=== PATIENT | male | born 1960 | race Hispanic/Latino ===

== ENCOUNTER 2016-10-28 13:25 | Inpatient (IN) | payer MEDICARE ==
[2016-10-28] MEDS ORDERED: DILAUDID ONE (13:46)
[2016-10-28] MEDS ORDERED: DILAUDID IV ONE ×2 (13:51→15:08)
[2016-10-28 14:26] LABS: Basophils % (Auto) 0.7 % (0.0-1.8); Eosinophils % (Auto) 5.3 % (0.0-4.3); Hematocrit 34.5 % (35.5-45.6); Hemoglobin 11.2 gm/dl (11.8-15.2); Mean Corpuscular HGB Conc 33 % (32-34); Mean Corpuscular Hemoglobin 27 pg (28-32); Mean Corpuscular Volume 83 fl (84-94); Platelet Count 104 K/mm3 (140-440); Red Blood Count 4.15 M/mm3 (3.65-5.03); Red Cell Distribution Width 13.4 % (13.2-15.2); White Blood Count 12.1 K/mm3 (4.5-11.0)
[2016-10-28] MEDS ORDERED: NACL 0.9% 1000 ML 1,000 ML ONE (14:29)
[2016-10-28] MEDS ORDERED: NACL 0.9% 1000 ML 1,000 ML IV ONE (14:30)
[2016-10-28 14:41] LABS: BUN/Creatinine Ratio 16.95; Calcium 8.7 mg/dL (8.4-10.2); Chloride 96.1 mmol/L (98-107); Potassium 5.4 mmol/L (3.6-5.0)
--- NOTE | 2016-10-28 14:43 | Emergency Department Report ---
HPI - General Chief Complaint: Fall Time Seen by Provider: 10/28/16 14:37 - HPI HPI: Chief complaint: Right hip pain HPI: Patient is [id number] diabetic with a history of hypertension and some "heart problem" who is noncompliant with his medications. Patient states he was walking to the bathroom and felt lightheaded and fell onto his right hip and is now having severe right hip pain. Patient denies being ill with nausea, vomiting, diarrhea, chest pain, cough or cold. Patient is hard of hearing in his right ear Mode of arrival: [EMS] Source: [Patient] and patient's Began: Occurred prior to admission Duration: Continuous Context: See above Quality: Sharp Severity: 9 out of 10 Improved with: Holding still Worsened with: Movement Associated signs and symptoms: Right hip pain ED Past Medical Hx - Past Medical History Previous Medical History?: Yes Hx Hypertension: Yes Hx Diabetes: Yes Additional medical history: cataracts - Surgical History Past Surgical History?: Yes Additional Surgical History: colon surgery - Social History Smoking Status: Never Smoker Substance Use Type: None - Medications Home Medications: Home Medications Medication Instructions Recorded Confirmed Last Taken Type glipiZIDE [glipiZIDE XL] 1 mg PO QDAY 09/13/14 10/28/16 Unknown History Carvedilol [Coreg] 12.5 mg PO BID #60 tablet 09/14/14 10/28/16 Unknown Rx Furosemide [Lasix] 20 mg PO DAILY #30 09/14/14 10/28/16 Unknown Rx Glimepiride [Amaryl] 1 mg PO QDDIAB #30 tablet 09/14/14 10/28/16 Unknown Rx ED Review of Systems ROS: Stated complaint: FELL AND NOW HAS HIP PAIN Other details as noted in HPI ROS Constitutional: No fever denies polydipsia but states he drinks a lot of water ENT: No uri symptoms Cardiovascular: No chest pain Respiratory: No sob or cough GI: No nausea vomiting or diarrhea : No dysuria frequency or urgency, denies polyuria Skin: No rash Neuro: No focal weakness or numbness Psych: No depression Josr/lymph: No edema Physical Exam - Physical Exam Vital Signs: Vital Signs 10/28/16 10/28/16 13:41 13:59 Temperature 97.6 F Pulse Rate 83 Respiratory 16 16 Rate Blood Pressure 152/85 O2 Sat by Pulse 95 99 Oximetry Physical Exam: GENERAL: The patient is well-developed well-nourished . Patient has an extremely flat affect. Patient is unkempt. HEENT: Normocephalic. Atraumatic. Extraocular motions are intact. Patient has moist mucous membranes. NECK: Supple. No meningitic signs are noted. There is no adenopathy noted. CHEST/LUNGS: Clear to auscultation. There is no respiratory distress noted. HEART/CARDIOVASCULAR: Regular. There is no tachycardia. There is no gallop rub or murmur. ABDOMEN: Abdomen is soft, nontender. Patient has normal bowel sounds. There is no abdominal distention. SKIN: There is no rash. There is no edema. There is no diaphoresis. NEURO: The patient is awake, alert, and oriented. The patient is cooperative. The patient has normal speech. MUSCULOSKELETAL: Tender right hip with decreased range of motion secondary to pain. Neurovascular intact. ED Course Vital Signs 10/28/16 10/28/16 13:41 13:59 Temperature 97.6 F Pulse Rate 83 Respiratory 16 16 Rate Blood Pressure 152/85 O2 Sat by Pulse 95 99 Oximetry - Reevaluation(s) Reevaluation #1: 10/28/16 14:[address] Pedersen who will see the patient in consult in the hospital. ED Medical Decision Making - Lab Data Result diagrams: 10/28/16 14:13 10/28/16 14:13 Laboratory Tests 10/28/16 14:13 Calcium 8.7 - EKG Data -: EKG Interpreted by Mo EKG shows normal: sinus rhythm Rate: normal (92) - EKG Data When compared to previous EKG there are: no significant change Interpretation: other (incomplete right bundle branch block, left anterior fascicular block) - Radiology Data interpreted by me: Chest x-ray shows no acute process. Right hip x-ray shows a nondisplaced right intertrochanteric fracture. Critical care attestation.: If time is entered above; I have spent that time in minutes in the direct care of this critically ill patient, excluding procedure time. ED Disposition Clinical Impression: CKD (chronic kidney disease), Hyperglycemia Fracture, intertrochanteric, right femur Qualifiers: Encounter type: initial encounter Fracture type: closed Qualified Code(s): S72.141A - Displaced intertrochanteric fracture of right femur, initial encounter for closed fracture Disposition: OP ADMITTED IP TO THIS HOSP Is pt being admited?: Yes Does the pt Need Aspirin: Yes Condition: Fair Time of Disposition: 15:13 (admit to the hospitalist)
[2016-10-28] MEDS ORDERED: NACL 0.9% 1000 ML IV ONE (14:45)
--- NOTE | 2016-10-28 14:57 | XRay Report ---
RIGHT HIP, 2 VIEWS History: Pain after fall. Findings: Subtle nondisplaced fracture lines are identified through the intertrochanteric region of the right femur. No calcified callus. The visualized right hemipelvis is intact. Normal articulation at the right hip. Mild osteopenia is suspected. Impression: Intertrochanteric fracture at the right hip.
[2016-10-28] MEDS ORDERED: ASPIRIN PO ONE (15:17)
--- NOTE | 2016-10-28 15:17 | XRay Report ---
CHEST ONE VIEW INDICATION: Fall, pain, dizziness. COMPARISON: 02/28/2010. FINDINGS: Portable, frontal chest radiographs, 2 images, demonstrate normal cardiomediastinal silhouette. Patient mildly rotated to the left. Improved bibasilar densities, though probable pleural thickening blunting the left costophrenic angle now remains. Otherwise clear lungs. Osteopenia. CONCLUSION: No acute disease in the chest. Thank you for the opportunity to participate in this patient's care.
[2016-10-28] MEDS ORDERED: DULCOLAX PR PRN (15:40)
[2016-10-28] MEDS ORDERED: TYLENOL PO PRN (15:40)
[2016-10-28] MEDS ORDERED: PROVENTIL IH PRN (15:40)
[2016-10-28] MEDS ORDERED: MILK OF MAGNESIA PO PRN (15:40)
[2016-10-28] MEDS ORDERED: D50W (25GM) IV PRN (15:43)
--- NOTE | 2016-10-28 15:43 | Admit Criteria Form ---
Admission Criteria Documentation: MUSCULOSKELETAL DISEASE GRG Clinical Indications for Admission to Inpatient Care (Place 'X' for any and all applicable criteria): Hospital admission is needed for appropriate care of the patient because of ANY ONE of the following: [X ]I. Fracture, dislocation, or other musculoskeletal injury requiring inpatient care(medical) as indicated by ANY ONE of the following(4)(5)(6)(7) [ ]a) Vertebral fracture requiring observation for instability or neurologic compromise (8) [ ]b) Compartment syndrome (proven or cannot be ruled out during observation level of care) (9) [ ]c) Limb-threatening injury [X ]d) Major injury requiring inpatient stabilization such as traction initiation or external fixation before internal fixation or closure of complex or open fracture [ ]e) Major injury requiring inpatient treatment after emergency or observation level care (as appropriate) [ ]f) Severe pain requiring acute inpatient management [ ]II. Newly diagnosed or suspected bone, joint, or orthopedic device infection (e.g., osteomyelitis, septic arthritis) needing ANY ONE of the following(1)(2)(3) [ ]a) IV antibiotics that cannot be initiated in other than inpatient setting (e.g., patient too unstable or home infusion not available) [ ]b) Device removal or replacement [ ]c) Bone or soft tissue debridement [ ]d) Joint drainage (drain placement or repetitive aspirations) [ ]III. Severe rheumatologic disease (e.g., systemic lupus erythematosus, rheumatoid arthritis) with complications or comorbidities (Also use Optimal Recovery Care Criteria or General Recovery Criteria as appropriate on the basis of predominant condition), including ANY ONE of the following(10 )(11)(12)(13) [ ]a) Severe infection (e.g., [employer] infection, sepsis) (14) [ ]b) Respiratory complications, including ANY ONE of the following: [ ]i) Pleural effusion with respiratory compromise [ ]ii) Pulmonary hypertension with congestive failure [ ]iii) Respiratory failure [ ]iv) Pulmonary hemorrhage (15) [ ]c) Hematologic disease, including ANY ONE of the following: [ ]i) Coagulopathy with bleeding [ ]ii) Thrombosis with hypercoagulable state [ ]iii) Thrombotic thrombocytopenic purpura [ ]d) Cerebritis with seizures, psychosis, or other severe abnormalities [ ]e) Vertebral destruction with monitoring needed for cervical myelopathy& possible respiratory compromise [ ]f) Exacerbation that requires inpatient treatment (e.g., intravenous immunosuppression) (16) [ ]g) Acute renal failure [ ]IV. Severe vasculitis with complications or comorbidities (Also use Optimal Recovery Care Criteria or General Recovery Criteria as appropriate on the basis of predominant condition), including ANY ONE of the following(11)(12)(17)(18)(19)(20) [ ]a) [employer] vasculitis with seizures, psychosis, or other severe abnormalities (22) [ ]b) Renal failure (16) [ ]c) Pulmonary hemorrhage (15) [ ]d) Cerebral infarction [ ]e) Gastrointestinal ischemia [ ]f) Gangrene or threatened amputation [ ]g) Exacerbation that requires inpatient treatment (e.g., intravenous immunosuppression) (19)(21) [ ]V. Severe myopathy as indicated by ANY ONE of the following (28)(29) [ ]a) New onset of airway compromise or inability to swallow [ ]b) Respiratory deterioration with observation needed for impending respiratory failure [ ]c) Exacerbation that requires inpatient treatment (e.g., intravenous immunosuppression) [ ]. Severe gout (crystal arthropathy) as indicated by ANY ONE of the following (23)(24) [ ]a) Severe pain requiring acute inpatient management [ ]b) Exacerbation that requires inpatient treatment (e.g., intravenous treatment) [ ]VII.Rhabdomyolysis and ANY ONE of the following (25)(26)(27) [ ]a) Acute renal failure [ ]b) Need for intravenous hydration after emergency or observation level care (as appropriate) [ ]c) Inability to maintain oral hydration [ ]d) Change in mental status [ ]e) Electrolyte abnormality that remains after emergency or observation level care (as appropriate) [ ]VIII Post amputation complication, as indicated by ANY ONE of the following [ ]a) Infection [ ]b) Dehiscence [ ]c) Myodesis failure [ ]IX. Severe pain requiring acute inpatient management as indicated by ALL of the following (30)(31)(32) [ ]a) Continuous or frequent (e.g., every 2 to 4 hrs) parenteral analgesics required [A] [ ]b) Rapid improvement expected from treatment or acute intervention ( e.g., surgery, anesthesia procedure[B] [ ]X. Musculoskeletal Disease and ALL of the following: [ ]a) Symptom or finding for which emergency and observation care have failed or are not considered appropriate (Use General Criteria: Observation Care as appropriate) [ ]b) Presence of ANY ONE of the following [ ]i) A General Admission Criteria [ ]ii) A Pediatric General Admission Criteria The original [facility] content created by [facility] has been revised. The portions of the content which have been revised are identified through the use of italic text or in bold, and [facility] has neither reviewed nor approved the modified material. All other unmodified content is copyright [facility]. Please see references footnoted in the original [facility] edition 2016 Admission Criteria Met: Yes
[2016-10-28] MEDS ORDERED: NACL 0.9% 1000 ML 1,000 ML IV SCH (16:00)
[2016-10-28 17:19] LABS: Bilirubin,Urine NEG (Negative); Blood,Urine SM (Negative); Ketones,Urine NEG (Negative); Leukocyte Esterase,Urine NEG (Negative); Mucus,Urine FEW /HPF; Nitrite,Urine NEG (Negative); Protein,Urine <15 mg/dL mg/dL (Negative); Urobilinogen,Urine < 2.0 mg/dL (<2.0); WBC,Urine < 1.0 /HPF (0.0-6.0)
[2016-10-28] MEDS: NOVOLOG SUB-Q SCH ×2 (17:22→23:55)
[2016-10-28 17:32] LABS: INR 1.02 (0.87-1.13)
--- NOTE | 2016-10-28 19:26 | History and Physical Report ---
History of Present Illness Date of examination: 10/28/16 Date of admission: 10/28/16 15:40 Chief complaint: hip fracture History of present illness: Patient is a 55 year old male with hx of DM, HTN, hyperlipidemia, diabetic retinopathy, who presents to the ER with following a trip and fall off. He tells the ER physician that he fell while walking into the bathroom and felt lightheaded and fell onto his right hip began having severe pain. But he told me that he had plugged and his phone wire and turned around and tripped on the wire. On arrival to the ER was noted to have a right intratrochanteric fracture. He denies any fever. Denies any nausea, vomiting, diarrhea. Denies any chest pain or shortness of breath. Denies any dysuria or urinary incontinence. At this point he rates his pain as 5/10 in intensity. It is aggravated by movement. I'll alleviated by being still. The ER physician has gone ahead to consult the orthopedic surgeon. In the ER was also noted to have a significantly elevated blood sugar. ROS Constitutional: No fever, fatigue or weight loss. Skin: No rash. Eyes: No recent vision problems or eye pain. ENT: No congestion, ear pain, or sore throat. Endocrine: No thyroid problems. Cardiovascular: No chest pain. Respiratory: No cough, shortness of breath, congestion, or wheezing. Gastrointestinal: No abdominal pain, nausea, vomiting, or diarrhea. Genitourinary: No dysuria. Musculoskeletal: Right hip pain. Neurologic: No seizures. Hematologic: No unusual bruising or bleeding. Psychiatric: No psychiatric problems, hallucinations or depression. All other systems reviewed and otherwise negative. Past History Past Medical History: diabetes, hypertension, hyperlipidemia, other (diabetic retinopathy) Past Surgical History: No surgical history Social history: , full code. denies: smoking, alcohol abuse, prescription drug abuse, IV drug use Family history: CAD, diabetes, hypertension, stroke Medications and Allergies Allergies Allergy/AdvReac Type Severity Reaction Status Date / Time No Known Allergies Allergy Verified 08/09/16 19:04 Home Medications Medication Instructions Recorded Confirmed Last Taken Type glipiZIDE [glipiZIDE XL] 1 mg PO QDAY 09/13/14 10/28/16 Unknown History Carvedilol [Coreg] 12.5 mg PO BID #60 tablet 09/14/14 10/28/16 Unknown Rx Furosemide [Lasix] 20 mg PO DAILY #30 09/14/14 10/28/16 Unknown Rx Glimepiride [Amaryl] 1 mg PO QDDIAB #30 tablet 09/14/14 10/28/16 Unknown Rx Active Meds: Active Medications Acetaminophen (Tylenol) 650 mg PO Q4H PRN PRN Reason: Pain MILD(1-3)/Fever >100.5/MANCINI Albuterol (Proventil) 2.5 mg IH Q3HRT PRN PRN Reason: Shortness Of Breath Albuterol/Ipratropium (Duoneb 0.5 Mg-3 Mg/3 Ml Soln) 1 ampul IH Q6HRT AAYUSH Bisacodyl (Dulcolax) 10 mg [place] QDAY PRN PRN Reason: Constipation unrelieved by MOM Carvedilol (Coreg) 12.5 mg PO BID AAYUSH Dextrose (D50w (25gm)) 50 ml IV PRN PRN PRN Reason: Hypoglycemia Docusate Sodium (Colace) 100 mg PO BID AAYUSH Furosemide (Lasix) 20 mg PO DAILY AAYUSH Heparin Sodium (Porcine) (Heparin) 5,000 unit SUB-Q Q12HR AAYUSH Sodium Chloride (Nacl 0.9% 1000 Ml) 1,000 mls @ 125 mls/hr IV DIRECT AAYUSH Stop: 10/28/16 20:00 Insulin Aspart (Novolog) 0 units SUB-Q ACHS AAYUSH PRN Reason: Protocol Last Admin: 10/28/16 17:22 Dose: 8 units Insulin Detemir (Levemir) 30 units SUB-Q QHS AAYUSH Magnesium Hydroxide (Milk Of Magnesia) 30 ml PO Q4H PRN PRN Reason: Constipation Morphine Sulfate (Morphine) 2 mg IV Q4H PRN PRN Reason: Pain, Moderate (4-6) Ondansetron HCl (Zofran) 4 mg IV Q8H PRN PRN Reason: N/V unrelieved by Reglan Exam - Physical Exam Narrative exam: VITAL SIGNS: Reviewed. GENERAL: The patient appeared well nourished and normally developed. Vital signs as documented. HEAD: No signs of head trauma. EYES: Pupils are equal. Extraocular motions intact. EARS: Hearing grossly intact. MOUTH: Oropharynx is normal. NECK: No adenopathy, no JVD. CHEST: Chest with clear breath sounds bilaterally. No wheezes, rales, or rhonchi. CARDIAC: Regular rate and rhythm. S1 and S2, without murmurs, gallops, or rubs. VASCULAR: No Edema. Peripheral pulses normal and equal in all extremities. ABDOMEN: Soft, without detectable tenderness. No sign of distention. No rebound or guarding, and no masses palpated. Bowel Sounds normal. MUSCULOSKELETAL: Right lower extremity shortened external rotated. Tenderness of the right hip. Extremities without clubbing, cyanosis or edema. NEUROLOGIC EXAM: Alert and oriented x 3. No focal sensory or strength deficits. Speech normal. Follows commands. PSYCHIATRIC: Mood normal. SKIN: Dry mucous membranes - Constitutional Vitals: Temp Pulse Resp BP Pulse Ox 98.8 F 108 H 18 114/69 95 10/28/16 18:08 10/28/16 18:08 10/28/16 18:08 10/28/16 18:08 10/28/16 18:08 Results - Labs CBC & Chem 7: 10/28/16 14:13 10/28/16 14:13 Labs: Laboratory Last Values WBC 12.1 K/mm3 (4.5-11.0) H 10/28/16 14:13 RBC 4.15 M/mm3 (3.65-5.03) 10/28/16 14:13 Hgb 11.2 gm/dl (11.8-15.2) L 10/28/16 14:13 Hct 34.5 % (35.5-45.6) L 10/28/16 14:13 MCV 83 fl (84-94) L 10/28/16 14:13 MCH 27 pg (28-32) L 10/28/16 14:13 MCHC 33 % (32-34) 10/28/16 14:13 RDW 13.4 % (13.2-15.2) 10/28/16 14:13 Plt Count 104 K/mm3 (140-440) L 10/28/16 14:13 Lymph % (Auto) 13.5 % (13.4-35.0) 10/28/16 14:13 Perkins % (Auto) 5.1 % (0.0-7.3) 10/28/16 14:13 Eos % (Auto) 5.3 % (0.0-4.3) H 10/28/16 14:13 Baso % (Auto) 0.7 % (0.0-1.8) 10/28/16 14:13 Lymph # 1.6 K/mm3 (1.2-5.4) 10/28/16 14:13 Perkins # 0.6 K/mm3 (0.0-0.8) 10/28/16 14:13 Eos # 0.6 K/mm3 (0.0-0.4) H 10/28/16 14:13 Baso # 0.1 K/mm3 (0.0-0.1) 10/28/16 14:13 Seg Neutrophils % 75.4 % (40.0-70.0) H 10/28/16 14:13 Seg Neutrophils # 9.1 K/mm3 (1.8-7.7) H 10/28/16 14:13 PT 13.3 Sec. (12.2-14.9) 10/28/16 16:09 INR 1.02 (0.87-1.13) 10/28/16 16:09 VBG pH 7.308 (7.320-7.420) L 10/28/16 14:58 Sodium 132 mmol/L (137-145) L 10/28/16 14:13 Potassium 5.4 mmol/L (3.6-5.0) H 10/28/16 14:13 Chloride 96.1 mmol/L (98-107) L 10/28/16 14:13 Carbon Dioxide 23 mmol/L (22-30) 10/28/16 14:13 Anion Gap 18 mmol/L 10/28/16 14:13 BUN 39 mg/dL (9-20) H 10/28/16 14:13 Creatinine 2.3 mg/dL (0.8-1.5) H 10/28/16 14:13 Estimated GFR 30 ml/min 10/28/16 14:13 BUN/Creatinine Ratio 16.95 % 10/28/16 14:13 Glucose 462 mg/dL (75-100) H 10/28/16 14:13 POC Glucose 350 (70-105) H 10/28/16 17:16 Hemoglobin A1c 14.8 % (4-6) H 10/28/16 16:09 Calcium 8.7 mg/dL (8.4-10.2) 10/28/16 14:13 Urine Color Yellow (Yellow) 10/28/16 16:31 Urine Turbidity Clear (Clear) 10/28/16 16:31 Urine pH 5.0 (5.0-7.0) 10/28/16 16:31 Ur Specific Dawson 1.017 (1.003-1.030) 10/28/16 16:31 Urine Protein <15 mg/dl mg/dL (Negative) 10/28/16 16:31 Urine Glucose (UA) >=500 mg/dL (Negative) 10/28/16 16:31 Urine Ketones Neg mg/dL (Negative) 10/28/16 16:31 Urine Blood Sm (Negative) 10/28/16 16:31 Urine Nitrite Neg (Negative) 10/28/16 16:31 Urine Bilirubin Neg (Negative) 10/28/16 16:31 Urine Urobilinogen < 2.0 mg/dL (<2.0) 10/28/16 16:31 Ur Leukocyte Esterase Neg (Negative) 10/28/16 16:31 Urine WBC (Auto) < 1.0 /HPF (0.0-6.0) 10/28/16 16:31 Urine RBC (Auto) 1.0 /HPF (0.0-6.0) 10/28/16 16:31 Urine Mucus Few /HPF 10/28/16 16:31 Ketones 5.0 mg/dL (0.2-2.8) H 10/28/16 14:58 - Imaging and Cardiology Chest x-ray: image reviewed (no acute pathology) Imaging and Cardiology: Hip x-ray shows intertrochanteric right hip fracture Assessment and Plan Assessment and plan: Patient is a 55 year old male with hx of DM, HTN, hyperlipidemia, diabetic retinopathy, who presents to the ER with following a trip and fall off. He tells the ER physician that he fell while walking into the bathroom and felt lightheaded and fell onto his right hip began having severe pain. But he told me that he had plugged and his phone wire and turned around and tripped on the wire. On arrival to the ER was noted to have a right intratrochanteric fracture. He denies any fever. Denies any nausea, vomiting, diarrhea. Denies any chest pain or shortness of breath. Denies any dysuria or urinary incontinence. At this point he rates his pain as 5/10 in intensity. It is aggravated by movement. Only elevated by being still The ER physician has gone ahead to consult the orthopedic surgeon. In the ER was also noted to have a significantly elevated blood sugar. * Right hip intratrochanteric fracture * HTN * Hyperlipidemia * Leukocytosis * Hyperkalemia * Uncontrolled diabetes mellitus * Chronic kidney disease-stage 3. Present of admission * Anemia * Thrombocytopenia PLAN * Admit to surgical floor * Consult orthopedic surgeon * Patient received Kayexalate in the ER will repeat potassium management * Restart home medications * Monitor electrolytes * We'll start the patient on insulin therapy * Monitor Accu-Cheks before meals daily at bedtime * If no improvement in blood glucose will require adjustment in therapy. * Incentive spirometry * DVT and GI prophylaxis Advance Directives: Yes Plan of care discussed with patient/family: Yes
[2016-10-28] MEDS: DUONEB 0.5 MG-3 MG/3 ML SOLN IH SCH (21:09)
[2016-10-28] MEDS: COREG PO SCH (23:00)
[2016-10-28] MEDS: LEVEMIR SUB-Q SCH (23:05)
[2016-10-28] MEDS: COLACE PO SCH (23:40)
[2016-10-28] MEDS: HEPARIN SUB-Q SCH (23:55)
[2016-10-29] MEDS: MORPHINE IV PRN ×4 (01:00→20:55)
[2016-10-29] MEDS: DUONEB 0.5 MG-3 MG/3 ML SOLN IH SCH ×4 (02:35→19:33)
[2016-10-29 05:46] LABS: Basophils % (Auto) 0.4 % (0.0-1.8); Eosinophils % (Auto) 0.4 % (0.0-4.3); Hematocrit 30.1 % (35.5-45.6); Hemoglobin 10.1 gm/dl (11.8-15.2); Mean Corpuscular HGB Conc 34 % (32-34); Mean Corpuscular Hemoglobin 28 pg (28-32); Mean Corpuscular Volume 82 fl (84-94); Red Blood Count 3.66 M/mm3 (3.65-5.03); Red Cell Distribution Width 13.3 % (13.2-15.2); White Blood Count 11.5 K/mm3 (4.5-11.0)
[2016-10-29 05:50] LABS: Platelet Count 86 K/mm3 (140-440)
[2016-10-29 06:04] LABS: BUN/Creatinine Ratio 16.81; Calcium 8.1 mg/dL (8.4-10.2); Chloride 100.8 mmol/L (98-107); Potassium 4.6 mmol/L (3.6-5.0)
[2016-10-29] MEDS: NOVOLOG SUB-Q SCH ×3 (08:28→22:50)
--- NOTE | 2016-10-29 08:37 | Query- Diabetes Complications ---
Jun Jefferson Date:__10/29/2016 Automation Tender/CDS:__Matt Hammond Phone#: Exercise your independent professional judgment when responding to query. Questions asked do not imply a particular answer is desired or expected. We greatly appreciate your clarification on this issue. Clinical Documentation States: The patient is a [id number] Male who was admitted due to Right Intertrochanteric Fracture. "significantly elevated blood sugar"; "Uncontrolled diabetes mellitus" (DARIEL Melchor in H&P on 10/28/2016). Blood Glucose 462 mg/dl Ketones 5.0 mg/dl Urine Glucose 500 mg/dl Clinical Findings Show: Serum: Glucose;_462 , BUN;_39 , Creatinine;__2.3 ,Ketones;__5.0___ _ Na+; , K+;__5.4___ Plasma Osmolality; Lactase; ABG: PO2; , PCO2; , HCO3; , SaO2; ,Base Excess; , Anion Gap; , pH; Urine: Ketones; , Protein; , Glucose;_500 Please clarify if this is: [x ] Diabetes with Hyperosmolarity [ ] Diabetic Ketoacidosis (DKA) [ ] Not applicable [ ] Other (Please specify): Please specify type as: [ ] Type I or Juvenile [ ] Out of control [ ] Inadequately controlled [ ] Poorly controlled [x ] Type II [ ] Out of control [ ] Inadequately controlled [x ] Poorly controlled Present on Admission: [ x] Yes (Y) [ ] Clinically undeterminable (W) [ ] No (N) Please also document response in your Progress Notes and/or Discharge Summary and indicate if the condition was present on admission. MTDD
--- NOTE | 2016-10-29 09:35 | Consultation ---
History of Present Illness - HPI Consult date: 10/29/16 Consult reason: fracture Past History Past Medical History: diabetes, hypertension, hyperlipidemia, other (diabetic retinopathy) Past Surgical History: No surgical history Social history: , full code. denies: smoking, alcohol abuse, prescription drug abuse, IV drug use Family history: CAD, diabetes, hypertension, stroke Medications and Allergies Allergies Allergy/AdvReac Type Severity Reaction Status Date / Time No Known Allergies Allergy Verified 08/09/16 19:04 Home Medications Medication Instructions Recorded Confirmed Last Taken Type glipiZIDE [glipiZIDE XL] 1 mg PO QDAY 09/13/14 10/28/16 Unknown History Carvedilol [Coreg] 12.5 mg PO BID #60 tablet 09/14/14 10/28/16 Unknown Rx Furosemide [Lasix] 20 mg PO DAILY #30 09/14/14 10/28/16 Unknown Rx Glimepiride [Amaryl] 1 mg PO QDDIAB #30 tablet 09/14/14 10/28/16 Unknown Rx Active Meds: Active Medications Acetaminophen (Tylenol) 650 mg PO Q4H PRN PRN Reason: Pain MILD(1-3)/Fever >100.5/MANCINI Last Admin: 10/29/16 04:46 Dose: 650 mg Albuterol (Proventil) 2.5 mg IH Q3HRT PRN PRN Reason: Shortness Of Breath Albuterol/Ipratropium (Duoneb 0.5 Mg-3 Mg/3 Ml Soln) 1 ampul IH TIDRT AAYUSH Bisacodyl (Dulcolax) 10 mg [place] QDAY PRN PRN Reason: Constipation unrelieved by MOM Carvedilol (Coreg) 12.5 mg PO BID [facility] Last Admin: 10/28/16 23:00 Dose: Not Given Dextrose (D50w (25gm)) 50 ml IV PRN PRN PRN Reason: Hypoglycemia Docusate Sodium (Colace) 100 mg PO BID [facility] Last Admin: 10/28/16 23:40 Dose: 100 mg Furosemide (Lasix) 20 mg PO DAILY [facility] Heparin Sodium (Porcine) (Heparin) 5,000 unit SUB-Q Q12HR [facility] Last Admin: 10/28/16 23:55 Dose: 5,000 unit Insulin Aspart (Novolog) 0 units SUB-Q ACHS [facility] PRN Reason: Protocol Last Admin: 10/29/16 08:28 Dose: 3 units Insulin Detemir (Levemir) 30 units SUB-Q QHS [facility] Last Admin: 10/28/16 23:05 Dose: Not Given Magnesium Hydroxide (Milk Of Magnesia) 30 ml PO Q4H PRN PRN Reason: Constipation Morphine Sulfate (Morphine) 2 mg IV Q4H PRN PRN Reason: Pain, Moderate (4-6) Last Admin: 10/29/16 08:28 Dose: 2 mg Ondansetron HCl (Zofran) 4 mg IV Q8H PRN PRN Reason: N/V unrelieved by Reglan Assessment and Plan 55 year old male with hx of DM, HTN, hyperlipidemia, diabetic retinopathy, who presents to the ER with following a trip and fall off. On arrival to the ER was noted to have a right intratrochanteric fracture. Uncontrolled AoDM and renal disease. Alert orientated, Chest clear, soft abdomen'Right leg externally rotated Rx Intertrochanteric right hip fracture Plan ORIF in Am if medically stable.
[2016-10-29] MEDS: HEPARIN SUB-Q SCH ×2 (10:00→22:18)
[2016-10-29] MEDS: COLACE PO SCH ×2 (10:00→21:00)
[2016-10-29] MEDS: COREG PO SCH (10:00)
[2016-10-29] MEDS ORDERED: LASIX PO SCH (10:00)
[2016-10-29] MEDS: LASIX PO SCH (10:00)
--- NOTE | 2016-10-29 14:53 | Progress Note ---
Assessment and Plan Assessment and plan: Patient is a 55 year old male with hx of DM, HTN, hyperlipidemia, diabetic retinopathy, who presents to the ER with following a trip and fall off. He tells the ER physician that he fell while walking into the bathroom and felt lightheaded and fell onto his right hip began having severe pain. But he told me that he had plugged and his phone wire and turned around and tripped on the wire. On arrival to the ER was noted to have a right intratrochanteric fracture. He denies any fever. Denies any nausea, vomiting, diarrhea. Denies any chest pain or shortness of breath. Denies any dysuria or urinary incontinence. At this point he rates his pain as 5/10 in intensity. It is aggravated by movement. Only elevated by being still The ER physician has gone ahead to consult the orthopedic surgeon. In the ER was also noted to have a significantly elevated blood sugar. * Right hip intratrochanteric fracture * HTN * Hyperlipidemia * Leukocytosis-Improving * Hyperkalemia- corrected * Uncontrolled diabetes mellitus- now improved * Chronic kidney disease-stage 3. Present of admission * Anemia * Thrombocytopenia PLAN * Patient medically stable to proceed to surgery is deemed low risk for adverse cardiovascular events from the surgery. Ok to proceed with orthopedic surgery * Orthopedic surgeon input appreciated * Patient received Kayexalate in the ER * Restart home medications * Monitor electrolytes * Awaiting A1c. Blood glucose improved. * Monitor Accu-Cheks before meals daily at bedtime * If no improvement in blood glucose will require adjustment in therapy. * Incentive spirometry * DVT and GI prophylaxis * History Interval history: Follow-up Right hip fracture Patient seen and examined this morning in mild pain of the right hip area. Denies any chest pain, nausea, vomiting, diarrhea No fever noted blood pressure controlled No adverse events reported to me by nursing staff Hospitalist Physical - Physical exam Narrative exam: VITAL SIGNS: Reviewed. GENERAL: The patient appeared well nourished and normally developed. Vital signs as documented. HEAD: No signs of head trauma. EYES: Pupils are equal. Extraocular motions intact. EARS: Hearing grossly intact. MOUTH: Oropharynx is normal. NECK: No adenopathy, no JVD. CHEST: Chest with clear breath sounds bilaterally. No wheezes, rales, or rhonchi. CARDIAC: Regular rate and rhythm. S1 and S2, without murmurs, gallops, or rubs. VASCULAR: No Edema. Peripheral pulses normal and equal in all extremities. ABDOMEN: Soft, without detectable tenderness. No sign of distention. No rebound or guarding, and no masses palpated. Bowel Sounds normal. MUSCULOSKELETAL: Right lower extremity shortened external rotated. Tenderness of the right hip. Extremities without clubbing, cyanosis or edema. NEUROLOGIC EXAM: Alert and oriented x 3. No focal sensory or strength deficits. Speech normal. Follows commands. PSYCHIATRIC: Mood normal. SKIN: Dry mucous membranes - Constitutional Vitals: Temp Pulse Resp BP Pulse Ox 98.4 F 96 H 16 135/86 98 10/29/16 12:00 10/29/16 12:00 10/29/16 12:00 10/29/16 12:00 10/29/16 12:00 Results - Labs CBC & Chem 7: 10/29/16 05:24 10/29/16 05:24 Labs: Laboratory Last Values WBC 11.5 K/mm3 (4.5-11.0) H 10/29/16 05:24 RBC 3.66 M/mm3 (3.65-5.03) 10/29/16 05:24 Hgb 10.1 gm/dl (11.8-15.2) L 10/29/16 05:24 Hct 30.1 % (35.5-45.6) L 10/29/16 05:24 MCV 82 fl (84-94) L 10/29/16 05:24 MCH 28 pg (28-32) 10/29/16 05:24 MCHC 34 % (32-34) 10/29/16 05:24 RDW 13.3 % (13.2-15.2) 10/29/16 05:24 Plt Count 86 K/mm3 (140-440) L 10/29/16 05:24 Lymph % (Auto) 8.0 % (13.4-35.0) L 10/29/16 05:24 [place] % (Auto) 9.2 % (0.0-7.3) H 10/29/16 05:24 Eos % (Auto) 0.4 % (0.0-4.3) 10/29/16 05:24 Baso % (Auto) 0.4 % (0.0-1.8) 10/29/16 05:24 Lymph # 0.9 K/mm3 (1.2-5.4) L 10/29/16 05:24 [place] # 1.1 K/mm3 (0.0-0.8) H 10/29/16 05:24 Eos # 0.0 K/mm3 (0.0-0.4) 10/29/16 05:24 Baso # 0.0 K/mm3 (0.0-0.1) 10/29/16 05:24 Seg Neutrophils % 82.0 % (40.0-70.0) H 10/29/16 05:24 Seg Neutrophils # 9.5 K/mm3 (1.8-7.7) H 10/29/16 05:24 PT 13.3 Sec. (12.2-14.9) 10/28/16 16:09 INR 1.02 (0.87-1.13) 10/28/16 16:09 VBG pH 7.308 (7.320-7.420) L 10/28/16 14:58 Sodium 135 mmol/L (137-145) L 10/29/16 05:24 Potassium 4.6 mmol/L (3.6-5.0) 10/29/16 05:24 Chloride 100.8 mmol/L (98-107) 10/29/16 05:24 Carbon Dioxide 21 mmol/L (22-30) L 10/29/16 05:24 Anion Gap 18 mmol/L 10/29/16 05:24 BUN 37 mg/dL (9-20) H 10/29/16 05:24 Creatinine 2.2 mg/dL (0.8-1.5) H 10/29/16 05:24 Estimated GFR 31 ml/min 10/29/16 05:24 BUN/Creatinine Ratio 16.81 % 10/29/16 05:24 Glucose 155 mg/dL (75-100) H 10/29/16 05:24 POC Glucose 157 (70-105) H 10/29/16 10:54 Hemoglobin A1c 14.8 % (4-6) H 10/28/16 16:09 Calcium 8.1 mg/dL (8.4-10.2) L 10/29/16 05:24 Urine Color Yellow (Yellow) 10/28/16 16:31 Urine Turbidity Clear (Clear) 10/28/16 16:31 Urine pH 5.0 (5.0-7.0) 10/28/16 16:31 Ur Specific [place] 1.017 (1.003-1.030) 10/28/16 16:31 Urine Protein <15 mg/dl mg/dL (Negative) 10/28/16 16:31 Urine Glucose (UA) >=500 mg/dL (Negative) 10/28/16 16:31 Urine Ketones Neg mg/dL (Negative) 10/28/16 16:31 Urine Blood Sm (Negative) 10/28/16 16:31 Urine Nitrite Neg (Negative) 10/28/16 16:31 Urine Bilirubin Neg (Negative) 10/28/16 16:31 Urine Urobilinogen < 2.0 mg/dL (<2.0) 10/28/16 16:31 Ur Leukocyte Esterase Neg (Negative) 10/28/16 16:31 Urine WBC (Auto) < 1.0 /HPF (0.0-6.0) 10/28/16 16:31 Urine RBC (Auto) 1.0 /HPF (0.0-6.0) 10/28/16 16:31 Urine Mucus Few /HPF 10/28/16 16:31 Ketones 5.0 mg/dL (0.2-2.8) H 10/28/16 14:58
[2016-10-29] MEDS: LEVEMIR SUB-Q SCH (23:05)
[2016-10-30] MEDS: COREG PO SCH ×3 (03:31→22:19)
[2016-10-30] MEDS: MORPHINE IV PRN ×2 (04:15→08:13)
[2016-10-30 06:33] LABS: Hematocrit 33.1 % (35.5-45.6); Hemoglobin 10.9 gm/dl (11.8-15.2); Mean Corpuscular HGB Conc 33 % (32-34); Mean Corpuscular Hemoglobin 27 pg (28-32); Mean Corpuscular Volume 82 fl (84-94); Red Blood Count 4.02 M/mm3 (3.65-5.03); Red Cell Distribution Width 13.4 % (13.2-15.2); White Blood Count 9.6 K/mm3 (4.5-11.0)
[2016-10-30 06:37] LABS: Platelet Count 87 K/mm3 (140-440)
[2016-10-30 06:51] LABS: BUN/Creatinine Ratio 15.83; Calcium 8.6 mg/dL (8.4-10.2); Potassium 4.8 mmol/L (3.6-5.0)
[2016-10-30] MEDS: NOVOLOG SUB-Q SCH ×4 (08:41→23:47)
[2016-10-30] MEDS: COLACE PO SCH ×2 (10:47→22:18)
[2016-10-30] MEDS: LASIX PO SCH (10:47)
[2016-10-30] MEDS: HEPARIN SUB-Q SCH ×2 (10:48→22:18)
[2016-10-30] MEDS ORDERED: NACL 0.9% 1000 ML 1,000 ML ONE (11:47)
[2016-10-30] MEDS ORDERED: ANCEF/STERILE WATER 2 GM/20 ML IV NR (12:00)
[2016-10-30] MEDS ORDERED: SUBLIMAZE ONE (12:10)
[2016-10-30] MEDS ORDERED: DIPRIVAN 10 MG/ML IV ONE (12:10)
[2016-10-30] MEDS ORDERED: DILAUDID ONE ×2 (12:10→13:54)
[2016-10-30] MEDS ORDERED: QUELICIN ONE (12:17)
[2016-10-30] MEDS ORDERED: ZOFRAN ONE (12:17)
[2016-10-30] MEDS ORDERED: ZEMURON IV ONE (12:17)
[2016-10-30] MEDS ORDERED: ANCEF/STERILE WATER 2 GM/20 ML IV ONE (12:19)
--- NOTE | 2016-10-30 12:40 | Progress Note ---
Assessment and Plan Assessment and plan: Patient is a 55 year old male with hx of DM, HTN, hyperlipidemia, diabetic retinopathy, who presents to the ER with following a trip and fall off. He tells the ER physician that he fell while walking into the bathroom and felt lightheaded and fell onto his right hip began having severe pain. But he told me that he had plugged and his phone wire and turned around and tripped on the wire. On arrival to the ER was noted to have a right intratrochanteric fracture. He denies any fever. Denies any nausea, vomiting, diarrhea. Denies any chest pain or shortness of breath. Denies any dysuria or urinary incontinence. At this point he rates his pain as 5/10 in intensity. It is aggravated by movement. Only elevated by being still The ER physician has gone ahead to consult the orthopedic surgeon. In the ER was also noted to have a significantly elevated blood sugar. * Right hip intratrochanteric fracture * HTN * Hyperlipidemia * Leukocytosis-Improving * Hyperkalemia- corrected * Uncontrolled diabetes mellitus- now improved * Chronic kidney disease-stage 3. Present of admission * Anemia * Thrombocytopenia PLAN * Patient medically stable to proceed to surgery is deemed low risk for adverse cardiovascular events from the surgery. Ok to proceed with orthopedic surgery * Orthopedic surgeon input appreciated * Patient received Kayexalate in the ER * Restart home medications * Monitor electrolytes * Awaiting A1c. Blood glucose improved. * Monitor Accu-Cheks before meals daily at bedtime * If no improvement in blood glucose will require adjustment in therapy. * Incentive spirometry * DVT and GI prophylaxis * History Interval history: Follow-up Right hip fracture Patient seen and examined this morning in mild pain of the right hip area. Denies any chest pain, nausea, vomiting, diarrhea No fever noted blood pressure controlled No adverse events reported to me by nursing staff Hospitalist Physical - Physical exam Narrative exam: VITAL SIGNS: Reviewed. GENERAL: The patient appeared well nourished and normally developed. Vital signs as documented. HEAD: No signs of head trauma. EYES: Pupils are equal. Extraocular motions intact. EARS: Hearing grossly intact. MOUTH: Oropharynx is normal. NECK: No adenopathy, no JVD. CHEST: Chest with clear breath sounds bilaterally. No wheezes, rales, or rhonchi. CARDIAC: Regular rate and rhythm. S1 and S2, without murmurs, gallops, or rubs. VASCULAR: No Edema. Peripheral pulses normal and equal in all extremities. ABDOMEN: Soft, without detectable tenderness. No sign of distention. No rebound or guarding, and no masses palpated. Bowel Sounds normal. MUSCULOSKELETAL: Right lower extremity shortened external rotated. Tenderness of the right hip. Extremities without clubbing, cyanosis or edema. NEUROLOGIC EXAM: Alert and oriented x 3. No focal sensory or strength deficits. Speech normal. Follows commands. PSYCHIATRIC: Mood normal. SKIN: Dry mucous membranes - Constitutional Vitals: Temp Pulse Resp BP Pulse Ox 98.0 F 99 H 16 148/83 95 10/30/16 11:15 10/30/16 11:15 10/30/16 11:15 10/30/16 11:15 10/30/16 11:15 Results - Labs CBC & Chem 7: 10/30/16 05:51 10/30/16 05:51 Labs: Laboratory Last Values WBC 9.6 K/mm3 (4.5-11.0) 10/30/16 05:51 RBC 4.02 M/mm3 (3.65-5.03) 10/30/16 05:51 Hgb 10.9 gm/dl (11.8-15.2) L 10/30/16 05:51 Hct 33.1 % (35.5-45.6) L 10/30/16 05:51 MCV 82 fl (84-94) L 10/30/16 05:51 MCH 27 pg (28-32) L 10/30/16 05:51 MCHC 33 % (32-34) 10/30/16 05:51 RDW 13.4 % (13.2-15.2) 10/30/16 05:51 Plt Count 87 K/mm3 (140-440) L 10/30/16 05:51 Lymph % (Auto) 8.0 % (13.4-35.0) L 10/29/16 05:24 [place] % (Auto) 9.2 % (0.0-7.3) H 10/29/16 05:24 Eos % (Auto) 0.4 % (0.0-4.3) 10/29/16 05:24 Baso % (Auto) 0.4 % (0.0-1.8) 10/29/16 05:24 Lymph # 0.9 K/mm3 (1.2-5.4) L 10/29/16 05:24 [place] # 1.1 K/mm3 (0.0-0.8) H 10/29/16 05:24 Eos # 0.0 K/mm3 (0.0-0.4) 10/29/16 05:24 Baso # 0.0 K/mm3 (0.0-0.1) 10/29/16 05:24 Seg Neutrophils % 82.0 % (40.0-70.0) H 10/29/16 05:24 Seg Neutrophils # 9.5 K/mm3 (1.8-7.7) H 10/29/16 05:24 PT 13.3 Sec. (12.2-14.9) 10/28/16 16:09 INR 1.02 (0.87-1.13) 10/28/16 16:09 VBG pH 7.308 (7.320-7.420) L 10/28/16 14:58 Sodium 134 mmol/L (137-145) L 10/30/16 05:51 Potassium 4.8 mmol/L (3.6-5.0) 10/30/16 05:51 Chloride 98.0 mmol/L (98-107) 10/30/16 05:51 Carbon Dioxide 21 mmol/L (22-30) L 10/30/16 05:51 Anion Gap 20 mmol/L 10/30/16 05:51 BUN 38 mg/dL (9-20) H 10/30/16 05:51 Creatinine 2.4 mg/dL (0.8-1.5) H 10/30/16 05:51 Estimated GFR 28 ml/min 10/30/16 05:51 BUN/Creatinine Ratio 15.83 % 10/30/16 05:51 Glucose 170 mg/dL (75-100) H 10/30/16 05:51 POC Glucose 179 (70-105) H 10/30/16 11:39 Hemoglobin A1c 14.8 % (4-6) H 10/28/16 16:09 Calcium 8.6 mg/dL (8.4-10.2) 10/30/16 05:51 Urine Color Yellow (Yellow) 10/28/16 16:31 Urine Turbidity Clear (Clear) 10/28/16 16:31 Urine pH 5.0 (5.0-7.0) 10/28/16 16:31 Ur Specific [place] 1.017 (1.003-1.030) 10/28/16 16:31 Urine Protein <15 mg/dl mg/dL (Negative) 10/28/16 16:31 Urine Glucose (UA) >=500 mg/dL (Negative) 10/28/16 16:31 Urine Ketones Neg mg/dL (Negative) 10/28/16 16:31 Urine Blood Sm (Negative) 10/28/16 16:31 Urine Nitrite Neg (Negative) 10/28/16 16:31 Urine Bilirubin Neg (Negative) 10/28/16 16:31 Urine Urobilinogen < 2.0 mg/dL (<2.0) 10/28/16 16:31 Ur Leukocyte Esterase Neg (Negative) 10/28/16 16:31 Urine WBC (Auto) < 1.0 /HPF (0.0-6.0) 10/28/16 16:31 Urine RBC (Auto) 1.0 /HPF (0.0-6.0) 10/28/16 16:31 Urine Mucus Few /HPF 10/28/16 16:31 Ketones 5.0 mg/dL (0.2-2.8) H 10/28/16 14:58
[2016-10-30] MEDS ORDERED: NACL 0.9% IR ONE (13:02)
[2016-10-30] MEDS ORDERED: NEOSPORIN GU IR ONE (13:02)
--- NOTE | 2016-10-30 13:14 | Procedure Note ---
Date of procedure: 10/30/16 Pre-op diagnosis: Intertroch fx right hip Post-op diagnosis: same Procedure: TFN nail fixation of hip FX Anesthesia: GETA Surgeon: MABEL OTT Estimated blood loss: 50-100ml Pathology: none Condition: stable Disposition: PACU
--- NOTE | 2016-10-30 13:43 | Operative Report ---
PREOPERATIVE DIAGNOSIS: Intertrochanteric fracture, right hip. POSTOPERATIVE DIAGNOSIS: Intertrochanteric fracture, right hip. OPERATIVE PROCEDURE: Reduction and stabilization of intertrochanteric fracture, right hip using TFN nail system. SURGEON: Paola Arroyo MD [employer] PROFESSOR: Vicki Barr CSA. ANESTHESIA: General. BLOOD LOSS: Approximately 100 mL. PROCEDURE IN DETAIL: The patient was taken to the surgery suite, satisfactory analgesia obtained with general anesthetics. The patient was positioned on the fracture table. Fracture reduced with traction, internal rotation and under fluoroscopy, reduction was confirmed. The right hip area was prepped with ChloraPrep, satisfactorily draped. Incision was made proximal to the greater trochanter. Guide pin inserted to the tip of the trochanter and guided across the fracture site under fluoroscopy control. A guide pin was then positioned. The trochanteric area was then reamed to 14 mm to accommodate the TFN nail. Guide pin was then positioned lateral cortex to the femoral neck across the fracture site at 130 degree angle. Guide pin position confirmed with AP and lateral fluoroscopy and the far cortex was then reamed. The helical screw length 95 mm was then applied and the position was verified with fluoroscopy and appeared satisfactory. With the helical screw placement confirmed, it was locked in place. The drill hole was then made to the distal locking mechanism and a 34 mm 4.5 diameter screw was applied thereby locking the nail distally. Wound was irrigated. Hemostasis was obtained by cauterizing the bleeding points, closed in layers in the standard fashion with 2-0 Vicryl and shankar. Procedure was terminated, transferred to recovery room in satisfactory condition, tolerated the procedure well and at the completion of procedure, counts were accurate. JOB# [id number] RAZ/GRAY
[2016-10-30] MEDS: DILAUDID IV PRN ×2 (13:59→14:15)
--- NOTE | 2016-10-30 14:18 | Post Anesthesia Evaluation ---
- Post Anesthesia Evaluation Patient Participated: Yes Airway Patent: Yes Stable Respiratory Function: Yes Nausea/Vomiting: No Temp > 96.8F: Yes Pain Manageable: Yes Adequeate Hydration: Yes Anesthesia Complications: No Block Receding Appropriately: Not Applicable Patient on Ventilator: No
--- NOTE | 2016-10-30 14:19 | Anesthesia Day of Surgery ---
Anesthesia Day of Surgery - Day of Surgery Patient Examined: Yes Patient H&P Reviewed: Yes Patient is NPO: Yes
--- NOTE | 2016-10-30 14:19 | Anesthesia Consultation ---
Anesthesia Consult and Med Hx Date of service: 10/30/16 - Airway Anesthetic Teeth Evaluation: Poor ROM Head & Neck: Adequate Mental/Hyoid Distance: Adequate Mallampati Class: Class II Intubation Access Assessment: Probably Good - Pulmonary Exam CTA: Yes - Cardiac Exam Cardiac Exam: RRR - Pre-Operative Health Status ASA Pre-Surgery Classification: ASA3 Proposed Anesthetic Plan: General - Pre-Anesthesia Comment Pre-Anesthesia Comments: thrombocytopenia - Pulmonary Hx Smoking: No Hx Asthma: No Hx Pneumonia: No - Cardiovascular System Hx Hypertension: Yes (HLD) - Central Nervous System Hx Psychiatric Problems: No - Endocrine Hx Renal Disease: Yes (CKD stage three) Hx End Stage Renal Disease: (CKD) Hx Non-Insulin Dependent Diabetes: Yes
[2016-10-30] MEDS ORDERED: AMBIEN PO PRN (14:36)
[2016-10-30] MEDS ORDERED: SODIUM CHLORIDE FLUSH SYRINGE 10 ML IV NR (14:36)
[2016-10-30] MEDS: ANCEF/NS 1 GM/50 ML 1 GM/50 ML BAG IV SCH (21:02)
[2016-10-30] MEDS: NORCO 5/325 PO PRN (21:03)
[2016-10-30] MEDS: TYLENOL PO PRN (21:03)
[2016-10-30] MEDS: DUONEB 0.5 MG-3 MG/3 ML SOLN IH SCH ×3 (21:24→21:27)
[2016-10-30] MEDS: LEVEMIR SUB-Q SCH (22:27)
[2016-10-31] MEDS: NACL 0.9% 1000 ML 1,000 ML IV SCH ×3 (00:30→09:10)
[2016-10-31 05:48] LABS: Hematocrit 29.5 % (35.5-45.6); Hemoglobin 9.6 gm/dl (11.8-15.2)
[2016-10-31] MEDS: NORCO 5/325 PO PRN ×3 (06:00→18:36)
[2016-10-31 06:07] LABS: BUN/Creatinine Ratio 13.84; Calcium 7.7 mg/dL (8.4-10.2); Chloride 105.3 mmol/L (98-107); Potassium 4.5 mmol/L (3.6-5.0)
[2016-10-31] MEDS: ANCEF/NS 1 GM/50 ML 1 GM/50 ML BAG IV SCH (06:21)
[2016-10-31] MEDS ORDERED: NACL 0.9% 500 ML 500 ML IV ONE (06:38)
--- NOTE | 2016-10-31 06:41 | Progress Note ---
Assessment and Plan Assessment and plan: Patient is a 55 year old male with hx of DM, HTN, hyperlipidemia, diabetic retinopathy, who presents to the ER with following a trip and fall off. He tells the ER physician that he fell while walking into the bathroom and felt lightheaded and fell onto his right hip began having severe pain. But he told me that he had plugged and his phone wire and turned around and tripped on the wire. On arrival to the ER was noted to have a right intratrochanteric fracture. He denies any fever. Denies any nausea, vomiting, diarrhea. Denies any chest pain or shortness of breath. Denies any dysuria or urinary incontinence. At this point he rates his pain as 5/10 in intensity. It is aggravated by movement. Only elevated by being still The ER physician has gone ahead to consult the orthopedic surgeon. In the ER was also noted to have a significantly elevated blood sugar. * Right hip intratrochanteric fracture POD 1 S/P intertrochanteric fx right hip * Hypotension- RESOLVED * HTN * Hyperlipidemia * Leukocytosis-Improving * Hyperkalemia- corrected * Uncontrolled diabetes mellitus- was hypoglycemic today but resolved * Acute kidney injury on Chronic kidney disease-stage 3. Likely vasomotor nephropathy Present of admission * Anemia * Thrombocytopenia PLAN * POD 1 S/P intertrochanteric fx right hip * Give bolus of IVF NS 500CC x1 * Orthopedic surgeon input appreciated * Monitor electrolytes * Am Labs * Hold lasix today * A1c 14.1- diabetic education. Continue on Insulin on discharge * Monitor Accu-Cheks before meals daily at bedtime * Rehabilitation assessment * Anticipate discharge in a.m. * Incentive spirometry * Patient received Kayexalate in the ER * Continue home medications * Discussed with surgery Dr Zuleta and physiatrists Dr. Martinez * Plan of care discussed in detail with the patien * DVT and GI prophylaxis History Interval history: Follow-up Right hip fracture Patient seen and examined this morning reports improvement and no acute distress. Concerned about his TV volume that is not working,. Assured him we will get Engineering working on it. Denies any chest pain, nausea, vomiting, diarrhea No fever noted blood pressure controlled No adverse events reported to me by nursing staff Hospitalist Physical - Physical exam Narrative exam: VITAL SIGNS: Reviewed. GENERAL: The patient appeared well nourished and normally developed. Vital signs as documented. HEAD: No signs of head trauma. EYES: Pupils are equal. Extraocular motions intact. EARS: Hearing grossly intact. MOUTH: Oropharynx is normal. NECK: No adenopathy, no JVD. CHEST: Chest with clear breath sounds bilaterally. No wheezes, rales, or rhonchi. CARDIAC: Regular rate and rhythm. S1 and S2, without murmurs, gallops, or rubs. VASCULAR: No Edema. Peripheral pulses normal and equal in all extremities. ABDOMEN: Soft, without detectable tenderness. No sign of distention. No rebound or guarding, and no masses palpated. Bowel Sounds normal. MUSCULOSKELETAL: Right hip incision intact. No overt drainage. Extremities without clubbing, cyanosis or edema. NEUROLOGIC EXAM: Alert and oriented x 3. No focal sensory or strength deficits. Speech normal. Follows commands. PSYCHIATRIC: Mood normal. SKIN: Dry mucous membranes - Constitutional Vitals: Temp Pulse Resp BP Pulse Ox 98.7 F 102 H 18 97/52 96 10/30/16 15:25 10/30/16 23:39 10/30/16 23:39 10/30/16 22:19 10/30/16 23:39 Results - Labs CBC & Chem 7: 10/31/16 05:23 10/31/16 05:23 Labs: Laboratory Last Values WBC 9.6 K/mm3 (4.5-11.0) 10/30/16 05:51 RBC 4.02 M/mm3 (3.65-5.03) 10/30/16 05:51 Hgb 9.6 gm/dl (11.8-15.2) L 10/31/16 05:23 Hct 29.5 % (35.5-45.6) L 10/31/16 05:23 MCV 82 fl (84-94) L 10/30/16 05:51 MCH 27 pg (28-32) L 10/30/16 05:51 MCHC 33 % (32-34) 10/30/16 05:51 RDW 13.4 % (13.2-15.2) 10/30/16 05:51 Plt Count 87 K/mm3 (140-440) L 10/30/16 05:51 Lymph % (Auto) 8.0 % (13.4-35.0) L 10/29/16 05:24 [place] % (Auto) 9.2 % (0.0-7.3) H 10/29/16 05:24 Eos % (Auto) 0.4 % (0.0-4.3) 10/29/16 05:24 Baso % (Auto) 0.4 % (0.0-1.8) 10/29/16 05:24 Lymph # 0.9 K/mm3 (1.2-5.4) L 10/29/16 05:24 [place] # 1.1 K/mm3 (0.0-0.8) H 10/29/16 05:24 Eos # 0.0 K/mm3 (0.0-0.4) 10/29/16 05:24 Baso # 0.0 K/mm3 (0.0-0.1) 10/29/16 05:24 Seg Neutrophils % 82.0 % (40.0-70.0) H 10/29/16 05:24 Seg Neutrophils # 9.5 K/mm3 (1.8-7.7) H 10/29/16 05:24 PT 13.3 Sec. (12.2-14.9) 10/28/16 16:09 INR 1.02 (0.87-1.13) 10/28/16 16:09 VBG pH 7.308 (7.320-7.420) L 10/28/16 14:58 Sodium 141 mmol/L (137-145) D 10/31/16 05:23 Potassium 4.5 mmol/L (3.6-5.0) 10/31/16 05:23 Chloride 105.3 mmol/L (98-107) 10/31/16 05:23 Carbon Dioxide 22 mmol/L (22-30) 10/31/16 05:23 Anion Gap 18 mmol/L 10/31/16 05:23 BUN 36 mg/dL (9-20) H 10/31/16 05:23 Creatinine 2.6 mg/dL (0.8-1.5) H 10/31/16 05:23 Estimated GFR 26 ml/min 10/31/16 05:23 BUN/Creatinine Ratio 13.84 % 10/31/16 05:23 Glucose 81 mg/dL (75-100) 10/31/16 05:23 POC Glucose 152 (70-105) H 10/30/16 22:26 Hemoglobin A1c 14.8 % (4-6) H 10/28/16 16:09 Calcium 7.7 mg/dL (8.4-10.2) L 10/31/16 05:23 Urine Color Yellow (Yellow) 10/28/16 16:31 Urine Turbidity Clear (Clear) 10/28/16 16:31 Urine pH 5.0 (5.0-7.0) 10/28/16 16:31 Ur Specific [place] 1.017 (1.003-1.030) 10/28/16 16:31 Urine Protein <15 mg/dl mg/dL (Negative) 10/28/16 16:31 Urine Glucose (UA) >=500 mg/dL (Negative) 10/28/16 16:31 Urine Ketones Neg mg/dL (Negative) 10/28/16 16:31 Urine Blood Sm (Negative) 10/28/16 16:31 Urine Nitrite Neg (Negative) 10/28/16 16:31 Urine Bilirubin Neg (Negative) 10/28/16 16:31 Urine Urobilinogen < 2.0 mg/dL (<2.0) 10/28/16 16:31 Ur Leukocyte Esterase Neg (Negative) 10/28/16 16:31 Urine WBC (Auto) < 1.0 /HPF (0.0-6.0) 10/28/16 16:31 Urine RBC (Auto) 1.0 /HPF (0.0-6.0) 10/28/16 16:31 Urine Mucus Few /HPF 10/28/16 16:31 Ketones 5.0 mg/dL (0.2-2.8) H 10/28/16 14:58
--- NOTE | 2016-10-31 08:25 | Progress Note ---
Assessment and Plan 55 year old male with hx of DM, HTN, hyperlipidemia, diabetic retinopathy, Chest clear, soft abdomen S/P ORIF.right hip REC OOB c PT Transfer to [place]. - Patient Problems (1) Fracture, intertrochanteric, right femur Current Visit: Yes Status: Resolved Qualifiers: Encounter type: initial encounter Fracture type: closed Open fracture type: O Fracture healing: F Qualified Code(s): S72.141A - Displaced intertrochanteric fracture of right femur, initial encounter for closed fracture Subjective Date of service: 10/31/16 Objective Vital signs: Vital Signs - 12hr 10/30/16 10/30/16 10/30/16 20:46 21:27 22:19 Pulse Rate 104 H Pulse Rate [ 103 H Anterior Bilateral Upper Lobe] Pulse Rate [ From Monitor] Pulse Rate [ Left Brachial] Respiratory Rate Respiratory 18 Rate [Anterior Bilateral Upper Lobe] Blood Pressure 97/52 O2 Sat by Pulse 97 Oximetry 10/30/16 23:39 Pulse Rate Pulse Rate [ Anterior Bilateral Upper Lobe] Pulse Rate [ 102 H From Monitor] Pulse Rate [ 104 H Left Brachial] Respiratory 18 Rate Respiratory Rate [Anterior Bilateral Upper Lobe] Blood Pressure O2 Sat by Pulse 96 Oximetry - Labs CBC & BMP: 10/31/16 05:23 10/31/16 05:23 Labs: Abnormal lab results 10/30/16 10/30/16 10/30/16 Range/Units 11:39 13:50 16:38 Hgb (11.8-15.2) gm/dl Hct (35.5-45.6) % BUN (9-20) mg/dL Creatinine (0.8-1.5) mg/dL POC Glucose 179 H 197 H 259 H (70-105) Calcium (8.4-10.2) mg/dL 10/30/16 10/31/16 10/31/16 Range/Units 22:26 05:23 05:23 Hgb 9.6 L (11.8-15.2) gm/dl Hct 29.5 L (35.5-45.6) % BUN 36 H (9-20) mg/dL Creatinine 2.6 H (0.8-1.5) mg/dL POC Glucose 152 H (70-105) Calcium 7.7 L (8.4-10.2) mg/dL 10/31/16 10/31/16 Range/Units 07:24 08:15 Hgb (11.8-15.2) gm/dl Hct (35.5-45.6) % BUN (9-20) mg/dL Creatinine (0.8-1.5) mg/dL POC Glucose 50 L 58 L (70-105) Calcium (8.4-10.2) mg/dL
--- NOTE | 2016-10-31 09:01 | XRay Report ---
RIGHT HIP, 2 VIEWS: HISTORY: Right hip fracture, pain. FINDINGS: 2 fluoroscopic images of the right hip were obtained prior to surgery. Nondisplaced right IT fracture is noted. Normal articulation at the right hip. IMPRESSION: Intertrochanteric fracture at the right hip.
--- NOTE | 2016-10-31 09:01 | XRay Report ---
RIGHT HIP, 2 VIEWS: HISTORY: Right hip fracture. FINDINGS: 2 fluoroscopic images of the right hip were obtained after surgery. There has been internal fixation of the right IT fracture with intramedullary ariella and femoral neck screw. Alignment is anatomic. Normal articulation at the hip. IMPRESSION: Stable appearance of the internally fixated proximal right femur fracture.
[2016-10-31] MEDS: DUONEB 0.5 MG-3 MG/3 ML SOLN IH SCH ×4 (09:10→20:17)
[2016-10-31] MEDS: HEPARIN SUB-Q SCH ×2 (09:13→22:50)
[2016-10-31] MEDS: COREG PO SCH ×2 (09:13→22:50)
[2016-10-31] MEDS: COLACE PO SCH ×2 (09:13→22:50)
[2016-10-31] MEDS: THERAGRAN Tab PO SCH (09:14)
[2016-10-31] MEDS: NOVOLOG SUB-Q SCH ×4 (09:15→22:50)
--- NOTE | 2016-10-31 17:18 | Discharge Summary ---
Providers - Providers Date of Admission: 10/28/16 15:40 Date of discharge: 11/01/16 Attending physician: DARIEL ARTIS MD 10/28/16 15:43 Consult to Physician [CONS] Routine Consulting Provider: KENYA LOCKE Reason For Exam: right hip fracture Place consult to:: Dr. Locke Notified:: yes Phone number called:: [phone] Was contact made?: Yes If yes, spoke with:: Dr. Locke Time called:: 14:36 10/30/16 14:36 Physical Therapy Evaluation and Treat [CONS] Routine Comment: Reason For Exam: hip fx Weight bearing status?: Partial wt bearing 10/30/16 15:42 Occupational Therapy Evaluate and Treat [CONS] Routine Comment: Reason For Exam: eval and treat 10/31/16 16:54 Consult to Physician [CONS] Routine Consulting Provider: TAMRA ISRAEL Reason For Exam: Rehab eval- Hip fracture Primary care physician: PHOTOGRAPHIC PLATE MAKER Hospitalization Reason for admission: hip fracture Condition: Fair Hospital course: Patient is a 55 year old male with hx of DM, HTN, hyperlipidemia, diabetic retinopathy, who presents to the ER with following a trip and fall off. He tells the ER physician that he fell while walking into the bathroom and felt lightheaded and fell onto his right hip began having severe pain. But he told me that he had plugged and his phone wire and turned around and tripped on the wire. On arrival to the ER was noted to have a right intratrochanteric fracture. He denies any fever. Denies any nausea, vomiting, diarrhea. Denies any chest pain or shortness of breath. Denies any dysuria or urinary incontinence. At this point he rates his pain as 5/10 in intensity. It is aggravated by movement. Only elevated by being still The ER physician has gone ahead to consult the orthopedic surgeon. In the ER was also noted to have a significantly elevated blood sugar. He was started on Lantus at bedtime subsequently was overcorrected requiring D50. This was subsequently decreased in regards to Levemir to 10 units. He did receive Kayexalate and subsequently developed diarrhea this has also resolved. He is legally blind with diabetic retinopathy unfortunately has not followed with his primary care physician or an third officer have discussed this extensively with him he verbalized understanding. He'll fortunately would not be a good candidate for inpatient acute rehabilitation will need skilled rehabilitation facility. He did have mild drop in his blood count. Although no bleeding was noted at the surgical site. I anticipate that this will recover shortly. I recommended a repeat H&H in 3 days. Also recommended an outpatient evaluation by assistant construction superintendent, and third officer. I have Provided bedside education on diabetic management. Patient again verbalized understanding. I Do question his impressions to us that he does everything for himself at home. * Right hip intratrochanteric fracture POD 2 S/P intertrochanteric fx right hip * Hypotension- RESOLVED * HTN * Hyperlipidemia * Leukocytosis-Improving * Diarrhea * Hyperkalemia- corrected * Diabetic retinopathy-legally blind * Uncontrolled diabetes mellitus-recurrent hypoglycemia * Acute kidney injury on Chronic kidney disease-stage 3. Likely vasomotor nephropathy Present of admission * Anemia- * Thrombocytopenia Disposition: DC/TX INPT REHAB FACILITY Time spent for discharge: 35 MIN Core Measure Documentation - Palliative Care Palliative Care/ Comfort Measures: Not Applicable - Core Measures Any of the following diagnoses?: none - VTE Discharge Requirements Deep Vein Thrombosis/Pulmonary Embolism Present on Admission: No Exam - Physical Exam Narrative exam: VITAL SIGNS: Reviewed. GENERAL: The patient appeared well nourished and normally developed. Vital signs as documented. HEAD: No signs of head trauma. EYES: Pupils are equal. EARS: Hearing grossly intact. MOUTH: Oropharynx is normal. NECK: No adenopathy, no JVD. CHEST: Chest with clear breath sounds bilaterally. No wheezes, rales, or rhonchi. CARDIAC: Regular rate and rhythm. S1 and S2, without murmurs, gallops, or rubs. VASCULAR: No Edema. Peripheral pulses normal and equal in all extremities. ABDOMEN: Soft, without detectable tenderness. No sign of distention. No rebound or guarding, and no masses palpated. Bowel Sounds normal. MUSCULOSKELETAL: Right hip incision intact. No overt drainage. Extremities without clubbing, cyanosis or edema. NEUROLOGIC EXAM: Alert and oriented x 3. No focal sensory or strength deficits. Speech normal. Follows commands. PSYCHIATRIC: Mood normal. SKIN: Dry mucous membranes - Constitutional Vitals: Temp Pulse Resp BP Pulse Ox 97.8 F 87 18 79/55 96 10/31/16 16:30 10/31/16 16:30 10/31/16 16:30 10/31/16 16:30 10/31/16 16:30 Plan Activity: advance as tolerated, fall precautions Diet: diabetic Special Instructions: record daily BP diary, record blood sugar diary Additional Instructions: Should have repeat basic metabolic profile by primary care physician. Also recommended an outpatient nephrology evaluation for CKD on discharge from rehabilitation. Repeat Hemoglobin and hematocrit in 2 days. Also recommend following with GI for outpatient age appropriate screening. Follow with opthalmologist. can contact insurance to find out who is on his plan Follow up with: KENYA LOCKE MD [Staff Physician] - 7 Days PRIMARY MD SABRINA [Primary Care Provider] - 7 Days PAOLA LAGUNAS MD [Staff Physician] - 7 Days Prescriptions: Insulin Detemir [Levemir VIAL] 12 unit SQ QHS 30 Days Docusate Sodium [Colace CAP] 100 mg PO BID #10 capsule HYDROcodone/APAP 5-325 [[place] 5-325 mg TAB] 1 each PO Q6H PRN #20 tablet PRN Reason: Pain, Moderate (4-6) Multivitamin Tab [Multiple Vitamin TAB (Theragran)] 1 each PO QDAY #30 tablet
[2016-10-31] MEDS: ZOFRAN IV PRN (17:25)
[2016-10-31] MEDS: LEVEMIR SUB-Q SCH (22:50)
[2016-11-01 06:03] LABS: Hematocrit 26.6 % (35.5-45.6); Hemoglobin 8.6 gm/dl (11.8-15.2)
[2016-11-01 06:27] LABS: BUN/Creatinine Ratio 14.61; Calcium 7.3 mg/dL (8.4-10.2); Chloride 107.2 mmol/L (98-107); Potassium 3.9 mmol/L (3.6-5.0)
[2016-11-01] MEDS ORDERED: D50W (25GM) IV ONE ×2 (08:38→17:54)
[2016-11-01] MEDS: DUONEB 0.5 MG-3 MG/3 ML SOLN IH SCH ×2 (08:49→15:09)
[2016-11-01] MEDS: NOVOLOG SUB-Q SCH ×2 (09:01→13:00)
[2016-11-01] MEDS: COREG PO SCH ×2 (10:00→22:36)
[2016-11-01] MEDS: HEPARIN SUB-Q SCH ×2 (10:00→22:00)
[2016-11-01] MEDS: COLACE PO SCH ×2 (10:00→22:00)
[2016-11-01] MEDS: THERAGRAN Tab PO SCH (10:00)
--- NOTE | 2016-11-01 10:12 | Consultation ---
History of Present Illness - Reason for Consult Consult date: 11/01/16 Evaluate for Acute IRU - History of Present Illness 55 y.o. male admitted following a fall at home; found to have an intertrochanteric fracture of the right hip. Pt is s/p nailing; PWB to RLE. Post- op course significant for severe hypoglycemia (blood sugars in 20s this AM ); acute blood loss anemia; acute on chronic renal failure; intermittent hypotension; bowel incontinence on today. Consult requested for post-acute placement recommendations. Past History Past Medical History: diabetes, hypertension, hyperlipidemia, other (diabetic retinopathy, blind) Past Surgical History: Other (right hip) Social history: , lives with family. denies: smoking, alcohol abuse Family history: CAD, diabetes, hypertension, stroke Medications and Allergies Allergies Allergy/AdvReac Type Severity Reaction Status Date / Time No Known Allergies Allergy Verified 08/09/16 19:04 Home Medications Medication Instructions Recorded Confirmed Last Taken Type glipiZIDE [glipiZIDE XL] 1 mg PO QDAY 09/13/14 10/28/16 Unknown History Carvedilol [Coreg] 12.5 mg PO BID #60 tablet 09/14/14 10/28/16 Unknown Rx Furosemide [Lasix] 20 mg PO DAILY #30 09/14/14 10/28/16 Unknown Rx Glimepiride [Amaryl] 1 mg PO QDDIAB #30 tablet 09/14/14 10/28/16 Unknown Rx Docusate Sodium [Colace CAP] 100 mg PO BID #10 capsule 11/01/16 Unknown Rx HYDROcodone/APAP 5-325 [[place] 1 each PO Q6H PRN #20 tablet 11/01/16 Unknown Rx 5-325 mg TAB] Insulin Detemir [Levemir VIAL] 12 unit SQ QHS 30 Days 11/01/16 Unknown Rx Multivitamin Tab [Multiple Vitamin 1 each PO QDAY #30 tablet 11/01/16 Unknown Rx TAB (Theragran)] Active Meds: Active Medications Acetaminophen (Tylenol) 650 mg PO Q4H PRN PRN Reason: Pain MILD(1-3)/Fever >100.5/MANCINI Last Admin: 10/29/16 04:46 Dose: 650 mg Acetaminophen (Tylenol) 650 mg PO Q4H PRN PRN Reason: Pain MILD(1-3)/Fever >100.5/MANCINI Last Admin: 10/30/16 21:03 Dose: 650 mg Acetaminophen/Hydrocodone Bitart ([place] 5/325) 1 each PO Q6H PRN PRN Reason: Pain, Moderate (4-6) Last Admin: 10/31/16 18:36 Dose: 1 each Albuterol (Proventil) 2.5 mg IH Q3HRT PRN PRN Reason: Shortness Of Breath Albuterol/Ipratropium (Duoneb 0.5 Mg-3 Mg/3 Ml Soln) 1 ampul IH TIDRT [facility] Last Admin: 11/01/16 08:49 Dose: Not Given Bisacodyl (Dulcolax) 10 mg [place] QDAY PRN PRN Reason: Constipation unrelieved by MOM Carvedilol (Coreg) 12.5 mg PO BID [facility] Last Admin: 10/31/16 22:50 Dose: 12.5 mg Docusate Sodium (Colace) 100 mg PO BID [facility] Last Admin: 10/31/16 22:50 Dose: 100 mg Heparin Sodium (Porcine) (Heparin) 5,000 unit SUB-Q Q12HR [facility] Last Admin: 10/31/16 22:50 Dose: 5,000 unit Sodium Chloride (Nacl 0.9% 1000 Ml) 1,000 mls @ 100 mls/hr IV DIRECT [facility] Last Admin: 10/31/16 09:10 Dose: 100 mls/hr Insulin Aspart (Novolog) 0 units SUB-Q ACHS [facility] PRN Reason: Protocol Last Admin: 11/01/16 09:01 Dose: Not Given Insulin Detemir (Levemir) 30 units SUB-Q QHS [facility] Last Admin: 10/31/16 22:50 Dose: 30 units Magnesium Hydroxide (Milk Of Magnesia) 30 ml PO Q4H PRN PRN Reason: Constipation Morphine Sulfate (Morphine) 2 mg IV Q4H PRN PRN Reason: Pain, Moderate (4-6) Last Admin: 10/30/16 08:13 Dose: 2 mg Multivitamins (Theragran Tab) 1 each PO QDAY [facility] Last Admin: 10/31/16 09:14 Dose: 1 each Ondansetron HCl (Zofran) 4 mg IV Q8H PRN PRN Reason: N/V unrelieved by Reglan Last Admin: 10/31/16 17:25 Dose: 4 mg Zolpidem Tartrate (Ambien) 5 mg PO QHS PRN PRN Reason: Sleep Review of Systems All systems: negative Ears, nose, mouth and throat: no headache Cardiovascular: no chest pain Respiratory: no cough Gastrointestinal: diarrhea Musculoskeletal: other (hip pain) Exam - Constitutional Vitals: Vital Signs - 12hr 10/31/16 22:50 Pulse Rate 74 Blood Pressure 136/70 General appearance: no acute distress, other (appears lethargic) - EENT ENT: hearing intact - Neck Neck: supple - Respiratory Respiratory effort: normal - Gastrointestinal General gastrointestinal: Present: other (noted to be incontinent of bowel during exam; nurse notified) - Psychiatric Psychiatric: cooperative - Allied health notes Allied health notes reviewed: PT (mod-maxA x2 for bed mobility and transfers; no gait) FIMS assesment as documented by PT/OT/ST: Locomotion- walk/wheelchair Ambulation Distance 0 - Labs CBC & Chem 7: 11/01/16 04:34 11/01/16 04:34 Labs: Laboratory Results - last 72 hr 10/29/16 10/29/16 10/29/16 07:38 10:54 16:48 WBC RBC Hgb Hct MCV MCH MCHC RDW Plt Count Sodium Potassium Chloride Carbon Dioxide Anion Gap BUN Creatinine Estimated GFR BUN/Creatinine Ratio Glucose POC Glucose 202 H 157 H 151 H Calcium 10/29/16 10/30/16 10/30/16 22:13 05:51 05:51 WBC 9.6 RBC 4.02 Hgb 10.9 L Hct 33.1 L MCV 82 L MCH 27 L MCHC 33 RDW 13.4 Plt Count 87 L Sodium 134 L Potassium 4.8 Chloride 98.0 Carbon Dioxide 21 L Anion Gap 20 BUN 38 H Creatinine 2.4 H Estimated GFR 28 BUN/Creatinine Ratio 15.83 Glucose 170 H POC Glucose 197 H Calcium 8.6 10/30/16 10/30/16 10/30/16 07:46 11:39 13:50 WBC RBC Hgb Hct MCV MCH MCHC RDW Plt Count Sodium Potassium Chloride Carbon Dioxide Anion Gap BUN Creatinine Estimated GFR BUN/Creatinine Ratio Glucose POC Glucose 178 H 179 H 197 H Calcium 10/30/16 10/30/16 10/31/16 16:38 22:26 05:23 WBC RBC Hgb Hct MCV MCH MCHC RDW Plt Count Sodium 141 D Potassium 4.5 Chloride 105.3 Carbon Dioxide 22 Anion Gap 18 BUN 36 H Creatinine 2.6 H Estimated GFR 26 BUN/Creatinine Ratio 13.84 Glucose 81 POC Glucose 259 H 152 H Calcium 7.7 L 10/31/16 10/31/16 10/31/16 05:23 07:24 08:15 WBC RBC Hgb 9.6 L Hct 29.5 L MCV MCH MCHC RDW Plt Count Sodium Potassium Chloride Carbon Dioxide Anion Gap BUN Creatinine Estimated GFR BUN/Creatinine Ratio Glucose POC Glucose 50 L 58 L Calcium 10/31/16 10/31/16 11/01/16 12:19 16:07 01:15 WBC RBC Hgb Hct MCV MCH MCHC RDW Plt Count Sodium Potassium Chloride Carbon Dioxide Anion Gap BUN Creatinine Estimated GFR BUN/Creatinine Ratio Glucose POC Glucose 162 H 314 H 212 H Calcium 11/01/16 11/01/16 11/01/16 04:34 04:34 08:17 WBC RBC Hgb 8.6 L Hct 26.6 L MCV MCH MCHC RDW Plt Count Sodium 141 Potassium 3.9 Chloride 107.2 H Carbon Dioxide 20 L Anion Gap 18 BUN 38 H Creatinine 2.6 H Estimated GFR 26 BUN/Creatinine Ratio 14.61 Glucose 70 L POC Glucose < 40 L Calcium 7.3 L 11/01/16 11/01/16 11/01/16 08:31 08:36 09:19 WBC RBC Hgb Hct MCV MCH MCHC RDW Plt Count Sodium Potassium Chloride Carbon Dioxide Anion Gap BUN Creatinine Estimated GFR BUN/Creatinine Ratio Glucose POC Glucose 50 L 49 L 288 H Calcium - Imaging and cardiology Other: report reviewed (hip xray) Assessment and Plan Patient was assessed and evaluated for Acute Inpatient Rehab Unit. 55 yo male s/p fall with subsequent right intertrochanteric hip fracture; s/p nailing, PWB. Rehab options discussed with patient. Current care also discussed with nurse; pt is dependent for eating and grooming due to blindness secondary to diabetic retinopathy. Pt also with very limited participation with PT. Pt requesting slower paced rehab, which at this time is the best option. CM and primary team notified. Thank you for consultation. - Patient Problems (1) Fracture, intertrochanteric, right femur Current Visit: Yes Status: Resolved Qualifiers: Encounter type: initial encounter Fracture type: closed Open fracture type: O Fracture healing: F Qualified Code(s): S72.141A - Displaced intertrochanteric fracture of right femur, initial encounter for closed fracture (2) Diabetes Current Visit: Yes Status: Chronic Qualifiers: Diabetes mellitus type: type 2 Diabetes mellitus complication status: with ophthalmic complications Diabetes mellitus complication detail: with diabetic retinopathy Diabetic retinopathy severity: D Proliferative retinopathy type : unspecified Diabetes mellitus macular edema: D Diabetes mellitus fci insulin use: with intermediate card tender use Laterality: bilateral Chronic kidney disease stage: C Qualified Code(s): E11.3593 - Type 2 diabetes mellitus with proliferative diabetic retinopathy without macular edema, bilateral; 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
--- NOTE | 2016-11-01 15:00 | Progress Note ---
Assessment and Plan Assessment and plan: Patient is a 55 year old male with hx of DM, HTN, hyperlipidemia, diabetic retinopathy, who presents to the ER with following a trip and fall off. He tells the ER physician that he fell while walking into the bathroom and felt lightheaded and fell onto his right hip began having severe pain. But he told me that he had plugged and his phone wire and turned around and tripped on the wire. On arrival to the ER was noted to have a right intratrochanteric fracture. He denies any fever. Denies any nausea, vomiting, diarrhea. Denies any chest pain or shortness of breath. Denies any dysuria or urinary incontinence. At this point he rates his pain as 5/10 in intensity. It is aggravated by movement. Only elevated by being still The ER physician has gone ahead to consult the orthopedic surgeon. In the ER was also noted to have a significantly elevated blood sugar. * Right hip intratrochanteric fracture POD 2 S/P intertrochanteric fx right hip * Hypotension- RESOLVED * HTN * Hyperlipidemia * Leukocytosis-Improving * Diarrhea * Hyperkalemia- corrected * Diabetic retinopathy-legally blind * Uncontrolled diabetes mellitus-recurrent hypoglycemia * Acute kidney injury on Chronic kidney disease-stage 3. Likely vasomotor nephropathy Present of admission * Anemia- * Thrombocytopenia PLAN * POD 2 S/P intertrochanteric fx right hip * We'll decrease Levemir to 10 units at bedtime patient needs insulin due to A1c of 14. * Restart by mouth medications * Recommend evaluation by crane hooker * , And outpatient evaluation by trigonometry teacher * Monitor H&H * Orthopedic surgeon input appreciated * Monitor electrolytes * Am Labs * Restart Lasix on discharge * A1c 14.1- diabetic education. Continue on Insulin on discharge * Monitor Accu-Cheks before meals daily at bedtime * Patient is not a candidate for inpatient rehabilitation will benefit from retirement facility secondary to intensity of care * Discussed With physiatrists Dr. Martinez * Plan of care discussed in detail with the patient * Awaiting placement * DVT and GI prophylaxis History Interval history: Follow-up Right hip fracture Patient seen and examined this morning reports improvement and no acute distress. On reevaluation today the patient reports that he has bilateral cataracts. He initially has said that he does everything at home by himself but on my reevaluation and carefully observed and the patient a bearly can see. States this has been going on for years. He has not been evaluated by crane hooker. Denies any chest pain, nausea, vomiting, diarrhea No fever noted blood pressure controlled Staff reports one episode of diarrhea and morning hypoglycemia Hospitalist Physical - Physical exam Narrative exam: VITAL SIGNS: Reviewed. GENERAL: The patient appeared well nourished and normally developed. Vital signs as documented. HEAD: No signs of head trauma. EYES: Cataracts bilaterally EARS: Hearing grossly intact. MOUTH: Oropharynx is normal. NECK: No adenopathy, no JVD. CHEST: Chest with clear breath sounds bilaterally. No wheezes, rales, or rhonchi. CARDIAC: Regular rate and rhythm. S1 and S2, without murmurs, gallops, or rubs. VASCULAR: No Edema. Peripheral pulses normal and equal in all extremities. ABDOMEN: Soft, without detectable tenderness. No sign of distention. No rebound or guarding, and no masses palpated. Bowel Sounds normal. MUSCULOSKELETAL: Right hip incision intact. No overt drainage. Extremities without clubbing, cyanosis or edema. NEUROLOGIC EXAM: Alert and oriented x 3. No focal sensory or strength deficits. Speech normal. Follows commands. PSYCHIATRIC: Mood normal. SKIN: Dry mucous membranes - Constitutional Vitals: Temp Pulse Resp BP Pulse Ox 96.4 F L 82 16 142/80 98 11/01/16 07:30 11/01/16 07:30 11/01/16 07:30 11/01/16 07:30 11/01/16 07:30 Results - Labs CBC & Chem 7: 11/01/16 04:34 11/01/16 04:34 Labs: Laboratory Last Values WBC 9.6 K/mm3 (4.5-11.0) 10/30/16 05:51 RBC 4.02 M/mm3 (3.65-5.03) 10/30/16 05:51 Hgb 8.6 gm/dl (11.8-15.2) L 11/01/16 04:34 Hct 26.6 % (35.5-45.6) L 11/01/16 04:34 MCV 82 fl (84-94) L 10/30/16 05:51 MCH 27 pg (28-32) L 10/30/16 05:51 MCHC 33 % (32-34) 10/30/16 05:51 RDW 13.4 % (13.2-15.2) 10/30/16 05:51 Plt Count 87 K/mm3 (140-440) L 10/30/16 05:51 Lymph % (Auto) 8.0 % (13.4-35.0) L 10/29/16 05:24 Gem % (Auto) 9.2 % (0.0-7.3) H 10/29/16 05:24 Eos % (Auto) 0.4 % (0.0-4.3) 10/29/16 05:24 Baso % (Auto) 0.4 % (0.0-1.8) 10/29/16 05:24 Lymph # 0.9 K/mm3 (1.2-5.4) L 10/29/16 05:24 Gem # 1.1 K/mm3 (0.0-0.8) H 10/29/16 05:24 Eos # 0.0 K/mm3 (0.0-0.4) 10/29/16 05:24 Baso # 0.0 K/mm3 (0.0-0.1) 10/29/16 05:24 Seg Neutrophils % 82.0 % (40.0-70.0) H 10/29/16 05:24 Seg Neutrophils # 9.5 K/mm3 (1.8-7.7) H 10/29/16 05:24 PT 13.3 Sec. (12.2-14.9) 10/28/16 16:09 INR 1.02 (0.87-1.13) 10/28/16 16:09 VBG pH 7.308 (7.320-7.420) L 10/28/16 14:58 Sodium 141 mmol/L (137-145) 11/01/16 04:34 Potassium 3.9 mmol/L (3.6-5.0) 11/01/16 04:34 Chloride 107.2 mmol/L (98-107) H 11/01/16 04:34 Carbon Dioxide 20 mmol/L (22-30) L 11/01/16 04:34 Anion Gap 18 mmol/L 11/01/16 04:34 BUN 38 mg/dL (9-20) H 11/01/16 04:34 Creatinine 2.6 mg/dL (0.8-1.5) H 11/01/16 04:34 Estimated GFR 26 ml/min 11/01/16 04:34 BUN/Creatinine Ratio 14.61 % 11/01/16 04:34 Glucose 70 mg/dL (75-100) L 11/01/16 04:34 POC Glucose 168 (70-105) H 11/01/16 12:10 Hemoglobin A1c 14.8 % (4-6) H 10/28/16 16:09 Calcium 7.3 mg/dL (8.4-10.2) L 11/01/16 04:34 Urine Color Yellow (Yellow) 10/28/16 16:31 Urine Turbidity Clear (Clear) 10/28/16 16:31 Urine pH 5.0 (5.0-7.0) 10/28/16 16:31 Ur Specific [place] 1.017 (1.003-1.030) 10/28/16 16:31 Urine Protein <15 mg/dl mg/dL (Negative) 10/28/16 16:31 Urine Glucose (UA) >=500 mg/dL (Negative) 10/28/16 16:31 Urine Ketones Neg mg/dL (Negative) 10/28/16 16:31 Urine Blood Sm (Negative) 10/28/16 16:31 Urine Nitrite Neg (Negative) 10/28/16 16:31 Urine Bilirubin Neg (Negative) 10/28/16 16:31 Urine Urobilinogen < 2.0 mg/dL (<2.0) 10/28/16 16:31 Ur Leukocyte Esterase Neg (Negative) 10/28/16 16:31 Urine WBC (Auto) < 1.0 /HPF (0.0-6.0) 10/28/16 16:31 Urine RBC (Auto) 1.0 /HPF (0.0-6.0) 10/28/16 16:31 Urine Mucus Few /HPF 10/28/16 16:31 Ketones 5.0 mg/dL (0.2-2.8) H 10/28/16 14:58
--- NOTE | 2016-11-01 16:26 | XRay Report ---
Flatplate of abdomen: History: Abdominal pain. Findings: There is moderate distention noted of stomach, small bowel and ascending and transverse colon with air. No wall thickening. Minimal air in descending colon and rectum. No radiopaque calculus or abnormal calcification. Impression: Findings suggestive of ileus or distal large bowel obstruction beyond the splenic flexure.
[2016-11-01 16:49] LABS: Alanine Aminotransferase 12 units/L (7-56); Albumin 2.5 g/dL (3.9-5); Albumin/Globulin Ratio 0.8 %; Alkaline Phosphatase 113 units/L (35-129); Bilirubin,Total 0.4 mg/dL (0.1-1.2); Total Protein 5.5 g/dL (6.3-8.2)
[2016-11-01 16:50] LABS: Bilirubin,Direct < 0.2 mg/dL (0-0.2); Bilirubin,Indirect 0.2 mg/dL
[2016-11-01 17:12] LABS: Hemoglobin 8.8 gm/dl (11.8-15.2)
[2016-11-01] MEDS ORDERED: REGLAN IV ONE (17:57)
[2016-11-01] MEDS ORDERED: LEVEMIR SUB-Q SCH (22:00)
[2016-11-02] MEDS: DUONEB 0.5 MG-3 MG/3 ML SOLN IH SCH ×2 (01:38→10:10)
[2016-11-02 06:35] LABS: Hematocrit 26.2 % (35.5-45.6); Hemoglobin 8.5 gm/dl (11.8-15.2); Mean Corpuscular HGB Conc 33 % (32-34); Mean Corpuscular Hemoglobin 27 pg (28-32); Mean Corpuscular Volume 82 fl (84-94); Platelet Count 108 K/mm3 (140-440); Red Blood Count 3.19 M/mm3 (3.65-5.03); Red Cell Distribution Width 13.6 % (13.2-15.2); White Blood Count 15.8 K/mm3 (4.5-11.0)
[2016-11-02 06:42] LABS: BUN/Creatinine Ratio 14.58; Calcium 7.3 mg/dL (8.4-10.2); Chloride 105.9 mmol/L (98-107); Potassium 3.5 mmol/L (3.6-5.0)
[2016-11-02] MEDS ORDERED: AMARYL PO SCH (08:00)
[2016-11-02] MEDS ORDERED: NACL 0.9% 1000 ML 1,000 ML with SODIUM BICARBONATE 50 MEQ IV SCH (08:40)
[2016-11-02] MEDS: COREG PO SCH (10:00)
[2016-11-02] MEDS ORDERED: GLUCOTROL XL PO SCH ×2 (10:00)
[2016-11-02] MEDS ORDERED: DUONEB 0.5 MG-3 MG/3 ML SOLN IH PRN (10:18)
[2016-11-02] MEDS ORDERED: PROVENTIL IH PRN (12:00)
[2016-11-02] MEDS: COLACE PO SCH (12:31)
[2016-11-02] MEDS: HEPARIN SUB-Q SCH (12:41)
[2016-11-02] MEDS: NORCO 5/325 PO PRN (13:27)
[2016-11-02] MEDS: THERAGRAN Tab PO SCH (13:39)
--- NOTE | 2016-11-02 13:59 | Fluoroscopy Report ---
SMALL BOWEL SERIES: 11/02/16 08:00:00 CLINICAL: Abdominal distention. FINDINGS: Wagon Driver Salesperson view of the abdomen demonstrated moderate dilatation of both small bowel and colon with a large volume of stool in the colon. The patient ingested approximately 32 ounces of thin barium and serial images were obtained. Delayed emptying of the stomach with no contrast in small bowel at one hour. However, at 2 hours, there is moderate contrast in nondistended loops of proximal and mid small bowel. At three hours thirty minutes, barium contrast is identified in the right colon.. IMPRESSION: Delayed gastric emptying and small bowel transit but no small bowel obstruction.
--- NOTE | 2016-11-02 14:47 | Progress Note ---
Assessment and Plan Assessment and plan: Patient is a 55 year old male with hx of DM, HTN, hyperlipidemia, diabetic retinopathy, who presents to the ER with following a trip and fall off. He tells the ER physician that he fell while walking into the bathroom and felt lightheaded and fell onto his right hip began having severe pain. But he told me that he had plugged and his phone wire and turned around and tripped on the wire. On arrival to the ER was noted to have a right intratrochanteric fracture. He denies any fever. Denies any nausea, vomiting, diarrhea. Denies any chest pain or shortness of breath. Denies any dysuria or urinary incontinence. At this point he rates his pain as 5/10 in intensity. It is aggravated by movement. Only elevated by being still The ER physician has gone ahead to consult the orthopedic surgeon. In the ER was also noted to have a significantly elevated blood sugar. * Right hip intratrochanteric fracture POD 3 S/P intertrochanteric fx right hip * Hypotension- RESOLVED * HTN * Hyperlipidemia * Leukocytosis * Leukocytosis-Improving * Diarrhea- Likely due to illeus * Bowel Illeus-slow recovery of bowel function * Hyperkalemia- corrected * Diabetic retinopathy-legally blind * Uncontrolled diabetes mellitus-recurrent hypoglycemia * Acute kidney injury on Chronic kidney disease-stage 3. Likely vasomotor nephropathy Present of admission * Anemia-stable * Thrombocytopenia PLAN * POD 3 S/P intertrochanteric fx right hip * Hold all hypoglycemic agents-restart when patient starts to eat * Encourage PO * Restart by mouth medications * Ambulate patient. * Hold all Narcots * Recommend evaluation by donkey engine firer/fireman * And outpatient evaluation by medical information specialist * Hemoglobin is stable * Am Labs * Restart Lasix on discharge * A1c 14.1- diabetic education. Continue on Insulin on discharge * Monitor Accu-Cheks before meals daily at bedtime * Patient is not a candidate for inpatient rehabilitation will benefit from correction facility secondary to intensity of care * Plan of care discussed in detail with the patient * DVT and GI prophylaxis History Interval history: Follow-up Right hip fracture Patient seen and examined this morning reports improvement and no acute distress. No further nausea, or positive diarrhea. No abdominal pain. No fever noted blood pressure controlled According to nursing staff the patient has not been eating. This could be secondary to his blindness. Instructed to feed him. She again is also refusing to eat when they tried to feed him. He is only asking for Sprite. Hospitalist Physical - Physical exam Narrative exam: VITAL SIGNS: Reviewed. GENERAL: The patient appeared well nourished and normally developed. Vital signs as documented. HEAD: No signs of head trauma. EYES: Pupils are equal. EARS: Hearing grossly intact. MOUTH: Oropharynx is normal. NECK: No adenopathy, no JVD. CHEST: Chest with clear breath sounds bilaterally. No wheezes, rales, or rhonchi. CARDIAC: Regular rate and rhythm. S1 and S2, without murmurs, gallops, or rubs. VASCULAR: No Edema. Peripheral pulses normal and equal in all extremities. ABDOMEN: Soft, without detectable tenderness. No sign of distention. No rebound or guarding, and no masses palpated. Bowel Sounds hyperactive MUSCULOSKELETAL: Right hip incision intact. No overt drainage. Extremities without clubbing, cyanosis or edema. NEUROLOGIC EXAM: Alert and oriented x 3. No focal sensory or strength deficits. Speech normal. Follows commands. PSYCHIATRIC: Mood normal. SKIN: Dry mucous membranes - Constitutional Vitals: Temp Pulse Resp BP Pulse Ox 100.4 F H 106 H 18 103/58 100 11/02/16 07:20 11/02/16 07:20 11/02/16 07:20 11/02/16 07:20 11/01/16 16:30 General appearance: Present: no acute distress, other (appears lethargic) Results - Labs CBC & Chem 7: 11/02/16 05:31 11/02/16 05:31 Labs: Laboratory Last Values WBC 15.8 K/mm3 (4.5-11.0) H 11/02/16 05:31 RBC 3.19 M/mm3 (3.65-5.03) L 11/02/16 05:31 Hgb 8.5 gm/dl (11.8-15.2) L 11/02/16 05:31 Hct 26.2 % (35.5-45.6) L 11/02/16 05:31 MCV 82 fl (84-94) L 11/02/16 05:31 MCH 27 pg (28-32) L 11/02/16 05:31 MCHC 33 % (32-34) 11/02/16 05:31 RDW 13.6 % (13.2-15.2) 11/02/16 05:31 Plt Count 108 K/mm3 (140-440) L 11/02/16 05:31 Lymph % (Auto) 8.0 % (13.4-35.0) L 10/29/16 05:24 [place] % (Auto) 9.2 % (0.0-7.3) H 10/29/16 05:24 Eos % (Auto) 0.4 % (0.0-4.3) 10/29/16 05:24 Baso % (Auto) 0.4 % (0.0-1.8) 10/29/16 05:24 Lymph # 0.9 K/mm3 (1.2-5.4) L 10/29/16 05:24 [place] # 1.1 K/mm3 (0.0-0.8) H 10/29/16 05:24 Eos # 0.0 K/mm3 (0.0-0.4) 10/29/16 05:24 Baso # 0.0 K/mm3 (0.0-0.1) 10/29/16 05:24 Seg Neutrophils % 82.0 % (40.0-70.0) H 10/29/16 05:24 Seg Neutrophils # 9.5 K/mm3 (1.8-7.7) H 10/29/16 05:24 PT 13.3 Sec. (12.2-14.9) 10/28/16 16:09 INR 1.02 (0.87-1.13) 10/28/16 16:09 VBG pH 7.308 (7.320-7.420) L 10/28/16 14:58 Sodium 141 mmol/L (137-145) 11/02/16 05:31 Potassium 3.5 mmol/L (3.6-5.0) L 11/02/16 05:31 Chloride 105.9 mmol/L (98-107) 11/02/16 05:31 Carbon Dioxide 18 mmol/L (22-30) L 11/02/16 05:31 Anion Gap 21 mmol/L 11/02/16 05:31 BUN 35 mg/dL (9-20) H 11/02/16 05:31 Creatinine 2.4 mg/dL (0.8-1.5) H 11/02/16 05:31 Estimated GFR 28 ml/min 11/02/16 05:31 BUN/Creatinine Ratio 14.58 % 11/02/16 05:31 Glucose 73 mg/dL (75-100) L 11/02/16 05:31 POC Glucose 101 (70-105) 11/02/16 07:45 Hemoglobin A1c 14.8 % (4-6) H 10/28/16 16:09 Calcium 7.3 mg/dL (8.4-10.2) L 11/02/16 05:31 Total Bilirubin 0.4 mg/dL (0.1-1.2) 11/01/16 04:34 Direct Bilirubin < 0.2 mg/dL (0-0.2) 11/01/16 04:34 Indirect Bilirubin 0.2 mg/dL 11/01/16 04:34 AST 46 units/L (5-40) H 11/01/16 04:34 ALT 12 units/L (7-56) 11/01/16 04:34 Alkaline Phosphatase 113 units/L (35-129) 11/01/16 04:34 Total Protein 5.5 g/dL (6.3-8.2) L 11/01/16 04:34 Albumin 2.5 g/dL (3.9-5) L 11/01/16 04:34 Albumin/Globulin Ratio 0.8 % 11/01/16 04:34 Lipase 15 units/L (13-60) 11/01/16 04:34 Urine Color Yellow (Yellow) 10/28/16 16:31 Urine Turbidity Clear (Clear) 10/28/16 16:31 Urine pH 5.0 (5.0-7.0) 10/28/16 16:31 Ur Specific [place] 1.017 (1.003-1.030) 10/28/16 16:31 Urine Protein <15 mg/dl mg/dL (Negative) 10/28/16 16:31 Urine Glucose (UA) >=500 mg/dL (Negative) 10/28/16 16:31 Urine Ketones Neg mg/dL (Negative) 10/28/16 16:31 Urine Blood Sm (Negative) 10/28/16 16:31 Urine Nitrite Neg (Negative) 10/28/16 16:31 Urine Bilirubin Neg (Negative) 10/28/16 16:31 Urine Urobilinogen < 2.0 mg/dL (<2.0) 10/28/16 16:31 Ur Leukocyte Esterase Neg (Negative) 10/28/16 16:31 Urine WBC (Auto) < 1.0 /HPF (0.0-6.0) 10/28/16 16:31 Urine RBC (Auto) 1.0 /HPF (0.0-6.0) 10/28/16 16:31 Urine Mucus Few /HPF 10/28/16 16:31 Ketones 5.0 mg/dL (0.2-2.8) H 10/28/16 14:58 - Imaging and Cardiology Abdominal x-ray: image reviewed (diluted loops of large bowel and some of small bowel)
[2016-11-03] MEDS: REGLAN IV SCH ×3 (02:18→14:49)
[2016-11-03] MEDS: COLACE PO SCH ×2 (02:20→10:19)
[2016-11-03] MEDS: COREG PO SCH ×2 (02:20→10:24)
[2016-11-03] MEDS: HEPARIN SUB-Q SCH ×3 (02:24→23:30)
--- NOTE | 2016-11-03 07:55 | Progress Note ---
Assessment and Plan Assessment and plan: Patient is a 55 year old male with hx of DM, HTN, hyperlipidemia, diabetic retinopathy, who presents to the ER with following a trip and fall off. He tells the ER physician that he fell while walking into the bathroom and felt lightheaded and fell onto his right hip began having severe pain. But he told me that he had plugged and his phone wire and turned around and tripped on the wire. On arrival to the ER was noted to have a right intratrochanteric fracture. He denies any fever. Denies any nausea, vomiting, diarrhea. Denies any chest pain or shortness of breath. Denies any dysuria or urinary incontinence. At this point he rates his pain as 5/10 in intensity. It is aggravated by movement. Only elevated by being still The ER physician has gone ahead to consult the orthopedic surgeon. In the ER was also noted to have a significantly elevated blood sugar. * Right hip intratrochanteric fracture POD 4 S/P intertrochanteric fx right hip * Hypotension- RESOLVED * HTN * Hyperlipidemia * Leukocytosis * Leukocytosis-Improving * Diarrhea- Likely due to illeus * Bowel Illeus-slow recovery of bowel function * Hyperkalemia- corrected * Diabetic retinopathy-legally blind * Uncontrolled diabetes mellitus-recurrent hypoglycemia * Acute kidney injury on Chronic kidney disease-stage 3. Likely vasomotor nephropathy Present of admission * Anemia-stable * Thrombocytopenia PLAN * Patient still with slow gastric return. will continue to hold all hypoglycemic agents except low dose sliding scale, BG 186 this am * Repeat KUB * Continue reglan to stimulate bowel movement x 24 hours * POD 4 S/P intertrochanteric fx right hip * Encourage PO * Restart by mouth medications * Ambulate patient. * Hold all Narcots * Recommend evaluation by coal wheeler * And outpatient evaluation by residential life director * Hemoglobin is stable * Am Labs-pt refusing, discussed the importance with the patient. * Restart Lasix on discharge * A1c 14.1- diabetic education. Continue on Insulin on discharge * Monitor Accu-Cheks before meals daily at bedtime * Patient is not a candidate for inpatient rehabilitation will benefit from prison facility secondary to intensity of care * Plan of care discussed in detail with the patient * DVT and GI prophylaxis History Interval history: Follow-up Right hip fracture Patient seen and examined this morning reports improvement and no acute distress. Very poor Po intake yesterday and stated that his abdominal pain started again yesterday around 2:30am. No further nausea, or positive diarrhea. No fever noted blood pressure controlled According to nursing staff the patient has not been eating. This could be secondary to his blindness. patient refusing po intake even with assistance per nursing staff. But patient states he had a toast and sussage only all day yesterday. He is only asking for Sprite. Hospitalist Physical - Physical exam Narrative exam: VITAL SIGNS: Reviewed. GENERAL: The patient appeared well nourished and normally developed. Vital signs as documented. HEAD: No signs of head trauma. EYES: Pupils are equal. EARS: Hearing grossly intact. MOUTH: Oropharynx is normal. NECK: No adenopathy, no JVD. CHEST: Chest with clear breath sounds bilaterally. No wheezes, rales, or rhonchi. CARDIAC: Regular rate and rhythm. S1 and S2, without murmurs, gallops, or rubs. VASCULAR: No Edema. Peripheral pulses normal and equal in all extremities. ABDOMEN: Soft, without detectable tenderness. No sign of distention. No rebound or guarding, and no masses palpated. Bowel Sounds hypoactive MUSCULOSKELETAL: Right hip incision intact. No overt drainage. Extremities without clubbing, cyanosis or edema. NEUROLOGIC EXAM: Alert and oriented x 3. No focal sensory or strength deficits. Speech normal. Follows commands. PSYCHIATRIC: Mood normal. SKIN: Dry mucous membranes, pale - Constitutional Vitals: Temp Pulse Resp BP Pulse Ox 99.7 F H 98 H 20 110/68 95 11/02/16 23:15 11/03/16 02:20 11/02/16 23:15 11/03/16 02:20 11/02/16 23:15 General appearance: Present: no acute distress, other (appears lethargic) Results - Labs CBC & Chem 7: 11/02/16 05:31 11/02/16 05:31 Labs: Laboratory Last Values WBC 15.8 K/mm3 (4.5-11.0) H 11/02/16 05:31 RBC 3.19 M/mm3 (3.65-5.03) L 11/02/16 05:31 Hgb 8.5 gm/dl (11.8-15.2) L 11/02/16 05:31 Hct 26.2 % (35.5-45.6) L 11/02/16 05:31 MCV 82 fl (84-94) L 11/02/16 05:31 MCH 27 pg (28-32) L 11/02/16 05:31 MCHC 33 % (32-34) 11/02/16 05:31 RDW 13.6 % (13.2-15.2) 11/02/16 05:31 Plt Count 108 K/mm3 (140-440) L 11/02/16 05:31 Lymph % (Auto) 8.0 % (13.4-35.0) L 10/29/16 05:24 [place] % (Auto) 9.2 % (0.0-7.3) H 10/29/16 05:24 Eos % (Auto) 0.4 % (0.0-4.3) 10/29/16 05:24 Baso % (Auto) 0.4 % (0.0-1.8) 10/29/16 05:24 Lymph # 0.9 K/mm3 (1.2-5.4) L 10/29/16 05:24 [place] # 1.1 K/mm3 (0.0-0.8) H 10/29/16 05:24 Eos # 0.0 K/mm3 (0.0-0.4) 10/29/16 05:24 Baso # 0.0 K/mm3 (0.0-0.1) 10/29/16 05:24 Seg Neutrophils % 82.0 % (40.0-70.0) H 10/29/16 05:24 Seg Neutrophils # 9.5 K/mm3 (1.8-7.7) H 10/29/16 05:24 PT 13.3 Sec. (12.2-14.9) 10/28/16 16:09 INR 1.02 (0.87-1.13) 10/28/16 16:09 VBG pH 7.308 (7.320-7.420) L 10/28/16 14:58 Sodium 141 mmol/L (137-145) 11/02/16 05:31 Potassium 3.5 mmol/L (3.6-5.0) L 11/02/16 05:31 Chloride 105.9 mmol/L (98-107) 11/02/16 05:31 Carbon Dioxide 18 mmol/L (22-30) L 11/02/16 05:31 Anion Gap 21 mmol/L 11/02/16 05:31 BUN 35 mg/dL (9-20) H 11/02/16 05:31 Creatinine 2.4 mg/dL (0.8-1.5) H 11/02/16 05:31 Estimated GFR 28 ml/min 11/02/16 05:31 BUN/Creatinine Ratio 14.58 % 11/02/16 05:31 Glucose 73 mg/dL (75-100) L 11/02/16 05:31 POC Glucose 184 (70-105) H 11/02/16 21:52 Hemoglobin A1c 14.8 % (4-6) H 10/28/16 16:09 Calcium 7.3 mg/dL (8.4-10.2) L 11/02/16 05:31 Total Bilirubin 0.4 mg/dL (0.1-1.2) 11/01/16 04:34 Direct Bilirubin < 0.2 mg/dL (0-0.2) 11/01/16 04:34 Indirect Bilirubin 0.2 mg/dL 11/01/16 04:34 AST 46 units/L (5-40) H 11/01/16 04:34 ALT 12 units/L (7-56) 11/01/16 04:34 Alkaline Phosphatase 113 units/L (35-129) 11/01/16 04:34 Total Protein 5.5 g/dL (6.3-8.2) L 11/01/16 04:34 Albumin 2.5 g/dL (3.9-5) L 11/01/16 04:34 Albumin/Globulin Ratio 0.8 % 11/01/16 04:34 Lipase 15 units/L (13-60) 11/01/16 04:34 Urine Color Yellow (Yellow) 10/28/16 16:31 Urine Turbidity Clear (Clear) 10/28/16 16:31 Urine pH 5.0 (5.0-7.0) 10/28/16 16:31 Ur Specific [place] 1.017 (1.003-1.030) 10/28/16 16:31 Urine Protein <15 mg/dl mg/dL (Negative) 10/28/16 16:31 Urine Glucose (UA) >=500 mg/dL (Negative) 10/28/16 16:31 Urine Ketones Neg mg/dL (Negative) 10/28/16 16:31 Urine Blood Sm (Negative) 10/28/16 16:31 Urine Nitrite Neg (Negative) 10/28/16 16:31 Urine Bilirubin Neg (Negative) 10/28/16 16:31 Urine Urobilinogen < 2.0 mg/dL (<2.0) 10/28/16 16:31 Ur Leukocyte Esterase Neg (Negative) 10/28/16 16:31 Urine WBC (Auto) < 1.0 /HPF (0.0-6.0) 10/28/16 16:31 Urine RBC (Auto) 1.0 /HPF (0.0-6.0) 10/28/16 16:31 Urine Mucus Few /HPF 10/28/16 16:31 Ketones 5.0 mg/dL (0.2-2.8) H 10/28/16 14:58
[2016-11-03] MEDS: THERAGRAN Tab PO SCH (10:19)
[2016-11-03 10:51] LABS: Hematocrit 25.2 % (35.5-45.6); Hemoglobin 8.1 gm/dl (11.8-15.2); Mean Corpuscular HGB Conc 32 % (32-34); Mean Corpuscular Hemoglobin 27 pg (28-32); Mean Corpuscular Volume 84 fl (84-94); Platelet Count 152 K/mm3 (140-440); Red Blood Count 3.02 M/mm3 (3.65-5.03); Red Cell Distribution Width 13.7 % (13.2-15.2)
--- NOTE | 2016-11-03 10:58 | XRay Report ---
KUB: 11/03/16 07:48:00 CLINICAL: Follow up ileus. COMPARISON: Small bowel study from the previous day. FINDINGS: Contrast is identified in the ascending, transverse and splenic flexure of the colon. The left colon appears redundant and moderately dilated. Minimal if any small bowel dilatation. No pneumoperitoneum. IMPRESSION: Mild nonspecific colon dilatation with less distention than on prior exams. No small bowel obstruction.
[2016-11-03 11:04] LABS: BUN/Creatinine Ratio 14.44; Chloride 102.6 mmol/L (98-107)
[2016-11-03] MEDS: TYLENOL PO PRN ×2 (14:49→19:22)
[2016-11-03] MEDS ORDERED: NOVOLOG SUB-Q ONE (18:56)
[2016-11-03] MEDS ORDERED: SODIUM BICARBONATE 50 MEQ in NACL 0.9% 1000 ML 1,000 ML IV SCH (21:00)
[2016-11-03] MEDS ORDERED: LEVEMIR SUB-Q SCH (22:00)
[2016-11-04] MEDS: COLACE PO SCH ×3 (00:38→23:00)
[2016-11-04] MEDS: COREG PO SCH ×3 (00:38→22:50)
[2016-11-04] MEDS: NOVOLOG SUB-Q SCH ×5 (00:39→22:40)
[2016-11-04] MEDS: REGLAN IV SCH ×2 (03:28)
[2016-11-04] MEDS: ZOFRAN IV PRN (03:50)
[2016-11-04] MEDS: TYLENOL PO PRN ×3 (03:50→23:00)
[2016-11-04 05:27] LABS: Hematocrit 23.7 % (35.5-45.6); Hemoglobin 7.7 gm/dl (11.8-15.2); Mean Corpuscular HGB Conc 33 % (32-34); Mean Corpuscular Hemoglobin 27 pg (28-32); Mean Corpuscular Volume 83 fl (84-94); Platelet Count 170 K/mm3 (140-440); Red Blood Count 2.86 M/mm3 (3.65-5.03); Red Cell Distribution Width 13.5 % (13.2-15.2); White Blood Count 15.4 K/mm3 (4.5-11.0)
[2016-11-04 05:40] LABS: BUN/Creatinine Ratio 16.52; Chloride 104.9 mmol/L (98-107)
--- NOTE | 2016-11-04 07:38 | Discharge Summary ---
Providers - Providers Date of Admission: 10/28/16 15:40 Date of discharge: 11/05/16 Attending physician: DARIEL ARTIS MD 10/28/16 15:43 Consult to Physician [CONS] Routine Consulting Provider: KENYA LOCKE Reason For Exam: right hip fracture Place consult to:: Dr. Locke Notified:: yes Phone number called:: [phone] Was contact made?: Yes If yes, spoke with:: Dr. Locke Time called:: 14:36 10/30/16 14:36 Physical Therapy Evaluation and Treat [CONS] Routine Comment: Reason For Exam: hip fx Weight bearing status?: Partial wt bearing 10/30/16 15:42 Occupational Therapy Evaluate and Treat [CONS] Routine Comment: Reason For Exam: eval and treat 10/31/16 16:54 Consult to Physician [CONS] Routine Consulting Provider: TAMRA ISRAEL Reason For Exam: Rehab eval- Hip fracture Place consult to:: DR. ISRAEL Notified:: DR. ISRAEL Primary care physician: GENERAL TELLER Hospitalization Reason for admission: Hip fracture Condition: Stable Hospital course: Patient is a 55 year old male with hx of DM, HTN, hyperlipidemia, diabetic retinopathy, who presents to the ER with following a trip and fall off. He tells the ER physician that he fell while walking into the bathroom and felt lightheaded and fell onto his right hip began having severe pain. But he told me that he had plugged and his phone wire and turned around and tripped on the wire. On arrival to the ER was noted to have a right intratrochanteric fracture. He denies any fever. Denies any nausea, vomiting, diarrhea. Denies any chest pain or shortness of breath. Denies any dysuria or urinary incontinence. At this point he rates his pain as 5/10 in intensity. It is aggravated by movement. Only elevated by being still The ER physician has gone ahead to consult the orthopedic surgeon. In the ER was also noted to have a significantly elevated blood sugar. Patient on admission was noted to be legally blind. Despite his claims that he takes care of everything for himself this was found not to be so. Apparently accounted for why his blood sugar was significantly elevated. This was treated with fluids and was seen by surgery and proceeded to have intratrochanteric fracture fixture of the right hip. He did well post surgery he did have a gradual decline in his hemoglobin and hematocrit although remained above 7. He did have a slow transit recovery of his bowel which resolved. He also did develop diarrhea while in the hospital but this also subsequently resolved. He is clinically stable at this point to be discharged and has been excepted by home health and awaiting insurance approval. Discharge diagnosis * Right hip intratrochanteric fracture POD 5 S/P intertrochanteric fx right hip * Hypotension * HTN * Hyperlipidemia * Leukocytosis * Diarrhea- resolution * Bowel Illeus-slow recovery of bowel function * Hypokelmia- * Diabetic retinopathy-legally blind * Uncontrolled diabetes mellitus-recurrent hypoglycemia * Acute kidney injury on Chronic kidney disease-stage 3. Likely vasomotor nephropathy Present of admission * Anemia-stable * Thrombocytopenia * Patient tolerated his meal today. He is not tolerant to Insulin despite having >HgbAIC reason being poor PO compliance and insisting on sprit Disposition: DC/TX SNF W [facility] CERT Time spent for discharge: 35 mins Core Measure Documentation - Palliative Care Palliative Care/ Comfort Measures: Not Applicable Exam - Constitutional Vitals: Temp Pulse Resp BP Pulse Ox 98.7 F 79 20 98/58 96 11/04/16 00:54 11/04/16 00:54 11/04/16 04:50 11/04/16 00:54 11/04/16 00:54 Plan Activity: advance as tolerated, fall precautions Diet: diabetic Special Instructions: record daily weights, record daily BP diary, record blood sugar diary Additional Instructions: Follow up with opthalmologist. Follow up with Ortho Follow up with: KENYA LOCKE MD [Staff Physician] - 7 Days PRIMARY MD SABRINA [Primary Care Provider] - 7 Days PAOLA LAGUNAS MD [Staff Physician] - 7 Days Prescriptions: Insulin Detemir [Levemir VIAL] 12 unit SQ QHS 30 Days Docusate Sodium [Colace CAP] 100 mg PO BID #10 capsule HYDROcodone/APAP 5-325 [[place] 5-325 mg TAB] 1 each PO Q6H PRN #20 tablet PRN Reason: Pain, Moderate (4-6) Multivitamin Tab [Multiple Vitamin TAB (Theragran)] 1 each PO QDAY #30 tablet
[2016-11-04] MEDS: THERAGRAN Tab PO SCH (12:16)
[2016-11-04] MEDS: HEPARIN SUB-Q SCH ×2 (12:16→22:30)
[2016-11-04] MEDS ORDERED: K-DUR PO ONE (13:55)
--- NOTE | 2016-11-04 14:00 | Progress Note ---
Assessment and Plan Assessment and plan: Patient is a 55 year old male with hx of DM, HTN, hyperlipidemia, diabetic retinopathy, who presents to the ER with following a trip and fall off. He tells the ER physician that he fell while walking into the bathroom and felt lightheaded and fell onto his right hip began having severe pain. But he told me that he had plugged and his phone wire and turned around and tripped on the wire. On arrival to the ER was noted to have a right intratrochanteric fracture. He denies any fever. Denies any nausea, vomiting, diarrhea. Denies any chest pain or shortness of breath. Denies any dysuria or urinary incontinence. At this point he rates his pain as 5/10 in intensity. It is aggravated by movement. Only elevated by being still The ER physician has gone ahead to consult the orthopedic surgeon. In the ER was also noted to have a significantly elevated blood sugar. * Right hip intratrochanteric fracture POD 5 S/P intertrochanteric fx right hip * Hypotension- * HTN * Hyperlipidemia * Leukocytosis * Diarrhea- resolution * Bowel Illeus-slow recovery of bowel function * Hypokelmia- * Diabetic retinopathy-legally blind * Uncontrolled diabetes mellitus-recurrent hypoglycemia * Acute kidney injury on Chronic kidney disease-stage 3. Likely vasomotor nephropathy Present of admission * Anemia-stable * Thrombocytopenia * Patient tolerated his meal today. He is not tolerant to Insulin despite having >HgbAIC reason being poor PO compliance and insisting on sprite PLAN * Bowel sounds function has appeared to improve. Patient at this point has been accepted [facility] but insurance hold is keeping him overnight. We'll discontinue long-term acting insulin. Due to intolerance and due to compliance. * Repeat H/H in am * Continue Reglan to stimulate bowel movement x 24 hours * POD 5 S/P intertrochanteric fx right hip * Encourage PO * Restart by mouth medications * Ambulate patient. * Hold all Narcotic * Recommend evaluation by internal auditor * And outpatient evaluation by footwear sales coordinator * A1c 14.1- diabetic education. Continue on Insulin on discharge * Patient is not a candidate for inpatient rehabilitation will benefit from [facility] facility secondary to intensity of care * Plan of care discussed in detail with the patient * DVT and GI prophylaxis History Interval history: Follow-up Right hip fracture Patient seen and examined today doing much better, normal bowel movements, tolerating diet. Blood sugar was high last night was addressed. Now normalized. No fever noted blood pressure controlled No other adverse events reported by nursing staff Hospitalist Physical - Physical exam Narrative exam: VITAL SIGNS: Reviewed. GENERAL: The patient appeared well nourished and normally developed. Vital signs as documented. HEAD: No signs of head trauma. EYES: Pupils are equal. EARS: Hearing grossly intact. MOUTH: Oropharynx is normal. NECK: No adenopathy, no JVD. CHEST: Chest with clear breath sounds bilaterally. No wheezes, rales, or rhonchi. CARDIAC: Regular rate and rhythm. S1 and S2, without murmurs, gallops, or rubs. VASCULAR: No Edema. Peripheral pulses normal and equal in all extremities. ABDOMEN: Soft, without detectable tenderness. No sign of distention. No rebound or guarding, and no masses palpated. Bowel Sounds hypoactive MUSCULOSKELETAL: Right hip incision intact. No overt drainage. Extremities without clubbing, cyanosis or edema. NEUROLOGIC EXAM: Alert and oriented x 3. No focal sensory or strength deficits. Speech normal. Follows commands. PSYCHIATRIC: Mood normal. SKIN: Dry mucous membranes, pale - Constitutional Vitals: Temp Pulse Resp BP Pulse Ox 89 F L 90 18 110/65 95 11/04/16 07:30 11/04/16 12:15 11/04/16 07:30 11/04/16 12:15 11/04/16 07:30 General appearance: Present: no acute distress, other (appears lethargic) Results - Labs CBC & Chem 7: 11/04/16 04:49 11/04/16 04:49 Labs: Laboratory Last Values WBC 15.4 K/mm3 (4.5-11.0) H 11/04/16 04:49 RBC 2.86 M/mm3 (3.65-5.03) L 11/04/16 04:49 Hgb 7.7 gm/dl (11.8-15.2) L 11/04/16 04:49 Hct 23.7 % (35.5-45.6) L 11/04/16 04:49 MCV 83 fl (84-94) L 11/04/16 04:49 MCH 27 pg (28-32) L 11/04/16 04:49 MCHC 33 % (32-34) 11/04/16 04:49 RDW 13.5 % (13.2-15.2) 11/04/16 04:49 Plt Count 170 K/mm3 (140-440) 11/04/16 04:49 Lymph % (Auto) 8.0 % (13.4-35.0) L 10/29/16 05:24 Callahan % (Auto) 9.2 % (0.0-7.3) H 10/29/16 05:24 Eos % (Auto) 0.4 % (0.0-4.3) 10/29/16 05:24 Baso % (Auto) 0.4 % (0.0-1.8) 10/29/16 05:24 Lymph # 0.9 K/mm3 (1.2-5.4) L 10/29/16 05:24 Callahan # 1.1 K/mm3 (0.0-0.8) H 10/29/16 05:24 Eos # 0.0 K/mm3 (0.0-0.4) 10/29/16 05:24 Baso # 0.0 K/mm3 (0.0-0.1) 10/29/16 05:24 Seg Neutrophils % 82.0 % (40.0-70.0) H 10/29/16 05:24 Seg Neutrophils # 9.5 K/mm3 (1.8-7.7) H 10/29/16 05:24 PT 13.3 Sec. (12.2-14.9) 10/28/16 16:09 INR 1.02 (0.87-1.13) 10/28/16 16:09 VBG pH 7.308 (7.320-7.420) L 10/28/16 14:58 Sodium 141 mmol/L (137-145) 11/04/16 04:49 Potassium 3.0 mmol/L (3.6-5.0) L D 11/04/16 04:49 Chloride 104.9 mmol/L (98-107) 11/04/16 04:49 Carbon Dioxide 20 mmol/L (22-30) L D 11/04/16 04:49 Anion Gap 19 mmol/L 11/04/16 04:49 BUN 38 mg/dL (9-20) H 11/04/16 04:49 Creatinine 2.3 mg/dL (0.8-1.5) H 11/04/16 04:49 Estimated GFR 30 ml/min 11/04/16 04:49 BUN/Creatinine Ratio 16.52 % 11/04/16 04:49 Glucose 173 mg/dL (75-100) H 11/04/16 04:49 POC Glucose 65 (70-105) L 11/04/16 12:16 Hemoglobin A1c 14.8 % (4-6) H 10/28/16 16:09 Calcium 7.0 mg/dL (8.4-10.2) L 11/04/16 04:49 Total Bilirubin 0.4 mg/dL (0.1-1.2) 11/01/16 04:34 Direct Bilirubin < 0.2 mg/dL (0-0.2) 11/01/16 04:34 Indirect Bilirubin 0.2 mg/dL 11/01/16 04:34 AST 46 units/L (5-40) H 11/01/16 04:34 ALT 12 units/L (7-56) 11/01/16 04:34 Alkaline Phosphatase 113 units/L (35-129) 11/01/16 04:34 Total Protein 5.5 g/dL (6.3-8.2) L 11/01/16 04:34 Albumin 2.5 g/dL (3.9-5) L 11/01/16 04:34 Albumin/Globulin Ratio 0.8 % 11/01/16 04:34 Lipase 15 units/L (13-60) 11/01/16 04:34 Urine Color Yellow (Yellow) 10/28/16 16:31 Urine Turbidity Clear (Clear) 10/28/16 16:31 Urine pH 5.0 (5.0-7.0) 10/28/16 16:31 Ur Specific [place] 1.017 (1.003-1.030) 10/28/16 16:31 Urine Protein <15 mg/dl mg/dL (Negative) 10/28/16 16:31 Urine Glucose (UA) >=500 mg/dL (Negative) 10/28/16 16:31 Urine Ketones Neg mg/dL (Negative) 10/28/16 16:31 Urine Blood Sm (Negative) 10/28/16 16:31 Urine Nitrite Neg (Negative) 10/28/16 16:31 Urine Bilirubin Neg (Negative) 10/28/16 16:31 Urine Urobilinogen < 2.0 mg/dL (<2.0) 10/28/16 16:31 Ur Leukocyte Esterase Neg (Negative) 10/28/16 16:31 Urine WBC (Auto) < 1.0 /HPF (0.0-6.0) 10/28/16 16:31 Urine RBC (Auto) 1.0 /HPF (0.0-6.0) 10/28/16 16:31 Urine Mucus Few /HPF 10/28/16 16:31 Ketones 5.0 mg/dL (0.2-2.8) H 10/28/16 14:58
--- NOTE | 2016-11-04 16:09 | Progress Note ---
Assessment and Plan - Patient Problems (1) Fracture, intertrochanteric, right femur Current Visit: Yes Status: Resolved Qualifiers: Encounter type: initial encounter Fracture type: closed Open fracture type: O Fracture healing: F Qualified Code(s): S72.141A - Displaced intertrochanteric fracture of right femur, initial encounter for closed fracture Plan to address problem: Continue with preoperative program, awaiting placement. To be discharged when bed available. Followup at the office in 3 weeks or so, patient bring copies of x-rays and AP lateral view done within 48 hours of office followup visit. Sergio to be removed by a 10- post op day. Subjective Date of service: 11/04/16 Objective Vital signs: Vital Signs - 12hr 11/04/16 11/04/16 11/04/16 04:50 07:30 12:15 Temperature 89 F L Pulse Rate 90 Respiratory 20 18 Rate Blood Pressure 110/65 Blood Pressure 100/59 [Left Arm] O2 Sat by Pulse 95 Oximetry 11/04/16 14:09 Temperature 97.9 F Pulse Rate Respiratory Rate Blood Pressure Blood Pressure [Left Arm] O2 Sat by Pulse Oximetry - Labs CBC & BMP: 11/04/16 04:49 11/04/16 04:49 Labs: Abnormal lab results 11/03/16 11/03/16 11/03/16 Range/Units 11:18 17:10 22:12 WBC (4.5-11.0) K/mm3 RBC (3.65-5.03) M/mm3 Hgb (11.8-15.2) gm/dl Hct (35.5-45.6) % MCV (84-94) fl MCH (28-32) pg Potassium (3.6-5.0) mmol/L Carbon Dioxide (22-30) mmol/L BUN (9-20) mg/dL Creatinine (0.8-1.5) mg/dL Glucose (75-100) mg/dL POC Glucose 294 H 440 H 333 H (70-105) Calcium (8.4-10.2) mg/dL 11/04/16 11/04/16 11/04/16 Range/Units 04:49 04:49 12:16 WBC 15.4 H (4.5-11.0) K/mm3 RBC 2.86 L (3.65-5.03) M/mm3 Hgb 7.7 L (11.8-15.2) gm/dl Hct 23.7 L (35.5-45.6) % MCV 83 L (84-94) fl MCH 27 L (28-32) pg Potassium 3.0 L D (3.6-5.0) mmol/L Carbon Dioxide 20 L D (22-30) mmol/L BUN 38 H (9-20) mg/dL Creatinine 2.3 H (0.8-1.5) mg/dL Glucose 173 H (75-100) mg/dL POC Glucose 65 L (70-105) Calcium 7.0 L (8.4-10.2) mg/dL
[2016-11-04] MEDS ORDERED: LEVEMIR SUB-Q SCH (22:00)
[2016-11-05] MEDS: ZOFRAN IV PRN
[2016-11-05] MEDS: NOVOLOG SUB-Q SCH ×2 (07:35→11:53)
[2016-11-05] MEDS: HEPARIN SUB-Q SCH (09:44)
[2016-11-05] MEDS: COLACE PO SCH ×2 (09:45→09:48)
[2016-11-05] MEDS: COREG PO SCH (09:45)
[2016-11-05] MEDS: THERAGRAN Tab PO SCH (09:46)
--- NOTE | 2016-11-05 15:58 | Progress Note ---
Assessment and Plan - Patient Problems (1) Fracture, intertrochanteric, right femur Current Visit: Yes Status: Resolved Qualifiers: Encounter type: initial encounter Fracture type: closed Open fracture type: O Fracture healing: F Qualified Code(s): S72.141A - Displaced intertrochanteric fracture of right femur, initial encounter for closed fracture Plan to address problem: Continue with preoperative program, awaiting placement. To be discharged when bed available. Followup at the office in 3 weeks or so, patient bring copies of x-rays and AP lateral view done within 48 hours of office followup visit. Sergio to be removed by a 10- post op day. Subjective Date of service: 11/05/16 Objective Vital signs: Vital Signs - 12hr 11/05/16 11/05/16 07:30 09:45 Temperature 98.7 F Pulse Rate 94 H Pulse Rate [ 95 H Apical] Respiratory 14 Rate Blood Pressure 100/58 Blood Pressure 116/70 [Left Arm] O2 Sat by Pulse 95 Oximetry - Labs CBC & BMP: 11/04/16 04:49 11/04/16 04:49 Labs: Abnormal lab results 11/04/16 11/05/16 Range/Units 23:07 11:35 POC Glucose 202 H 182 H (70-105)
[2016-11-05 17:57] VITALS: BP 122/74
== END 2016-11-05 21:21 | DRG 480 ==
LOC: ED 13:25 → 2B-SURG 15:40
PROVIDERS: ADMIT Internal Medicine; ATTEND Internal Medicine
PROC: 0QS604Z Reposition Right Upper Femur with Internal Fixation Device, Open Approach (ICD-10-PCS; principal; 2016-10-30)
DX: S72.141A Displaced intertrochanteric fracture of right femur, initial encounter for closed fracture (principal); E11.00 Type 2 diabetes mellitus with hyperosmolarity without nonketotic hyperglycemic-hyperosmolar coma (NKHHC); N17.0 Acute kidney failure with tubular necrosis; D62 Acute posthemorrhagic anemia; K56.7 Ileus, unspecified; E11.65 Type 2 diabetes mellitus with hyperglycemia; N18.3 Chronic kidney disease, stage 3 (moderate); E78.5 Hyperlipidemia, unspecified; I95.9 Hypotension, unspecified; E11.649 Type 2 diabetes mellitus with hypoglycemia without coma; E11.319 Type 2 diabetes mellitus with unspecified diabetic retinopathy without macular edema; E11.3593 Type 2 diabetes mellitus with proliferative diabetic retinopathy without macular edema, bilateral; E11.22 Type 2 diabetes mellitus with diabetic chronic kidney disease; I12.9 Hypertensive chronic kidney disease with stage 1 through stage 4 chronic kidney disease, or unspecified chronic kidney disease; E87.5 Hyperkalemia; D69.6 Thrombocytopenia, unspecified; H26.9 Unspecified cataract; H54.8 Legal blindness, as defined in USA; W01.0XXA Fall on same level from slipping, tripping and stumbling without subsequent striking against object, initial encounter; R19.7 Diarrhea, unspecified; Z82.49 Family history of ischemic heart disease and other diseases of the circulatory system; Z83.3 Family history of diabetes mellitus; Z82.3 Family history of stroke; Z91.14 Patient's other noncompliance with medication regimen; Z79.899 Other long term (current) drug therapy; Z98.890 Other specified postprocedural states; Y92.002 Bathroom of unspecified non-institutional (private) residence as the place of occurrence of the external cause
CPT/HCPCS: 36415; 71010; 74000; 74250; 80048; 80074; 81001; 82010; 82805; 82962; 83036; 83690; 85014; 85018; 85025; 85027; 85610; 87040; 93005; 93010; 94640; 96361; 96374; 96375; 96376; C1713; C1769; G8978-GP; G8979-GP; G8987-GO; G8988-GO; G8989-GO; J0330; J0690; J1170; J1644; J1815; J1818; J2270; J2405; J2704; J2765; J3010; J7030

== ENCOUNTER 2017-02-11 23:36 | Inpatient (IN) | payer MEDICARE ==
[2017-02-12 01:33] LABS: Alanine Aminotransferase 12 units/L (7-56); Albumin 3.1 g/dL (3.9-5); Albumin/Globulin Ratio 0.6 %; Alkaline Phosphatase 193 units/L (35-129); Amylase 88 units/L (27-131); Anion Gap 28 mmol/L; BUN/Creatinine Ratio 31.25; Blood Urea Nitrogen 100 mg/dL (9-20); Calcium 8.8 mg/dL (8.4-10.2); Carbon Dioxide 14 mmol/L (22-30); Chloride 100.4 mmol/L (98-107); Glucose 180 mg/dL (75-100); Lipase 50 units/L (13-60); Potassium 4.2 mmol/L (3.6-5.0); Sodium 138 mmol/L (137-145); Total Protein 8.2 g/dL (6.3-8.2)
[2017-02-12 01:42] LABS: Bilirubin,Direct < 0.2 mg/dL (0-0.2)
[2017-02-12 01:43] LABS: Hematocrit 35.2 % (35.5-45.6); Hemoglobin 10.1 gm/dl (11.8-15.2); Mean Corpuscular HGB Conc 29 % (32-34); Mean Corpuscular Hemoglobin 27 pg (28-32); Mean Corpuscular Volume 94 fl (84-94); Platelet Count 258 K/mm3 (140-440); Red Blood Count 3.73 M/mm3 (3.65-5.03); White Blood Count 12.9 K/mm3 (4.5-11.0)
[2017-02-12] MEDS ORDERED: NACL 0.9% 1000 ML 1,000 ML ONE (11:57)
[2017-02-12] MEDS ORDERED: NACL 0.9% 1000 ML 1,000 ML IV ONE (12:21)
--- NOTE | 2017-02-12 12:33 | XRay Report ---
SUPINE KUB: History: Abdominal pain. The abdominal gas pattern is unremarkable. No masses or organomegaly is identified and there is no gross evidence of free air or fluid. Colonic interposition is noted. No significant soft tissue calcifications are noted. IMPRESSION: No acute process identified.
--- NOTE | 2017-02-12 12:45 | Emergency Department Report ---
ED Abdominal Pain HPI - General Chief Complaint: Abdominal Pain Stated Complaint: ABD PAIN Time Seen by Provider: 02/12/17 12:14 Source: patient, EMS Mode of arrival: Stretcher Limitations: No Limitations - History of Present Illness Initial Comments: 56-year-old male presents to the emergency department via EMS complaining of abdominal pain. Patient reports the onset of mid abdominal pain last night. He describes the pain as like there is a gas bubble. Pain does not radiate. He reports pain has been intermittent since onset. He is currently denying pain. He denies fever, nausea, vomiting, or diarrhea. There are no other complaints. MD Complaint: abdominal pain -: days(s) (1) Location: periumbilical Radiation: none Migration to: no migration Severity: moderate Severity scale (0 -10): 6 Quality: fullness Consistency: intermittent, now resolved Improves With: nothing Worsens With: nothing Associated Symptoms: denies other symptoms - Related Data Home Medications Medication Instructions Recorded Confirmed Last Taken Furosemide [Lasix TAB] 20 mg PO QDAY 12/23/16 12/23/16 12/23/16 Previous Rx's Medication Instructions Recorded Last Taken Type Carvedilol [Coreg] 12.5 mg PO BID #60 tablet 09/14/14 12/23/16 Rx Cefepime [Maxipime] 1 gm IV Q12H 10 Days 12/27/16 Unknown Rx glipiZIDE [glipiZIDE ER] 5 mg PO QAM #30 tab.er.24 12/27/16 Unknown Rx Allergies Allergy/AdvReac Type Severity Reaction Status Date / Time No Known Allergies Allergy Verified 08/09/16 19:04 ED Review of Systems ROS: Stated complaint: ABD PAIN Other details as noted in HPI Comment: All other systems reviewed and negative Gastrointestinal: abdominal pain ED Past Medical Hx - Past Medical History Previous Medical History?: Yes Hx Hypertension: Yes Hx Congestive Heart Failure: Yes Hx Diabetes: Yes Hx Deep Vein Thrombosis: No Hx Renal Disease: Yes (CKD stage three) Hx Asthma: No Hx COPD: No Additional medical history: cataracts - Surgical History Past Surgical History?: Yes Hx Pacemaker: No Hx Internal Defibrillator: No Additional Surgical History: colon surgery. rt hip fracture repair Oct 2016 - Family History Family history: no significant - Social History Smoking Status: Never Smoker Substance Use Type: None - Medications Home Medications: Home Medications Medication Instructions Recorded Confirmed Last Taken Type Carvedilol [Coreg] 12.5 mg PO BID #60 tablet 09/14/14 12/23/16 12/23/16 Rx Furosemide [Lasix TAB] 20 mg PO QDAY 12/23/16 12/23/16 12/23/16 History Cefepime [Maxipime] 1 gm IV Q12H 10 Days 12/27/16 Unknown Rx glipiZIDE [glipiZIDE ER] 5 mg PO QAM #30 tab.er.24 12/27/16 Unknown Rx ED Physical Exam - General Limitations: No Limitations General appearance: alert, in no apparent distress - Head Head exam: Present: atraumatic, normocephalic - Eye Eye exam: Present: normal appearance, PERRL, EOMI - ENT ENT exam: Present: normal exam, normal orophraynx, mucous membranes moist - Neck Neck exam: Present: normal inspection, full ROM. Absent: tenderness - Respiratory Respiratory exam: Present: normal lung sounds bilaterally. Absent: respiratory distress - Cardiovascular Cardiovascular Exam: Present: regular rate, normal rhythm, normal heart sounds - GI/Abdominal GI/Abdominal exam: Present: soft, normal bowel sounds. Absent: distended, tenderness - Extremities Exam Extremities exam: Present: normal inspection, full ROM. Absent: tenderness - Back Exam Back exam: Present: normal inspection, full ROM. Absent: tenderness - Neurological Exam Neurological exam: Present: alert, oriented X3. Absent: motor sensory deficit - Skin Skin exam: Present: warm, dry, intact ED Course Vital Signs 02/12/17 02/12/17 02/12/17 00:52 06:04 13:18 Temperature 98.2 F 99.1 F Pulse Rate 90 86 Respiratory 20 14 13 Rate Blood Pressure 159/103 133/87 Blood Pressure 82/43 [Left] O2 Sat by Pulse 100 100 99 Oximetry ED Medical Decision Making - Lab Data Result diagrams: 02/12/17 00:59 02/12/17 00:59 - Radiology Data Radiology results: report reviewed Abdominal x-ray reveals no acute abnormalities. CT of the abdomen and pelvis reveals a moderately distended bladder. There are no other acute abnormalities. - Medical Decision Making Lab and imaging results reviewed and discussed with the patient. Patient was initially normotensive, but has dropped his systolic blood pressure to 75. Giving IV fluids. CT of the abdomen and pelvis has been ordered. 1419--CT results reviewed and discussed with the patient. Patient states he has no difficulty urinating or having bowel movements. Patient continues to have a systolic blood pressure between 70 and 80. He is completely asymptomatic with this. Patient has been able to sit at the bedside and stand at the bedside with assistance with no changes in his vital signs and no new symptoms. Patient states he wants to go home. Patient will be discharged home at this time. - Differential Diagnosis abdominal pain, enteritis, colitis, obstruction, AAA Critical care attestation.: If time is entered above; I have spent that time in minutes in the direct care of this critically ill patient, excluding procedure time. ED Disposition Clinical Impression: CKD (chronic kidney disease) Qualifiers: Chronic kidney disease stage: stage 3 (moderate) Qualified Code(s): N18.3 - Chronic kidney disease, stage 3 (moderate) Abdominal pain Qualifiers: Abdominal location: periumbilical Qualified Code(s): R10.33 - Periumbilical pain Disposition: DISCHARGED TO HOME OR SELFCARE Is pt being admited?: No Condition: Stable Instructions: Abdominal Pain (ED) Referrals: PRIMARY CARE, [Referring] - 3-5 Days Time of Disposition: 14:21
--- NOTE | 2017-02-12 13:21 | Cat Scan Report ---
CT OF THE ABDOMEN AND PELVIS WITHOUT CONTRAST HISTORY: Mid abdominal pain. TECHNIQUE: Helical CT without contrast. Sagittal and coronal reformatted images. FINDINGS: The bladder is markedly distended which is a new finding since 12/23/16. Bladder out obstruction should be considered. No hydronephrosis is identified. The kidneys, renal collecting system and adrenal glands are unremarkable. The liver, biliary system, pancreas, spleen and aorta are within normal limits. There is a large amount of stool in the rectal vault. Otherwise, the bowel loops are within normal limits. The appendix is not confidently identified. The lung bases are clear. Normal heart size. No suspicious bony lesion. IMPRESSION: Markedly distended bladder. Correlate for bladder outlet obstruction.
[2017-02-12] MEDS ORDERED: NACL 0.9% 500 ML 500 ML IV ONE ×2 (16:01→19:57)
[2017-02-12] MEDS ORDERED: D50W (25GM) IV PRN ×2 (16:10→21:27)
[2017-02-12] MEDS ORDERED: NOVOLOG SUB-Q SCH (16:30)
--- NOTE | 2017-02-12 16:30 | History and Physical Report ---
History of Present Illness Date of examination: 02/12/17 Date of admission: 02/12/17 15:02 Chief complaint: Low blood pressure History of present illness: Patient is 56 male with multiple comorbidities came to day to ED with C/O Low blood pressure. Patient took all his BP medicine prior to admission. Patient alert and oriented Also patient states that since yesterday(02/12/2017)he has felt bloated and had decrease in appetite. He began having intermittent Mid- abdominal pain that felt gas pain. Pain described as dull intermittent and well localized. He denies recent fever, vomiting, or diarrhea. Past History Past Medical History: anemia, CAD, diabetes, GERD, hypertension, renal failure Past Surgical History: No surgical history Social history: Family history: no significant family history Medications and Allergies Allergies Allergy/AdvReac Type Severity Reaction Status Date / Time No Known Allergies Allergy Verified 08/09/16 19:04 Home Medications Medication Instructions Recorded Confirmed Last Taken Type Carvedilol [Coreg] 12.5 mg PO BID #60 tablet 09/14/14 02/12/17 12/23/16 Rx Furosemide [Lasix TAB] 20 mg PO QDAY 12/23/16 02/12/17 12/23/16 History glipiZIDE [glipiZIDE ER] 5 mg PO QAM #30 tab.er.24 12/27/16 02/12/17 Unknown Rx Aspirin [Aspirin TAB] 325 mg PO QDAY 02/12/17 02/12/17 Unknown History Docusate Sodium [Colace] 100 mg PO BID PRN 02/12/17 02/12/17 Unknown History Mirtazapine [Remeron] 15 mg PO QHS 02/12/17 02/12/17 Unknown History Active Meds: Active Medications Dextrose (D50w (25gm)) 50 ml IV PRN PRN PRN Reason: Hypoglycemia Sodium Chloride (Nacl 0.9% 500 Ml) 500 mls @ 999 mls/hr IV ONCE ONE Stop: 02/12/17 16:31 Insulin Aspart (Novolog) 0 units SUB-Q ACHS AAYUSH PRN Reason: Protocol Review of Systems Constitutional: no weight loss, no weight gain, no fever, no sweats Ears, nose, mouth and throat: no ear pain, no ear discharge, no decreased hearing, no sinus pain Cardiovascular: no orthopnea, no palpitations, no edema, no syncope, no lightheadedness Respiratory: no cough Gastrointestinal: abdominal pain, no nausea, no vomiting, no diarrhea, no constipation Genitourinary Male: no dysuria, no hematuria, no flank pain Rectal: no pain, no incontinence, no bleeding Musculoskeletal: no neck stiffness, no neck pain, no shooting arm pain Integumentary: no deferred, no rash Neurological: no head injury, no transient paralysis, no paralysis, no weakness , no parathesias, no numbness Psychiatric: no anxiety, no memory loss Endocrine: no cold intolerance, no heat intolerance Hematologic/Lymphatic: no easy bruising, no easy bleeding Allergic/Immunologic: no urticaria Exam - Constitutional Vitals: Temp Pulse Resp BP Pulse Ox 99.1 F 98 H 18 65/37 100 02/12/17 06:04 02/12/17 15:31 02/12/17 15:31 02/12/17 15:31 02/12/17 15:31 General appearance: Present: no acute distress, well-nourished - EENT Eyes: Present: PERRL, EOM intact ENT: hearing intact, clear oral mucosa, dentition normal - Neck Neck: Present: supple, normal ROM - Cardiovascular Heart Sounds: Present: S1 & S2 - Extremities Extremities: pulses symmetrical, No edema Peripheral Pulses: within normal limits - Abdominal General gastrointestinal: Present: soft, non-tender, normal bowel sounds Male genitourinary: Present: deferred - Rectal Rectal Exam: deferred - Integumentary Integumentary: Present: clear, warm, dry - Musculoskeletal Musculoskeletal: strength equal bilaterally - Psychiatric Psychiatric: appropriate mood/affect, intact judgment & insight - Neurologic Neurologic: CNII-XII intact, moves all extremities Results - Labs CBC & Chem 7: 02/12/17 00:59 02/12/17 00:59 Labs: Laboratory Last Values WBC 12.9 K/mm3 (4.5-11.0) H 02/12/17 00:59 RBC 3.73 M/mm3 (3.65-5.03) 02/12/17 00:59 Hgb 10.1 gm/dl (11.8-15.2) L 02/12/17 00:59 Hct 35.2 % (35.5-45.6) L 02/12/17 00:59 MCV 94 fl (84-94) 02/12/17 00:59 MCH 27 pg (28-32) L 02/12/17 00:59 MCHC 29 % (32-34) L 02/12/17 00:59 RDW 17.0 % (13.2-15.2) H 02/12/17 00:59 Plt Count 258 K/mm3 (140-440) 05 00:59 Lymph % (Auto) Production Assistant 02/12/17 00:59 Jones % (Auto) Production Assistant 02/12/17 00:59 Eos % (Auto) Production Assistant 02/12/17 00:59 Baso % (Auto) Production Assistant 02/12/17 00:59 Lymph # Production Assistant 02/12/17 00:59 Jones # Production Assistant 02/12/17 00:59 Eos # Production Assistant 02/12/17 00:59 Baso # Production Assistant 02/12/17 00:59 Seg Neutrophils % Production Assistant 02/12/17 00:59 Seg Neutrophils # Production Assistant 02/12/17 00:59 Sodium 138 mmol/L (137-145) 02/12/17 00:59 Potassium 4.2 mmol/L (3.6-5.0) 02/12/17 00:59 Chloride 100.4 mmol/L (98-107) 02/12/17 00:59 Carbon Dioxide 14 mmol/L (22-30) L 02/12/17 00:59 Anion Gap 28 mmol/L 02/12/17 00:59 BUN 100 mg/dL (9-20) H 02/12/17 00:59 Creatinine 3.2 mg/dL (0.8-1.5) H 02/12/17 00:59 Estimated GFR 20 ml/min 02/12/17 00:59 BUN/Creatinine Ratio 31.25 % 02/12/17 00:59 Glucose 180 mg/dL (75-100) H 02/12/17 00:59 POC Glucose 239 (70-105) H 02/12/17 14:32 Calcium 8.8 mg/dL (8.4-10.2) 02/12/17 00:59 Total Bilirubin 0.20 mg/dL (0.1-1.2) 02/12/17 00:59 Direct Bilirubin < 0.2 mg/dL (0-0.2) 02/12/17 00:59 Indirect Bilirubin 0.0 mg/dL 02/12/17 00:59 AST 21 units/L (5-40) 02/12/17 00:59 ALT 12 units/L (7-56) 02/12/17 00:59 Alkaline Phosphatase 193 units/L (35-129) H 02/12/17 00:59 Total Protein 8.2 g/dL (6.3-8.2) 02/12/17 00:59 Albumin 3.1 g/dL (3.9-5) L 02/12/17 00:59 Albumin/Globulin Ratio 0.6 % 02/12/17 00:59 Amylase 88 units/L (27-131) 02/12/17 00:59 Lipase 50 units/L (13-60) 02/12/17 00:59 Assessment and Plan Assessment and plan: Severe Sepsis Leukocytosis and hypotension Likely GI source the patient was admitted previously for colitis Blood and urine culture pending, lactic acid pending Patient was given bolus of IV fluids, on IV levaquin and flagyl Chronic Kidney Disease Elevated BUN and Creatinine Nephrology consulted Diabetes Mellitus Accu-chek AC/HS Sliding scale insulin/Aspart VTE Prophylaxis Heparin and Protonix Patient Full Code Advance Directives: Yes VTE prophylaxis?: Chemical Plan of care discussed with patient/family: Yes
--- NOTE | 2017-02-12 18:04 | Admit Criteria Form ---
Admission Criteria Documentation: HEMODYNAMIC INSTABILITY Clinical Indications for Inpatient Care (Place 'X' for any and all applicable criteria): Ongoing inpatient care may be indicated for hemodynamic instability as indicated by ANY ONE of the following (1)(2)(3)(4)(10): [ ]I) Marked hemodynamic change from baseline (eg, SBP 20 mm Hg below patient's usual pressure) [ X]II) New SBP less than 90 mm Hg or mean arterial pressure less than 70 mm Hg [B](15) [ ]IIII) Symptomatic heart rate greater than 100 or less than 60 beats per minute unresponsive to treatment (eg, analgesia, fluids) [ ]IV) Inadequate perfusion as indicated by ANY ONE of the following: [ ]a) Lactic acidosis, with lactic acid greater than 18 mg/dL (2 mmol/ L) or base excess less than -5 mEq/L [ ]b) New abnormal capillary refill (longer than 3 seconds) [ ]c) New altered mental status [ ]d) Reduced urine output [ ]V) Orthostatic vital sign changes [B] that are symptomatic and unresponsive to treatment (eg, fluids) [ ]) IV inotropic or vasopressor medication required(26) Extended stay beyond goal length of stay for primary condition may be needed until ALL of the following are present(1)(2)(3): [ ]a) Heart rate > 60 and < 100 beats per minute or patient is clinically stable at current rate (eg, baseline) [ ]b) SBP >100 mm Hg and <160 mm Hg or patient is clinically stable at current pressure (eg, baseline) [ ]c) DBP greater than 50 mm Hg and less than 100 mm Hg or patient is clinically stable at current pressure (eg, baseline) [ ]d) Urine output greater than 0.5 mL/kg per hour [ ]e) Room air oxygen saturation 90% or greater or at baseline [ ]f) Orthostatic vital sign changes absent, asymptomatic, at baseline, or manageable at lower level of care [ ]g) Medical comorbidities manageable at lower level of care The original [employer] content created by [employer] has been revised. The portions of the content which have been revised are identified through the use of italic text or in bold, and [employer] has neither reviewed nor approved the modified material. All other unmodified content is copyright [employer]. Please see references footnoted in the original [facility] edition 2016 Admission Criteria Met: Yes
[2017-02-12] MEDS: FLAGYL 500 MG/100 ML 500 MG/100 ML BAG IV SCH (21:49)
[2017-02-12] MEDS: HEPARIN SUB-Q SCH (21:54)
[2017-02-12] MEDS ORDERED: NACL 0.9% 1000 ML 1,000 ML IV SCH (22:00)
[2017-02-12] MEDS: LEVAQUIN 750MG/150ML 750 MG/150 ML BAG IV SCH (22:59)
[2017-02-12] MEDS: NOVOLOG SUB-Q SCH (23:16)
[2017-02-13] MEDS: FLAGYL 500 MG/100 ML 500 MG/100 ML BAG IV SCH ×3 (06:43→21:10)
[2017-02-13] MEDS: HEPARIN SUB-Q SCH ×3 (06:43→21:10)
[2017-02-13 07:08] LABS: Basophils % (Auto) 0.3 % (0.0-1.8); Eosinophils % (Auto) 0.5 % (0.0-4.3); Hematocrit 27.2 % (35.5-45.6); Hemoglobin 8.6 gm/dl (11.8-15.2); Mean Corpuscular HGB Conc 32 % (32-34); Mean Corpuscular Hemoglobin 26 pg (28-32); Mean Corpuscular Volume 83 fl (84-94); Platelet Count 227 K/mm3 (140-440); Red Blood Count 3.28 M/mm3 (3.65-5.03); White Blood Count 11.3 K/mm3 (4.5-11.0)
[2017-02-13 07:20] LABS: INR 1.07 (0.87-1.13); Partial Thromboplastin Time 30.5 Sec. (24.2-36.6)
[2017-02-13 07:32] LABS: BUN/Creatinine Ratio 29.71; Calcium 7.9 mg/dL (8.4-10.2); Chloride 105.2 mmol/L (98-107); Potassium 4.4 mmol/L (3.6-5.0)
--- NOTE | 2017-02-13 07:34 | XRay Report ---
AP CHEST: HISTORY: Sepsis The left arm PICC has been removed since 12/27/16. AP view of the chest demonstrates a normal mediastinal and cardiac contour with clear lungs and normal bony and soft tissue structures. IMPRESSION: No acute cardiopulmonary process.
--- NOTE | 2017-02-13 14:45 | Progress Note ---
Assessment and Plan Assessment and plan: Severe sepsis with septic shock. BP was low on admission, now improved. He is on levaquin and Flagyl Hypotension due to sepsis. Pressure improving Coronary artery disease. Stable.No chest pain or shortness of breath Acute on chronic kidney disease. Nephrology managing. Acute Kidney injury secondary to acute tubular necrosis Diabetes mellitus type 2. Fingerstick glucose before every meal and at bedtime DVT prophylaxis with Heparin Full code status History Interval history: Presented with low generalized weakness Hospitalist Physical - Physical exam Narrative exam: Appearance: Not in acute distress, cachetic HEENT: normocephalic, atraumatic Neck : supple, no JVD Lungs: Clear to auscultation bilaterally, no crackles or wheeze Heart : S1 and S2 regular, no murmurs, rubs or gallop Abdomen: soft, non-tender, non-distended, normal bowel sounds Extremities: No edema, no clubbing, no cyanosis Neuro: Awake, alert, moves all ext, Psych: normal mood - Constitutional Vitals: Temp Pulse Resp BP Pulse Ox 98 F 94 H 20 100/60 100 02/13/17 14:04 02/13/17 14:04 02/13/17 14:04 02/13/17 14:04 02/13/17 14:04 General appearance: Present: no acute distress, well-nourished Results - Labs CBC & Chem 7: 02/15/17 08:17 02/16/17 02:44 Labs: Laboratory Last Values WBC 11.3 K/mm3 (4.5-11.0) H 02/13/17 06:43 RBC 3.28 M/mm3 (3.65-5.03) L 02/13/17 06:43 Hgb 8.6 gm/dl (11.8-15.2) L 02/13/17 06:43 Hct 27.2 % (35.5-45.6) L D 02/13/17 06:43 MCV 83 fl (84-94) L D 02/13/17 06:43 MCH 26 pg (28-32) L 02/13/17 06:43 MCHC 32 % (32-34) 02/13/17 06:43 RDW 16.0 % (13.2-15.2) H 02/13/17 06:43 Plt Count 227 K/mm3 (140-440) 02/13/17 06:43 Lymph % (Auto) 17.9 % (13.4-35.0) 02/13/17 06:43 Cannon % (Auto) 8.0 % (0.0-7.3) H 02/13/17 06:43 Eos % (Auto) 0.5 % (0.0-4.3) 02/13/17 06:43 Baso % (Auto) 0.3 % (0.0-1.8) 02/13/17 06:43 Lymph # 2.0 K/mm3 (1.2-5.4) 02/13/17 06:43 Cannon # 0.9 K/mm3 (0.0-0.8) H 02/13/17 06:43 Eos # 0.1 K/mm3 (0.0-0.4) 02/13/17 06:43 Baso # 0.0 K/mm3 (0.0-0.1) 02/13/17 06:43 Seg Neutrophils % 73.3 % (40.0-70.0) H 02/13/17 06:43 Seg Neutrophils # 8.3 K/mm3 (1.8-7.7) H 02/13/17 06:43 PT 13.8 Sec. (12.2-14.9) 02/13/17 06:43 INR 1.07 (0.87-1.13) 02/13/17 06:43 APTT 30.5 Sec. (24.2-36.6) 02/13/17 06:43 Sodium 142 mmol/L (137-145) 02/13/17 06:43 Potassium 4.4 mmol/L (3.6-5.0) 02/13/17 06:43 Chloride 105.2 mmol/L (98-107) 02/13/17 06:43 Carbon Dioxide 10 mmol/L (22-30) L 02/13/17 06:43 Anion Gap 31 mmol/L 02/13/17 06:43 BUN 104 mg/dL (9-20) H 02/13/17 06:43 Creatinine 3.5 mg/dL (0.8-1.5) H 02/13/17 06:43 Estimated GFR 18 ml/min 02/13/17 06:43 BUN/Creatinine Ratio 29.71 % 02/13/17 06:43 Glucose 102 mg/dL (75-100) H 02/13/17 06:43 POC Glucose 88 (70-105) 02/13/17 11:27 Hemoglobin A1c 6.6 % (4-6) H 02/13/17 06:43 Lactic Acid 0.80 mmol/L (0.7-2.0) 02/13/17 06:43 Calcium 7.9 mg/dL (8.4-10.2) L 02/13/17 06:43 Total Bilirubin 0.20 mg/dL (0.1-1.2) 02/12/17 00:59 Direct Bilirubin < 0.2 mg/dL (0-0.2) 02/12/17 00:59 Indirect Bilirubin 0.0 mg/dL 02/12/17 00:59 AST 21 units/L (5-40) 02/12/17 00:59 ALT 12 units/L (7-56) 02/12/17 00:59 Alkaline Phosphatase 193 units/L (35-129) H 02/12/17 00:59 Total Protein 8.2 g/dL (6.3-8.2) 02/12/17 00:59 Albumin 3.1 g/dL (3.9-5) L 02/12/17 00:59 Albumin/Globulin Ratio 0.6 % 02/12/17 00:59 Triglycerides 186 mg/dL (2-149) H 02/12/17 00:59 Cholesterol 186 mg/dL (50-199) 02/12/17 00:59 LDL Cholesterol Direct 122 mg/dL (50-130) 02/12/17 00:59 HDL Cholesterol 27 mg/dL (40-59) L 02/12/17 00:59 Cholesterol/HDL Ratio 6.88 % 02/12/17 00:59 Amylase 88 units/L (27-131) 02/12/17 00:59 Lipase 50 units/L (13-60) 02/12/17 00:59
[2017-02-13] MEDS ORDERED: HEPARIN/NS 5000 UNIT/500ML(CATH LAB) 500 ML IR ONE (15:05)
[2017-02-13] MEDS ORDERED: XYLOCAINE 2% INFILTRATI ONE (15:05)
[2017-02-13] MEDS ORDERED: ANCEF/STERILE WATER 2 GM/20 ML 2 GM/20 ML SYRINGE IV ONE (15:05)
[2017-02-13] MEDS ORDERED: NACL 0.9% 500 ML 500 ML ONE (15:10)
--- NOTE | 2017-02-13 15:16 | Operative Report ---
Operative Report Operative Report: Procedure: Placement of a right external jugular tunneled dialysis catheter. Physician: Catrina Cervantes MD Date of procedure: 02/13/2017 Technique: Informed consent was obtained. The patient was placed in the supine position on the procedure table. He was prepped and draped in the usual sterile fashion. A timeout was performed. After administration of local anesthetic, the right external jugular vein was accessed with a 21-gauge micropuncture kit. The J-wire was advanced to the inferior vena cava. The catheter exit site was chosen on the right chest wall. Local anesthetic was again administered. The dialysis catheter was connected to a toddler which was then used to create a subcutaneous tract between the catheter exit site and tenotomy. After serial tissue dilation, the dialysis catheter was advanced through a peel-away sheath. Appropriate tip placement was confirmed with fluoroscopy. Vacuum aspiration and flushing were performed. Heparin was instilled in both limbs of the catheter. The catheter was secured to the skin with 2-0 Ethilon suture. Sterile dressings were placed, and the patient was transported off the table. Findings: 1. Successful placement of a right external jugular tunneled dialysis catheter. Fluoroscopy confirms that the tip is in the right atrium. 2. Sonography demonstrates that the right external jugular vein is patent and compressible. The right internal jugular vein is not seen.
[2017-02-13] MEDS: SUBLIMAZE ONE ×3 (15:18→15:46)
[2017-02-13] MEDS: VERSED ONE ×2 (15:21→15:30)
[2017-02-13] MEDS ORDERED: HEPARIN 10,000 UNITS/10 ML ONE (15:35)
[2017-02-13] MEDS ORDERED: NACL 0.9% 100 ML IV PRN ×2 (15:52→17:03)
[2017-02-13] MEDS ORDERED: NARCAN 2 MG/2 ML ONE (15:54)
[2017-02-13] MEDS ORDERED: HEPARIN IV PRN (17:03)
--- NOTE | 2017-02-13 17:26 | Consultation ---
History of Present Illness - Reason for Consult Consult date: 02/13/17 acute renal failure, chronic renal failure Requesting physician: AYESHA QUINTANA - History of Present Illness 55 years old male with hx of poorly controlled DM with recent A1C of 11.8, HTN , Diabetic retinopathy (legally blind) admitted after he presented with fatigue , nausea in association with poor appetite and found to have elevated BUN/CR of 104/3.5 in the ED. Pt has hx of TIMI on CKD and was on dialysis for some time ( to 12/27/2016). His renal function recovered and dialysis was terminated on 12/27. He never followed up in the office since dialysis is stopped. Patient is a poor historian. No NSAIDs. No contrast exposure. He has noticed decreased urine out put. Past History Past Medical History: anemia, CAD, diabetes, GERD, hypertension, renal failure Past Surgical History: No surgical history Social history: Family history: no significant family history Medications and Allergies Allergies Allergy/AdvReac Type Severity Reaction Status Date / Time No Known Allergies Allergy Verified 08/09/16 19:04 Home Medications Medication Instructions Recorded Confirmed Last Taken Type Carvedilol [Coreg] 12.5 mg PO BID #60 tablet 09/14/14 02/12/17 12/23/16 Rx Furosemide [Lasix TAB] 20 mg PO QDAY 12/23/16 02/12/17 12/23/16 History glipiZIDE [glipiZIDE ER] 5 mg PO QAM #30 tab.er.24 12/27/16 02/12/17 Unknown Rx Aspirin [Aspirin TAB] 325 mg PO QDAY 02/12/17 02/12/17 Unknown History Docusate Sodium [Colace] 100 mg PO BID PRN 02/12/17 02/12/17 Unknown History Mirtazapine [Remeron] 15 mg PO QHS 02/12/17 02/12/17 Unknown History Active Meds: Active Medications Dextrose (D50w (25gm)) 50 ml IV PRN PRN PRN Reason: Hypoglycemia Heparin Sodium (Porcine) (Heparin) 5,000 unit SUB-Q Q8HR AAYUSH Last Admin: 02/13/17 06:43 Dose: 5,000 unit Heparin Sodium (Porcine) (Heparin) 5,000 unit IV JENNIFER PRN PRN Reason: hemodialysis Levofloxacin/Dextrose (Levaquin 750mg/150ml) 750 mg in 150 mls @ 100 mls/hr IV Q48H AAYUSH PRN Reason: Protocol Last Admin: 02/12/17 22:59 Dose: 100 mls/hr Metronidazole (Flagyl 500 Mg/100 Ml) 500 mg in 100 mls @ 100 mls/hr IV Q8HR [facility] Last Admin: 02/13/17 06:43 Dose: 100 mls/hr Sodium Chloride (Nacl 0.9% 1000 Ml) 1,000 mls @ 125 mls/hr IV DIRECT [facility] Last Admin: 02/12/17 22:59 Dose: 125 mls/hr Sodium Chloride (Nacl 0.9%) 100 mls @ 999 mls/hr IV JENNIFER PRN PRN Reason: Hypotension Insulin Aspart (Novolog) 0 units SUB-Q QHS AAYUSH PRN Reason: Protocol Last Admin: 02/12/17 23:16 Dose: Not Given Review of Systems Constitutional: anorexia, fatigue, weakness, malaise, lethargy, poor appetite, daytime sleepiness, no weight loss, no weight gain, no fever Ears, nose, mouth and throat: no decreased hearing, no nose pain, no nasal congestion Cardiovascular: no chest pain, no orthopnea, no palpitations Respiratory: no cough with sputum, no shortness of breath Gastrointestinal: abdominal pain, nausea, no diarrhea Genitourinary Male: no dysuria, no hematuria, no flank pain Musculoskeletal: no neck pain Integumentary: no rash, no pruritis Neurological: other (legally blind ), no weakness, no parathesias Psychiatric: no anxiety, no memory loss Endocrine: no cold intolerance, no heat intolerance, no polydipsia Hematologic/Lymphatic: no easy bruising, no easy bleeding Exam - Vital Signs Vital signs: Vital Signs Temp Pulse Resp BP Pulse Ox 98.2 F 90 20 159/103 100 02/12/17 00:52 02/12/17 00:52 02/12/17 00:52 02/12/17 00:52 02/12/17 00:52 - Physical Exam Narrative exam: General appearance: well-developed, well-nourished, appears stated age, legally blind EENT: PERRL, mucous membranes moist Neck: no JVD, no thyromegaly, no carotid bruit, supple Respiratory: Present: decreased BS to Ascultation Cardiology: regular, normal heart rate, S1S2, no murmurs Gastrointestinal: normoactive bowel sounds, no tenderness Integumentary: no rash, warm and dry Neurologic: no focal deficit, alert and oriented x3, reflexes 2+ and symmetric, gait normal, strength 5/5 Musculoskeletal: no deformities, no erythema, no cyanosis, no clubbing Psychiatric: mood/affect appropriate, cooperative Results - Lab Results 02/13/17 06:43 02/13/17 06:43 Most recent lab results Calcium 7.9 mg/dL (8.4-10.2) L 02/13/17 06:43 Assessment and Plan 1. Acute kidney injury on underlying CKD stage IV 2. Anion gap metabolic acidosis 2/2 uremia--lactic acid level is normal 3. Uremia 4. Poorly controlled DM II, with DM retinopathy /legally blind 5. Anemia of CKD 6. 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 Will initiate HD. Discussed with pt and pts and both agreed for dialysis. Risk and benefits explained. Obtain urine studies Obtain renal U/S Strict I/Os Vascular has been consulted for permcath First HD today for 2 hrs Thank you for the consult
[2017-02-13] MEDS ORDERED: HEPARIN ONE (19:11)
[2017-02-14] MEDS: ZOFRAN IV PRN ×3 (01:41→16:23)
[2017-02-14] MEDS: FLAGYL 500 MG/100 ML 500 MG/100 ML BAG IV SCH ×3 (05:04→22:05)
[2017-02-14] MEDS: HEPARIN SUB-Q SCH ×3 (05:05→22:07)
[2017-02-14] MEDS: NOVOLOG SUB-Q SCH ×2 (05:08→23:02)
[2017-02-14] MEDS: NORCO 5/325 PO PRN ×3 (10:56→22:06)
[2017-02-14] MEDS ORDERED: NACL 0.9% 100 ML IV PRN (11:00)
--- NOTE | 2017-02-14 11:40 | Vascular Lab Report ---
MISCELLANEOUS VESSEL IDENTIFICATION: COMMENTS ON THE SCAN: The right internal jugular vein was identified and under real-time ultrasound guidance was cannulated. IMPRESSION: Successful ultrasound guided vein cannulation.
[2017-02-14] MEDS ORDERED: NACL 0.9 (PRIMING MACHINE ONLY DIALYSIS) MC ONE (12:44)
[2017-02-14 14:44] LABS: Hematocrit 29.7 % (35.5-45.6); Hemoglobin 10.1 gm/dl (11.8-15.2); Mean Corpuscular HGB Conc 34 % (32-34); Mean Corpuscular Hemoglobin 27 pg (28-32); Mean Corpuscular Volume 80 fl (84-94); Platelet Count 207 K/mm3 (140-440); Red Cell Distribution Width 16.2 % (13.2-15.2); White Blood Count 6.8 K/mm3 (4.5-11.0)
--- NOTE | 2017-02-14 15:39 | Progress Note ---
Assessment and Plan 1. Acute kidney injury on underlying CKD stage IV 2. Anion gap metabolic acidosis 2/2 uremia--lactic acid level is normal 3. Uremia 4. Poorly controlled DM II, with DM retinopathy /legally blind 5. Anemia of CKD 6. 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 F/u on labs today-to be drawn before dialysis CT A/P with distended bladder--Booker catheter Subjective Date of service: 02/14/17 Interval history: C/o pain at the permcath site Objective - Exam Narrative Exam: General appearance: well-developed, well-nourished, appears stated age, legally blind EENT: PERRL, mucous membranes moist Neck: no JVD, no thyromegaly, no carotid bruit, supple, right IJ permcath in place Respiratory: Present: decreased BS to Ascultation Cardiology: regular, normal heart rate, S1S2, no murmurs Gastrointestinal: normoactive bowel sounds, no tenderness Integumentary: no rash, warm and dry Neurologic: no focal deficit, alert and oriented x3, reflexes 2+ and symmetric, gait normal, strength 5/5 Musculoskeletal: no deformities, no erythema, no cyanosis, no clubbing Psychiatric: mood/affect appropriate, cooperative - Vital Signs Vital signs: Vital Signs - 12hr 02/14/17 02/14/17 02/14/17 07:30 11:45 11:50 Temperature 97.6 F 98.0 F Pulse Rate 103 H 103 H Pulse Rate [ 99 H Left] Respiratory 20 18 Rate Blood Pressure 116/74 119/73 Blood Pressure 98/63 [Left Arm] 02/14/17 02/14/17 02/14/17 12:00 12:15 12:30 Temperature Pulse Rate 98 H 85 88 Pulse Rate [ Left] Respiratory Rate Blood Pressure 118/81 107/70 106/71 Blood Pressure [Left Arm] 02/14/17 02/14/17 02/14/17 12:45 13:00 13:15 Temperature Pulse Rate 97 H 93 H 92 H Pulse Rate [ Left] Respiratory Rate Blood Pressure 102/74 103/70 103/66 Blood Pressure [Left Arm] 02/14/17 02/14/17 02/14/17 13:30 13:45 14:00 Temperature Pulse Rate 87 78 86 Pulse Rate [ Left] Respiratory Rate Blood Pressure 97/62 110/64 106/65 Blood Pressure [Left Arm] 02/14/17 02/14/17 14:20 14:25 Temperature 97.8 F Pulse Rate 83 95 H Pulse Rate [ Left] Respiratory 18 Rate Blood Pressure 125/72 124/80 Blood Pressure [Left Arm] - Lab 02/14/17 14:20 02/14/17 17:27 Most recent lab results Calcium 7.9 mg/dL (8.4-10.2) L 02/13/17 06:43
[2017-02-14] MEDS ORDERED: NACL 0.9% 250ML 250 ML ONE (15:40)
[2017-02-14] MEDS ORDERED: NACL 0.9% IV SCH (17:00)
[2017-02-14 18:26] LABS: BUN/Creatinine Ratio 14.61; Calcium 8.3 mg/dL (8.4-10.2); Chloride 94.7 mmol/L (98-107); Potassium 3.2 mmol/L (3.6-5.0)
[2017-02-14] MEDS: LEVAQUIN 750MG/150ML 750 MG/150 ML BAG IV SCH (22:05)
[2017-02-15] MEDS: NORCO 5/325 PO PRN (04:52)
[2017-02-15] MEDS: HEPARIN SUB-Q SCH ×3 (06:35→22:42)
[2017-02-15] MEDS: FLAGYL 500 MG/100 ML 500 MG/100 ML BAG IV SCH ×3 (06:35→22:42)
[2017-02-15 08:46] LABS: Basophils % (Auto) 0.7 % (0.0-1.8); Eosinophils % (Auto) 2.4 % (0.0-4.3); Hemoglobin 9.8 gm/dl (11.8-15.2); Mean Corpuscular HGB Conc 33 % (32-34); Mean Corpuscular Hemoglobin 27 pg (28-32); Mean Corpuscular Volume 82 fl (84-94); Platelet Count 191 K/mm3 (140-440); Red Blood Count 3.67 M/mm3 (3.65-5.03); Red Cell Distribution Width 15.7 % (13.2-15.2); White Blood Count 7.1 K/mm3 (4.5-11.0)
[2017-02-15 09:05] LABS: Albumin 2.9 g/dL (3.9-5); Albumin/Globulin Ratio 0.8 %; Alkaline Phosphatase 135 units/L (35-129); Anion Gap 22 mmol/L; BUN/Creatinine Ratio 12.63; Blood Urea Nitrogen 24 mg/dL (9-20); Calcium 8.1 mg/dL (8.4-10.2); Carbon Dioxide 23 mmol/L (22-30); Glucose 144 mg/dL (75-100); Potassium 3.8 mmol/L (3.6-5.0); Sodium 137 mmol/L (137-145); Total Protein 6.7 g/dL (6.3-8.2)
[2017-02-15 09:09] LABS: Alanine Aminotransferase < 5 units/L (7-56)
--- NOTE | 2017-02-15 13:42 | Progress Note ---
Assessment and Plan 1. Acute kidney injury on underlying CKD stage IV 2. Anion gap metabolic acidosis 2/2 uremia--lactic acid level is normal 3. Uremia 4. Poorly controlled DM II, with DM retinopathy /legally blind 5. Anemia of CKD 6. 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 BUN/CR significantly improved from admission time. No HD planned on the weekend. Will continue to monitor for renal recovery. Subjective Date of service: 02/15/17 Interval history: Wants permcath out Objective - Exam Narrative Exam: General appearance: well-developed, well-nourished, appears stated age, legally blind EENT: PERRL, mucous membranes moist Neck: no JVD, no thyromegaly, no carotid bruit, supple, right IJ permcath in place Respiratory: Present: decreased BS to Ascultation Cardiology: regular, normal heart rate, S1S2, no murmurs Gastrointestinal: normoactive bowel sounds, no tenderness Integumentary: no rash, warm and dry Neurologic: no focal deficit, alert and oriented x3, reflexes 2+ and symmetric, gait normal, strength 5/5 Musculoskeletal: no deformities, no erythema, no cyanosis, no clubbing Psychiatric: mood/affect appropriate, cooperative - Vital Signs Vital signs: Vital Signs - 12hr 02/15/17 02/15/17 06:07 08:00 Temperature 97.6 F 97.9 F Pulse Rate [ 92 H 90 Apical] Respiratory 18 18 Rate Blood Pressure 120/77 117/78 [Left Arm] O2 Sat by Pulse 97 100 Oximetry - Lab 02/15/17 08:17 02/15/17 08:17 Most recent lab results Calcium 8.1 mg/dL (8.4-10.2) L 02/15/17 08:17
[2017-02-15] MEDS: NOVOLOG SUB-Q SCH (22:50)
[2017-02-16 03:26] LABS: BUN/Creatinine Ratio 13.33; Calcium 8.2 mg/dL (8.4-10.2); Chloride 95.2 mmol/L (98-107); Potassium 3.3 mmol/L (3.6-5.0)
[2017-02-16] MEDS: FLAGYL 500 MG/100 ML 500 MG/100 ML BAG IV SCH (06:08)
[2017-02-16] MEDS: HEPARIN SUB-Q SCH ×3 (06:09→22:38)
--- NOTE | 2017-02-16 10:13 | Progress Note ---
Assessment and Plan Assessment and plan: Severe sepsis with septic shock. BP was low on admission, now improved. He is on levaquin and Flagyl Hypotension due to sepsis. Blood Pressure improving Coronary artery disease. Stable.No chest pain or shortness of breath Acute on chronic kidney disease. Nephrology managing. Uremia. Start dialysis as per Nephtrology Acute Kidney injury secondary to acute tubular necrosis Diabetes mellitus type 2. Fingerstick glucose before every meal and at bedtime DVT prophylaxis with Heparin Full code status History Interval history: Presented with low blood pressure, BP improved Hospitalist Physical - Physical exam Narrative exam: Appearance: Not in acute distress, cachetic HEENT: normocephalic, atraumatic Neck : supple, no JVD Lungs: Clear to auscultation bilaterally, no crackles or wheeze Heart : S1 and S2 regular, no murmurs, rubs or gallop Abdomen: soft, non-tender, non-distended, normal bowel sounds Extremities: No edema, no clubbing, no cyanosis Neuro: Awake, alert, moves all ext, Psych: normal mood - Constitutional Vitals: Temp Pulse Resp BP Pulse Ox 98.4 F 114 H 20 116/76 98 02/16/17 05:48 02/16/17 05:48 02/16/17 05:48 02/16/17 05:48 02/16/17 05:48 General appearance: Present: no acute distress, well-nourished Results - Labs CBC & Chem 7: 02/15/17 08:17 02/16/17 02:44 Labs: Laboratory Last Values WBC 7.1 K/mm3 (4.5-11.0) 02/15/17 08:17 RBC 3.67 M/mm3 (3.65-5.03) 02/15/17 08:17 Hgb 9.8 gm/dl (11.8-15.2) L 02/15/17 08:17 Hct 30.0 % (35.5-45.6) L 02/15/17 08:17 MCV 82 fl (84-94) L 02/15/17 08:17 MCH 27 pg (28-32) L 02/15/17 08:17 MCHC 33 % (32-34) 02/15/17 08:17 RDW 15.7 % (13.2-15.2) H 02/15/17 08:17 Plt Count 191 K/mm3 (140-440) 02/15/17 08:17 Lymph % (Auto) 24.3 % (13.4-35.0) 02/15/17 08:17 Porter % (Auto) 14.3 % (0.0-7.3) H 02/15/17 08:17 Eos % (Auto) 2.4 % (0.0-4.3) 02/15/17 08:17 Baso % (Auto) 0.7 % (0.0-1.8) 02/15/17 08:17 Lymph # 1.7 K/mm3 (1.2-5.4) 02/15/17 08:17 Porter # 1.0 K/mm3 (0.0-0.8) H 02/15/17 08:17 Eos # 0.2 K/mm3 (0.0-0.4) 02/15/17 08:17 Baso # 0.0 K/mm3 (0.0-0.1) 02/15/17 08:17 Seg Neutrophils % 58.3 % (40.0-70.0) 02/15/17 08:17 Seg Neutrophils # 4.2 K/mm3 (1.8-7.7) 02/15/17 08:17 PT 13.8 Sec. (12.2-14.9) 02/13/17 06:43 INR 1.07 (0.87-1.13) 02/13/17 06:43 APTT 30.5 Sec. (24.2-36.6) 02/13/17 06:43 Sodium 137 mmol/L (137-145) 02/16/17 02:44 Potassium 3.3 mmol/L (3.6-5.0) L 02/16/17 02:44 Chloride 95.2 mmol/L (98-107) L 02/16/17 02:44 Carbon Dioxide 19 mmol/L (22-30) L 02/16/17 02:44 Anion Gap 26 mmol/L 02/16/17 02:44 BUN 28 mg/dL (9-20) H 02/16/17 02:44 Creatinine 2.1 mg/dL (0.8-1.5) H 02/16/17 02:44 Estimated GFR 33 ml/min 02/16/17 02:44 BUN/Creatinine Ratio 13.33 % 02/16/17 02:44 Glucose 95 mg/dL (75-100) 02/16/17 02:44 POC Glucose 174 (70-105) H 02/15/17 22:26 Hemoglobin A1c 6.6 % (4-6) H 02/13/17 06:43 Lactic Acid 0.80 mmol/L (0.7-2.0) 02/13/17 06:43 Calcium 8.2 mg/dL (8.4-10.2) L 02/16/17 02:44 Total Bilirubin 0.20 mg/dL (0.1-1.2) 02/15/17 08:17 Direct Bilirubin < 0.2 mg/dL (0-0.2) 02/12/17 00:59 Indirect Bilirubin 0.0 mg/dL 02/12/17 00:59 AST 16 units/L (5-40) 02/15/17 08:17 ALT < 5 units/L (7-56) L 02/15/17 08:17 Alkaline Phosphatase 135 units/L (35-129) H 02/15/17 08:17 Total Protein 6.7 g/dL (6.3-8.2) 02/15/17 08:17 Albumin 2.9 g/dL (3.9-5) L 02/15/17 08:17 Albumin/Globulin Ratio 0.8 % 02/15/17 08:17 Triglycerides 186 mg/dL (2-149) H 02/12/17 00:59 Cholesterol 186 mg/dL (50-199) 02/12/17 00:59 LDL Cholesterol Direct 122 mg/dL (50-130) 02/12/17 00:59 HDL Cholesterol 27 mg/dL (40-59) L 02/12/17 00:59 Cholesterol/HDL Ratio 6.88 % 02/12/17 00:59 Amylase 88 units/L (27-131) 02/12/17 00:59 Lipase 50 units/L (13-60) 02/12/17 00:59 Hepatitis A IgM Ab Non-reactive (NonReactive) 02/14/17 17: Hep Bs Antigen Non-reactive (Negative) 02/14/17: Hep B Core IgM Ab Non-reactive (NonReactive) 02/14/17 17:27 Hepatitis C Antibody Non-reactive (NonReactive) 02/14/17 17:27
--- NOTE | 2017-02-16 10:47 | Progress Note ---
Assessment and Plan 1. Acute kidney injury on underlying CKD stage IV 2. Anion gap metabolic acidosis 2/2 uremia--lactic acid level is normal 3. Uremia 4. Poorly controlled DM II, with DM retinopathy /legally blind 5. Anemia of CKD 6. 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 BUN/CR significantly improved from admission time but now slowly rising. He is incontinent. He says his urine out picked up significantly "it does not stop". No HD planned on the weekend. Will continue to monitor for renal recovery. Obtain Hip/knee x ray for evaluation of pain Subjective Date of service: 02/16/17 Interval history: C/o right hip/knee pain 03/01 Objective - Exam Narrative Exam: General appearance: well-developed, well-nourished, appears stated age, legally blind EENT: PERRL, mucous membranes moist Neck: no JVD, no thyromegaly, no carotid bruit, supple, right IJ permcath in place Respiratory: Present: decreased BS to Ascultation Cardiology: regular, normal heart rate, S1S2, no murmurs Gastrointestinal: normoactive bowel sounds, no tenderness Integumentary: no rash, warm and dry Neurologic: no focal deficit, alert and oriented x3, reflexes 2+ and symmetric, gait normal, strength 5/5 Musculoskeletal: no deformities, no erythema, no cyanosis, no clubbing, tenderness on the right hip/knee(old surgical scar from his hip surgery earlier this year) Psychiatric: mood/affect appropriate, cooperative - Vital Signs Vital signs: Vital Signs - 12hr 02/16/17 02/16/17 02/16/17 00:58 05:48 09:00 Temperature 99.7 F H 98.4 F 98.0 F Pulse Rate [ 107 H 114 H Apical] Pulse Rate [ 107 H Left Radial] Respiratory 20 20 18 Rate Blood Pressure 107/62 116/76 119/77 [Left Arm] O2 Sat by Pulse 98 98 98 Oximetry - Lab 02/15/17 08:17 02/16/17 02:44 Most recent lab results Calcium 8.2 mg/dL (8.4-10.2) L 02/16/17 02:44
[2017-02-16] MEDS: FLAGYL PO SCH ×2 (14:16→22:38)
--- NOTE | 2017-02-16 16:49 | Progress Note ---
Assessment and Plan Assessment and plan: Severe sepsis with septic shock. BP was low on admission, now normal. Continue levaquin and Flagyl Hypotension due to sepsis. Blood Pressure noow normal. Leukocytosis, due to sepsis, now resolved. WBC 7.1 today Coronary artery disease. Stable.No chest pain or shortness of breath Acute on chronic kidney disease. Nephrology managing. patient improving with dialysis Uremia. Started hemodialysis as per Nephtrology Acute Kidney injury secondary to acute tubular necrosis Diabetes mellitus type 2. Fingerstick glucose before every meal and at bedtime DVT prophylaxis with Heparin. Malnutrition . Dietitian consulted Full code status History Interval history: Presented with low blood pressure, now normal. gen weakness Hospitalist Physical - Physical exam Narrative exam: Appearance: Not in acute distress, cachetic HEENT: normocephalic, atraumatic Neck : supple, no JVD Lungs: Clear to auscultation bilaterally, no crackles or wheeze Heart : S1 and S2 regular, no murmurs, rubs or gallop Abdomen: soft, non-tender, non-distended, normal bowel sounds Extremities: No edema, no clubbing, no cyanosis Neuro: Awake, alert, moves all ext, Psych: normal mood - Constitutional Vitals: Temp Pulse Resp BP Pulse Ox 98.0 F 107 H 18 119/77 98 02/16/17 09:00 02/16/17 09:00 02/16/17 09:00 02/16/17 09:00 02/16/17 09:00 General appearance: Present: no acute distress, well-nourished Results - Labs CBC & Chem 7: 02/15/17 08:17 02/16/17 02:44 Labs: Laboratory Last Values WBC 7.1 K/mm3 (4.5-11.0) 02/15/17 08: RBC 3.67 M/mm3 (3.65-5.03) 02/15/17 08:17 Hgb 9.8 gm/dl (11.8-15.2) L 02/15/17 08:17 Hct 30.0 % (35.5-45.6) L 02/15/17 08:17 MCV 82 fl (84-94) L 02/15/17 08:17 MCH 27 pg (28-32) L 02/15/17 08:17 MCHC 33 % (32-34) 02/15/17 08:17 RDW 15.7 % (13.2-15.2) H 02/15/17 08:17 Plt Count 191 K/mm3 (140-440) 02/15/17 08:17 Lymph % (Auto) 24.3 % (13.4-35.0) 02/15/17 08:17 [place] % (Auto) 14.3 % (0.0-7.3) H 02/15/17 08:17 Eos % (Auto) 2.4 % (0.0-4.3) 02/15/17 08:17 Baso % (Auto) 0.7 % (0.0-1.8) 02/15/17 08: Lymph # 1.7 K/mm3 (1.2-5.4) 02/15/17 08:17 [place] # 1.0 K/mm3 (0.0-0.8) H 02/15/17 08:17 Eos # 0.2 K/mm3 (0.0-0.4) 02/15/17 08:17 Baso # 0.0 K/mm3 (0.0-0.1) 02/15/17 08:17 Seg Neutrophils % 58.3 % (40.0-70.0) 02/15/17 08:17 Seg Neutrophils # 4.2 K/mm3 (1.8-7.7) 02/15/17 08:17 PT 13.8 Sec. (12.2-14.9) 02/13/17 06:43 INR 1.07 (0.87-1.13) 02/13/17 06:43 APTT 30.5 Sec. (24.2-36.6) 02/13/17 06:43 Sodium 137 mmol/L (137-145) 02/16/17 02:44 Potassium 3.3 mmol/L (3.6-5.0) L 02/16/17 02:44 Chloride 95.2 mmol/L (98-107) L 02/16/17 02:44 Carbon Dioxide 19 mmol/L (22-30) L 02/16/17 02:44 Anion Gap 26 mmol/L 02/16/17 02:44 BUN 28 mg/dL (9-20) H 02/16/17 02:44 Creatinine 2.1 mg/dL (0.8-1.5) H 02/16/17 02:44 Estimated GFR 33 ml/min 02/16/17 02:44 BUN/Creatinine Ratio 13.33 % 02/16/17 02:44 Glucose 95 mg/dL (75-100) 02/16/17 02:44 POC Glucose 174 (70-105) H 02/15/17 22:26 Hemoglobin A1c 6.6 % (4-6) H 02/13/17 06:43 Lactic Acid 0.80 mmol/L (0.7-2.0) 02/13/17 06:43 Calcium 8.2 mg/dL (8.4-10.2) L 02/16/17 02:44 Total Bilirubin 0.20 mg/dL (0.1-1.2) 02/15/17 08:17 Direct Bilirubin < 0.2 mg/dL (0-0.2) 02/12/17 00:59 Indirect Bilirubin 0.0 mg/dL 02/12/17 00:59 AST 16 units/L (5-40) 02/15/17 08:17 ALT < 5 units/L (7-56) L 02/15/17 08:17 Alkaline Phosphatase 135 units/L (35-129) H 02/15/17 08:17 Total Protein 6.7 g/dL (6.3-8.2) 02/15/17 08:17 Albumin 2.9 g/dL (3.9-5) L 02/15/17 08:17 Albumin/Globulin Ratio 0.8 % 02/15/17 08:17 Triglycerides 186 mg/dL (2-149) H 02/12/17 00:59 Cholesterol 186 mg/dL (50-199) 02/12/17 00:59 LDL Cholesterol Direct 122 mg/dL (50-130) 02/12/17 00:59 HDL Cholesterol 27 mg/dL (40-59) L 02/12/17 00:59 Cholesterol/HDL Ratio 6.88 % 02/12/17 00:59 Amylase 88 units/L (27-131) 02/12/17 00:59 Lipase 50 units/L (13-60) 02/12/17 00:59 Hepatitis A IgM Ab Non-reactive (NonReactive) 02/14/17 17:27 Hep Bs Antigen Non-reactive (Negative) 02/14/17: Hep B Core IgM Ab Non-reactive (NonReactive) 02/14/17: Hepatitis C Antibody Non-reactive (NonReactive) 02/14/17:
--- NOTE | 2017-02-16 16:56 | Progress Note ---
Assessment and Plan Assessment and plan: Severe sepsis with septic shock. BP was low on admission, now normal. Continue levaquin and Flagyl Hypotension due to sepsis. Blood Pressure noow normal. Leukocytosis, due to sepsis, now resolved. WBC 7.1. Coronary artery disease. Stable.No chest pain or shortness of breath Acute on chronic kidney disease. Nephrology managing. patient improving with dialysis. Cr 2.1 today Uremia. Started hemodialysis as per Nephtrology Acute Kidney injury secondary to acute tubular necrosis Diabetes mellitus type 2. Fingerstick glucose before every meal and at bedtime DVT prophylaxis with Heparin. Malnutrition . Dietitian consulted pain left knee right hip. We'll obtain x-rays Full code status History Interval history: Presented with low blood pressure, now normal. gen weakness pain left knee and right hip Hospitalist Physical - Physical exam Narrative exam: Appearance: Not in acute distress, cachetic HEENT: normocephalic, atraumatic Neck : supple, no JVD Lungs: Clear to auscultation bilaterally, no crackles or wheeze Heart : S1 and S2 regular, no murmurs, rubs or gallop Abdomen: soft, non-tender, non-distended, normal bowel sounds Extremities: No edema, no clubbing, no cyanosis Neuro: Awake, alert, moves all ext, - Constitutional Vitals: Temp Pulse Resp BP Pulse Ox 98.0 F 107 H 18 119/77 98 02/16/17 09:00 02/16/17 09:00 02/16/17 09:00 02/16/17 09:00 02/16/17 09:00 General appearance: Present: no acute distress, well-nourished Results - Labs CBC & Chem 7: 02/15/17 08:17 02/16/17 02:44 Labs: Laboratory Last Values WBC 7.1 K/mm3 (4.5-11.0) 02/15/17 08:17 RBC 3.67 M/mm3 (3.65-5.03) 02/15/17 08:17 Hgb 9.8 gm/dl (11.8-15.2) L 02/15/17 08:17 Hct 30.0 % (35.5-45.6) L 02/15/17 08:17 MCV 82 fl (84-94) L 02/15/17 08:17 MCH 27 pg (28-32) L 02/15/17 08:17 MCHC 33 % (32-34) 02/15/17 08:17 RDW 15.7 % (13.2-15.2) H 02/15/17 08:17 Plt Count 191 K/mm3 (140-440) 02/15/17 08:17 Lymph % (Auto) 24.3 % (13.4-35.0) 02/15/17 08:17 [place] % (Auto) 14.3 % (0.0-7.3) H 02/15/17 08:17 Eos % (Auto) 2.4 % (0.0-4.3) 02/15/17 08:17 Baso % (Auto) 0.7 % (0.0-1.8) 02/15/17 08:17 Lymph # 1.7 K/mm3 (1.2-5.4) 02/15/17 08:17 [place] # 1.0 K/mm3 (0.0-0.8) H 02/15/17 08:17 Eos # 0.2 K/mm3 (0.0-0.4) 02/15/17 08:17 Baso # 0.0 K/mm3 (0.0-0.1) 02/15/17 08:17 Seg Neutrophils % 58.3 % (40.0-70.0) 02/15/17 08:17 Seg Neutrophils # 4.2 K/mm3 (1.8-7.7) 02/15/17 08:17 PT 13.8 Sec. (12.2-14.9) 02/13/17 06:43 INR 1.07 (0.87-1.13) 02/13/17 06:43 APTT 30.5 Sec. (24.2-36.6) 02/13/17 06:43 Sodium 137 mmol/L (137-145) 02/16/17 02:44 Potassium 3.3 mmol/L (3.6-5.0) L 02/16/17 02:44 Chloride 95.2 mmol/L (98-107) L 02/16/17 02:44 Carbon Dioxide 19 mmol/L (22-30) L 02/16/17 02:44 Anion Gap 26 mmol/L 02/16/17 02:44 BUN 28 mg/dL (9-20) H 02/16/17 02:44 Creatinine 2.1 mg/dL (0.8-1.5) H 02/16/17 02:44 Estimated GFR 33 ml/min 02/16/17 02:44 BUN/Creatinine Ratio 13.33 % 02/16/17 02:44 Glucose 95 mg/dL (75-100) 02/16/17 02:44 POC Glucose 174 (70-105) H 02/15/17 22:26 Hemoglobin A1c 6.6 % (4-6) H 02/13/17 06:43 Lactic Acid 0.80 mmol/L (0.7-2.0) 02/13/17 06:43 Calcium 8.2 mg/dL (8.4-10.2) L 02/16/17 02:44 Total Bilirubin 0.20 mg/dL (0.1-1.2) 02/15/17 08:17 Direct Bilirubin < 0.2 mg/dL (0-0.2) 02/12/17 00:59 Indirect Bilirubin 0.0 mg/dL 02/12/17 00:59 AST 16 units/L (5-40) 02/15/17 08:17 ALT < 5 units/L (7-56) L 02/15/17 08:17 Alkaline Phosphatase 135 units/L (35-129) H 02/15/17 08:17 Total Protein 6.7 g/dL (6.3-8.2) 02/15/17 08:17 Albumin 2.9 g/dL (3.9-5) L 02/15/17 08:17 Albumin/Globulin Ratio 0.8 % 02/15/17 08:17 Triglycerides 186 mg/dL (2-149) H 02/12/17 00:59 Cholesterol 186 mg/dL (50-199) 02/12/17 00:59 LDL Cholesterol Direct 122 mg/dL (50-130) 02/12/17 00:59 HDL Cholesterol 27 mg/dL (40-59) L 02/12/17 00:59 Cholesterol/HDL Ratio 6.88 % 02/12/17 00:59 Amylase 88 units/L (27-131) 02/12/17 00:59 Lipase 50 units/L (13-60) 02/12/17 00:59 Hepatitis A IgM Ab Non-reactive (NonReactive) 02/14/17 17: Hep Bs Antigen Non-reactive (Negative) 02/14/17 Hep B Core IgM Ab Non-reactive (NonReactive) 02/14/17 Hepatitis C Antibody Non-reactive (NonReactive) 02/14/17:
--- NOTE | 2017-02-16 18:10 | XRay Report ---
FINAL REPORT EXAM: XR HIP 2-3V RT HISTORY: pain/RT HIP COMPARISONS: CT abdomen and pelvis 12/23/2016 FINDINGS: AP pelvis, AP and frog-leg lateral views right hip Right hip joint is intact. Right proximal femur hardware appears unchanged. Heterotopic calcification is present at the proximal aspect of the right femoral nail. No displaced fracture. Pelvic phlebolith is noted. IMPRESSION: Right femur hardware appears intact. No displaced pelvic fracture.
--- NOTE | 2017-02-16 18:19 | XRay Report ---
FINAL REPORT EXAM: XR KNEE 3V LT HISTORY: pain COMPARISONS: None. FINDINGS: Three views right knee Diffuse demineralization. No bone lesion, periosteal reaction, or fracture. No deformity or gross malalignment. Mild medial compartment osteoarthrosis. No effusion. IMPRESSION: No fracture or effusion. Mild medial compartment osteoarthrosis.
[2017-02-16] MEDS ORDERED: LEVAQUIN PO SCH ×2 (22:00)
[2017-02-16] MEDS: NOVOLOG SUB-Q SCH (22:12)
[2017-02-17] MEDS: FLAGYL PO SCH ×3 (06:12→21:25)
[2017-02-17] MEDS: HEPARIN SUB-Q SCH ×3 (06:12→21:26)
--- NOTE | 2017-02-17 09:51 | Progress Note ---
Assessment and Plan 1. Acute kidney injury on underlying CKD stage IV 2. Anion gap metabolic acidosis 2/2 uremia--lactic acid level is normal 3. Uremia 4. Poorly controlled DM II, with DM retinopathy /legally blind 5. Anemia of CKD 6. Leukocytosis 7. 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 BUN/CR significantly improved from admission time but now slowly rising. Follow up on labs today. If CR remains stable or improved he will not need HD. He can get his permcath removed and d/airam home with follow up. Will continue to monitor for renal recovery. Hip/knee x ray reviewed. No acute changes. Subjective Date of service: 02/17/17 Interval history: Knee/hip pain improved. No SOb/CP. No N/V/abdominal pain Objective - Exam Narrative Exam: General appearance: well-developed, well-nourished, appears stated age, legally blind EENT: PERRL, mucous membranes moist Neck: no JVD, no thyromegaly, no carotid bruit, supple, right IJ permcath in place Respiratory: Present: decreased BS to Ascultation Cardiology: regular, normal heart rate, S1S2, no murmurs Gastrointestinal: normoactive bowel sounds, no tenderness Integumentary: no rash, warm and dry Neurologic: no focal deficit, alert and oriented x3, reflexes 2+ and symmetric, gait normal, strength 5/5 Musculoskeletal: no deformities, no erythema, no cyanosis, no clubbing, tenderness on the right hip/knee(old surgical scar from his hip surgery earlier this year) Psychiatric: mood/affect appropriate, cooperative - Vital Signs Vital signs: Vital Signs - 12hr 02/16/17 02/17/17 02/17/17 22:00 00:22 05:47 Temperature 98.2 F 97.4 F L Pulse Rate 90 Pulse Rate [ 103 H 107 H Apical] Respiratory 18 20 Rate Blood Pressure 107/71 105/76 [Left Arm] O2 Sat by Pulse 97 98 Oximetry 02/17/17 06:00 Temperature Pulse Rate 99 H Pulse Rate [ Apical] Respiratory Rate Blood Pressure [Left Arm] O2 Sat by Pulse Oximetry - Lab 02/15/17 08:17 02/16/17 02:44 Most recent lab results Calcium 8.2 mg/dL (8.4-10.2) L 02/16/17 02:44
[2017-02-17 10:51] LABS: Calcium 8.6 mg/dL (8.4-10.2); Chloride 95.9 mmol/L (98-107); Potassium 3.6 mmol/L (3.6-5.0)
[2017-02-17 10:57] LABS: Hematocrit 29.7 % (35.5-45.6); Hemoglobin 9.7 gm/dl (11.8-15.2); Mean Corpuscular HGB Conc 33 % (32-34); Mean Corpuscular Hemoglobin 27 pg (28-32); Mean Corpuscular Volume 83 fl (84-94); Platelet Count 170 K/mm3 (140-440); Red Cell Distribution Width 16.3 % (13.2-15.2); White Blood Count 8.3 K/mm3 (4.5-11.0)
--- NOTE | 2017-02-17 12:36 | Progress Note ---
Assessment and Plan Assessment and plan: Severe sepsis with septic shock. BP was low on admission, now normal. Continue levaquin and Flagyl Hypotension due to sepsis. Resolved. Blood Pressure now normal. Leukocytosis, due to sepsis, now resolved. WBC 8.3. Coronary artery disease. Stable.No chest pain or shortness of breath. Resume Coreg when BP normal Acute on chronic kidney disease. Nephrology managing. He had 2 sessions of hemodialysis. Creatinine increasing after dialysis put on hold. Cr 2.5 today from 2.1 yesterday. I discussed with Dr. Jack. He recommends recheck BMP in am Uremia. Much improved, s/p 2 sessions of hemodialysisStarted hemodialysis as per Nephtrology Acute Kidney injury secondary to acute tubular necrosis Diabetes mellitus type 2. Fingerstick glucose before every meal and at bedtime DVT prophylaxis with Heparin. Malnutrition . Tachycardia. Coreg on hold because of low BP. May resume Coreg when BP normal Pain left knee right hip. X-rays unremarkable Full code status History Interval history: Presented with low blood pressure, now normal. gen weakness wants to go home Hospitalist Physical - Physical exam Narrative exam: Appearance: Not in acute distress, cachetic HEENT: normocephalic, atraumatic Neck : supple, no JVD Lungs: Clear to auscultation bilaterally, no crackles or wheeze Heart : S1 and S2 regular, no murmurs, rubs or gallop Abdomen: soft, non-tender, non-distended, normal bowel sounds Extremities: No edema, no clubbing, no cyanosis Neuro: Awake, alert, moves all ext, - Constitutional Vitals: Temp Pulse Resp BP Pulse Ox 98.7 F 102 H 16 86/58 98 02/17/17 10:57 02/17/17 10:57 02/17/17 10:57 02/17/17 10:57 02/17/17 10:57 General appearance: Present: no acute distress, well-nourished Results - Labs CBC & Chem 7: 02/17/17 10:01 02/17/17 10:01 Labs: Laboratory Last Values WBC 8.3 K/mm3 (4.5-11.0) 02/17/17 10:01 RBC 3.60 M/mm3 (3.65-5.03) L 02/17/17 10:01 Hgb 9.7 gm/dl (11.8-15.2) L 02/17/17 10:01 Hct 29.7 % (35.5-45.6) L 02/17/17 10:01 MCV 83 fl (84-94) L 02/17/17 10:01 MCH 27 pg (28-32) L 02/17/17 10:01 MCHC 33 % (32-34) 02/17/17 10:01 RDW 16.3 % (13.2-15.2) H 02/17/17 10:01 Plt Count 170 K/mm3 (140-440) 02/17/17 10:01 Lymph % (Auto) 24.3 % (13.4-35.0) 02/15/17 08:17 [place] % (Auto) 14.3 % (0.0-7.3) H 02/15/17 08:17 Eos % (Auto) 2.4 % (0.0-4.3) 02/15/17 08:17 Baso % (Auto) 0.7 % (0.0-1.8) 02/15/17 08:17 Lymph # 1.7 K/mm3 (1.2-5.4) 02/15/17 08:17 [place] # 1.0 K/mm3 (0.0-0.8) H 02/15/17 08:17 Eos # 0.2 K/mm3 (0.0-0.4) 02/15/17 08:17 Baso # 0.0 K/mm3 (0.0-0.1) 02/15/17 08:17 Seg Neutrophils % 58.3 % (40.0-70.0) 02/15/17 08:17 Seg Neutrophils # 4.2 K/mm3 (1.8-7.7) 02/15/17 08:17 PT 13.8 Sec. (12.2-14.9) 02/13/17 06:43 INR 1.07 (0.87-1.13) 02/13/17 06:43 APTT 30.5 Sec. (24.2-36.6) 02/13/17 06:43 Sodium 139 mmol/L (137-145) 02/17/17 10:01 Potassium 3.6 mmol/L (3.6-5.0) 02/17/17 10:01 Chloride 95.9 mmol/L (98-107) L 02/17/17 10:01 Carbon Dioxide 19 mmol/L (22-30) L 02/17/17 10:01 Anion Gap 28 mmol/L 02/17/17 10:01 BUN 35 mg/dL (9-20) H 02/17/17 10:01 Creatinine 2.5 mg/dL (0.8-1.5) H 02/17/17 10:01 Estimated GFR 27 ml/min 02/17/17 10:01 BUN/Creatinine Ratio 14.00 % 02/17/17 10:01 Glucose 181 mg/dL (75-100) H 02/17/17 10:01 POC Glucose 168 (70-105) H 02/16/17 22:08 Hemoglobin A1c 6.6 % (4-6) H 02/13/17 06:43 Lactic Acid 0.80 mmol/L (0.7-2.0) 02/13/17 06:43 Calcium 8.6 mg/dL (8.4-10.2) 02/17/17 10:01 Total Bilirubin 0.20 mg/dL (0.1-1.2) 02/15/17 08:17 Direct Bilirubin < 0.2 mg/dL (0-0.2) 02/12/17 00:59 Indirect Bilirubin 0.0 mg/dL 02/12/17 00:59 AST 16 units/L (5-40) 02/15/17 08:17 ALT < 5 units/L (7-56) L 02/15/17 08:17 Alkaline Phosphatase 135 units/L (35-129) H 02/15/17 08:17 Total Protein 6.7 g/dL (6.3-8.2) 02/15/17 08:17 Albumin 2.9 g/dL (3.9-5) L 02/15/17 08:17 Albumin/Globulin Ratio 0.8 % 02/15/17 08:17 Triglycerides 186 mg/dL (2-149) H 02/12/17 00:59 Cholesterol 186 mg/dL (50-199) 02/12/17 00:59 LDL Cholesterol Direct 122 mg/dL (50-130) 02/12/17 00:59 HDL Cholesterol 27 mg/dL (40-59) L 02/12/17 00:59 Cholesterol/HDL Ratio 6.88 % 02/12/17 00:59 Amylase 88 units/L (27-131) 02/12/17 00:59 Lipase 50 units/L (13-60) 02/12/17 00:59 Hepatitis A IgM Ab Non-reactive (NonReactive) 02/14/17 17:27 Hep Bs Antigen Non-reactive (Negative) 02/14/17 17:27 Hep B Core IgM Ab Non-reactive (NonReactive) 02/14/17 17:27 Hepatitis C Antibody Non-reactive (NonReactive) 02/14/17 17:27
[2017-02-17] MEDS: ZOFRAN IV PRN (16:00)
[2017-02-17] MEDS: NOVOLOG SUB-Q SCH (22:39)
[2017-02-18] MEDS: FLAGYL PO SCH ×2 (05:50→14:05)
[2017-02-18] MEDS: HEPARIN SUB-Q SCH ×2 (05:50→14:05)
[2017-02-18 07:53] LABS: Hematocrit 30.8 % (35.5-45.6); Mean Corpuscular HGB Conc 33 % (32-34); Mean Corpuscular Hemoglobin 27 pg (28-32); Mean Corpuscular Volume 82 fl (84-94); Platelet Count 169 K/mm3 (140-440); Red Blood Count 3.74 M/mm3 (3.65-5.03); Red Cell Distribution Width 16.5 % (13.2-15.2); White Blood Count 9.1 K/mm3 (4.5-11.0)
[2017-02-18 08:08] LABS: BUN/Creatinine Ratio 14.61; Calcium 8.8 mg/dL (8.4-10.2); Chloride 97.4 mmol/L (98-107); Potassium 3.6 mmol/L (3.6-5.0)
[2017-02-18] MEDS ORDERED: COREG PO SCH (10:00)
--- NOTE | 2017-02-18 10:23 | Discharge Summary ---
Providers - Providers Date of Admission: 02/12/17 15:02 Date of discharge: 02/18/17 Attending physician: AYESHA QUINTANA MD 02/12/17 16:03 Consult to Physician [CONS] Routine Consulting Provider: MARCO JACK Reason For Exam: CKD Place consult to:: Dr. Jack Notified:: Scottie ALEJANDRE Phone number called:: Was contact made?: Yes If yes, spoke with:: Latasha-julien service Time called:: 18:44 02/12/17 19:02 Physical Therapy Evaluation and Treat [CONS] Routine Comment: Reason For Exam: weakness 02/12/17 19:03 Consult to Wound/ET Nurse [CONS] Routine Reason For Exam: wound eval 02/13/17 08:00 Consult to Dietitian/Nutrition [CONS] Routine Physician Instructions: Reason For Exam: Reason for Consult: Poor oral intake 02/13/17 12:30 Consult to Interventional Radiology [CONS] Routine Consulting Provider: SANDOR DAILEY Reason For Exam: permcath Place consult to:: Ana Notified:: Office Phone number called:: [phone] Was contact made?: Yes Time called:: 13:22 Primary care physician: [employer] Hospitalization Reason for admission: Severe sepsis, CKD Condition: Stable Hospital course: Patient is 56 male with multiple comorbidities came to day to ED with C/O Low blood pressure. Patient took all his BP medicine prior to admission. Patient alert and oriented Also patient states that since yesterday(02/12/2017)he has felt bloated and had decrease in appetite. He began having intermittent Mid- abdominal pain that felt gas pain. Pain described as dull intermittent and well localized. He denies recent fever, vomiting, or diarrhea. Patient was admitted with the impression of severe sepsis and was treated with IV antibiotics and his leukocytosis resolved. Nephrology was consulted for his CKD and Right IJ tunneled was placed but nephrology doesn't want to start him on dialysis rather the patient will be followed as an out patient @ nephrology clinic and if he doesn't need the dialysis the catheter will be taken out as an outpatient. patient was stable at the time of discharge. Disposition: DISCHARGED TO HOME OR SELFCARE Time spent for discharge: 31 minutes - Discharge Diagnoses (1) CKD (chronic kidney disease) Status: Acute Qualifiers: Chronic kidney disease stage: stage 3 (moderate) Qualified Code(s): N18.3 - Chronic kidney disease, stage 3 (moderate) (2) Hypotension due to medication Status: Acute (3) Acidosis Status: Acute (4) Hypertensive chronic kidney disease with stage 5 chronic kidney disease or end stage renal disease Status: Acute Core Measure Documentation - Palliative Care Palliative Care/ Comfort Measures: Not Applicable - Core Measures Any of the following diagnoses?: none Exam - Physical Exam Narrative exam: Not in cardiopulmonary distress. The patient appeared well nourished and normally developed. Vital signs as documented. Head exam is unremarkable. No scleral icterus . Neck is without jugular venous distension, thyromegaly, or carotid bruits. Lungs are clear to auscultation. Cardiac exam reveals regular rate and Rhythm. First and second heart sounds normal. No murmurs, rubs or gallops. Abdominal exam reveals normal bowel sounds, no masses, no organomegaly and no aortic enlargement. Extremities are nonedematous and both femoral and pedal pulses are normal. 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 No focal weakness. - Constitutional Vitals: Temp Pulse Resp BP Pulse Ox 98.0 F 98 H 20 109/68 99 02/18/17 07:20 02/18/17 07:20 02/18/17 07:20 02/18/17 07:20 02/18/17 07:20 Plan Activity: no restrictions Diet: diabetic, renal Follow up with: PRIMARY CARE, [Primary Care Provider] - 3-5 Days MARCO JACK MD [Staff Physician] - 7 Days Prescriptions: Mirtazapine [Remeron] 15 mg PO QHS #60 tablet Aspirin [Aspirin TAB] 325 mg PO QDAY #60 tablet Carvedilol [Coreg] 12.5 mg PO BID #60 tablet Docusate Sodium [Colace CAP] 100 mg PO BID PRN #60 capsule PRN Reason: Constipation Furosemide [Lasix TAB] 20 mg PO QDAY #60 tablet glipiZIDE [glipiZIDE ER] 5 mg PO QAM #30 tab.[id number]
--- NOTE | 2017-02-18 12:44 | Progress Note ---
Assessment and Plan 1. Acute kidney injury on underlying CKD stage IV 2. Anion gap metabolic acidosis 2/2 uremia--lactic acid level is normal 3. Uremia 4. Poorly controlled DM II, with DM retinopathy /legally blind 5. Anemia of CKD 6. Leukocytosis 7. 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 S/p 2 HD sessions. BUN/CR significantly improved from admission time but now slowly rising with persistent metabolic acidosis. start Na bicarb 650mg tid, otherwise stable for discharge with outpatient f/u. Recommend to discharge pt on permcath, may remove permcath as outpatient if renal function remains stable. D/w vascular surgery. Subjective Date of service: 02/18/17 Interval history: pt seen and examined at bedside, in no acute distress. Objective - Vital Signs Vital signs: Vital Signs - 12hr 02/18/17 02/18/17 02/18/17 00:52 04:10 06:00 Temperature 97.4 F L 97.8 F Pulse Rate 103 H Pulse Rate [ 104 H 105 H Left Radial] Pulse Rate [ Right Radial] Respiratory 20 20 Rate Blood Pressure Blood Pressure 118/79 104/70 [Left Arm] Blood Pressure [Right Arm] O2 Sat by Pulse 99 98 Oximetry 02/18/17 02/18/17 02/18/17 07:20 11:15 11:25 Temperature 98.0 F 98.4 F Pulse Rate 98 H Pulse Rate [ Left Radial] Pulse Rate [ 98 H 103 H Right Radial] Respiratory 20 20 Rate Blood Pressure 109/68 Blood Pressure [Left Arm] Blood Pressure 109/68 96/68 [Right Arm] O2 Sat by Pulse 99 Oximetry - General Appearance General appearance: appears stated age, cachectic, frail EENT: ATNC, PERRL, mucous membranes moist Neck: no JVD Respiratory: Present: Clear to Ascultation Cardiology: regular, S1S2 Gastrointestinal: normal, normoactive bowel sounds Integumentary: no rash, other (no edema ) Neurologic: no focal deficit, alert and oriented x3, strength 5/5, CN 3-12 intact Psychiatric: mood/affect appropriate, cooperative - Lab 02/18/17 07:10 02/18/17 07:10 Most recent lab results Calcium 8.8 mg/dL (8.4-10.2) 02/18/17 07:10
--- NOTE | 2017-02-18 12:52 | Event Note ---
Date: 02/18/17 Asked to remove Right ext jugular perma cath. Unable to visualize RIJ when perma-cath was placed. If this catheter is removed , there is a risk that he will lose catheter access to the right upper body. Spoke with Dr Moulton, kidney fxn continues to fluctuate. Will hold off on PC removal. Pt can f/u as an outpt with nephrology. If he no longer needs the catheter, it can be removed in our office as an outpt. Will discuss with the Pt.
[2017-02-18] MEDS ORDERED: SODIUM BICARBONATE PO SCH (14:00)
[2017-02-18 14:58] VITALS: BP 94/64
== END 2017-02-18 15:00 | disposition home or self-care (01) | DRG 871 ==
LOC: ED 23:36 → 4A 02-12 15:02
PROVIDERS: ADMIT Internal Medicine; ATTEND Internal Medicine
PROC: 02H633Z Insertion of Infusion Device into Right Atrium, Percutaneous Approach (ICD-10-PCS; principal; 2017-02-13)
PROC: B513ZZA Fluoroscopy of Right Jugular Veins, Guidance (ICD-10-PCS; 2017-02-13)
PROC: B2141ZZ Fluoroscopy of Right Heart using Low Osmolar Contrast (ICD-10-PCS; 2017-02-13)
PROC: 5A1D60Z (ICD-10-PCS; 2017-02-13)
DX: A41.9 Sepsis, unspecified organism (principal); N17.0 Acute kidney failure with tubular necrosis; R65.21 Severe sepsis with septic shock; I13.2 Hypertensive heart and chronic kidney disease with heart failure and with stage 5 chronic kidney disease, or end stage renal disease; N18.5 Chronic kidney disease, stage 5; I95.2 Hypotension due to drugs; F03.90 Unspecified dementia, unspecified severity, without behavioral disturbance, psychotic disturbance, mood disturbance, and anxiety; E11.22 Type 2 diabetes mellitus with diabetic chronic kidney disease; I50.9 Heart failure, unspecified; I25.10 Atherosclerotic heart disease of native coronary artery without angina pectoris; K21.9 Gastro-esophageal reflux disease without esophagitis; E11.319 Type 2 diabetes mellitus with unspecified diabetic retinopathy without macular edema; H54.8 Legal blindness, as defined in USA; D63.1 Anemia in chronic kidney disease; M25.551 Pain in right hip; M25.561 Pain in right knee
CPT/HCPCS: 36415; 36558; 71010; 74000; 74176; 76937; 77001; 80048; 80053; 80061; 80074; 82140; 82150; 82962; 83036; 83690; 85025; 85027; 85610; 85730; 87040; C1750; C1769; G8978-GP; G8979-GP; J0690; J1644; J1815; J1956; J2250; J2310; J2405; J3010; J7030; J7040; J7050

== ENCOUNTER 2017-03-06 17:27 | Emergency (ER) | payer MEDICARE ==
[2017-03-06 18:29] LABS: BUN/Creatinine Ratio 17.89; Calcium 8.7 mg/dL (8.4-10.2); Chloride 105.4 mmol/L (98-107); Potassium 3.9 mmol/L (3.6-5.0)
[2017-03-06 18:38] LABS: Basophils % (Auto) 0.6 % (0.0-1.8); Eosinophils % (Auto) 3.3 % (0.0-4.3); Hematocrit 33.3 % (35.5-45.6); Hemoglobin 10.9 gm/dl (11.8-15.2); Mean Corpuscular HGB Conc 33 % (32-34); Mean Corpuscular Hemoglobin 27 pg (28-32); Mean Corpuscular Volume 82 fl (84-94); Platelet Count 152 K/mm3 (140-440); Red Blood Count 4.06 M/mm3 (3.65-5.03); Red Cell Distribution Width 16.3 % (13.2-15.2); White Blood Count 7.3 K/mm3 (4.5-11.0)
[2017-03-07 02:19] LABS: Bacteria,Urine 4+ /HPF (Negative); Bilirubin,Urine NEG (Negative); Blood,Urine MOD (Negative); Ketones,Urine NEG (Negative); Leukocyte Esterase,Urine LG (Negative); Mucus,Urine 3+ /HPF; Nitrite,Urine NEG (Negative); Urobilinogen,Urine < 2.0 mg/dL (<2.0)
[2017-03-07 02:23] LABS: WBC,Urine > 182.0 /HPF (0.0-6.0)
[2017-03-07] MEDS ORDERED: NACL 0.9% 1000 ML 1,000 ML IV ONE (03:23)
[2017-03-07] MEDS ORDERED: ROCEPHIN/NS 1 GM/50 ML 1 GM/50 ML BAG IV ONE (03:41)
--- NOTE | 2017-03-07 03:47 | Emergency Department Report ---
HPI - General Chief Complaint: Nausea/Vomiting/Diarrhea Time Seen by Provider: 03/07/17 03:40 - HPI HPI: Room 9 The patient is a 56-year-old male presenting with a chief complaint diarrhea. The patient states he's had "loose stools" for the past 2 days. Patient denies nausea vomiting or abdominal pain. Patient denies dysuria or fever. Patient was admitted to the hospital last month required Levaquin and Flagyl for septic shock. Outside of loose stools patient denies any other complaints. The patient is requesting to be given a prescription for pills so that he can go home Location: Gastrointestinal system Duration: 2 days Quality: Painless Severity: Moderate Modifying factors: [see above] Context: [see above] Mode of transportation: [not driving] ED Past Medical Hx - Past Medical History Previous Medical History?: Yes Hx Hypertension: Yes Hx Diabetes: Yes Hx Renal Disease: Yes (CKD stage three) Hx Dementia: Yes (early onset) Additional medical history: cataracts - Surgical History Past Surgical History?: Yes Additional Surgical History: rt hip fracture repair Oct 2016 - Family History Family history: no significant - Social History Smoking Status: Never Smoker Substance Use Type: None - Medications Home Medications: Home Medications Medication Instructions Recorded Confirmed Last Taken Type Aspirin [Aspirin TAB] 325 mg PO QDAY #60 tablet 02/18/17 03/06/17 Unknown Rx Carvedilol [Coreg] 12.5 mg PO BID #60 tablet 02/18/17 03/06/17 Unknown Rx Docusate Sodium [Colace CAP] 100 mg PO BID PRN #60 capsule 02/18/17 03/06/17 Unknown Rx Furosemide [Lasix TAB] 20 mg PO QDAY #60 tablet 02/18/17 03/06/17 Unknown Rx Mirtazapine [Remeron] 15 mg PO QHS #60 tablet 02/18/17 03/06/17 Unknown Rx glipiZIDE [glipiZIDE ER] 5 mg PO QAM #30 tab.er.24 02/18/17 03/06/17 Unknown Rx Amoxicillin/K Clav Tab [Augmentin 1 tab PO Q12HR #20 tab 03/07/17 Unknown Rx 875 mg] Diphenoxylate HCl/Atropine 2 each PO QID PRN #20 tablet 03/07/17 Unknown Rx [Lomotil 2.5-0.025 mg Tablet] metroNIDAZOLE [Flagyl] 500 mg PO Q8HR #21 tablet 03/07/17 Unknown Rx ED Review of Systems ROS: Stated complaint: DIARRHEA X2 DAYS Other details as noted in HPI Comment: All other systems reviewed and negative Constitutional: denies: chills, fever Eyes: denies: eye pain, eye discharge, vision change ENT: denies: ear pain, throat pain Respiratory: denies: cough, shortness of breath, wheezing Cardiovascular: denies: chest pain, palpitations Endocrine: no symptoms reported Gastrointestinal: diarrhea. denies: abdominal pain, nausea, vomiting, constipation Genitourinary: as per HPI Musculoskeletal: denies: back pain, joint swelling, arthralgia Skin: denies: rash, lesions Neurological: denies: headache, weakness, paresthesias Psychiatric: denies: anxiety, depression Hematological/Lymphatic: denies: easy bleeding, easy bruising Physical Exam - Physical Exam Vital Signs: Vital Signs 03/06/17 03/06/17 03/07/17 17:45 23:57 00:48 Temperature 97.7 F Pulse Rate 97 H 74 74 Respiratory 16 16 16 Rate Blood Pressure 123/104 Blood Pressure 112/75 105/68 [Left] O2 Sat by Pulse 100 97 96 Oximetry Physical Exam: GENERAL: The patient is well-developed well-nourished male lying on stretcher not appearing to be in acute distress. [] HEENT: Normocephalic. Atraumatic. Extraocular motions are intact. Patient has moist mucous membranes. NECK: Supple. CHEST/LUNGS: Clear to auscultation. There is no respiratory distress noted. HEART/CARDIOVASCULAR: Regular. There is no tachycardia. There is no gallop rub or murmur. ABDOMEN: Abdomen is soft, nontender. Patient has normal bowel sounds. There is no abdominal distention. SKIN: There is no rash. There is no edema. There is no diaphoresis. NEURO: The patient is awake, alert, and oriented. The patient is cooperative. The patient has normal speech MUSCULOSKELETAL: There is no evidence of acute injury. ED Course Vital Signs 03/06/17 03/06/17 03/07/17 17:45 23:57 00:48 Temperature 97.7 F Pulse Rate 97 H 74 74 Respiratory 16 16 16 Rate Blood Pressure 123/104 Blood Pressure 112/75 105/68 [Left] O2 Sat by Pulse 100 97 96 Oximetry ED Medical Decision Making - Lab Data Result diagrams: 03/06/17 17:59 03/06/17 17:59 Laboratory Tests 03/06/17 03/06/17 03/06/17 17:48 17:59 17:59 WBC 7.3 RBC 4.06 Hgb 10.9 L Hct 33.3 L MCV 82 L MCH 27 L MCHC 33 RDW 16.3 H Plt Count 152 Lymph % (Auto) 33.3 [place] % (Auto) 6.9 Eos % (Auto) 3.3 Baso % (Auto) 0.6 Lymph # 2.4 [place] # 0.5 Eos # 0.2 Baso # 0.0 Seg Neutrophils % 55.9 Seg Neutrophils # 4.1 Sodium 141 Potassium 3.9 Chloride 105.4 Carbon Dioxide 22 Anion Gap 18 BUN 34 H Creatinine 1.9 H Estimated GFR 37 BUN/Creatinine Ratio 17.89 Glucose 169 H POC Glucose 195 H Calcium 8.7 Urine Color Urine Turbidity Urine pH Ur Specific [place] Urine Protein Urine Glucose (UA) Urine Ketones Urine Blood Urine Nitrite Urine Bilirubin Urine Urobilinogen Ur Leukocyte Esterase Urine WBC (Auto) Urine RBC (Auto) Urine Bacteria (Auto) Urine WBC Clumps Urine Mucus 03/06/17 03/07/17 23:59 01:28 WBC RBC Hgb Hct MCV MCH MCHC RDW Plt Count Lymph % (Auto) [place] % (Auto) Eos % (Auto) Baso % (Auto) Lymph # [place] # Eos # Baso # Seg Neutrophils % Seg Neutrophils # Sodium Potassium Chloride Carbon Dioxide Anion Gap BUN Creatinine Estimated GFR BUN/Creatinine Ratio Glucose POC Glucose 231 H Calcium Urine Color Yellow Urine Turbidity Turbid Urine pH 5.0 Ur Specific [place] 1.013 Urine Protein 100 mg/dl Urine Glucose (UA) Neg Urine Ketones Neg Urine Blood Mod Urine Nitrite Neg Urine Bilirubin Neg Urine Urobilinogen < 2.0 Ur Leukocyte Esterase Lg Urine WBC (Auto) > 182.0 H Urine RBC (Auto) 33.0 Urine Bacteria (Auto) 4+ Urine WBC Clumps 3+ Urine Mucus 3+ - Differential Diagnosis UTI, pyelonephritis, C. difficile colitis Critical care attestation.: If time is entered above; I have spent that time in minutes in the direct care of this critically ill patient, excluding procedure time. ED Disposition Clinical Impression: UTI (urinary tract infection), Diarrhea Disposition: DC-01 TO HOME OR SELFCARE Is pt being admited?: No Does the pt Need Aspirin: No Condition: Stable Instructions: Urinary Tract Infection in Men (ED), Acute Diarrhea (ED) Additional Instructions: Return to the emergency department immediately should you develop worsening symptoms, fever, inability to tolerate food or liquid or any other concerns. Prescriptions: Amoxicillin/K Clav Tab [Augmentin 875 mg] 1 tab PO Q12HR #20 tab Diphenoxylate HCl/Atropine [Lomotil 2.5-0.025 mg Tablet] 2 each PO QID PRN #20 tablet PRN Reason: Diarrhea metroNIDAZOLE [Flagyl] 500 mg PO Q8HR #21 tablet Referrals: PRIMARY CARE, [Primary Care Provider] - 3-5 Days Time of Disposition: 03:56
[2017-03-07 10:22] VITALS: BP 113/75
== END 2017-03-07 09:50 | disposition home or self-care (01) ==
LOC: ED 17:27
DX: R19.7 Diarrhea, unspecified (principal); N39.0 Urinary tract infection, site not specified; I10 Essential (primary) hypertension; E11.22 Type 2 diabetes mellitus with diabetic chronic kidney disease; I12.9 Hypertensive chronic kidney disease with stage 1 through stage 4 chronic kidney disease, or unspecified chronic kidney disease; N18.3 Chronic kidney disease, stage 3 (moderate); F03.90 Unspecified dementia, unspecified severity, without behavioral disturbance, psychotic disturbance, mood disturbance, and anxiety
CPT/HCPCS: 36415; 80048; 81001; 82962; 85025; 87086; 96365; 99284; J0696; J7030

== ENCOUNTER 2017-03-20 01:34 | Emergency (ER) | payer MEDICARE ==
[2017-03-20] MEDS ORDERED: TYLENOL #3 PO ONE (10:51)
--- NOTE | 2017-03-20 11:23 | XRay Report ---
AP CHEST: HISTORY: chest pain AP view of the chest demonstrates a normal mediastinal and cardiac contour with clear lungs and normal bony and soft tissue structures. A right IJ venous catheter has been inserted since 02/12/17. IMPRESSION: Unremarkable AP chest.
--- NOTE | 2017-03-20 12:18 | Emergency Department Report ---
HPI - General Chief Complaint: Skin/Abscess/Foreign Body Time Seen by Provider: 03/20/17 06:16 - HPI HPI: The patient is a 56-year-old male presents for evaluation of right chest wall pain and shoulder pain. She states that his pain has been present for the past one day, constant, mild in severity, aching quality, exacerbated with movement of the right shoulder, improved at rest. He states that he believes his pain secondary to his dialysis catheter. He states that he would lie his dialysis catheter removed, and that he is no longer receiving dialysis. The patient denies fever, trauma to the chest wall, dyspnea, syncope, hemoptysis, unilateral leg swelling, recent immobilization, history of DVT or PE, recent cancer, history of familial coagulation disorder. ED Past Medical Hx - Past Medical History Hx Hypertension: Yes Hx Congestive Heart Failure: Yes Hx Diabetes: Yes Hx Renal Disease: Yes (CKD stage three) Hx Asthma: No Hx COPD: No Hx Dementia: Yes (early onset) Additional medical history: cataracts - Surgical History Hx Pacemaker: No Hx Internal Defibrillator: No Additional Surgical History: rt hip fracture repair Oct 2016 - Social History Smoking Status: Never Smoker Substance Use Type: None - Medications Home Medications: Home Medications Medication Instructions Recorded Confirmed Last Taken Type Aspirin [Aspirin TAB] 325 mg PO QDAY #60 tablet 02/18/17 03/06/17 Unknown Rx Carvedilol [Coreg] 12.5 mg PO BID #60 tablet 02/18/17 03/06/17 Unknown Rx Docusate Sodium [Colace CAP] 100 mg PO BID PRN #60 capsule 02/18/17 03/06/17 Unknown Rx Furosemide [Lasix TAB] 20 mg PO QDAY #60 tablet 02/18/17 03/06/17 Unknown Rx Mirtazapine [Remeron] 15 mg PO QHS #60 tablet 02/18/17 03/06/17 Unknown Rx glipiZIDE [glipiZIDE ER] 5 mg PO QAM #30 tab.er.24 02/18/17 03/06/17 Unknown Rx Amoxicillin/K Clav Tab [Augmentin 1 tab PO Q12HR #20 tab 03/07/17 Unknown Rx 875 mg] Diphenoxylate HCl/Atropine 2 each PO QID PRN #20 tablet 03/07/17 Unknown Rx [Lomotil 2.5-0.025 mg Tablet] metroNIDAZOLE [Flagyl] 500 mg PO Q8HR #21 tablet 03/07/17 Unknown Rx Acetaminophen/Codeine [Tylenol #3] 1 tab PO Q6H PRN #10 tab 03/20/17 Unknown Rx ED Review of Systems ROS: Stated complaint: RT SHOULDER PAIN Other details as noted in HPI Constitutional: denies: fever ENT: denies: throat or neck pain Respiratory: denies: cough, shortness of breath Cardiovascular: reports chest pain Endocrine: denies unexplained weight loss or gain Gastrointestinal: denies: abdominal pain, nausea Genitourinary: denies: dysuria Musculoskeletal: denies: leg swelling Skin: denies: rash Neurological: denies: headache Hematological/Lymphatic: denies: easy bleeding or easy bruising Psych: denies sadness or hopelessness Physical Exam - Physical Exam Vital Signs: Vital Signs 03/20/17 03/20/17 03/20/17 01:54 02:00 02:06 Temperature 98.4 F Pulse Rate 99 H Respiratory 14 Rate Blood Pressure 127/86 121/82 Blood Pressure [Left] O2 Sat by Pulse 99 100 100 Oximetry 03/20/17 03/20/17 03/20/17 02:10 02:20 02:30 Temperature Pulse Rate Respiratory Rate Blood Pressure 127/86 144/94 145/82 Blood Pressure [Left] O2 Sat by Pulse 99 99 100 Oximetry 03/20/17 03/20/17 03/20/17 02:40 02:50 03:00 Temperature Pulse Rate Respiratory Rate Blood Pressure 145/82 152/99 150/92 Blood Pressure [Left] O2 Sat by Pulse 99 99 100 Oximetry 03/20/17 03/20/17 03/20/17 03:10 03:20 03:30 Temperature Pulse Rate Respiratory Rate Blood Pressure 150/92 113/75 113/75 Blood Pressure [Left] O2 Sat by Pulse 99 99 99 Oximetry 03/20/17 03/20/17 03/20/17 03:40 03:49 03:50 Temperature Pulse Rate 95 H Respiratory 17 Rate Blood Pressure 124/76 130/85 Blood Pressure 124/76 [Left] O2 Sat by Pulse 98 99 91 Oximetry 03/20/17 03/20/17 03/20/17 04:00 04:10 04:20 Temperature Pulse Rate Respiratory Rate Blood Pressure 128/79 128/79 123/87 Blood Pressure [Left] O2 Sat by Pulse 98 98 99 Oximetry 03/20/17 03/20/17 03/20/17 04:30 04:40 04:50 Temperature Pulse Rate Respiratory Rate Blood Pressure 115/70 115/70 112/71 Blood Pressure [Left] O2 Sat by Pulse 98 87 84 Oximetry 03/20/17 03/20/17 03/20/17 05:00 05:10 05:20 Temperature Pulse Rate Respiratory Rate Blood Pressure 129/75 129/75 127/83 Blood Pressure [Left] O2 Sat by Pulse 99 99 98 Oximetry 03/20/17 03/20/17 03/20/17 05:30 05:40 05:50 Temperature Pulse Rate Respiratory Rate Blood Pressure 131/84 129/75 129/87 Blood Pressure [Left] O2 Sat by Pulse 98 98 99 Oximetry 03/20/17 03/20/17 03/20/17 05:54 06:00 06:10 Temperature Pulse Rate 88 Respiratory Rate Blood Pressure 129/86 129/86 Blood Pressure 131/84 [Left] O2 Sat by Pulse 98 98 100 Oximetry 03/20/17 03/20/17 03/20/17 06:20 06:30 06:40 Temperature Pulse Rate Respiratory Rate Blood Pressure 130/80 128/77 128/77 Blood Pressure [Left] O2 Sat by Pulse 98 97 99 Oximetry 03/20/17 03/20/17 03/20/17 06:50 07:00 07:10 Temperature Pulse Rate Respiratory Rate Blood Pressure 130/78 130/79 130/79 Blood Pressure [Left] O2 Sat by Pulse 97 96 92 Oximetry 03/20/17 03/20/17 03/20/17 07:20 07:30 07:40 Temperature Pulse Rate Respiratory Rate Blood Pressure 136/84 134/82 134/82 Blood Pressure [Left] O2 Sat by Pulse 100 99 99 Oximetry 03/20/17 03/20/17 03/20/17 07:50 08:00 08:05 Temperature Pulse Rate 89 Respiratory 16 Rate Blood Pressure 115/76 119/79 Blood Pressure 115/76 [Left] O2 Sat by Pulse 99 99 99 Oximetry 03/20/17 03/20/17 03/20/17 08:30 09:00 09:30 Temperature Pulse Rate Respiratory Rate Blood Pressure 122/84 142/91 134/85 Blood Pressure [Left] O2 Sat by Pulse 99 99 99 Oximetry 03/20/17 03/20/17 03/20/17 10:00 10:30 11:00 Temperature Pulse Rate Respiratory Rate Blood Pressure 141/123 131/92 131/88 Blood Pressure [Left] O2 Sat by Pulse 99 100 99 Oximetry 03/20/17 03/20/17 11:30 12:00 Temperature Pulse Rate Respiratory Rate Blood Pressure 122/78 124/82 Blood Pressure [Left] O2 Sat by Pulse 99 99 Oximetry Physical Exam: General: well-nourished, well-developed, no acute distress Head: Normocephalic, atraumatic Eyes: normal sclera ENT: Mucous membranes are pink and moist Neck: trachea midline, neck supple, No neck stiffness, no cervical adenopathy Respiratory: Breath sounds equal bilaterally, no wheezing, rales, or rhonchi Cardio: S1 and S2 present, no murmurs, rubs, gallops, capillary refill is brisk Abdomen: Normoactive bowel sounds, soft abdomen, no rigidity, no guarding or rebound tenderness Chest WALL/Back: Dialysis catheter present to the right upper chest wall, positive tenderness to palpation of the right upper chest wall and right shoulder, no redness, warmth, fluctuance, or crepitus surrounding dialysis catheter site, no CVA tenderness with percussion Musc: No pitting edema Skin: No rash Neuro: no facial drooping, normal speech Psych: Normal affect ED Course Vital Signs 03/20/17 03/20/17 03/20/17 01:54 02:00 02:06 Temperature 98.4 F Pulse Rate 99 H Respiratory 14 Rate Blood Pressure 127/86 121/82 Blood Pressure [Left] O2 Sat by Pulse 99 100 100 Oximetry 03/20/17 03/20/17 03/20/17 02:10 02:20 02:30 Temperature Pulse Rate Respiratory Rate Blood Pressure 127/86 144/94 145/82 Blood Pressure [Left] O2 Sat by Pulse 99 99 100 Oximetry 03/20/17 03/20/17 03/20/17 02:40 02:50 03:00 Temperature Pulse Rate Respiratory Rate Blood Pressure 145/82 152/99 150/92 Blood Pressure [Left] O2 Sat by Pulse 99 99 100 Oximetry 03/20/17 03/20/17 03/20/17 03:10 03:20 03:30 Temperature Pulse Rate Respiratory Rate Blood Pressure 150/92 113/75 113/75 Blood Pressure [Left] O2 Sat by Pulse 99 99 99 Oximetry 03/20/17 03/20/17 03/20/17 03:40 03:49 03:50 Temperature Pulse Rate 95 H Respiratory 17 Rate Blood Pressure 124/76 130/85 Blood Pressure 124/76 [Left] O2 Sat by Pulse 98 99 91 Oximetry 03/20/17 03/20/17 03/20/17 04:00 04:10 04:20 Temperature Pulse Rate Respiratory Rate Blood Pressure 128/79 128/79 123/87 Blood Pressure [Left] O2 Sat by Pulse 98 98 99 Oximetry 03/20/17 03/20/17 03/20/17 04:30 04:40 04:50 Temperature Pulse Rate Respiratory Rate Blood Pressure 115/70 115/70 112/71 Blood Pressure [Left] O2 Sat by Pulse 98 87 84 Oximetry 03/20/17 03/20/17 03/20/17 05:00 05:10 05:20 Temperature Pulse Rate Respiratory Rate Blood Pressure 129/75 129/75 127/83 Blood Pressure [Left] O2 Sat by Pulse 99 99 98 Oximetry 03/20/17 03/20/17 03/20/17 05:30 05:40 05:50 Temperature Pulse Rate Respiratory Rate Blood Pressure 131/84 129/75 129/87 Blood Pressure [Left] O2 Sat by Pulse 98 98 99 Oximetry 03/20/17 03/20/17 03/20/17 05:54 06:00 06:10 Temperature Pulse Rate 88 Respiratory Rate Blood Pressure 129/86 129/86 Blood Pressure 131/84 [Left] O2 Sat by Pulse 98 98 100 Oximetry 03/20/17 03/20/17 03/20/17 06:20 06:30 06:40 Temperature Pulse Rate Respiratory Rate Blood Pressure 130/80 128/77 128/77 Blood Pressure [Left] O2 Sat by Pulse 98 97 99 Oximetry 03/20/17 03/20/17 03/20/17 06:50 07:00 07:10 Temperature Pulse Rate Respiratory Rate Blood Pressure 130/78 130/79 130/79 Blood Pressure [Left] O2 Sat by Pulse 97 96 92 Oximetry 03/20/17 03/20/17 03/20/17 07:20 07:30 07:40 Temperature Pulse Rate Respiratory Rate Blood Pressure 136/84 134/82 134/82 Blood Pressure [Left] O2 Sat by Pulse 100 99 99 Oximetry 03/20/17 03/20/17 03/20/17 07:50 08:00 08:05 Temperature Pulse Rate 89 Respiratory 16 Rate Blood Pressure 115/76 119/79 Blood Pressure 115/76 [Left] O2 Sat by Pulse 99 99 99 Oximetry 03/20/17 03/20/17 03/20/17 08:30 09:00 09:30 Temperature Pulse Rate Respiratory Rate Blood Pressure 122/84 142/91 134/85 Blood Pressure [Left] O2 Sat by Pulse 99 99 99 Oximetry 03/20/17 03/20/17 03/20/17 10:00 10:30 11:00 Temperature Pulse Rate Respiratory Rate Blood Pressure 141/123 131/92 131/88 Blood Pressure [Left] O2 Sat by Pulse 99 100 99 Oximetry 03/20/17 03/20/17 11:30 12:00 Temperature Pulse Rate Respiratory Rate Blood Pressure 122/78 124/82 Blood Pressure [Left] O2 Sat by Pulse 99 99 Oximetry ED Medical Decision Making - Medical Decision Making The patient was seen and examined by myself. The patient is placed on a nurse monitoring and continuous pulse ox. On initial evaluation, the patient was found to be in no distress. Evaluation orders were placed. The patient is given a Tylenol 3 for his chest and shoulder pain. X-ray of the chest reveals appropriate position dialysis catheter, and is negative for emergent acute cardio pulmonary disease process. The patient was reevaluated and reported that their symptoms were markedly improved. The patient is stable for discharge with outpatient follow-up. The patient is given follow-up and return instructions. The patient expressed understanding and agreed with the plan. The patient is discharged in stable condition. Critical care attestation.: If time is entered above; I have spent that time in minutes in the direct care of this critically ill patient, excluding procedure time. ED Disposition Clinical Impression: Acute pain of right shoulder, Acute chest wall pain Disposition: - TO HOME OR SELFCARE Is pt being admited?: No Does the pt Need Aspirin: No Condition: Stable Instructions: Chest Pain (ED), Musculoskeletal Pain (ED) Prescriptions: Acetaminophen/Codeine [Tylenol #3] 1 tab PO Q6H PRN #10 tab PRN Reason: Pain Referrals: PRIMARY CARE, [Primary Care Provider] - 3-5 Days Time of Disposition: 11:16
[2017-03-20 12:58] VITALS: BP 128/85
== END 2017-03-20 14:30 | disposition home or self-care (01) ==
LOC: ED 01:34
DX: F29 Unspecified psychosis not due to a substance or known physiological condition (principal); R45.851 Suicidal ideations; R45.850 Homicidal ideations
CPT/HCPCS: 71010

== ENCOUNTER 2017-04-11 20:03 | Emergency (ER) | payer MEDICARE ==
--- NOTE | 2017-04-11 22:43 | Emergency Department Report ---
ED Recheck HPI - General Chief Complaint: Recheck/Abnormal Lab/Rx Stated Complaint: NOT FEELING WELL Time Seen by Provider: 04/11/17 21:15 Source: patient, EMS (ems notes not available at time of chart dictation), RN notes reviewed, old records reviewed Mode of arrival: Wheelchair - History of Present Illness Initial Comments: This is a 56-year-old male. He is previously unknown to me. The patient has a past medical history of chronic renal insufficiency, secondary to obstructive uropathy, hyperkalemia, hypotension, blind, disabled, previously on dialysis, not currently on dialysis. Patient recently admitted to the hospital for hypotension, and was found to be pale and weak at that time. Patient is not currently dialysis dependent. Nephrology recently saw the patient, he was found to have urinary retention, and he was started on a Booker catheter, and his creatinine decreased from 3.5- 2.5. The patient was unable to pass a trial of void, and he was started on tamsulosin. It was also recommended that the patient withhold his Lasix, and repeat renal function tests, and the patient was also instructed to decrease his Coregto 6.25 mg twice daily. The patient presents to the ER today with a complaint of hypoglycemia and hypotension. This has since resolved. The patient denies headache, neck pain, chest pain, abdominal pain and shortness of breath. He wants to go home. He requests to have his Booker catheter taken out. Complaint: abnormal lab, other -: This evening Returns Today for: other Description of Abnormal Result: per hpi Symptoms Since Prior Visit: no new symptoms Associated Symptoms: none - Related Data Previous Rx's Medication Instructions Recorded Last Taken Type Aspirin [Aspirin TAB] 325 mg PO QDAY #60 tablet 02/18/17 Unknown Rx Docusate Sodium [Colace CAP] 100 mg PO BID PRN #60 capsule 02/18/17 Unknown Rx Mirtazapine [Remeron] 15 mg PO QHS #60 tablet 02/18/17 Unknown Rx glipiZIDE [glipiZIDE ER] 5 mg PO QAM #30 tab.er.24 02/18/17 04/11/17 Rx Diphenoxylate HCl/Atropine 2 each PO QID PRN #20 tablet 03/07/17 Unknown Rx [Lomotil 2.5-0.025 mg Tablet] Acetaminophen/Codeine [Tylenol 1 tab PO Q6H PRN #10 tab 03/20/17 Unknown Rx /Codeine # 3 tab] Carvedilol [Coreg] 6.25 mg PO BID #60 tablet 04/06/17 04/11/17 Rx Allergies Allergy/AdvReac Type Severity Reaction Status Date / Time No Known Allergies Allergy Verified 08/09/16 19:04 ED Review of Systems ROS: Stated complaint: NOT FEELING WELL Other details as noted in HPI Constitutional: denies: fever Eyes: denies: eye discharge ENT: denies: epistaxis Respiratory: denies: cough Cardiovascular: denies: chest pain Gastrointestinal: denies: abdominal pain Genitourinary: denies: dysuria Musculoskeletal: denies: back pain Skin: denies: lesions Neurological: weakness (chronic) ED Past Medical Hx - Past Medical History Previous Medical History?: Yes Hx Hypertension: Yes Hx Congestive Heart Failure: Yes Hx Diabetes: Yes Hx Renal Disease: Yes (CKD stage three) Hx Asthma: No Hx COPD: No Hx Dementia: Yes (early onset) Additional medical history: cataracts - Surgical History Past Surgical History?: Yes Hx Pacemaker: No Hx Internal Defibrillator: No Additional Surgical History: rt hip fracture repair Oct 2016 - Social History Smoking Status: Never Smoker Substance Use Type: None - Medications Home Medications: Home Medications Medication Instructions Recorded Confirmed Last Taken Type Aspirin [Aspirin TAB] 325 mg PO QDAY #60 tablet 02/18/17 04/11/17 Unknown Rx Docusate Sodium [Colace CAP] 100 mg PO BID PRN #60 capsule 02/18/17 04/11/17 Unknown Rx Mirtazapine [Remeron] 15 mg PO QHS #60 tablet 02/18/17 04/11/17 Unknown Rx glipiZIDE [glipiZIDE ER] 5 mg PO QAM #30 tab.er.24 02/18/17 04/11/17 04/11/17 Rx Diphenoxylate HCl/Atropine 2 each PO QID PRN #20 tablet 03/07/17 04/11/17 Unknown Rx [Lomotil 2.5-0.025 mg Tablet] Acetaminophen/Codeine [Tylenol 1 tab PO Q6H PRN #10 tab 03/20/17 04/11/17 Unknown Rx /Codeine # 3 tab] Carvedilol [Coreg] 6.25 mg PO BID #60 tablet 04/06/17 04/11/17 04/11/17 Rx ED Physical Exam - General Limitations: Physical Limitation General appearance: alert, in no apparent distress, cachectic - Head Head exam: Present: atraumatic, normocephalic - Eye Eye exam: Present: normal appearance, EOMI - ENT ENT exam: Present: normal exam, normal orophraynx, mucous membranes moist - Neck Neck exam: Present: normal inspection, full ROM. Absent: tenderness, meningismus - Respiratory Respiratory exam: Present: normal lung sounds bilaterally. Absent: respiratory distress, wheezes, rales, rhonchi, stridor, chest wall tenderness, accessory muscle use, decreased breath sounds, prolonged expiratory - Cardiovascular Cardiovascular Exam: Present: regular rate, normal rhythm, normal heart sounds. Absent: bradycardia, tachycardia, irregular rhythm, systolic murmur, diastolic murmur, rubs, gallop - GI/Abdominal GI/Abdominal exam: Present: soft, normal bowel sounds. Absent: distended, tenderness, guarding, rebound, rigid, pulsatile mass - Rectal Rectal exam: Present: deferred - exam: Present: other (there is a Booker catheter in place draining clear urine.) - Extremities Exam Extremities exam: Present: normal inspection, full ROM, normal capillary refill. Absent: tenderness, calf tenderness - Back Exam Back exam: Present: normal inspection, full ROM. Absent: tenderness, CVA tenderness (R), CVA tenderness (L), muscle spasm, paraspinal tenderness, vertebral tenderness - Neurological Exam Neurological exam: Present: alert, oriented X3, other (Extraocular movements intact. Tongue midline. No facial droop. Facial sensation intact to light touch in the V1, V2, V3 distribution bilaterally. 5 and 5 strength in 4 extremities.. Sensation is intact to light touch in 4 extremities.). Absent: motor sensory deficit - Psychiatric Psychiatric exam: Present: normal affect, normal mood - Skin Skin exam: Present: warm, dry, intact, normal color. Absent: rash ED Course Vital Signs 04/11/17 04/11/17 04/11/17 20:27 20:51 20:54 Temperature 97.8 F Pulse Rate 90 110 H Respiratory 18 12 18 Rate Blood Pressure 85/56 Blood Pressure [Left] O2 Sat by Pulse 100 99 100 Oximetry 04/11/17 04/11/17 04/11/17 21:00 21:11 21:21 Temperature Pulse Rate 86 87 85 Respiratory 9 L 12 13 Rate Blood Pressure 111/79 111/79 111/79 Blood Pressure [Left] O2 Sat by Pulse 100 100 Oximetry 04/11/17 04/11/17 04/11/17 21:30 21:41 21:51 Temperature Pulse Rate 81 85 82 Respiratory 10 L 11 L 10 L Rate Blood Pressure 122/76 122/76 111/79 Blood Pressure [Left] O2 Sat by Pulse 99 100 Oximetry 04/11/17 04/11/17 04/11/17 22:00 22:11 22:21 Temperature Pulse Rate 82 80 79 Respiratory 16 16 13 Rate Blood Pressure 135/72 135/72 135/72 Blood Pressure [Left] O2 Sat by Pulse 99 99 100 Oximetry 04/12/17 00:19 Temperature Pulse Rate 78 Respiratory 16 Rate Blood Pressure Blood Pressure 132/81 [Left] O2 Sat by Pulse 95 Oximetry - Reevaluation(s) Reevaluation #1: 04/11/17 22:41 Differential diagnosis: Pneumonia, urinary tract infection, renal insufficiency , medication side effect, false instrument readings Assessment and plan: 56-year-old male with resolved hypotension, no evidence of hypoglycemia. He has no complaints at this time. He wants to go home. X-ray of the chest not consistent with pneumonia. Urinalysis and laboratory studies pending. I will reiterate to the patient that he should hold his Lasix therapy. In addition, his most recent discharge summary indicated that he was started on Flomax. This medication may cause hypotension. Reevaluation #2: 04/11/17 22:43 Vital Signs 04/11/17 04/11/17 04/11/17 20:27 20:51 20:54 Temperature 97.8 F Pulse Rate 90 110 H Respiratory 18 12 18 Rate Blood Pressure 85/56 O2 Sat by Pulse 100 99 100 Oximetry 04/11/17 04/11/17 04/11/17 21:00 21:11 21:21 Temperature Pulse Rate 86 87 85 Respiratory 9 L 12 13 Rate Blood Pressure 111/79 111/79 111/79 O2 Sat by Pulse 100 100 Oximetry 04/11/17 04/11/17 04/11/17 21:30 21:41 21:51 Temperature Pulse Rate 81 85 82 Respiratory 10 L 11 L 10 L Rate Blood Pressure 122/76 122/76 111/79 O2 Sat by Pulse 99 100 Oximetry 04/11/17 04/11/17 04/11/17 22:00 22:11 22:21 Temperature Pulse Rate 82 80 79 Respiratory 16 16 13 Rate Blood Pressure 135/72 135/72 135/72 O2 Sat by Pulse 99 99 100 Oximetry X-ray the chest is negative for acute disease Lab Results 04/11/17 Range/Units 20:21 POC Glucose 100 (70-105) 04/11/17 22:43 Reevaluation #3: 04/12/17 00:48 vital signs have remained stable. Minimal hyperkalemia is noted. Kayexalate administered. Renal insufficiency improved. X-ray not consistent with pneumonia. Patient will be discharged at this time. Patient has been in the ER for 5 hours without any clinical decompensation. ED Recheck MDM - Core Measures Measure Exclusions: not indicated Critical care attestation.: If time is entered above; I have spent that time in minutes in the direct care of this critically ill patient, excluding procedure time. ED Disposition Clinical Impression: CKD (chronic kidney disease) Disposition: DC-01 TO HOME OR SELFCARE Is pt being admited?: No Does the pt Need Aspirin: No Condition: Stable Instructions: Hypotension (ED) Additional Instructions: Follow up with your urology specialist/nephrology specialist within the next 3- 5 days. Decrease carvedilol ( coreg) to 3.125 mg twice daily. Discontinue Flomax (tamsulosin). This medication can cause hypotension/ decreased blood pressure. Otherwise, continue other outpatient medications. Return to the ER right away with fevers, chills, chest pain, shortness of breath, lethargy, irritability, projectile vomiting, change in mental status, inability to tolerate liquid feeds. Referrals: PRIMARY CARE, [Primary Care Provider] - 3-5 Days MARCO WILKES MD [Staff Physician] - 3-5 Days
[2017-04-11 22:52] LABS: BUN/Creatinine Ratio 23.12; Calcium 8.7 mg/dL (8.4-10.2)
[2017-04-11 22:53] LABS: Chloride 105.2 mmol/L (98-107); Potassium 5.6 mmol/L (3.6-5.0)
[2017-04-11 22:57] LABS: Hematocrit 33.4 % (35.5-45.6); Mean Corpuscular HGB Conc 33 % (32-34); Mean Corpuscular Hemoglobin 28 pg (28-32); Mean Corpuscular Volume 85 fl (84-94); Platelet Count 215 K/mm3 (140-440); Red Blood Count 3.95 M/mm3 (3.65-5.03); Red Cell Distribution Width 16.6 % (13.2-15.2); White Blood Count 12.2 K/mm3 (4.5-11.0)
[2017-04-11] MEDS ORDERED: KIONEX PO ONE (23:14)
[2017-04-12 00:21] VITALS: BP 132/81
[2017-04-12 00:30] LABS: Bilirubin,Urine NEG (Negative); Blood,Urine NEG (Negative); Ketones,Urine NEG (Negative); Leukocyte Esterase,Urine NEG (Negative); Nitrite,Urine NEG (Negative); Protein,Urine <15 mg/dL mg/dL (Negative); Urobilinogen,Urine < 2.0 mg/dL (<2.0)
--- NOTE | 2017-04-12 11:57 | XRay Report ---
AP CHEST : 04/11/17 21:58 CLINICAL: Resolved hypotension. COMPARISON:03/20/17 FINDINGS: Normal heart and pulmonary vessels.A right Vas-Cath has been removed since last exam. The lungs are normally expanded and clear. The bones and soft tissues are unremarkable. IMPRESSION: Normal chest.
== END 2017-04-12 02:49 | disposition home or self-care (01) ==
LOC: ED 20:03
DX: E11.22 Type 2 diabetes mellitus with diabetic chronic kidney disease (principal); I12.9 Hypertensive chronic kidney disease with stage 1 through stage 4 chronic kidney disease, or unspecified chronic kidney disease; N18.3 Chronic kidney disease, stage 3 (moderate); I50.9 Heart failure, unspecified
CPT/HCPCS: 36415; 71010; 80048; 81001; 82962; 85027; 87086

== ENCOUNTER 2017-04-12 21:44 | Emergency (ER) | payer MEDICARE ==
[2017-04-12] MEDS ORDERED: DULCOLAX PO ONE (23:08)
--- NOTE | 2017-04-13 00:11 | Emergency Department Report ---
ED Abdominal Pain HPI - General Chief Complaint: Abdominal Pain Stated Complaint: ABD PAIN Time Seen by Provider: 04/12/17 23:04 Source: patient, EMS Mode of arrival: Stretcher Limitations: No Limitations - History of Present Illness MD Complaint: abdominal pain -: Gradual Location: diffuse Migration to: periumbilical Severity scale (0 -10): 3 Quality: cramping Consistency: colicky Improves With: nothing Worsens With: nothing Context: other Associated Symptoms: constipation - Related Data Previous Rx's Medication Instructions Recorded Last Taken Type Aspirin [Aspirin TAB] 325 mg PO QDAY #60 tablet 02/18/17 Unknown Rx Docusate Sodium [Colace CAP] 100 mg PO BID PRN #60 capsule 02/18/17 Unknown Rx Mirtazapine [Remeron] 15 mg PO QHS #60 tablet 02/18/17 Unknown Rx glipiZIDE [glipiZIDE ER] 5 mg PO QAM #30 tab.er.24 02/18/17 04/11/17 Rx Diphenoxylate HCl/Atropine 2 each PO QID PRN #20 tablet 03/07/17 Unknown Rx [Lomotil 2.5-0.025 mg Tablet] Acetaminophen/Codeine [Tylenol 1 tab PO Q6H PRN #10 tab 03/20/17 Unknown Rx /Codeine # 3 tab] Carvedilol [Coreg] 6.25 mg PO BID #60 tablet 04/06/17 04/11/17 Rx Bisacodyl [Dulcolax] 5 mg PO DAILY PRN #30 tab 04/13/17 Unknown Rx Dicyclomine [Bentyl] 20 mg PO QID #30 tablet 04/13/17 Unknown Rx Allergies Allergy/AdvReac Type Severity Reaction Status Date / Time No Known Allergies Allergy Verified 08/09/16 19:04 ED Review of Systems ROS: Stated complaint: ABD PAIN Other details as noted in HPI Comment: All other systems reviewed and negative Constitutional: no symptoms reported Respiratory: no symptoms reported Gastrointestinal: abdominal pain ED Past Medical Hx - Past Medical History Previous Medical History?: Yes Hx Hypertension: Yes Hx Congestive Heart Failure: Yes Hx Diabetes: Yes Hx Renal Disease: Yes (CKD stage three) Hx Asthma: No Hx COPD: No Hx Dementia: Yes (early onset) Additional medical history: cataracts - Surgical History Past Surgical History?: Yes Hx Pacemaker: No Hx Internal Defibrillator: No Additional Surgical History: rt hip fracture repair Oct 2016 - Social History Smoking Status: Never Smoker Substance Use Type: None - Medications Home Medications: Home Medications Medication Instructions Recorded Confirmed Last Taken Type Aspirin [Aspirin TAB] 325 mg PO QDAY #60 tablet 02/18/17 04/11/17 Unknown Rx Docusate Sodium [Colace CAP] 100 mg PO BID PRN #60 capsule 02/18/17 04/11/17 Unknown Rx Mirtazapine [Remeron] 15 mg PO QHS #60 tablet 02/18/17 04/11/17 Unknown Rx glipiZIDE [glipiZIDE ER] 5 mg PO QAM #30 tab.er.24 02/18/17 04/11/17 04/11/17 Rx Diphenoxylate HCl/Atropine 2 each PO QID PRN #20 tablet 03/07/17 04/11/17 Unknown Rx [Lomotil 2.5-0.025 mg Tablet] Acetaminophen/Codeine [Tylenol 1 tab PO Q6H PRN #10 tab 03/20/17 04/11/17 Unknown Rx /Codeine # 3 tab] Carvedilol [Coreg] 6.25 mg PO BID #60 tablet 04/06/17 04/11/17 04/11/17 Rx Bisacodyl [Dulcolax] 5 mg PO DAILY PRN #30 tab 04/13/17 Unknown Rx Dicyclomine [Bentyl] 20 mg PO QID #30 tablet 04/13/17 Unknown Rx ED Physical Exam - General Limitations: No Limitations General appearance: alert, in no apparent distress - Head Head exam: Present: atraumatic - Eye Eye exam: Present: normal appearance, PERRL, EOMI Pupils: Present: normal accommodation - ENT ENT exam: Present: normal exam, normal orophraynx - Respiratory Respiratory exam: Present: normal lung sounds bilaterally - Cardiovascular Cardiovascular Exam: Present: regular rate, normal rhythm - GI/Abdominal GI/Abdominal exam: Present: soft - Extremities Exam Extremities exam: Present: normal inspection - Neurological Exam Neurological exam: Present: alert, oriented X3 - Psychiatric Psychiatric exam: Present: normal affect ED Course Vital Signs 04/12/17 04/12/17 04/12/17 21:45 21:52 22:40 Temperature 98.4 F Pulse Rate 96 H 90 Respiratory 16 18 16 Rate Blood Pressure 136/79 Blood Pressure 137/75 [Right] O2 Sat by Pulse 100 100 Oximetry - Reevaluation(s) Reevaluation #1: 04/13/17 00:07 Patient states that the pain is similar to previous constipation episode, just wants some Dulcolax and be DC'd home. Critical care attestation.: If time is entered above; I have spent that time in minutes in the direct care of this critically ill patient, excluding procedure time. ED Disposition Clinical Impression: Constipation Disposition: DC-01 TO HOME OR SELFCARE Is pt being admited?: No Does the pt Need Aspirin: No Condition: Stable Instructions: Constipation (ED) Prescriptions: Bisacodyl [Dulcolax] 5 mg PO DAILY PRN #30 tab PRN Reason: Constipation Dicyclomine [Bentyl] 20 mg PO QID #30 tablet Referrals: PRIMARY CARE, [Primary Care Provider] - 3-5 Days
[2017-04-13 01:25] VITALS: BP 133/87
== END 2017-04-13 02:00 | disposition home or self-care (01) ==
LOC: ED 21:44
DX: K59.00 Constipation, unspecified (principal); E11.22 Type 2 diabetes mellitus with diabetic chronic kidney disease; I12.9 Hypertensive chronic kidney disease with stage 1 through stage 4 chronic kidney disease, or unspecified chronic kidney disease; N18.3 Chronic kidney disease, stage 3 (moderate); I50.9 Heart failure, unspecified; F03.90 Unspecified dementia, unspecified severity, without behavioral disturbance, psychotic disturbance, mood disturbance, and anxiety; Z79.82 Long term (current) use of aspirin
CPT/HCPCS: 99283

== ENCOUNTER 2017-04-14 11:31 | Emergency (ER) | payer MEDICARE ==
[2017-04-14 12:36] VITALS: BP 89/63
[2017-04-14 13:27] LABS: Basophils % (Auto) 1.2 % (0.0-1.8); Eosinophils % (Auto) 3.8 % (0.0-4.3); Hematocrit 29.7 % (35.5-45.6); Hemoglobin 9.8 gm/dl (11.8-15.2); Mean Corpuscular HGB Conc 33 % (32-34); Mean Corpuscular Hemoglobin 28 pg (28-32); Mean Corpuscular Volume 84 fl (84-94); Platelet Count 254 K/mm3 (140-440); Red Blood Count 3.55 M/mm3 (3.65-5.03); White Blood Count 11.4 K/mm3 (4.5-11.0)
[2017-04-14 13:43] LABS: BUN/Creatinine Ratio 22.94; Calcium 8.4 mg/dL (8.4-10.2); Chloride 108.6 mmol/L (98-107); Potassium 4.8 mmol/L (3.6-5.0)
--- NOTE | 2017-04-14 15:37 | Emergency Department Report ---
ED Male HPI - General Chief complaint: Urogenital-Male Stated complaint: URINARY CATH FELL OUT Time Seen by Provider: 04/14/17 14:59 Source: patient Mode of arrival: Wheelchair Limitations: No Limitations - History of Present Illness Initial comments: 56-year-old male presents to the emergency department via EMS complaining of his urinary catheter falling out. Patient states that he rolled over in bed this morning and the catheter "just came out". Patient denies complaints. He is requesting a refill on his diarrhea medicine. -: Sudden, This morning Radiation: none Severity scale (0 -10): 0 Improves with: none Worsens with: none denies other symptoms - Related Data Previous Rx's Medication Instructions Recorded Last Taken Type Aspirin [Aspirin TAB] 325 mg PO QDAY #60 tablet 02/18/17 Unknown Rx Docusate Sodium [Colace CAP] 100 mg PO BID PRN #60 capsule 02/18/17 Unknown Rx Mirtazapine [Remeron] 15 mg PO QHS #60 tablet 02/18/17 Unknown Rx glipiZIDE [glipiZIDE ER] 5 mg PO QAM #30 tab.er.24 02/18/17 04/11/17 Rx Acetaminophen/Codeine [Tylenol 1 tab PO Q6H PRN #10 tab 03/20/17 Unknown Rx /Codeine # 3 tab] Carvedilol [Coreg] 6.25 mg PO BID #60 tablet 04/06/17 04/11/17 Rx Bisacodyl [Dulcolax] 5 mg PO DAILY PRN #30 tab 04/13/17 Unknown Rx Dicyclomine [Bentyl] 20 mg PO QID #30 tablet 04/13/17 Unknown Rx Diphenoxylate HCl/Atropine 2 each PO QID PRN #20 tablet 04/14/17 Unknown Rx [Lomotil 2.5-0.025 mg Tablet] Allergies Allergy/AdvReac Type Severity Reaction Status Date / Time No Known Allergies Allergy Verified 08/09/16 19:04 ED Review of Systems ROS: Stated complaint: URINARY CATH FELL OUT Other details as noted in HPI Comment: All other systems reviewed and negative Genitourinary: as per HPI. denies: discharge, testicular pain ED Past Medical Hx - Past Medical History Previous Medical History?: Yes Hx Hypertension: Yes Hx Congestive Heart Failure: Yes Hx Diabetes: Yes Hx Renal Disease: Yes (CKD stage three) Hx Asthma: No Hx COPD: No Hx Dementia: Yes (early onset) Additional medical history: cataracts - Surgical History Past Surgical History?: Yes Hx Pacemaker: No Hx Internal Defibrillator: No Additional Surgical History: rt hip fracture repair Oct 2016 - Family History Family history: no significant - Social History Smoking Status: Never Smoker Substance Use Type: None - Medications Home Medications: Home Medications Medication Instructions Recorded Confirmed Last Taken Type Aspirin [Aspirin TAB] 325 mg PO QDAY #60 tablet 02/18/17 04/11/17 Unknown Rx Docusate Sodium [Colace CAP] 100 mg PO BID PRN #60 capsule 02/18/17 04/11/17 Unknown Rx Mirtazapine [Remeron] 15 mg PO QHS #60 tablet 02/18/17 04/11/17 Unknown Rx glipiZIDE [glipiZIDE ER] 5 mg PO QAM #30 tab.er.24 02/18/17 04/11/17 04/11/17 Rx Acetaminophen/Codeine [Tylenol 1 tab PO Q6H PRN #10 tab 03/20/17 04/11/17 Unknown Rx /Codeine # 3 tab] Carvedilol [Coreg] 6.25 mg PO BID #60 tablet 04/06/17 04/11/17 04/11/17 Rx Bisacodyl [Dulcolax] 5 mg PO DAILY PRN #30 tab 04/13/17 Unknown Rx Dicyclomine [Bentyl] 20 mg PO QID #30 tablet 04/13/17 Unknown Rx Diphenoxylate HCl/Atropine 2 each PO QID PRN #20 tablet 04/14/17 Unknown Rx [Lomotil 2.5-0.025 mg Tablet] ED Physical Exam - General Limitations: No Limitations General appearance: alert, in no apparent distress - Head Head exam: Present: atraumatic, normocephalic - Eye Eye exam: Present: normal appearance, PERRL, EOMI - ENT ENT exam: Present: normal exam, normal orophraynx, mucous membranes moist - Neck Neck exam: Present: normal inspection, full ROM. Absent: tenderness - Respiratory Respiratory exam: Present: normal lung sounds bilaterally. Absent: respiratory distress - Cardiovascular Cardiovascular Exam: Present: regular rate, normal rhythm, normal heart sounds - GI/Abdominal GI/Abdominal exam: Present: soft, normal bowel sounds. Absent: distended, tenderness - Extremities Exam Extremities exam: Present: normal inspection, full ROM. Absent: tenderness - Back Exam Back exam: Present: normal inspection, full ROM. Absent: tenderness - Neurological Exam Neurological exam: Present: alert, oriented X3. Absent: motor sensory deficit - Skin Skin exam: Present: warm, dry, intact ED Course Vital Signs 04/14/17 12:33 Temperature 97.8 F Pulse Rate 90 Respiratory 18 Rate Blood Pressure 89/63 O2 Sat by Pulse 98 Oximetry ED Medical Decision Making - Lab Data Result diagrams: 04/14/17 13:08 04/14/17 13:08 - Medical Decision Making Lab results reviewed and are consistent with previous results. Patient had a Booker catheter and not a suprapubic catheter as per triage notes. Booker catheter has been replaced by nursing with minimal urine output. Patient will be discharged home at this time. - Differential Diagnosis catheter malfunction Critical care attestation.: If time is entered above; I have spent that time in minutes in the direct care of this critically ill patient, excluding procedure time. ED Disposition Clinical Impression: Urinary catheter dysfunction Qualifiers: Encounter type: initial encounter Qualified Code(s): T83.018A - Breakdown ( mechanical) of other urinary catheter, initial encounter Disposition: - TO HOME OR SELFCARE Is pt being admited?: No Condition: Stable Prescriptions: Diphenoxylate HCl/Atropine [Lomotil 2.5-0.025 mg Tablet] 2 each PO QID PRN #20 tablet PRN Reason: Diarrhea Referrals: PRIMARY CARE, [Primary Care Provider] - 3-5 Days Time of Disposition: 15:37
== END 2017-04-14 16:54 | disposition home or self-care (01) ==
LOC: ED 11:31
DX: T83.018A Breakdown (mechanical) of other urinary catheter, initial encounter (principal); I12.9 Hypertensive chronic kidney disease with stage 1 through stage 4 chronic kidney disease, or unspecified chronic kidney disease; E11.22 Type 2 diabetes mellitus with diabetic chronic kidney disease; N18.3 Chronic kidney disease, stage 3 (moderate); I50.9 Heart failure, unspecified; F03.90 Unspecified dementia, unspecified severity, without behavioral disturbance, psychotic disturbance, mood disturbance, and anxiety; Z79.82 Long term (current) use of aspirin
CPT/HCPCS: 36415; 51702; 80048; 85025

== ENCOUNTER 2017-04-16 22:22 | Emergency (ER) | payer MEDICARE ==
[2017-04-17 00:51] LABS: Basophils % (Auto) 1.3 % (0.0-1.8); Eosinophils % (Auto) 6.8 % (0.0-4.3); Hematocrit 31.1 % (35.5-45.6); Hemoglobin 10.5 gm/dl (11.8-15.2); Mean Corpuscular HGB Conc 34 % (32-34); Mean Corpuscular Hemoglobin 28 pg (28-32); Mean Corpuscular Volume 83 fl (84-94); Platelet Count 223 K/mm3 (140-440); Red Blood Count 3.74 M/mm3 (3.65-5.03); Red Cell Distribution Width 16.3 % (13.2-15.2); White Blood Count 6.9 K/mm3 (4.5-11.0)
[2017-04-17 01:08] LABS: Albumin 2.8 g/dL (3.9-5); Albumin/Globulin Ratio 0.7 %; BUN/Creatinine Ratio 23.84; Bilirubin,Total 0.2 mg/dL (0.1-1.2); Calcium 8.4 mg/dL (8.4-10.2); Chloride 106.2 mmol/L (98-107); Potassium 3.9 mmol/L (3.6-5.0)
--- NOTE | 2017-04-17 01:18 | Emergency Department Report ---
ED General Adult HPI - General Chief complaint: Urogenital-Male Stated complaint: GENITAL PAIN Time Seen by Provider: 04/17/17 01:11 Source: patient, EMS (ems notes not available at time of chart dictation), RN notes reviewed, old records reviewed Mode of arrival: Stretcher Limitations: Physical Limitation - History of Present Illness Initial comments: This is a 56-year-old male. I have evaluated him in the past. Past medical history includes renal insufficiency, obstructive uropathy, blind, hyperkalemia , hypotension, disabled. The patient presented to the ER today with a request to have his Booker catheter discontinued. He has since changed his mind. He also requests a refill on Tylenol No. 3. He denies headache, neck pain, chest pain, abdominal pain, shortness of breath, fevers, chills. He does admit to chronic weakness, which is not new, worsening or different. His weakness is constant, does not have exacerbating or relieving factors. Patient recently seen by myself a few days ago for nonspecific symptoms, had a urine culture which I sent which demonstrated no organisms. -: Gradual Severity scale (0 -10): 9 Consistency: constant Improves with: none Worsens with: none Associated Symptoms: weakness. denies: confusion, chest pain, cough - Related Data Previous Rx's Medication Instructions Recorded Last Taken Type Aspirin [Aspirin TAB] 325 mg PO QDAY #60 tablet 02/18/17 Unknown Rx Docusate Sodium [Colace CAP] 100 mg PO BID PRN #60 capsule 02/18/17 Unknown Rx Mirtazapine [Remeron] 15 mg PO QHS #60 tablet 02/18/17 Unknown Rx glipiZIDE [glipiZIDE ER] 5 mg PO QAM #30 tab.er.24 02/18/17 04/11/17 Rx Acetaminophen/Codeine [Tylenol 1 tab PO Q6H PRN #10 tab 03/20/17 Unknown Rx /Codeine # 3 tab] Carvedilol [Coreg] 6.25 mg PO BID #60 tablet 04/06/17 04/11/17 Rx Bisacodyl [Dulcolax] 5 mg PO DAILY PRN #30 tab 04/13/17 Unknown Rx Dicyclomine [Bentyl] 20 mg PO QID #30 tablet 04/13/17 Unknown Rx Diphenoxylate HCl/Atropine 2 each PO QID PRN #20 tablet 04/14/17 Unknown Rx [Lomotil 2.5-0.025 mg Tablet] Dicyclomine [Bentyl] 10 mg PO QID PRN #20 capsule 04/17/17 Unknown Rx Nitrofurantoin Pacific/M-Cryst 100 mg PO Q12HR #14 capsule 04/17/17 Unknown Rx [Macrobid CAP] Allergies Allergy/AdvReac Type Severity Reaction Status Date / Time No Known Allergies Allergy Verified 08/09/16 19:04 ED Review of Systems ROS: Stated complaint: GENITAL PAIN Other details as noted in HPI Constitutional: denies: fever Eyes: denies: eye discharge ENT: denies: epistaxis, congestion Respiratory: denies: shortness of breath Cardiovascular: denies: chest pain Gastrointestinal: denies: abdominal pain Genitourinary: denies: testicular pain Musculoskeletal: denies: myalgia Skin: denies: lesions Neurological: weakness (chronic) ED Past Medical Hx - Past Medical History Previous Medical History?: Yes Hx Hypertension: Yes Hx Congestive Heart Failure: Yes Hx Diabetes: Yes Hx Renal Disease: Yes (CKD stage three) Hx Asthma: No Hx COPD: No Hx Dementia: Yes (early onset) Additional medical history: cataracts - Surgical History Past Surgical History?: Yes Hx Pacemaker: No Hx Internal Defibrillator: No Additional Surgical History: rt hip fracture repair Oct 2016 - Social History Smoking Status: Unknown if ever smoked Substance Use Type: None - Medications Home Medications: Home Medications Medication Instructions Recorded Confirmed Last Taken Type Aspirin [Aspirin TAB] 325 mg PO QDAY #60 tablet 02/18/17 04/16/17 Unknown Rx Docusate Sodium [Colace CAP] 100 mg PO BID PRN #60 capsule 02/18/17 04/16/17 Unknown Rx Mirtazapine [Remeron] 15 mg PO QHS #60 tablet 02/18/17 04/16/17 Unknown Rx glipiZIDE [glipiZIDE ER] 5 mg PO QAM #30 tab.er.24 02/18/17 04/16/17 04/11/17 Rx Acetaminophen/Codeine [Tylenol 1 tab PO Q6H PRN #10 tab 03/20/17 04/16/17 Unknown Rx /Codeine # 3 tab] Carvedilol [Coreg] 6.25 mg PO BID #60 tablet 04/06/17 04/16/17 04/11/17 Rx Bisacodyl [Dulcolax] 5 mg PO DAILY PRN #30 tab 04/13/17 04/16/17 Unknown Rx Dicyclomine [Bentyl] 20 mg PO QID #30 tablet 04/13/17 04/16/17 Unknown Rx Diphenoxylate HCl/Atropine 2 each PO QID PRN #20 tablet 04/14/17 04/16/17 Unknown Rx [Lomotil 2.5-0.025 mg Tablet] Dicyclomine [Bentyl] 10 mg PO QID PRN #20 capsule 04/17/17 Unknown Rx Nitrofurantoin Pacific/M-Cryst 100 mg PO Q12HR #14 capsule 04/17/17 Unknown Rx [Macrobid CAP] ED Physical Exam - General Limitations: Physical Limitation General appearance: alert, in no apparent distress - Head Head exam: Present: atraumatic, normocephalic - Eye Eye exam: Present: EOMI - ENT ENT exam: Present: mucous membranes moist - Neck Neck exam: Present: normal inspection, full ROM - Respiratory Respiratory exam: Present: normal lung sounds bilaterally. Absent: respiratory distress, wheezes, rales, rhonchi, stridor, chest wall tenderness, accessory muscle use, decreased breath sounds, prolonged expiratory - Cardiovascular Cardiovascular Exam: Present: regular rate, normal rhythm, normal heart sounds. Absent: bradycardia, tachycardia, irregular rhythm, systolic murmur, diastolic murmur, rubs, gallop - GI/Abdominal GI/Abdominal exam: Present: soft, normal bowel sounds. Absent: distended, tenderness, guarding, rebound, rigid, pulsatile mass - Rectal Rectal exam: Present: deferred - exam: Present: normal inspection External exam: Present: normal external exam, other (there is a Booker catheter in place draining clear yellow urine.) - Extremities Exam Extremities exam: Present: normal inspection, normal capillary refill. Absent: calf tenderness - Back Exam Back exam: Present: normal inspection. Absent: paraspinal tenderness, vertebral tenderness - Neurological Exam Neurological exam: Present: alert, other (Extraocular movements intact. Tongue midline. No facial droop. Facial sensation intact to light touch in the V1, V2 , V3 distribution bilaterally. 5 and 5 strength in 4 extremities.. Sensation is intact to light touch in 4 extremities.). Absent: motor sensory deficit - Psychiatric Psychiatric exam: Present: flat affect - Skin Skin exam: Present: warm, dry, intact, normal color. Absent: rash ED Course Vital Signs 04/16/17 04/17/17 04/17/17 22:48 00:21 01:41 Temperature 99.3 F Pulse Rate 77 82 Respiratory 14 14 14 Rate Blood Pressure 137/90 Blood Pressure 137/90 126/81 [Right] O2 Sat by Pulse 99 99 100 Oximetry ED Medical Decision Making - Lab Data Result diagrams: 04/17/17 00:04 04/17/17 00:04 Vital Signs 04/16/17 04/17/17 04/17/17 22:48 00:21 01:41 Temperature 99.3 F Pulse Rate 77 82 Respiratory 14 14 14 Rate Blood Pressure 137/90 Blood Pressure 137/90 126/81 [Right] O2 Sat by Pulse 99 99 100 Oximetry Lab Results 04/17/17 04/17/17 04/17/17 Range/Units 00:04 00:04 00:10 WBC 6.9 (4.5-11.0) K/mm3 RBC 3.74 (3.65-5.03) M/mm3 Hgb 10.5 L (11.8-15.2) gm/dl Hct 31.1 L (35.5-45.6) % MCV 83 L (84-94) fl MCH 28 (28-32) pg MCHC 34 (32-34) % RDW 16.3 H (13.2-15.2) % Plt Count 223 (140-440) K/mm3 Lymph % (Auto) 33.7 (13.4-35.0) % Pacific % (Auto) 8.7 H (0.0-7.3) % Eos % (Auto) 6.8 H (0.0-4.3) % Baso % (Auto) 1.3 (0.0-1.8) % Lymph # 2.3 (1.2-5.4) K/mm3 Pacific # 0.6 (0.0-0.8) K/mm3 Eos # 0.5 H (0.0-0.4) K/mm3 Baso # 0.1 (0.0-0.1) K/mm3 Seg Neutrophils % 49.5 (40.0-70.0) % Seg Neutrophils # 3.4 (1.8-7.7) K/mm3 Sodium 139 (137-145) mmol/L Potassium 3.9 (3.6-5.0) mmol/L Chloride 106.2 (98-107) mmol/L Carbon Dioxide 19 L (22-30) mmol/L Anion Gap 18 mmol/L BUN 31 H (9-20) mg/dL Creatinine 1.3 (0.8-1.5) mg/dL Estimated GFR 57 ml/min BUN/Creatinine Ratio 23.84 % Glucose 88 (75-100) mg/dL Calcium 8.4 (8.4-10.2) mg/dL Total Bilirubin 0.20 (0.1-1.2) mg/dL AST 14 (5-40) units/L ALT 6 L (7-56) units/L Alkaline Phosphatase 151 H (35-129) units/L Total Protein 7.0 (6.3-8.2) g/dL Albumin 2.8 L (3.9-5) g/dL Albumin/Globulin Ratio 0.7 % Urine Color Yellow (Yellow) Urine Turbidity Clear (Clear) Urine pH 5.0 (5.0-7.0) Ur Specific Aneta 1.012 (1.003-1.030) Urine Protein <15 mg/dl (Negative) mg/dL Urine Glucose (UA) Neg (Negative) mg/dL Urine Ketones Neg (Negative) mg/dL Urine Blood Sm (Negative) Urine Nitrite Neg (Negative) Urine Bilirubin Neg (Negative) Urine Urobilinogen < 2.0 (<2.0) mg/dL Ur Leukocyte Esterase Lg (Negative) Urine WBC (Auto) 78.0 H (0.0-6.0) /HPF Urine RBC (Auto) 3.0 (0.0-6.0) /HPF Urine Bacteria (Auto) 2+ (Negative) /HPF Hyaline Casts 12 /LPF Urine Mucus Few /HPF - Medical Decision Making Differential diagnosis: Urinary tract infection, chronic debility, general medical evaluation Assessment and plan: 56-year-old male with complaint of requesting to have his urinary catheter discontinued. He has not followed up with his outpatient cv rn for trial of void. Patient recently admitted to the hospital for renal failure secondary to probable obstructive uropathy. Patient counseled that he would most likely develop recurrent renal insufficiency and urinary obstruction at the Booker catheter was discontinued. He is therefore amenable to have the Booker catheter stay in place. He is going to follow up with his cv rn next week. I informed the patient that I would not refill a prescription for Tylenol 3, and we'll give him a nonnarcotic pain medication. The patient was instructed to follow up with outpatient primary care doctor or pain specialist if he felt like he required a narcotic pain medication. Urinalysis today suggestive of colonization versus UTI. This is new from a prior urinalysis. Cultures will be sent, and he will therefore be treated empirically with Macrobid. Critical care attestation.: If time is entered above; I have spent that time in minutes in the direct care of this critically ill patient, excluding procedure time. ED Disposition Clinical Impression: General medical exam Disposition: DC-01 TO HOME OR SELFCARE Is pt being admited?: No Does the pt Need Aspirin: No Condition: Stable Additional Instructions: Continue current outpatient medications as previously directed. Cultures were sent today, results will be available in the next 3-5 days. Have a primary care doctor contact the medical records department to obtain culture results. Follow-up with your cv rn within the next week. Return to the ER right away with fevers, chills, chest pain, shortness of breath, confusion, intractable nausea or vomiting, inability to tolerate liquid feeds. Please note that he should follow-up with either your primary care doctor or pain specialist to have narcotic prescriptions refilled. Prescriptions: Dicyclomine [Bentyl] 10 mg PO QID PRN #20 capsule PRN Reason: Pain Nitrofurantoin Pacific/M-Cryst [Macrobid CAP] 100 mg PO Q12HR #14 capsule Referrals: PRIMARY CAREMD [Primary Care Provider] - 3-5 Days MARCO WILKES MD [Staff Physician] - 3-5 Days
[2017-04-17 01:29] LABS: Bacteria,Urine 2+ /HPF (Negative); Bilirubin,Urine NEG (Negative); Blood,Urine SM (Negative); Ketones,Urine NEG (Negative); Leukocyte Esterase,Urine LG (Negative); Mucus,Urine FEW /HPF; Nitrite,Urine NEG (Negative); Protein,Urine <15 mg/dL mg/dL (Negative); Urobilinogen,Urine < 2.0 mg/dL (<2.0)
[2017-04-17 01:41] VITALS: BP 126/81
== END 2017-04-17 04:15 | disposition home or self-care (01) ==
LOC: ED 22:22
DX: R53.1 Weakness (principal); E11.22 Type 2 diabetes mellitus with diabetic chronic kidney disease; I12.9 Hypertensive chronic kidney disease with stage 1 through stage 4 chronic kidney disease, or unspecified chronic kidney disease; N18.3 Chronic kidney disease, stage 3 (moderate); F03.90 Unspecified dementia, unspecified severity, without behavioral disturbance, psychotic disturbance, mood disturbance, and anxiety; Z79.82 Long term (current) use of aspirin
CPT/HCPCS: 36415; 80053; 81001; 85025; 87086; 99284

== ENCOUNTER 2017-04-19 21:53 | Emergency (ER) | payer MEDICARE ==
[2017-04-19 23:08] LABS: Basophils % (Auto) 1.1 % (0.0-1.8); Eosinophils % (Auto) 8.2 % (0.0-4.3); Hematocrit 33.2 % (35.5-45.6); Hemoglobin 10.8 gm/dl (11.8-15.2); Mean Corpuscular HGB Conc 33 % (32-34); Mean Corpuscular Hemoglobin 28 pg (28-32); Mean Corpuscular Volume 85 fl (84-94); Platelet Count 222 K/mm3 (140-440); Red Blood Count 3.89 M/mm3 (3.65-5.03); Red Cell Distribution Width 16.4 % (13.2-15.2)
[2017-04-19 23:23] LABS: BUN/Creatinine Ratio 16.25; Chloride 107.5 mmol/L (98-107)
--- NOTE | 2017-04-20 10:52 | Emergency Department Report ---
- General Chief complaint: Weakness Stated complaint: GENITAL BURNING Time Seen by Provider: 04/20/17 10:20 Source: patient Mode of arrival: Ambulatory Limitations: No Limitations - History of Present Illness Initial comments: 56-year-old male with a past medical history of [id number] diabetes, chronic renal sufficiency, history urinary retention currently with a Durant, early onset dementia, CHF, and hypertension presents to the hospital with complaints of weakness and low blood sugar. Patient states he was feeling "weird" this a.m. He cannot describe it other than stating that he felt a little weak. Patient was concerned because his blood glucose was 78. He drank orange juice and called EMS to check his vitals and his blood glucose. Upon their arrival glucose was 146 upon recheck 30 minutes later. Patient requested transport to the hospital. Patient has multiple recent visits here to the hospital this month alone including an admission secondary to urinary retention , UTI, acute on chronic renal sufficiency and hypotension. Last visit was on the and patient was requesting removal of his Durant. Patient has no complaints at this time. He takes glipizide ER 5 mg every morning last dose was yesterday am. Last meal was 6 PM last night. - Related Data Previous Rx's Medication Instructions Recorded Last Taken Type Aspirin [Aspirin TAB] 325 mg PO QDAY #60 tablet 02/18/17 Unknown Rx Docusate Sodium [Colace CAP] 100 mg PO BID PRN #60 capsule 02/18/17 Unknown Rx Mirtazapine [Remeron] 15 mg PO QHS #60 tablet 02/18/17 Unknown Rx glipiZIDE [glipiZIDE ER] 5 mg PO QAM #30 tab.er.24 02/18/17 04/11/17 Rx Acetaminophen/Codeine [Tylenol 1 tab PO Q6H PRN #10 tab 03/20/17 Unknown Rx /Codeine # 3 tab] Carvedilol [Coreg] 6.25 mg PO BID #60 tablet 04/06/17 04/11/17 Rx Bisacodyl [Dulcolax] 5 mg PO DAILY PRN #30 tab 04/13/17 Unknown Rx Dicyclomine [Bentyl] 20 mg PO QID #30 tablet 04/13/17 Unknown Rx Diphenoxylate HCl/Atropine 2 each PO QID PRN #20 tablet 04/14/17 Unknown Rx [Lomotil 2.5-0.025 mg Tablet] Dicyclomine [Bentyl] 10 mg PO QID PRN #20 capsule 04/17/17 Unknown Rx Nitrofurantoin Treg[place]/M-Cryst 100 mg PO Q12HR #14 capsule 04/17/17 Unknown Rx [Macrobid CAP] Allergies Allergy/AdvReac Type Severity Reaction Status Date / Time No Known Allergies Allergy Verified 08/09/16 19:04 ED Review of Systems ROS: Stated complaint: GENITAL BURNING Other details as noted in HPI Comment: All other systems reviewed and negative Other: Constitutional: No fevers chills Eyes: No eye pain visual changes ENT: No ear pain or throat pain Neck: Denies pain Respiratory: Denies cough wheezing shortness of breath Cardiovascular: Denies chest pain, palpitations, syncope GI: Denies abdominal pain, nausea, vomiting, diarrhea : durant Musculoskeletal: Denies back pain Skin: Denies rash, lesions, erythema Neurologic: Denies headache. Denies focal weakness or numbness. Patient requires a walker or a wheel chair Psychiatric: Denies suicidal ideation, hallucinations ED Past Medical Hx - Past Medical History Hx Hypertension: Yes Hx Congestive Heart Failure: Yes Hx Diabetes: Yes Hx Renal Disease: Yes (CKD stage three) Hx Asthma: No Hx COPD: No Hx Dementia: Yes (early onset) Additional medical history: cataracts - Surgical History Hx Pacemaker: No Hx Internal Defibrillator: No Additional Surgical History: rt hip fracture repair Oct 2016 - Social History Smoking Status: Never Smoker Substance Use Type: None - Medications Home Medications: Home Medications Medication Instructions Recorded Confirmed Last Taken Type Aspirin [Aspirin TAB] 325 mg PO QDAY #60 tablet 02/18/17 04/16/17 Unknown Rx Docusate Sodium [Colace CAP] 100 mg PO BID PRN #60 capsule 02/18/17 04/16/17 Unknown Rx Mirtazapine [Remeron] 15 mg PO QHS #60 tablet 02/18/17 04/16/17 Unknown Rx glipiZIDE [glipiZIDE ER] 5 mg PO QAM #30 tab.er.24 02/18/17 04/16/17 04/11/17 Rx Acetaminophen/Codeine [Tylenol 1 tab PO Q6H PRN #10 tab 03/20/17 04/16/17 Unknown Rx /Codeine # 3 tab] Carvedilol [Coreg] 6.25 mg PO BID #60 tablet 04/06/17 04/16/17 04/11/17 Rx Bisacodyl [Dulcolax] 5 mg PO DAILY PRN #30 tab 04/13/17 04/16/17 Unknown Rx Dicyclomine [Bentyl] 20 mg PO QID #30 tablet 04/13/17 04/16/17 Unknown Rx Diphenoxylate HCl/Atropine 2 each PO QID PRN #20 tablet 04/14/17 04/16/17 Unknown Rx [Lomotil 2.5-0.025 mg Tablet] Dicyclomine [Bentyl] 10 mg PO QID PRN #20 capsule 04/17/17 Unknown Rx Nitrofurantoin [place]/M-Cryst 100 mg PO Q12HR #14 capsule 04/17/17 Unknown Rx [Macrobid CAP] ED Physical Exam - General Limitations: No Limitations - Other Other exam information: General: No limitations, patient is alert in no acute distress Head exam: Atraumatic, normocephalic Eyes exam: Normal appearance ENT: Moist mucous membrane Neck exam: Normal inspection Respiratory exam: Clear to auscultation bilateral, no wheezes, rales, crackles Cardiovascular: Normal rate and rhythm, normal heart sounds Abdomen: Soft, nondistended, and nontender, with normal bowel sounds, no rebound, or guarding : Indwelling Durant catheter with clear urine output Extremity: Full range of motion normal inspection no deformity Back: Normal Inspection, full range of motion, no tenderness Neurologic: Alert, oriented x3, cranial nerves intact, no motor or sensory deficit. Patient is able to lift both legs off the bed against resistance however states he cannot ambulate without assistive device Psychiatric: normal affect, normal mood Skin: Warm, dry, intact ED Course Vital Signs 04/19/17 04/19/17 04/20/17 22:02 23:57 09:39 Temperature 98.2 F Pulse Rate 98 H Respiratory 16 Rate Blood Pressure 77/52 Blood Pressure 93/58 [Left] O2 Sat by Pulse 98 99 Oximetry 04/20/17 04/20/17 04/20/17 09:41 10:03 10:23 Temperature Pulse Rate 104 H 91 H Respiratory 29 H 18 Rate Blood Pressure 112/77 Blood Pressure [Left] O2 Sat by Pulse 99 Oximetry ED Medical Decision Making - Lab Data Result diagrams: 04/19/17 22:51 04/19/17 22:51 Lab Results 04/19/17 04/19/17 04/19/17 Range/Units 22:05 22:51 22:51 WBC 6.0 (4.5-11.0) K/mm3 RBC 3.89 (3.65-5.03) M/mm3 Hgb 10.8 L (11.8-15.2) gm/dl Hct 33.2 L (35.5-45.6) % MCV 85 (84-94) fl MCH 28 (28-32) pg MCHC 33 (32-34) % RDW 16.4 H (13.2-15.2) % Plt Count 222 (140-440) K/mm3 Lymph % (Auto) 28.2 (13.4-35.0) % [place] % (Auto) 5.7 (0.0-7.3) % Eos % (Auto) 8.2 H (0.0-4.3) % Baso % (Auto) 1.1 (0.0-1.8) % Lymph # 1.7 (1.2-5.4) K/mm3 Trego # 0.3 (0.0-0.8) K/mm3 Eos # 0.5 H (0.0-0.4) K/mm3 Baso # 0.1 (0.0-0.1) K/mm3 Seg Neutrophils % 56.8 (40.0-70.0) % Seg Neutrophils # 3.4 (1.8-7.7) K/mm3 Sodium 139 (137-145) mmol/L Potassium 4.0 (3.6-5.0) mmol/L Chloride 107.5 H (98-107) mmol/L Carbon Dioxide 18 L (22-30) mmol/L Anion Gap 18 mmol/L BUN 26 H (9-20) mg/dL Creatinine 1.6 H (0.8-1.5) mg/dL Estimated GFR 45 ml/min BUN/Creatinine Ratio 16.25 % Glucose 221 H (75-100) mg/dL POC Glucose 223 H (70-105) Calcium 8.0 L (8.4-10.2) mg/dL Troponin T 0.015 (0.00-0.029) ng/mL 07/30/17 Range/Units 05:51 WBC (4.5-11.0) K/mm3 RBC (3.65-5.03) M/mm3 Hgb (11.8-15.2) gm/dl Hct (35.5-45.6) % MCV (84-94) fl MCH (28-32) pg MCHC (32-34) % RDW (13.2-15.2) % Plt Count (140-440) K/mm3 Lymph % (Auto) (13.4-35.0) % Treg[place] % (Auto) (0.0-7.3) % Eos % (Auto) (0.0-4.3) % Baso % (Auto) (0.0-1.8) % Lymph # (1.2-5.4) K/mm3 Trego # (0.0-0.8) K/mm3 Eos # (0.0-0.4) K/mm3 Baso # (0.0-0.1) K/mm3 Seg Neutrophils % (40.0-70.0) % Seg Neutrophils # (1.8-7.7) K/mm3 Sodium (137-145) mmol/L Potassium (3.6-5.0) mmol/L Chloride (98-107) mmol/L Carbon Dioxide (22-30) mmol/L Anion Gap mmol/L BUN (9-20) mg/dL Creatinine (0.8-1.5) mg/dL Estimated GFR ml/min BUN/Creatinine Ratio % Glucose (75-100) mg/dL POC Glucose (70-105) Calcium (8.4-10.2) mg/dL Troponin T 0.014 (0.00-0.029) ng/mL - Medical Decision Making There are no signs of hypoglycemia or hypotension here. Labs unremarkable. Renal function is stable. Patient will be discharged home and encouraged to take his glipizide and eat after he gets home. Patient also reoccurs to follow up with urology regarding removal of his Durant catheter and to continue taking his recent prescribed antibiotics. Previous urine cultures reviewed and most recent from the shows mixed tessie likely contamination - Differential Diagnosis hypoglycemia, infection, hypotension, UTI Critical Care Time: No Critical care attestation.: If time is entered above; I have spent that time in minutes in the direct care of this critically ill patient, excluding procedure time. ED Disposition Clinical Impression: Diabetes mellitus, type 2, Durant catheter in place Disposition: DC- TO HOME OR SELFCARE Is pt being admited?: No Does the pt Need Aspirin: No Condition: Stable Additional Instructions: Take your diabetes medication and eat when you get home. Continue your other medications as prescribed Referrals: ANJEL ALBA MD [Staff Physician] - 3-5 Days (Urology ) Time of Disposition: 10:56
[2017-04-20 15:37] VITALS: BP 110/78
== END 2017-04-20 15:40 | disposition home or self-care (01) ==
LOC: ED 21:53
DX: I13.0 Hypertensive heart and chronic kidney disease with heart failure and stage 1 through stage 4 chronic kidney disease, or unspecified chronic kidney disease (principal); E11.22 Type 2 diabetes mellitus with diabetic chronic kidney disease; N18.3 Chronic kidney disease, stage 3 (moderate); I50.9 Heart failure, unspecified; Z79.82 Long term (current) use of aspirin
CPT/HCPCS: 36415; 80048; 82962; 84484; 85025; 93005; 93010; 99284

== ENCOUNTER 2017-04-22 09:11 | Emergency (ER) | payer MEDICARE ==
--- NOTE | 2017-04-22 12:26 | Emergency Department Report ---
ED Male HPI - General Chief complaint: Urogenital-Male Stated complaint: DISPLACED CATH Time Seen by Provider: 04/22/17 10:53 Source: patient, EMS, old records reviewed Mode of arrival: Stretcher Limitations: Physical Limitation - History of Present Illness Initial comments: 56-year-old male with a past medical history CHF, early onset dementia, diabetes , chronic kidney disease, history urinary retention presents to the hospital stating that his Durant catheter is leaking. Patient is legally blind. Home health visited the patient recently and patient seemed to think that maybe she dislodged his catheter because now he has urine output around the catheter. No pain or fever reported. Patient was discharged here on April 06 and has since had a visit approximately every 3 days (today is the 4th visit.) regarding to catheter problems or wanting his catheter to be removed. Patient has been told multiple times that he needs to follow up with urology and not the ER to determine if removal of his catheter is indicated. Patient has not made an appointment with urology but has no appointment today with his senior care manager Dr. Jack. - Related Data Previous Rx's Medication Instructions Recorded Last Taken Type Aspirin [Aspirin TAB] 325 mg PO QDAY #60 tablet 02/18/17 Unknown Rx Docusate Sodium [Colace CAP] 100 mg PO BID PRN #60 capsule 02/18/17 Unknown Rx Mirtazapine [Remeron] 15 mg PO QHS #60 tablet 02/18/17 Unknown Rx glipiZIDE [glipiZIDE ER] 5 mg PO QAM #30 tab.er.24 02/18/17 04/11/17 Rx Acetaminophen/Codeine [Tylenol 1 tab PO Q6H PRN #10 tab 03/20/17 Unknown Rx /Codeine # 3 tab] Carvedilol [Coreg] 6.25 mg PO BID #60 tablet 04/06/17 04/11/17 Rx Bisacodyl [Dulcolax] 5 mg PO DAILY PRN #30 tab 04/13/17 Unknown Rx Dicyclomine [Bentyl] 20 mg PO QID #30 tablet 04/13/17 Unknown Rx Diphenoxylate HCl/Atropine 2 each PO QID PRN #20 tablet 04/14/17 Unknown Rx [Lomotil 2.5-0.025 mg Tablet] Dicyclomine [Bentyl] 10 mg PO QID PRN #20 capsule 04/17/17 Unknown Rx Nitrofurantoin [place]/M-Cryst 100 mg PO Q12HR #14 capsule 04/17/17 Unknown Rx [Macrobid CAP] Allergies Allergy/AdvReac Type Severity Reaction Status Date / Time No Known Allergies Allergy Verified 08/09/16 19:04 ED Review of Systems ROS: Stated complaint: DISPLACED CATH Other details as noted in HPI Comment: All other systems reviewed and negative Other: Constitutional: No fevers chills Eyes: Legally blind ENT: No ear pain or throat pain Neck: Denies pain Respiratory: Denies cough wheezing shortness of breath Cardiovascular: Denies chest pain, palpitations, syncope GI: Denies abdominal pain, nausea, vomiting, diarrhea : as per hpi Musculoskeletal: Denies back pain Skin: Denies rash, lesions, erythema Neurologic: Denies headache, chronically nonambulatory Psychiatric: Denies suicidal ideation, hallucinations ED Past Medical Hx - Past Medical History Hx Hypertension: Yes Hx Congestive Heart Failure: Yes Hx Diabetes: Yes Hx Renal Disease: Yes (CKD stage three) Hx Asthma: No Hx COPD: No Hx Dementia: Yes (early onset) Additional medical history: cataracts - Surgical History Hx Pacemaker: No Hx Internal Defibrillator: No Additional Surgical History: rt hip fracture repair Oct 2016 - Social History Smoking Status: Never Smoker Substance Use Type: None - Medications Home Medications: Home Medications Medication Instructions Recorded Confirmed Last Taken Type Aspirin [Aspirin TAB] 325 mg PO QDAY #60 tablet 02/18/17 04/16/17 Unknown Rx Docusate Sodium [Colace CAP] 100 mg PO BID PRN #60 capsule 02/18/17 04/16/17 Unknown Rx Mirtazapine [Remeron] 15 mg PO QHS #60 tablet 02/18/17 04/16/17 Unknown Rx glipiZIDE [glipiZIDE ER] 5 mg PO QAM #30 tab.er.24 02/18/17 04/16/17 04/11/17 Rx Acetaminophen/Codeine [Tylenol 1 tab PO Q6H PRN #10 tab 03/20/17 04/16/17 Unknown Rx /Codeine # 3 tab] Carvedilol [Coreg] 6.25 mg PO BID #60 tablet 04/06/17 04/16/17 04/11/17 Rx Bisacodyl [Dulcolax] 5 mg PO DAILY PRN #30 tab 04/13/17 04/16/17 Unknown Rx Dicyclomine [Bentyl] 20 mg PO QID #30 tablet 04/13/17 04/16/17 Unknown Rx Diphenoxylate HCl/Atropine 2 each PO QID PRN #20 tablet 04/14/17 04/16/17 Unknown Rx [Lomotil 2.5-0.025 mg Tablet] Dicyclomine [Bentyl] 10 mg PO QID PRN #20 capsule 04/17/17 Unknown Rx Nitrofurantoin [place]/M-Cryst 100 mg PO Q12HR #14 capsule 04/17/17 Unknown Rx [Macrobid CAP] ED Physical Exam - General Limitations: Physical Limitation - Other Other exam information: General: No limitations, patient is alert in no acute distress Head exam: Atraumatic, normocephalic Eyes exam: Normal appearance ENT: Moist mucous membrane, normal oropharynx Neck exam: Normal inspection, full range of motion, no meningismus nontender Respiratory exam: Clear to auscultation bilateral, no wheezes, rales, crackles Cardiovascular: Normal rate and rhythm, normal heart sounds Abdomen: Soft, nondistended, and nontender, with normal bowel sounds, no rebound, or guarding : Circumcised, indwelling Durant catheter. No drainage around the Durant, no blood at the meatus, his diaper is completely dry. Positive urinary output into the Durant bag Extremity: Full range of motion normal inspection no deformity Back: Normal Inspection, full range of motion, no tenderness Neurologic: Alert, oriented x3 Psychiatric: normal affect, normal mood Skin: Warm, dry, intact ED Course Vital Signs 04/22/17 04/22/17 04/22/17 09:50 10:10 10:30 Temperature 97.6 F Pulse Rate 77 Respiratory 16 Rate Blood Pressure 108/66 108/66 108/66 Blood Pressure 108/66 [Right] O2 Sat by Pulse 99 Oximetry 04/22/17 04/22/17 04/22/17 10:45 11:00 11:15 Temperature Pulse Rate Respiratory Rate Blood Pressure 108/67 111/66 113/71 Blood Pressure [Right] O2 Sat by Pulse Oximetry 04/22/17 04/22/17 04/22/17 11:30 11:40 11:45 Temperature Pulse Rate Respiratory 16 Rate Blood Pressure 124/76 126/79 Blood Pressure [Right] O2 Sat by Pulse 98 Oximetry 04/22/17 04/22/17 04/22/17 12:00 12:15 12:30 Temperature Pulse Rate Respiratory Rate Blood Pressure 112/73 117/73 112/74 Blood Pressure [Right] O2 Sat by Pulse Oximetry 04/22/17 04/22/17 04/22/17 12:45 13:01 13:16 Temperature Pulse Rate Respiratory Rate Blood Pressure 109/70 114/82 134/57 Blood Pressure [Right] O2 Sat by Pulse Oximetry 04/22/17 04/22/17 04/22/17 13:31 13:46 14:00 Temperature Pulse Rate Respiratory Rate Blood Pressure 198/95 137/86 123/76 Blood Pressure [Right] O2 Sat by Pulse Oximetry 04/22/17 04/22/17 04/22/17 14:15 14:30 14:45 Temperature Pulse Rate Respiratory Rate Blood Pressure 135/78 134/84 134/80 Blood Pressure [Right] O2 Sat by Pulse Oximetry 04/22/17 15:00 Temperature Pulse Rate Respiratory Rate Blood Pressure 144/92 Blood Pressure [Right] O2 Sat by Pulse Oximetry - Reevaluation(s) Reevaluation #1: 04/22/17 13:30 Durant catheter bag was emptied and patient was observed. Positive urine output into the Durant bag however diaper is wet. Patient states he feels the urge to urinate and the urine comes out around the bladder. Durant catheter will be replaced prior to discharge. Reevaluation #2: 04/22/17 15:27 durant was changed prior to d/c. Transport here to take pt - Consultations Consultation #1: 04/22/17 12:28 case d/w president [employer] ceo [employer] for Guero Tavera. I informed him of the patient's frequent (every 3 day) ER visits since is discharged with a Durant catheter April 06 and his lack of follow-up with urology. Patient has a appointment today with nephrology/Dr. Jack. Dr. Tavera requests that patient be transported from the hospital to the clinic for his appointment. They will work on arranging outpatient urology follow-up ED Medical Decision Making - Medical Decision Making Durant appears to be functioning properly. Positive output through the bag and no drainage around the catheter. - Differential Diagnosis durant dysfunction Critical Care Time: No Critical care attestation.: If time is entered above; I have spent that time in minutes in the direct care of this critically ill patient, excluding procedure time. ED Disposition Clinical Impression: Urinary retention, CKD (chronic kidney disease), Urinary catheter (Durant) change required Disposition: DC-01 TO HOME OR SELFCARE Is pt being admited?: No Condition: Stable Instructions: Durant Catheter Placement and Care (ED) Additional Instructions: FOLLOW UP WITH UROLOGY for cath removal. Transport will take you to the senior care manager for your appointment Referrals: MATT LERMA MD [Staff Physician] - 3-5 Days Time of Disposition: 15:27
[2017-04-22 15:11] VITALS: BP 144/92
== END 2017-04-22 15:32 | disposition home or self-care (01) ==
LOC: ED 09:11
DX: R33.9 Retention of urine, unspecified (principal); Z46.6 Encounter for fitting and adjustment of urinary device; Z79.82 Long term (current) use of aspirin; I12.9 Hypertensive chronic kidney disease with stage 1 through stage 4 chronic kidney disease, or unspecified chronic kidney disease; N18.3 Chronic kidney disease, stage 3 (moderate); I50.9 Heart failure, unspecified; E11.9 Type 2 diabetes mellitus without complications; F03.90 Unspecified dementia, unspecified severity, without behavioral disturbance, psychotic disturbance, mood disturbance, and anxiety
CPT/HCPCS: 51702

== ENCOUNTER 2017-04-22 21:07 | Inpatient (IN) | payer MEDICARE ==
--- NOTE | 2017-04-23 08:12 | Emergency Department Report ---
<DAVID ANDERSON - Last Filed: 04/23/17 18:59> ED Male HPI - General Chief complaint: Urogenital-Male Stated complaint: SOLANO LEAKING Source: patient Mode of arrival: Ambulatory Limitations: Physical Limitation - History of Present Illness Initial comments: 56-year-old male past medical history hip replacement, dementia, indwelling Solano catheter, hypertension, recurrent UTIs, diabetes, CHF, CKD, presents with complaint of generalized weakness and states that last night he had difficulty voiding from his Solano catheter. Patient is awake and alert but appears lethargic and disheveled. States that he generally does not feel well and feels weak, complaining of fever. States he called EMS because he was feeling weak and had difficulty with his Solano catheter. As per chart and triage note Solano catheter was changed in triage upon arrival. Patient is verbally abusive and is a poor historian. Complaint: other (solano leakage) Onset/Timin -: days(s) Radiation: none indwelling catheter - Related Data Previous Rx's Medication Instructions Recorded Last Taken Type glipiZIDE [glipiZIDE ER] 5 mg PO QAM #30 tab.er.24 02/18/17 04/23/17 Rx Carvedilol [Coreg] 6.25 mg PO BID #60 tablet 04/06/17 04/23/17 Rx Allergies Allergy/AdvReac Type Severity Reaction Status Date / Time No Known Allergies Allergy Verified 08/09/16 19:04 ED Review of Systems ROS: Stated complaint: SOLANO LEAKING Other details as noted in HPI Constitutional: chills, fever Eyes: denies: eye pain, eye discharge, vision change ENT: denies: ear pain, throat pain Respiratory: denies: cough, shortness of breath, wheezing Cardiovascular: denies: chest pain, palpitations Endocrine: no symptoms reported Gastrointestinal: denies: abdominal pain, nausea, diarrhea Genitourinary: other (indwelling Solano catheter). denies: urgency, dysuria Musculoskeletal: denies: back pain, joint swelling, arthralgia Skin: denies: rash, lesions Neurological: weakness. denies: headache, paresthesias Psychiatric: denies: anxiety, depression Hematological/Lymphatic: denies: easy bleeding, easy bruising ED Past Medical Hx - Past Medical History Previous Medical History?: Yes Hx Hypertension: Yes Hx Congestive Heart Failure: Yes Hx Diabetes: Yes Hx Renal Disease: Yes (CKD stage three) Hx Asthma: No Hx COPD: No Hx Dementia: Yes (early onset) Additional medical history: cataracts - Surgical History Past Surgical History?: Yes Hx Pacemaker: No Hx Internal Defibrillator: No Additional Surgical History: rt hip fracture repair Oct 2016 - Social History Smoking Status: Never Smoker Substance Use Type: None - Medications Home Medications: Home Medications Medication Instructions Recorded Confirmed Last Taken Type glipiZIDE [glipiZIDE ER] 5 mg PO QAM #30 tab.er.24 02/18/17 04/23/17 04/23/17 Rx Carvedilol [Coreg] 6.25 mg PO BID #60 tablet 04/06/17 04/23/17 04/23/17 Rx ED Physical Exam - General Limitations: Physical Limitation General appearance: alert, anxious, lethargic, cachectic - Head Head exam: Present: atraumatic, normocephalic - Eye Eye exam: Present: normal appearance, PERRL, EOMI - ENT ENT exam: Present: mucous membranes moist - Neck Neck exam: Present: normal inspection, full ROM - Respiratory Respiratory exam: Present: normal lung sounds bilaterally. Absent: respiratory distress - Cardiovascular Cardiovascular Exam: Present: regular rate, normal rhythm. Absent: systolic murmur, diastolic murmur, rubs, gallop - GI/Abdominal GI/Abdominal exam: Present: soft, normal bowel sounds - Rectal Rectal exam: Present: deferred - Extremities Exam Extremities exam: Present: normal inspection - Back Exam Back exam: Present: normal inspection - Neurological Exam Neurological exam: Present: alert, oriented X3, abnormal gait (antalgic gait patient states he has difficulty moving on his own at baseline) - Psychiatric Psychiatric exam: Present: normal affect, normal mood - Skin Skin exam: Present: warm, dry, intact, normal color. Absent: rash ED Course Vital Signs 04/22/17 04/22/17 04/23/17 21:29 22:00 08:32 Temperature 98.3 F Pulse Rate 95 H 74 100 H Respiratory 18 16 20 Rate Blood Pressure 85/60 Blood Pressure 142/90 100/55 [Left] O2 Sat by Pulse 100 97 100 Oximetry 04/23/17 04/23/17 09:29 11:15 Temperature Pulse Rate Respiratory 20 16 Rate Blood Pressure Blood Pressure [Left] O2 Sat by Pulse Oximetry ED Medical Decision Making - Lab Data Result diagrams: 04/23/17 08:33 04/23/17 08:33 - Medical Decision Making A/P: Complicated UTI, weakness, SIRS criteria, sepsis, elevated lactic acid 1-case discussed with Dr. Hunter 2-IV fluid resuscitation, ceftriaxone empiric coverage for UTI, 3-case discussed with hospitalist for admission for IV fluid resuscitation and antibiotics 4- Critical care attestation.: If time is entered above; I have spent that time in minutes in the direct care of this critically ill patient, excluding procedure time. ED Disposition Clinical Impression: Acute kidney injury, Solano catheter in place, Delirium Kidney failure Qualifiers: Renal failure chronicity: acute Acute renal failure type: unspecified Qualified Code(s): N17.9 - Acute kidney failure, unspecified Urinary catheter dysfunction Qualifiers: Encounter type: sequela Qualified Code(s): T83.018S - Breakdown (mechanical) of other urinary catheter, sequela UTI (urinary tract infection) Qualifiers: Urinary tract infection type: catheter-associated UTI Indwelling urinary catheter type: indwelling urethral catheter Encounter type: sequela Qualified Code(s): T83.511S - Infection and inflammatory reaction due to indwelling urethral catheter, sequela Disposition: DC-09 OP ADMIT IP TO THIS HOSP Is pt being admited?: Yes Does the pt Need Aspirin: No Condition: Stable <FAYE HUNTER - Last Filed: 04/24/17 15:31> ED Medical Decision Making - Lab Data Result diagrams: 04/23/17 08:33 04/23/17 08:33 Laboratory Results - last 24 hr 04/23/17 04/23/17 04/23/17 08:33 08:33 08:33 WBC 11.8 H RBC 4.17 Hgb 11.8 Hct 36.1 MCV 87 MCH 28 MCHC 33 RDW 16.7 H Plt Count 224 Lymph % (Auto) 7.6 L [place] % (Auto) 3.3 Eos % (Auto) 0.0 Baso % (Auto) 0.5 Lymph # 0.9 L [place] # 0.4 Eos # 0.0 Baso # 0.1 Seg Neutrophils % 88.6 H Seg Neutrophils # 10.4 H VBG pH Sodium 140 Potassium 4.3 Chloride 103.2 Carbon Dioxide 16 L Anion Gap 25 BUN 37 H Creatinine 1.8 H Estimated GFR 39 BUN/Creatinine Ratio 20.55 Glucose 286 H Lactic Acid Calcium 8.6 Total Bilirubin Direct Bilirubin Indirect Bilirubin AST ALT Alkaline Phosphatase Total Creatine Kinase 53 L Total Protein Albumin Albumin/Globulin Ratio Urine Color Urine Turbidity Urine pH Ur Specific [place] Urine Protein Urine Glucose (UA) Urine Ketones Urine Blood Urine Nitrite Urine Bilirubin Urine Urobilinogen Ur Leukocyte Esterase Urine WBC (Auto) Urine RBC (Auto) Urine Bacteria (Auto) Urine WBC Clumps 04/23/17 04/23/17 04/23/17 08:33 08:33 08:33 WBC RBC Hgb Hct MCV MCH MCHC RDW Plt Count Lymph % (Auto) [place] % (Auto) Eos % (Auto) Baso % (Auto) Lymph # [place] # Eos # Baso # Seg Neutrophils % Seg Neutrophils # VBG pH 7.255 L Sodium Potassium Chloride Carbon Dioxide Anion Gap BUN Creatinine Estimated GFR BUN/Creatinine Ratio Glucose Lactic Acid 2.30 H* Calcium Total Bilirubin 0.60 Direct Bilirubin < 0.2 Indirect Bilirubin 0.4 AST 14 ALT 8 Alkaline Phosphatase 169 H Total Creatine Kinase Total Protein 7.7 Albumin 3.0 L Albumin/Globulin Ratio 0.6 Urine Color Urine Turbidity Urine pH Ur Specific [place] Urine Protein Urine Glucose (UA) Urine Ketones Urine Blood Urine Nitrite Urine Bilirubin Urine Urobilinogen Ur Leukocyte Esterase Urine WBC (Auto) Urine RBC (Auto) Urine Bacteria (Auto) Urine WBC Clumps 04/23/17 Unknown WBC RBC Hgb Hct MCV MCH MCHC RDW Plt Count Lymph % (Auto) [place] % (Auto) Eos % (Auto) Baso % (Auto) Lymph # [place] # Eos # Baso # Seg Neutrophils % Seg Neutrophils # VBG pH Sodium Potassium Chloride Carbon Dioxide Anion Gap BUN Creatinine Estimated GFR BUN/Creatinine Ratio Glucose Lactic Acid Calcium Total Bilirubin Direct Bilirubin Indirect Bilirubin AST ALT Alkaline Phosphatase Total Creatine Kinase Total Protein Albumin Albumin/Globulin Ratio Urine Color Yellow Urine Turbidity Cloudy Urine pH 5.0 Ur Specific [place] 1.012 Urine Protein 100 mg/dl Urine Glucose (UA) Neg Urine Ketones Neg Urine Blood Mod Urine Nitrite Neg Urine Bilirubin Neg Urine Urobilinogen < 2.0 Ur Leukocyte Esterase Lg Urine WBC (Auto) > 182.0 H Urine RBC (Auto) 8.0 Urine Bacteria (Auto) 1+ Urine WBC Clumps 3+ - Medical Decision Making I have seen and examined this patient myself. I agree with the PA or VOICE PATHOLOGIST plan as discussed. Patient to be admitted to the hospital. Ross Hunter
[2017-04-23 08:57] LABS: Basophils % (Auto) 0.5 % (0.0-1.8); Hematocrit 36.1 % (35.5-45.6); Hemoglobin 11.8 gm/dl (11.8-15.2); Mean Corpuscular HGB Conc 33 % (32-34); Mean Corpuscular Hemoglobin 28 pg (28-32); Mean Corpuscular Volume 87 fl (84-94); Platelet Count 224 K/mm3 (140-440); Red Blood Count 4.17 M/mm3 (3.65-5.03); Red Cell Distribution Width 16.7 % (13.2-15.2); White Blood Count 11.8 K/mm3 (4.5-11.0)
[2017-04-23 09:07] LABS: BUN/Creatinine Ratio 20.55; Calcium 8.6 mg/dL (8.4-10.2); Chloride 103.2 mmol/L (98-107); Potassium 4.3 mmol/L (3.6-5.0)
[2017-04-23 09:08] LABS: Alanine Aminotransferase 8 units/L (7-56); Albumin/Globulin Ratio 0.6 %; Alkaline Phosphatase 169 units/L (35-129); Total Protein 7.7 g/dL (6.3-8.2)
[2017-04-23 09:10] LABS: Bacteria,Urine 1+ /HPF (Negative); Bilirubin,Urine NEG (Negative); Blood,Urine MOD (Negative); Ketones,Urine NEG (Negative); Leukocyte Esterase,Urine LG (Negative); Nitrite,Urine NEG (Negative); Urobilinogen,Urine < 2.0 mg/dL (<2.0)
[2017-04-23 09:11] LABS: WBC,Urine > 182.0 /HPF (0.0-6.0)
[2017-04-23] MEDS ORDERED: NACL 0.9% 1000 ML 1,000 ML IV ONE (09:19)
[2017-04-23 09:23] LABS: Bilirubin,Direct < 0.2 mg/dL (0-0.2); Bilirubin,Indirect 0.4 mg/dL
[2017-04-23] MEDS ORDERED: ROCEPHIN/NS 1 GM/50 ML 1 GM/50 ML BAG IV ONE (09:25)
[2017-04-23] MEDS ORDERED: TYLENOL PO ONE (11:08)
[2017-04-23] MEDS ORDERED: LEVAQUIN 750MG/150ML 750 MG/150 ML BAG IV ONE (11:41)
--- NOTE | 2017-04-23 11:49 | Cat Scan Report ---
Cranial CT without contrast. History: Weakness. Findings: There is no evidence of acute hemorrhage or infarct. The posterior fossa is normal. The ventricles are normal in size and contour. There are no masses or extra-axial collections. The calvarium is intact. Minimal membrane thickening is seen in the ethmoid sinuses. Impression: 1. No acute findings. 2. Mild chronic ethmoid sinus disease.
--- NOTE | 2017-04-23 11:58 | XRay Report ---
ROUTINE CHEST, TWO VIEWS: HISTORY: Shortness of breath, weakness. The trachea, heart, mediastinal contour, lung berry and bony thorax are unremarkable. IMPRESSION: No acute cardiopulmonary process.
[2017-04-23] MEDS ORDERED: TYLENOL PO PRN (12:36)
[2017-04-23] MEDS ORDERED: DULCOLAX PR PRN (12:36)
[2017-04-23] MEDS ORDERED: VANCOMYCIN VIAL IV ONE (12:36)
[2017-04-23] MEDS ORDERED: NACL 0.9% 1000 ML IV ONE (12:36)
[2017-04-23] MEDS ORDERED: PROVENTIL IH PRN (12:36)
[2017-04-23] MEDS ORDERED: MILK OF MAGNESIA PO PRN (12:36)
[2017-04-23] MEDS ORDERED: ZOFRAN IV PRN (12:36)
--- NOTE | 2017-04-23 12:36 | History and Physical Report ---
History of Present Illness Chief complaint: my catheter is leaking History of present illness: 56 YO Male with CHF, DM, HTN, Dementia, CKD 3, presents to ED for evaluation. Pt unable to provide detailed history, so history taken from ED staff and medical record. No reports of fever, chills, CP, Palpitations, productive cough , BRBPR, skin rashes, or recent ill contacts. Pt seen and evaluated in ED and found to have sepsis and treatment protocol initiated in ED. Pt lethargic on exam. No reports of fever, chills, CP, Palpitation, NVD, trauma, BRBPR, syncope , recent ill contacts. Past History Past Medical History: diabetes, heart failure, hypertension, renal failure, other (dementia) Past Surgical History: cataract removal, Other (right Hip surgery) Social history: , lives with family. denies: smoking, alcohol abuse, prescription drug abuse, IV drug use Family history: diabetes, hypertension Medications and Allergies Allergies Allergy/AdvReac Type Severity Reaction Status Date / Time No Known Allergies Allergy Verified 08/09/16 19:04 Home Medications Medication Instructions Recorded Confirmed Last Taken Type glipiZIDE [glipiZIDE ER] 5 mg PO QAM #30 tab.er.24 02/18/17 04/23/17 04/23/17 Rx Carvedilol [Coreg] 6.25 mg PO BID #60 tablet 04/06/17 04/23/17 04/23/17 Rx Active Meds: Active Medications Levofloxacin/Dextrose (Levaquin 750mg/150ml) 750 mg in 150 mls @ 100 mls/hr IV ONCE ONE Stop: 04/23/17 13:10 Last Admin: 04/23/17 12:11 Dose: 100 mls/hr Review of Systems ROS unobtainable: due to mental status Exam - Constitutional Vitals: Temp Pulse Resp BP Pulse Ox 98.3 F 100 H 16 100/55 100 04/22/17 21:29 04/23/17 08:32 04/23/17 11:15 04/23/17 08:32 04/23/17 08:32 General appearance: Present: mild distress - EENT Eyes: Present: PERRL ENT: hearing intact, clear oral mucosa - Neck Neck: Present: supple, normal ROM - Respiratory Respiratory effort: normal Respiratory: bilateral: CTA - Cardiovascular Heart Sounds: Present: S1 & S2. Absent: rub, click - Extremities Extremities: pulses symmetrical, No edema Peripheral Pulses: abnormal (Capillary refill: 4 seconds) - Abdominal General gastrointestinal: Present: soft, non-tender, non-distended, normal bowel sounds Male genitourinary: Present: normal - Integumentary Integumentary: Present: clear, dry, decreased turgor - Musculoskeletal Musculoskeletal: generalized weakness - Psychiatric Psychiatric: no intact judgment & insight, no memory intact - Neurologic Neurologic: moves all extremities, no gait normal Results - Labs CBC & Chem 7: 04/23/17 08:33 04/23/17 08:33 Labs: Abnormal lab results 04/23/17 04/23/17 04/23/17 Range/Units 08:33 08:33 08:33 WBC 11.8 H (4.5-11.0) K/mm3 RDW 16.7 H (13.2-15.2) % Lymph % (Auto) 7.6 L (13.4-35.0) % Lymph # 0.9 L (1.2-5.4) K/mm3 Seg Neutrophils % 88.6 H (40.0-70.0) % Seg Neutrophils # 10.4 H (1.8-7.7) K/mm3 VBG pH (7.320-7.420) Carbon Dioxide 16 L (22-30) mmol/L BUN 37 H (9-20) mg/dL Creatinine 1.8 H (0.8-1.5) mg/dL Glucose 286 H (75-100) mg/dL Lactic Acid (0.7-2.0) mmol/L Alkaline Phosphatase (35-129) units/L Total Creatine Kinase 53 L (55-170) units/L Albumin (3.9-5) g/dL Urine WBC (Auto) (0.0-6.0) /HPF 04/23/17 04/23/17 04/23/17 Range/Units 08:33 08:33 08:33 WBC (4.5-11.0) K/mm3 RDW (13.2-15.2) % Lymph % (Auto) (13.4-35.0) % Lymph # (1.2-5.4) K/mm3 Seg Neutrophils % (40.0-70.0) % Seg Neutrophils # (1.8-7.7) K/mm3 VBG pH 7.255 L (7.320-7.420) Carbon Dioxide (22-30) mmol/L BUN (9-20) mg/dL Creatinine (0.8-1.5) mg/dL Glucose (75-100) mg/dL Lactic Acid 2.30 H* (0.7-2.0) mmol/L Alkaline Phosphatase 169 H (35-129) units/L Total Creatine Kinase (55-170) units/L Albumin 3.0 L (3.9-5) g/dL Urine WBC (Auto) (0.0-6.0) /HPF 04/23/17 Range/Units Unknown WBC (4.5-11.0) K/mm3 RDW (13.2-15.2) % Lymph % (Auto) (13.4-35.0) % Lymph # (1.2-5.4) K/mm3 Seg Neutrophils % (40.0-70.0) % Seg Neutrophils # (1.8-7.7) K/mm3 VBG pH (7.320-7.420) Carbon Dioxide (22-30) mmol/L BUN (9-20) mg/dL Creatinine (0.8-1.5) mg/dL Glucose (75-100) mg/dL Lactic Acid (0.7-2.0) mmol/L Alkaline Phosphatase (35-129) units/L Total Creatine Kinase (55-170) units/L Albumin (3.9-5) g/dL Urine WBC (Auto) > 182.0 H (0.0-6.0) /HPF Assessment and Plan - Patient Problems (1) Sepsis Current Visit: Yes Status: Acute Qualifiers: Sepsis type: S Plan to address problem: Sepsis protocol: IV abx, blood cultures, monitor uop, IVF replacement,serial lactic acid levels, (2) Catheter-associated urinary tract infection Current Visit: Yes Status: Acute Qualifiers: Indwelling urinary catheter type: I Encounter type: E Plan to address problem: Iv abx, supportive care, catheter replaced in ED (3) ARF (acute renal failure) Current Visit: Yes Status: Acute Qualifiers: Acute renal failure type: A Plan to address problem: IVF replacement, monitor uop q shift, repeat bmp, (4) Severe malnutrition Current Visit: Yes Status: Acute Plan to address problem: Encourage increased protein intake, (5) Diabetes Current Visit: No Status: Chronic Qualifiers: Diabetes mellitus type: type 2 Diabetes mellitus complication status: with ophthalmic complications Diabetes mellitus complication detail: with diabetic retinopathy Diabetic retinopathy severity: D Proliferative retinopathy type : unspecified Diabetes mellitus macular edema: D Diabetes mellitus long-term insulin use: with emt intermediate use Laterality: bilateral Chronic kidney disease stage: C Qualified Code(s): E11.3593 - Type 2 diabetes mellitus with proliferative diabetic retinopathy without macular edema, bilateral; 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
[2017-04-23] MEDS ORDERED: VANCOMYCIN 1,250 MG in NACL 0.9% 250ML 250 ML IV ONE (13:00)
[2017-04-23] MEDS ORDERED: VANCOMYCIN PHARMACY TO DOSE IV SCH (13:00)
--- NOTE | 2017-04-23 13:56 | Admit Criteria Form ---
Admission Criteria Documentation: URINARY COMPLICATIONS Clinical Indications for Inpatient Care (Place 'X' for any and all applicable criteria): Ongoing inpatient care may be indicated for urinary complications with ANY ONE of the following: [X ]I. Urinary tract infection requiring inpatient care as indicated by ANY ONE of the following(8)(19)(20): []a) Severe symptoms (eg, high fever, severe pain) [ ]b) Vomiting or dehydration requiring ongoing inpatient care [X]c) IV antibiotic needs that cannot be managed at lower level of care [ ]d) Hemodynamic instability [ ]e) Obstruction of collecting system by stone or tumor [ ]II. Urinary retention requiring drainage or surgery (3)(4)(5)(17)(18) [ ]III. Renal failure (Use Renal Failure Criteria for further information.) [ ]IV. Oliguria(30) [ ]V. Post obstructive diuresis requiring close monitoring of urine output and intravenous compensation for excessive fluid losses(33) Extended stay beyond goal length of stay for primary condition may be needed until ALL of the following are present(3)(4)(5)(8): [ ]a) Renal function (creatinine) at baseline, or daily decreases in creatinine consistent with renal function return [ ]b) Voiding adequately or with urinary catheter or percutaneous suprapubic tube and management regimen in place that is performable at lower level of care. [ ]c) Urine output adequate [ ]d) Fever absent or resolving [ ]e) Infection absent or treatable at next level of care The original [employer] content created by [employer] has been revised. The portions of the content which have been revised are identified through the use of italic text or in bold, and [facility] has neither reviewed nor approved the modified material. All other unmodified content is copyright [employer] Please see references footnoted in the original [employer] edition 2016 Admission Criteria Met: Yes
[2017-04-24] MEDS ORDERED: ROCEPHIN/NS 1 GM/50 ML 1 GM/50 ML BAG IV SCH (10:00)
[2017-04-24] MEDS ORDERED: ROCEPHIN/NS 2 GM/100 ML 2 GM/100 ML BAG IV SCH (10:00)
[2017-04-24] MEDS ORDERED: FLOMAX PO SCH (12:00)
[2017-04-24] MEDS ORDERED: VANCOMYCIN/NS 1 GM/250 ML 1 GM/250 ML BAG IV SCH (14:00)
--- NOTE | 2017-04-24 16:23 | Discharge Summary ---
Providers - Providers Date of Admission: 04/23/17 12:36 Date of discharge: 04/24/17 Attending physician: DARIEL ARTIS MD 04/23/17 19:11 Consult to Wound/ET Nurse [CONS] Routine Reason For Exam: wound eval Primary care physician: TRANSPORTATION MAINTENANCE SPECIALIST Hospitalization Reason for admission: leaky valve Condition: Stable Hospital course: 56 YO Male with CHF, DM, HTN, Dementia, CKD 3, presents to ED for evaluation. Pt unable to provide detailed history, so history taken from ED staff and medical record in the ED. No reports of fever, chills, CP, Palpitations, productive cough, BRBPR, skin rashes, or recent ill contacts. Pt seen and evaluated in ED and found to have sepsis and treatment protocol initiated in ED. Pt lethargic on exam. No reports of fever, chills, CP, Palpitation, NVD, trauma, BRBPR, syncope, recent ill contacts. On my review the patient denied any fever, nausea, vomiting. He reports that he was only in the hospital due to leak from his durant site. He was seen by Absorption Plant Operator but had not followed with urology as he did not make appointment. He understands the need to follow with them and also continue current therapy and treatment with Absorption Plant Operator. He will be discharged with PO abx. Patient was insistent to leave. Discharge diagnosis (1) Sepsis (2)ACUTE CYSTITIS (3) Acute Kidney injury (4) Severe Malnutrition (5) Diabetes Mellitus (6) Hypertension Disposition: [id number]/[place]-[address] [facility] Time spent for discharge: 35 MINS Core Measure Documentation - Palliative Care Palliative Care/ Comfort Measures: Not Applicable - Core Measures Any of the following diagnoses?: none - VTE Discharge Requirements Deep Vein Thrombosis/Pulmonary Embolism Present on Admission: No Exam - Physical Exam Narrative exam: VITAL SIGNS: Reviewed. GENERAL: The patient appeared cachectic and normally developed. Vital signs as documented. HEAD: No signs of head trauma. Legally blind EYES: Pupils are equal. Extraocular motions intact. EARS: Hearing grossly intact. MOUTH: Oropharynx is normal. NECK: No adenopathy, no JVD. CHEST: Chest with clear breath sounds bilaterally. No wheezes, rales, or rhonchi. CARDIAC: Regular rate and rhythm. S1 and S2, without murmurs, gallops, or rubs. VASCULAR: No Edema. Peripheral pulses normal and equal in all extremities. ABDOMEN: Soft, without detectable tenderness. No sign of distention. No rebound or guarding, and no masses palpated. Bowel Sounds normal. MUSCULOSKELETAL: Good range of motion of all major joints. Extremities without clubbing, cyanosis or edema. NEUROLOGIC EXAM: Alert and oriented x 3. No focal sensory or strength deficits. Speech normal. Follows commands. PSYCHIATRIC: Mood normal. SKIN: No rash or lesions. - Constitutional Vitals: Temp Pulse Resp BP Pulse Ox 98.5 F 95 H 16 157/86 100 04/24/17 11:55 04/24/17 11:55 04/24/17 11:55 04/24/17 11:55 04/24/17 09:47 Plan Activity: advance as tolerated, fall precautions Diet: diabetic, renal Special Instructions: record daily weights, record daily BP diary, record blood sugar diary Follow up with: PRIMARY CARE, [Primary Care Provider] - 3-5 Days MARCO WILKES MD [Staff Physician] - 7 Days MATT LERMA MD [Staff Physician] - 7 Days Prescriptions: Cefdinir 300 mg PO BID 7 Days Tamsulosin [Flomax] 0.4 mg PO QDAY #30 capsule
[2017-04-24 17:04] VITALS: BP 145/85
== END 2017-04-24 21:05 | disposition home health service (06) | DRG 698 ==
LOC: ED 21:07 → 3A 04-23 12:36
PROVIDERS: ADMIT Internal Medicine; ATTEND Internal Medicine
DX: T83.511A Infection and inflammatory reaction due to indwelling urethral catheter, initial encounter (principal); A41.9 Sepsis, unspecified organism; E43 Unspecified severe protein-calorie malnutrition; N17.9 Acute kidney failure, unspecified; Z68.1 Body mass index [BMI] 19.9 or less, adult; I13.0 Hypertensive heart and chronic kidney disease with heart failure and stage 1 through stage 4 chronic kidney disease, or unspecified chronic kidney disease; N30.00 Acute cystitis without hematuria; Z96.649 Presence of unspecified artificial hip joint; F03.90 Unspecified dementia, unspecified severity, without behavioral disturbance, psychotic disturbance, mood disturbance, and anxiety; I50.9 Heart failure, unspecified; E11.22 Type 2 diabetes mellitus with diabetic chronic kidney disease; N18.3 Chronic kidney disease, stage 3 (moderate); Z98.49 Cataract extraction status, unspecified eye; Z83.3 Family history of diabetes mellitus; Z82.49 Family history of ischemic heart disease and other diseases of the circulatory system; T83.018A Breakdown (mechanical) of other urinary catheter, initial encounter
CPT/HCPCS: 36415; 51702; 70450; 71020; 80048; 80074; 81001; 82140; 82550; 82805; 82962; 84484; 85025; 86850; 86900; 86901; 87040; 87086; 93005; 93010; 96365; 96375; 99284; 99285; J0696; J1956; J3370; J7030; J7050

== ENCOUNTER 2017-04-29 09:57 | Outpatient (CLI) | payer MEDICARE ==
[2017-04-29] MEDS ORDERED: XYLOCAINE TOPICAL 4% TP ONE ×2 (10:13→10:24)
== END 2017-04-29 09:58 | disposition home or self-care (01) ==
LOC: WOUND 09:57
PROVIDERS: ATTEND Surgery
DX: E11.621 Type 2 diabetes mellitus with foot ulcer (principal); L97.421 Non-pressure chronic ulcer of left heel and midfoot limited to breakdown of skin; L97.411 Non-pressure chronic ulcer of right heel and midfoot limited to breakdown of skin; I11.0 Hypertensive heart disease with heart failure; I50.9 Heart failure, unspecified; F03.90 Unspecified dementia, unspecified severity, without behavioral disturbance, psychotic disturbance, mood disturbance, and anxiety
CPT/HCPCS: 11042; G0463

== ENCOUNTER 2017-09-07 00:58 | Inpatient (IN) | payer MEDICARE ==
--- NOTE | 2017-09-07 02:02 | Emergency Department Report ---
HPI - General Chief Complaint: Abdominal Pain Time Seen by Provider: 09/07/17 01:04 - HPI HPI: This is a 56-year-old male who presents to the emergency department via EMS from home with complaint of some diarrhea that started earlier today. He took some Imodium that at first did not provide any relief but he now says that it appears to be working. He says that he has "loose stools and all I need is some medicine for that, a pain pill, and I need to go home." Patient says that he has a history of hypertension and borderline diabetes. He also appears to have some history of CHF, some early onset dementia, some chronic kidney disease. He had a right hip fracture repair in October 2016. No recent travel or sick contacts at home. ED Past Medical Hx - Past Medical History Previous Medical History?: Yes Hx Hypertension: Yes Hx Congestive Heart Failure: Yes Hx Diabetes: Yes (boderline) Hx Renal Disease: Yes (CKD stage three) Hx Asthma: No Hx COPD: No Hx Dementia: Yes (early onset) Hx HIV: No Additional medical history: cataracts - Surgical History Hx Pacemaker: No Hx Internal Defibrillator: No Additional Surgical History: rt hip fracture repair Oct 2016 - Social History Smoking Status: Never Smoker Substance Use Type: None - Medications Home Medications: Home Medications Medication Instructions Recorded Confirmed Last Taken Type glipiZIDE [glipiZIDE ER] 5 mg PO QAM #30 tab.er.24 02/18/17 07/29/17 04/23/17 Rx Carvedilol [Coreg] 6.25 mg PO BID #60 tablet 04/06/17 07/29/17 04/23/17 Rx Tamsulosin [Flomax] 0.4 mg PO QDAY #30 capsule 04/24/17 07/29/17 Unknown Rx Levofloxacin [Levaquin TAB] 250 mg PO QDAY #7 tablet 07/31/17 Unknown Rx ED Review of Systems ROS: Stated complaint: DIARRHEA Other details as noted in HPI Comment: All other systems reviewed and negative Constitutional: denies: chills, fever Eyes: denies: eye pain, eye discharge, vision change ENT: denies: ear pain, throat pain Respiratory: denies: cough, shortness of breath, wheezing Cardiovascular: denies: chest pain, palpitations Gastrointestinal: diarrhea. denies: nausea, vomiting Genitourinary: denies: urgency, dysuria Musculoskeletal: denies: back pain, joint swelling Skin: denies: rash, lesions Neurological: denies: headache, weakness, paresthesias Physical Exam - Physical Exam Vital Signs: Vital Signs 09/07/17 09/07/17 01:16 01:17 Temperature 98.6 F Pulse Rate 90 Respiratory 16 16 Rate Blood Pressure 120/79 [Left] O2 Sat by Pulse 99 97 Oximetry Physical Exam: GENERAL: Patient appears chronically debilitated and slightly malnourished. HENT: Normocephalic. Atraumatic. Patient has moist mucous membranes. EYES: Extraocular motions are intact. Pupils equal reactive to light bilaterally. NECK: Supple. Trachea is midline. CHEST/LUNGS: Clear to auscultation. There is no respiratory distress noted. HEART/CARDIOVASCULAR: Regular. There is no tachycardia. There is no murmur. ABDOMEN: Abdomen is soft, nontender. Patient has normal bowel sounds. There is no abdominal distention. SKIN: Skin is warm and dry. NEURO: The patient is awake, alert. The patient is cooperative. The patient has no focal neurologic deficits. The patient has normal speech. MUSCULOSKELETAL: There is no tenderness or deformity. There is no evidence of acute injury. ED Course Vital Signs 09/07/17 09/07/17 01:16 01:17 Temperature 98.6 F Pulse Rate 90 Respiratory 16 16 Rate Blood Pressure 120/79 [Left] O2 Sat by Pulse 99 97 Oximetry ED Medical Decision Making - Lab Data Result diagrams: 09/07/17 01:34 09/07/17 01:34 - Radiology Data Radiology results: report reviewed EXAM: XR ABDOMEN 2V HISTORY: Abd pain TECHNIQUE: AP portable upright and supine views of the abdomen PRIORS: CT abdomen and pelvis 12/23/2016 FINDINGS: No pneumoperitoneum. Nonobstructive bowel gas pattern. Moderate stool burden. No pathologic calcification or fracture. IMPRESSION: No pneumoperitoneum or evident bowel obstruction. Consider CT follow-up for more sensitive and specific evaluation of abdominal pain as warranted. Transcribed By: LAURI Dictated By: MAURI ADAME MD Electronically Authenticated By: MAURI ADAME MD Signed Date/Time: 09/07/17 0037 - Medical Decision Making Patient originally presented with complaint of some diarrhea. He had some abdominal discomfort earlier in the day but says that has since resolved. Patient does have some history of chronic kidney disease however labs show that appears to have worsened since his last visit. He also has some hyperkalemia with a potassium of 5.8. He was given some Kayexalate. Labs also show some concern for some dehydration. He was given a 500 mL bolus but I did not want to continue aggressive hydration as the patient is a history of CHF. Vital signs stable throughout his equal. Abdominal x-ray shows a large amount of bowel gas throughout the intestines but was read by radiology as no sign of any obstructive pattern. They do recommend a CT if the patient needs further evaluation of abdominal pain but at this time he denies having any discomfort. However I believe the patient would benefit from admission and evaluation from his ios architect, Dr. Jack. The patient will be presented to the hospitalist , Dr. Gonzales, for possible admission. Critical Care Time: No Critical care attestation.: If time is entered above; I have spent that time in minutes in the direct care of this critically ill patient, excluding procedure time. ED Disposition Clinical Impression: Debility, Diarrhea, Hyperkalemia, Acute on chronic renal failure Disposition: OP ADMIT IP TO THIS HOSP Is pt being admited?: Yes Condition: Stable Referrals: PRIMARY CARE, [Primary Care Provider] - 3-5 Days Time of Disposition: 04:53
[2017-09-07 02:06] LABS: Hematocrit 32.7 % (35.5-45.6); Hemoglobin 11.1 gm/dl (11.8-15.2); Mean Corpuscular HGB Conc 34 % (32-34); Mean Corpuscular Hemoglobin 30 pg (28-32); Mean Corpuscular Volume 88 fl (84-94); Platelet Count 130 K/mm3 (140-440); Red Cell Distribution Width 14.3 % (13.2-15.2); White Blood Count 8.6 K/mm3 (4.5-11.0)
[2017-09-07 02:27] LABS: Alanine Aminotransferase 16 units/L (7-56); Albumin 3.4 g/dL (3.9-5); Albumin/Globulin Ratio 1.3 %; Alkaline Phosphatase 132 units/L (35-129); Anion Gap 18 mmol/L; BUN/Creatinine Ratio 23; Blood Urea Nitrogen 44 mg/dL (9-20); Calcium 8.8 mg/dL (8.4-10.2); Carbon Dioxide 20 mmol/L (22-30); Chloride 112.8 mmol/L (98-107); Glucose 180 mg/dL (75-100); Lipase 38 units/L (13-60); Potassium 5.8 mmol/L (3.6-5.0); Sodium 145 mmol/L (137-145)
[2017-09-07 02:38] LABS: Bilirubin,Direct < 0.2 mg/dL (0-0.2)
[2017-09-07] MEDS ORDERED: NACL 0.9% 500 ML 500 ML IV ONE ×2 (03:00→09:28)
[2017-09-07] MEDS ORDERED: KIONEX PO ONE (03:00)
--- NOTE | 2017-09-07 04:41 | XRay Report ---
FINAL REPORT EXAM: XR ABDOMEN 2V HISTORY: Abd pain TECHNIQUE: AP portable upright and supine views of the abdomen PRIORS: CT abdomen and pelvis 12/23/2016 FINDINGS: No pneumoperitoneum. Nonobstructive bowel gas pattern. Moderate stool burden. No pathologic calcification or fracture. IMPRESSION: No pneumoperitoneum or evident bowel obstruction. Consider CT follow-up for more sensitive and specific evaluation of abdominal pain as warranted.
[2017-09-07 06:27] LABS: Anisocytosis RARE; Basophils % (Manual) 0 % (0.0-1.8); Blastocytes % (Manual) 0 %; Diff Status Complete; Large Platelets Few; Platelet Estimate Consistent w Auto
[2017-09-07] MEDS ORDERED: D50W (25GM) Vial IV ONE (07:25)
--- NOTE | 2017-09-07 07:42 | History and Physical Report ---
History of Present Illness Date of examination: 09/07/17 Date of admission: 09/07/17 Chief complaint: diarrhea x 1 day History of present illness: Patient is 56 yo with history of congestive heart failure, chronic kidney disease stage 3. He presents with diarrhea of 1 day duration. He denies any blood in stool, He denies vomiting. In Emergency Department, his Potassium level was found to be elevated at 5.8. He was given kayexalate and will be admitted to Telemetry. He denies chest pain or shortness of breath . Nephrology will e consulted to evaluate Past History Past Medical History: diabetes, heart failure, renal failure (CKD), other ( dementia) Past Surgical History: Other (right hip fracture repair) Social history: full code. denies: smoking, alcohol abuse Family history: hypertension Medications and Allergies Allergies Allergy/AdvReac Type Severity Reaction Status Date / Time No Known Allergies Allergy Verified 08/09/16 19:04 Home Medications Medication Instructions Recorded Confirmed Last Taken Type glipiZIDE [glipiZIDE ER] 5 mg PO QAM #30 tab.er.24 02/18/17 09/07/17 04/23/17 Rx Carvedilol [Coreg] 6.25 mg PO BID #60 tablet 04/06/17 09/07/17 04/23/17 Rx Tamsulosin [Flomax] 0.4 mg PO QDAY #30 capsule 04/24/17 09/07/17 Unknown Rx Levofloxacin [Levaquin TAB] 250 mg PO Q24H #5 tablet 09/08/17 Unknown Rx Sodium Bicarbonate 1,300 mg PO BID 5 Days tablet 09/08/17 Unknown Rx Levofloxacin [Levaquin TAB] 500 mg PO QDAY #7 tablet 09/16/17 Unknown Rx Active Meds: Active Medications Dextrose (D50w (25gm) Syringe) 50 ml IV ONCE.ED ONE Stop: 09/07/17 07:46 Review of Systems All systems: negative (No fever, no cough, No chest pin. All other systemss reviewed and are negative) Exam - Physical Exam Narrative exam: GEN APPEARANCE : Not in acute distress, malnourished HEENT: Normocephalic, Atraumatic NECK : supple, no JVD LUNGS: Clear to auscultation bilaterally, no rales, no wheeze HEART: S1 and S2 regular, no murmurs, rubs or gallop, ABD: Soft, non tender, non distended, normal bowel sounds EXT: No edema, no clubbing, no cyanosis NEURO:Awake,alert,Oriented x 3, No focal neurological signs Psych:Normal mood - Constitutional Vitals: Temp Pulse Resp BP Pulse Ox 98.6 F 90 16 120/79 97 09/07/17 01:16 09/07/17 01:16 09/07/17 01:17 09/07/17 01:16 09/07/17 01:17 Results - Labs CBC & Chem 7: 09/08/17 06:14 09/08/17 06:14 Labs: Abnormal lab results 09/07/17 09/07/17 09/07/17 Range/Units 01:34 01:34 07:33 Hgb 11.1 L (11.8-15.2) gm/dl Hct 32.7 L (35.5-45.6) % Plt Count 130 L (140-440) K/mm3 Lymphocytes % (Manual) 13.0 L (13.4-35.0) % Eosinophils % (Manual) 15.0 H (0.0-4.3) % Lymphocytes # (Manual) 1.1 L (1.2-5.4) K/mm3 Eosinophils # (Manual) 1.3 H (0.0-0.4) K/mm3 Potassium 5.8 H (3.6-5.0) mmol/L Chloride 112.8 H (98-107) mmol/L Carbon Dioxide 20 L (22-30) mmol/L BUN 44 H (9-20) mg/dL Creatinine 1.9 H (0.8-1.5) mg/dL Glucose 180 H (75-100) mg/dL POC Glucose 176 H (70-105) Alkaline Phosphatase 132 H (35-129) units/L Total Protein 6.0 L (6.3-8.2) g/dL Albumin 3.4 L (3.9-5) g/dL Assessment and Plan Hyperkalemia with Potassium of 5.8.. Admit to Telemetry. Given Kayexalate in ED. Add Insulin and glucose and recheck BMP in 4 hrs. Consulted Nephrology. I later discussed with Nephrologst Diarrhea due to acute gastroenteritis. Acute gastroenteritis. Chronic kidney disease stage 3. Nephrology consulted Diabetes mellitus type 2. Check fingerstick qac and hs Chronic CHF. Stable UTI. Start Levaquin DVT prophylaxis with Heparin BPH. On flomax Full code status
[2017-09-07] MEDS ORDERED: D50W (25GM) Syringe IV ONE (07:45)
[2017-09-07] MEDS ORDERED: TYLENOL PO PRN (08:00)
[2017-09-07] MEDS ORDERED: NORCO 5/325 PO PRN (08:00)
[2017-09-07] MEDS ORDERED: MILK OF MAGNESIA PO PRN (08:00)
[2017-09-07] MEDS ORDERED: ZOFRAN IV PRN (08:00)
[2017-09-07] MEDS ORDERED: NACL 0.9% 500 ML 500 ML ONE (09:26)
[2017-09-07] MEDS ORDERED: DULCOLAX PR PRN (10:00)
--- NOTE | 2017-09-07 12:58 | Consultation ---
History of Present Illness - Reason for Consult Consult date: 09/07/17 chronic renal failure, hyperkalemia Requesting physician: MAURI CHANEY - History of Present Illness This is a 56yo CM with hx of Type 2 DM, CKD stage 3, h/o TIMI on CKD and was on temporary hemodialysis from 11/15 to 12/27/2016, who presents to the ER presenting with several episodes of diarrhea, along with abdominal pain, not improving with imodium. Labs showed evidence of metabolic acidosis and hyperkalemia with K at 5.8, along with elevated BUN/Cr at 44/1.9mg/dl. Pt denies fever, chills, CP , Palpitations, productive cough, BRBPR, skin rashes, dysuria, or recent ill contacts. Renal consult is requested for management of electrolyte imbalance and CKD. Past History Past Medical History: diabetes, heart failure, renal failure (CKD), other ( dementia) Social history: full code. denies: smoking, alcohol abuse Family history: hypertension Medications and Allergies Allergies Allergy/AdvReac Type Severity Reaction Status Date / Time No Known Allergies Allergy Verified 08/09/16 19:04 Home Medications Medication Instructions Recorded Confirmed Last Taken Type glipiZIDE [glipiZIDE ER] 5 mg PO QAM #30 tab.er.24 02/18/17 09/07/17 04/23/17 Rx Carvedilol [Coreg] 6.25 mg PO BID #60 tablet 04/06/17 09/07/17 04/23/17 Rx Tamsulosin [Flomax] 0.4 mg PO QDAY #30 capsule 04/24/17 09/07/17 Unknown Rx Active Meds: Active Medications Acetaminophen (Tylenol) 650 mg PO Q4H PRN PRN Reason: Pain MILD(1-3)/Fever >100.5/MANCINI Acetaminophen/Hydrocodone Bitart ([place] 5/325) 1 each PO Q6H PRN PRN Reason: Pain, Moderate (4-6) Bisacodyl (Dulcolax) 10 mg SD QDAY PRN PRN Reason: Constipation unrelieved by MOM Glipizide (Glucotrol Xl) 5 mg PO QAMDIAB AAYUSH Heparin Sodium (Porcine) (Heparin) 5,000 unit SUB-Q Q12HR AAYUSH Magnesium Hydroxide (Milk Of Magnesia) 30 ml PO Q4H PRN PRN Reason: Constipation Ondansetron HCl (Zofran) 4 mg IV Q6H PRN PRN Reason: nausea or vomiting Sodium Bicarbonate (Sodium Bicarbonate) 1,300 mg PO BID AAYUSH Tamsulosin HCl (Flomax) 0.4 mg PO QDAY AAYUSH Review of Systems All systems: negative Constitutional: weakness, malaise Gastrointestinal: abdominal pain, nausea, diarrhea Exam - Vital Signs Vital signs: Vital Signs Temp Pulse Resp BP Pulse Ox 98.6 F 90 16 120/79 99 09/07/17 01:16 09/07/17 01:16 09/07/17 01:16 09/07/17 01:16 09/07/17 01:16 - General Appearance General appearance: appears stated age, cachectic, chronically ill EENT: ATNC, PERRL, mucous membranes moist Neck: Present: neck supple Respiratory: Clear to Ascultation Heart: regular, S1S2 Gastrointestinal: Present: normoactive bowel sounds Integumentary: no rash, other (no edema ) Neurologic: no focal deficit, alert and oriented x3, strength 5/5, CN 3-12 intact Psychiatric: mood/affect appropriate, cooperative Results - Lab Results 09/07/17 01:34 09/07/17 01:34 Most recent lab results Calcium 8.8 mg/dL (8.4-10.2) 09/07/17 01:34 Assessment and Plan - Patient Problems (1) Diarrhea Current Visit: Yes Status: Acute Plan to address problem: cont imodium prn, AXR does show no obstructive bowel pattern. cont IV NS (2) Hyperkalemia Current Visit: Yes Status: Acute Plan to address problem: likely due to decreased distal tubular Na delivery. also start Na bicarb 1300mg po bid. cont 2g K diet (3) Hypertensive chronic kidney disease with stage 5 chronic kidney disease or end stage renal disease Current Visit: No Status: Acute Plan to address problem: currently with low BP, cont IV NS (4) CKD (chronic kidney disease) Current Visit: No Status: Chronic Plan to address problem: renal function close to pt's baseline. cont supportive care for CKD avoid nephrotoxins, NSAIDs, IV contrast. Cont IV NS at 75ml/hr, will monitor lytes/ renal parameters closely and make further recommendations. (5) Metabolic acidosis Current Visit: No Status: Acute Plan to address problem: start Na bicarb 1300mg po bid
[2017-09-07 13:07] LABS: Calcium 8.2 mg/dL (8.4-10.2); Chloride 113.1 mmol/L (98-107); Potassium 5.3 mmol/L (3.6-5.0)
[2017-09-07] MEDS: SODIUM BICARBONATE PO SCH ×2 (18:16→22:42)
[2017-09-07] MEDS: FLOMAX PO SCH (18:16)
[2017-09-07] MEDS: GLUCOTROL XL PO SCH (18:29)
[2017-09-07] MEDS: HEPARIN SUB-Q SCH (22:42)
[2017-09-07 23:01] LABS: Bacteria,Urine 2+ /HPF (Negative); Bilirubin,Urine NEG (Negative); Blood,Urine SM (Negative); Ketones,Urine NEG (Negative); Leukocyte Esterase,Urine LG (Negative); Mucus,Urine FEW /HPF; Nitrite,Urine NEG (Negative); Protein,Urine <15 mg/dL mg/dL (Negative); Urobilinogen,Urine < 2.0 mg/dL (<2.0)
[2017-09-08 07:18] LABS: Basophils % (Auto) 0.5 % (0.0-1.8); Eosinophils % (Auto) 6.2 % (0.0-4.3); Hematocrit 30.9 % (35.5-45.6); Hemoglobin 10.4 gm/dl (11.8-15.2); Mean Corpuscular HGB Conc 34 % (32-34); Mean Corpuscular Hemoglobin 30 pg (28-32); Mean Corpuscular Volume 88 fl (84-94); Platelet Count 131 K/mm3 (140-440); Red Cell Distribution Width 14.3 % (13.2-15.2); White Blood Count 8.7 K/mm3 (4.5-11.0)
[2017-09-08 07:24] LABS: Calcium 7.9 mg/dL (8.4-10.2); Chloride 110.7 mmol/L (98-107); Potassium 4.4 mmol/L (3.6-5.0)
[2017-09-08] MEDS ORDERED: LEVAQUIN PO SCH ×2 (09:00→10:00)
--- NOTE | 2017-09-08 11:01 | Discharge Summary ---
Providers - Providers Date of Admission: 09/07/17 07:39 Date of discharge: 09/08/17 Attending physician: MAURI CHANEY 09/07/17 04:44 Consult to Physician [CONS] Routine Consulting Provider: MARCO JACK Reason For Exam: renal insufficiency, hyperkalemia Place consult to:: NEPHROLOGY Notified:: Y Was contact made?: Yes If yes, spoke with:: Obed/Johny MASON Time called:: 07:50 Primary care physician: MAURI KOHLI Hospitalization Condition: Fair Hospital course: Patient is 56 yo with chronic kidney disease, chronic CHF. He presented with diarrhea. In ED, he was found to have a Potassium of 5.8 . He was given Insulin , 50% Dextrose and kayexalate and admitted. Patient was also evaluated by Supervisor Policy Change Clerks. Urinalysis revealed UTI and he was treated with Levaquin. By following day, Potassium level was normal at 4.4. Diarrhea had resolved . He was therefore discharged home to follow as outpatient. Disposition: TO HOME OR SELFCARE - Discharge Diagnoses (1) UTI (urinary tract infection) Status: Acute Qualifiers: Urinary tract infection type: acute cystitis (2) Hyperkalemia Status: Acute (3) Anemia in CKD (chronic kidney disease) Status: Acute (4) UTI (urinary tract infection) Status: Acute Qualifiers: Urinary tract infection type: acute cystitis (5) Hypertension Status: Chronic Qualifiers: Hypertension type: essential hypertension Qualified Code(s): I10 - Essential (primary) hypertension (6) T2DM (type 2 diabetes mellitus) Status: Chronic Qualifiers: Diabetes mellitus complication status: with kidney complications Chronic kidney disease stage: stage 4 (severe) (7) Acute gastroenteritis Status: Acute (8) Chronic CHF (congestive heart failure) Status: Chronic Core Measure Documentation - Palliative Care Palliative Care/ Comfort Measures: Not Applicable - Core Measures Any of the following diagnoses?: heart failure - Heart Failure Discharge Requirements KARIN/ARB for LVSD if EF <40%: Not Applicable Beta mitchell at discharge: Yes Exam - Physical Exam Narrative exam: GEN APPEARANCE : Not in acute distress, malnourished HEENT: Normocephalic, Atraumatic NECK : supple, no JVD LUNGS: Clear to auscultation bilaterally, no rales, no wheeze HEART: S1 and S2 regular, no murmurs, rubs or gallop, ABD: Soft, non tender, non distended, normal bowel sounds EXT: No edema, no clubbing, no cyanosis NEURO:Awake,alert,Oriented x 3, No focal neurological signs Psych:Normal mood - Constitutional Vitals: Temp Pulse Resp BP Pulse Ox 97.8 F 101 H 16 117/77 100 09/08/17 08:45 09/08/17 08:45 09/08/17 08:45 09/08/17 08:45 09/08/17 08:45 Plan Activity: no restrictions Diet: low fat, low cholesterol, low salt, diabetic, renal Additional Instructions: 1.Follow up with PCP in 1 week. 2.Follow up with Dr. Jack in 1 week Follow up with: PRIMARY CAREMD [Referring] - 3-5 Days
[2017-09-08] MEDS: SODIUM BICARBONATE PO SCH (12:00)
[2017-09-08] MEDS: HEPARIN SUB-Q SCH (12:00)
[2017-09-08] MEDS: FLOMAX PO SCH (15:07)
[2017-09-08] MEDS: GLUCOTROL XL PO SCH (15:09)
--- NOTE | 2017-09-08 16:46 | Progress Note ---
Assessment and Plan - Patient Problems (1) Diarrhea Current Visit: Yes Status: Acute Plan to address problem: cont imodium prn, AXR does show no obstructive bowel pattern. (2) Hyperkalemia Current Visit: Yes Status: Acute Plan to address problem: likely due to decreased distal tubular Na delivery. improved on Na bicarb 1300mg po bid. cont 2g K diet (3) Hypertensive chronic kidney disease with stage 5 chronic kidney disease or end stage renal disease Current Visit: No Status: Acute Plan to address problem: currently with low BP, cont IV NS (4) CKD (chronic kidney disease) Current Visit: No Status: Chronic Plan to address problem: renal function close to pt's baseline. cont supportive care for CKD avoid nephrotoxins, NSAIDs, IV contrast. Cont IV NS at 75ml/hr. otherwise stable for discharge from renal stand point (5) Metabolic acidosis Current Visit: No Status: Acute Plan to address problem: cont Na bicarb 1300mg po bid Subjective Date of service: 09/08/17 Principal diagnosis: CKD Interval history: pt awake, alert, in nAD Objective - Vital Signs Vital signs: Vital Signs - 12hr 09/08/17 09/08/17 08:45 12:48 Temperature 97.8 F Pulse Rate 101 H 103 H Respiratory 16 Rate Blood Pressure 117/77 122/82 O2 Sat by Pulse 100 97 Oximetry - General Appearance General appearance: appears stated age, chronically ill, frail EENT: ATNC, PERRL, mucous membranes moist Neck: no JVD Respiratory: Present: Clear to Ascultation Cardiology: regular, S1S2 Gastrointestinal: normoactive bowel sounds Integumentary: no rash, other Neurologic: no focal deficit, alert and oriented x3, strength 5/5, CN 3-12 intact Psychiatric: mood/affect appropriate, cooperative - Lab 09/08/17 06:14 09/08/17 06:14 Most recent lab results Calcium 7.9 mg/dL (8.4-10.2) L 09/08/17 06:14
[2017-09-08 20:20] VITALS: BP 120/72
--- NOTE | 2017-09-12 12:49 | Query- Nutrition ---
Dear ___Teo Date:____09/12/17 Laboratory Animal Facility Supervisor/CDS:____Juan / Lukas Phone#:___[phone] Exercise your independent professional judgment when responding to query. Questions asked do not imply a particular answer is desired or expected. We greatly appreciate your clarification on this issue. Clinical Documentation States: 56 year old male was admitted on 09/07/17 The H&P (Dr. Bruce) states " Hyperkalemia. Admit to Tele. Given Kayexalate in ED. Diarrhea due to acute gastroenteritis. " Clinical Findings Show: BMI: 17.2 Albumin: 3.4 Please select the most appropriate option 3 [] Mild Malnutrition [x] Mild - Moderate Malnutrition [] Moderate - Severe Malnutrition [] Severe Malnutrition Serum Albumin 2.8 to 3.4 g/dl or Pre-albumin 5 to 17 mg/dl1,2 Inadequate nutritional intake1,2,3,4 NPO > 5 days Weight loss: 5% in 1 month or 7.5% in 3 months or 10% in 6 months1, 3,4 BMI 16 to 18.4 or Weight <90% of ideal body weight1,2,3,4 Serum Albumin < 2.8 g/ dl1,2 Lymphocytes < 1500/ L2 Inadequate nutritional intake3, high stress e.g. major trauma, sepsis,pancreatitis, palmer etc. Decubitus ulcers1,2, , skin breakdown2, easy hair pluckability2 Weight <80% standard for height2 Triceps skin fold <3 mm2 Mid-arm muscle circumference <15 cm2 Creatinine-height index <60% standard2 [ ] Cachexia [ ] Emaciated w/Malnutrition [ ] Other: [ ] Unable to determine [ ] Comment/Explanation: Present on Admission: [x ] Yes (Y) [ ] Clinically undeterminable (W) [ ] No (N) Please also document response in your Progress Notes and/or Discharge Summary and indicate if the condition was present on admission. MTDD
== END 2017-09-08 23:29 | disposition home or self-care (01) | DRG 683 ==
LOC: ED 00:58 → 4A 07:39
PROVIDERS: ADMIT Internal Medicine; ATTEND Internal Medicine
DX: N17.9 Acute kidney failure, unspecified (principal); N39.0 Urinary tract infection, site not specified; E87.2 Acidosis; I13.2 Hypertensive heart and chronic kidney disease with heart failure and with stage 5 chronic kidney disease, or end stage renal disease; E44.0 Moderate protein-calorie malnutrition; Z68.1 Body mass index [BMI] 19.9 or less, adult; K52.9 Noninfective gastroenteritis and colitis, unspecified; N18.5 Chronic kidney disease, stage 5; E87.5 Hyperkalemia; D63.1 Anemia in chronic kidney disease; E11.22 Type 2 diabetes mellitus with diabetic chronic kidney disease; I50.9 Heart failure, unspecified; N40.0 Benign prostatic hyperplasia without lower urinary tract symptoms; F03.90 Unspecified dementia, unspecified severity, without behavioral disturbance, psychotic disturbance, mood disturbance, and anxiety; Z98.49 Cataract extraction status, unspecified eye; Z79.899 Other long term (current) drug therapy; Z82.49 Family history of ischemic heart disease and other diseases of the circulatory system
CPT/HCPCS: 36415; 74020; 80048; 80074; 81001; 82962; 83690; 85007; 85025; 96374; 96375; J1644; J1815; J7040

== ENCOUNTER 2017-09-15 23:31 | Emergency (ER) | payer MEDICARE ==
[2017-09-16 01:38] LABS: Basophils % (Auto) 0.6 % (0.0-1.8); Eosinophils % (Auto) 7.2 % (0.0-4.3); Hematocrit 42.4 % (35.5-45.6); Hemoglobin 13.5 gm/dl (11.8-15.2); Mean Corpuscular HGB Conc 32 % (32-34); Mean Corpuscular Hemoglobin 29 pg (28-32); Mean Corpuscular Volume 92 fl (84-94); Platelet Count 116 K/mm3 (140-440); Red Blood Count 4.63 M/mm3 (3.65-5.03); Red Cell Distribution Width 14.2 % (13.2-15.2)
[2017-09-16 01:45] LABS: Albumin 3.1 g/dL (3.9-5); Albumin/Globulin Ratio 1.1 %; Bilirubin,Total 0.3 mg/dL (0.1-1.2); Calcium 8.6 mg/dL (8.4-10.2); Chloride 103.8 mmol/L (98-107); Potassium 4.6 mmol/L (3.6-5.0); Total Protein 5.9 g/dL (6.3-8.2)
[2017-09-16] MEDS ORDERED: NACL 0.9% 1000 ML 1,000 ML IV ONE (02:59)
[2017-09-16] MEDS ORDERED: BENTYL IM ONE (02:59)
[2017-09-16] MEDS ORDERED: PEPCID IV ONE (02:59)
--- NOTE | 2017-09-16 03:03 | Emergency Department Report ---
ED Abdominal Pain HPI - General Chief Complaint: Abdominal Pain Stated Complaint: ABD PAIN Time Seen by Provider: 09/16/17 02:41 Source: patient, EMS Mode of arrival: Wheelchair Limitations: Physical Limitation - History of Present Illness Initial Comments: Patient is 56 years old male history of dementia congestive heart failure hypertension and diabetes presenting to his abdominal pain for the last few hours , patient described his pain as burning sensation comes and goes. Patient denied any nausea or vomiting or diarrhea. No fever. MD Complaint: abdominal pain - Related Data Previous Rx's Medication Instructions Recorded Last Taken Type glipiZIDE [glipiZIDE ER] 5 mg PO QAM #30 tab.er.24 02/18/17 04/23/17 Rx Carvedilol [Coreg] 6.25 mg PO BID #60 tablet 04/06/17 04/23/17 Rx Tamsulosin [Flomax] 0.4 mg PO QDAY #30 capsule 04/24/17 Unknown Rx Levofloxacin [Levaquin TAB] 250 mg PO Q24H #5 tablet 09/08/17 Unknown Rx Sodium Bicarbonate 1,300 mg PO BID 5 Days tablet 09/08/17 Unknown Rx Allergies Allergy/AdvReac Type Severity Reaction Status Date / Time No Known Allergies Allergy Verified 08/09/16 19:04 ED Review of Systems ROS: Stated complaint: ABD PAIN Other details as noted in HPI Comment: All other systems reviewed and negative Constitutional: denies: chills, fever Respiratory: denies: cough, orthopnea, shortness of breath, SOB with exertion, SOB at rest Cardiovascular: denies: chest pain, palpitations Gastrointestinal: abdominal pain. denies: nausea, vomiting, diarrhea, constipation, hematemesis, melena, hematochezia Genitourinary: denies: urgency, dysuria, frequency, hematuria, testicular pain, testicular mass Musculoskeletal: denies: back pain Neurological: denies: headache, weakness, numbness, paresthesias ED Past Medical Hx - Past Medical History Previous Medical History?: Yes Hx Hypertension: Yes Hx Congestive Heart Failure: Yes Hx Diabetes: Yes (boderline) Hx Renal Disease: Yes (CKD stage three) Hx Asthma: No Hx COPD: No Hx Dementia: Yes (early onset) Hx HIV: No Additional medical history: cataracts - Surgical History Past Surgical History?: Yes Hx Pacemaker: No Hx Internal Defibrillator: No Additional Surgical History: rt hip fracture repair Oct 2016 - Social History Smoking Status: Never Smoker Substance Use Type: None - Medications Home Medications: Home Medications Medication Instructions Recorded Confirmed Last Taken Type glipiZIDE [glipiZIDE ER] 5 mg PO QAM #30 tab.er.24 02/18/17 09/07/17 04/23/17 Rx Carvedilol [Coreg] 6.25 mg PO BID #60 tablet 04/06/17 09/07/17 04/23/17 Rx Tamsulosin [Flomax] 0.4 mg PO QDAY #30 capsule 04/24/17 09/07/17 Unknown Rx Levofloxacin [Levaquin TAB] 250 mg PO Q24H #5 tablet 09/08/17 Unknown Rx Sodium Bicarbonate 1,300 mg PO BID 5 Days tablet 09/08/17 Unknown Rx ED Physical Exam - General Limitations: Physical Limitation General appearance: alert, in no apparent distress - Eye Eye exam: Present: normal appearance - ENT ENT exam: Present: mucous membranes dry - Neck Neck exam: Present: normal inspection, full ROM. Absent: tenderness, meningismus, lymphadenopathy - Respiratory Respiratory exam: Present: normal lung sounds bilaterally. Absent: respiratory distress, wheezes, rales, rhonchi, chest wall tenderness - Cardiovascular Cardiovascular Exam: Present: regular rate, normal rhythm, normal heart sounds. Absent: bradycardia, tachycardia - GI/Abdominal GI/Abdominal exam: Present: soft, normal bowel sounds. Absent: distended, tenderness, guarding, rebound, rigid, organomegaly, mass, bruit, pulsatile mass , hernia ED Course Vital Signs 09/16/17 09/16/17 09/16/17 00:11 02:52 03:00 Temperature 97.7 F Pulse Rate 96 H Respiratory 18 18 Rate Blood Pressure 98/64 108/58 O2 Sat by Pulse 98 98 99 Oximetry 09/16/17 09/16/17 09/16/17 03:16 03:30 03:46 Temperature Pulse Rate Respiratory Rate Blood Pressure 108/58 101/55 101/55 O2 Sat by Pulse 100 100 Oximetry 09/16/17 09/16/17 09/16/17 04:00 04:16 04:30 Temperature Pulse Rate Respiratory Rate Blood Pressure 111/68 101/55 125/74 O2 Sat by Pulse 99 99 Oximetry 09/16/17 09/16/17 04:46 05:00 Temperature Pulse Rate Respiratory Rate Blood Pressure 125/74 128/78 O2 Sat by Pulse 98 99 Oximetry ED Medical Decision Making - Lab Data Result diagrams: 09/16/17 00:54 09/16/17 00:54 - Radiology Data Radiology results: image reviewed interpreted by me: Abdomen/chest x-ray showed nonspecific gas with no evidence of obstruction. Critical care attestation.: If time is entered above; I have spent that time in minutes in the direct care of this critically ill patient, excluding procedure time. ED Disposition Clinical Impression: Abdominal pain, UTI (urinary tract infection) Disposition: DC-01 TO HOME OR SELFCARE Is pt being admited?: No Condition: Stable Instructions: Urinary Tract Infection in Men (ED), Abdominal Pain (ED) Referrals: TEJINDER TAVERA MD [Primary Care Provider] - 3-5 Days
[2017-09-16] MEDS ORDERED: BENTYL PO ONE (03:59)
[2017-09-16 04:53] LABS: Bacteria,Urine 1+ /HPF (Negative); Bilirubin,Urine NEG (Negative); Blood,Urine SM (Negative); Ketones,Urine NEG (Negative); Leukocyte Esterase,Urine LG (Negative); Mucus,Urine FEW /HPF; Nitrite,Urine NEG (Negative); Protein,Urine <15 mg/dL mg/dL (Negative); Urobilinogen,Urine < 2.0 mg/dL (<2.0)
[2017-09-16] MEDS ORDERED: ROCEPHIN/NS 1 GM/50 ML 1 GM/50 ML BAG IV ONE (05:25)
[2017-09-16] MEDS ORDERED: cefTRIAXone 1 GM in NACL 0.9% 20 ML IV ONE (05:45)
--- NOTE | 2017-09-16 07:42 | XRay Report ---
ABDOMINAL SERIES INDICATION: Abdominal pain. COMPARISON: 09/07/2017. FINDINGS: Abdominal series, 5 radiographs, demonstrate overall lesser abdominal bowel gas with nonobstructive pattern. No definite focal suspicious calcifications, pneumatosis or pneumoperitoneum. Moderate to large colonic stool, more so distally in the left lower quadrant and the pelvis. Accompanying chest radiograph demonstrates normal cardiomediastinal silhouette. Lungs remain clear. Stable bones, including partially imaged right hip hardware. CONCLUSION: 1. No evidence of obstruction with overall lesser abdominal bowel gaseous distention, though constipation again suspected, as described. Please correlate. 2. Other findings, as above. Thank you for the opportunity to participate in this patient's care.
[2017-09-16 12:14] VITALS: BP 158/76
== END 2017-09-16 11:57 | disposition home or self-care (01) ==
LOC: ED 23:31
DX: N39.0 Urinary tract infection, site not specified (principal); R10.9 Unspecified abdominal pain; I50.9 Heart failure, unspecified; I12.9 Hypertensive chronic kidney disease with stage 1 through stage 4 chronic kidney disease, or unspecified chronic kidney disease; N18.3 Chronic kidney disease, stage 3 (moderate); E11.22 Type 2 diabetes mellitus with diabetic chronic kidney disease; F03.90 Unspecified dementia, unspecified severity, without behavioral disturbance, psychotic disturbance, mood disturbance, and anxiety
CPT/HCPCS: 36415; 74022; 80053; 81001; 83690; 85025; 96361; 96365; 96375; 99284; J0500; J0696; J7030

== ENCOUNTER 2017-09-18 16:08 | Emergency (ER) | payer MEDICARE ==
[2017-09-18] MEDS ORDERED: ASPIRIN PO ONE (17:53)
[2017-09-18 18:29] LABS: Basophils % (Auto) 0.7 % (0.0-1.8); Eosinophils # (Auto) 0.3 K/mm3 (0.0-0.4); Eosinophils % (Auto) 4.4 % (0.0-4.3); Hematocrit 32.5 % (35.5-45.6); Hemoglobin 10.9 gm/dl (11.8-15.2); Lymphocytes # (Auto) 1.8 K/mm3 (1.2-5.4); Lymphocytes % (Auto) 26.1 % (13.4-35.0); Mean Corpuscular HGB Conc 34 % (32-34); Mean Corpuscular Hemoglobin 30 pg (28-32); Mean Corpuscular Volume 88 fl (84-94); Monocytes # (Auto) 0.5 K/mm3 (0.0-0.8); Monocytes % (Auto) 7.2 % (0.0-7.3); Platelet Count 155 K/mm3 (140-440); Red Blood Count 3.69 M/mm3 (3.65-5.03); Red Cell Distribution Width 14.1 % (13.2-15.2)
[2017-09-18 18:48] LABS: Calcium 8.3 mg/dL (8.4-10.2)
[2017-09-18] MEDS ORDERED: CALCIUM CHLORIDE 1,000 MG in NACL 0.9% 100 ML IV ONE (22:08)
--- NOTE | 2017-09-18 22:15 | Emergency Department Report ---
ED Dizziness HPI - General Chief Complaint: Dizziness Stated Complaint: DIZZINESS Time Seen by Provider: 09/18/17 19:58 Source: patient Mode of arrival: Stretcher Limitations: No Limitations - History of Present Illness Initial Comments: 56 YO GONZALO WAS IN BED AND BECAME DIZZY. PT SAID IT LASTED FOR 30SECONDS AND CAN HE GO HOME NOW. THROUGHOUT THE ENTIRE HISTORY TAKING, HE KEPT SAYING THAT EVERYTHING IS FINE ,HIS BLOOD WORK IS FINE , CAN HE GO HOME. I DO NOT BELIEVE HE WAS ANSWERING QUESTIONS TRUTHFULLY. I WALKED INTO WORK , THE PT HAD ARRIVED ON STRETCHER WITH EMS ADN LOOKED VERY PALE. AT THIS TIME, HE HAS NORMAL COLOR AND NO LONGER PALE LOOKING. WHETHER HE WAS DIZZY OR SOMETHING ELSE GOING ON, IT LASTED MORE THAN 30SEC AND PROMPTED HIS TO CALL EMS.. MD Complaint: dizziness -: Sudden, minutes(s) (09/23) Timing: sudden onset Description: "room spinning" History of Trauma: No Severity: moderate Improves With: rest - Related Data Home Medications Medication Instructions Recorded Confirmed Last Taken Tamsulosin [Flomax] 0.4 mg PO DAILY 09/18/17 09/18/17 09/17/17 Previous Rx's Medication Instructions Recorded Last Taken Type glipiZIDE [glipiZIDE ER] 5 mg PO QAM #30 tab.er.24 02/18/17 09/17/17 Rx Carvedilol [Coreg] 6.25 mg PO BID #60 tablet 04/06/17 09/17/17 Rx Amoxicillin/Potassium Clav 1 each PO BID #14 tablet 09/19/17 Unknown Rx [Augmentin 875-125 Tablet] Allergies Allergy/AdvReac Type Severity Reaction Status Date / Time No Known Allergies Allergy Verified 08/09/16 19:04 ED Review of Systems ROS: Stated complaint: DIZZINESS Other details as noted in HPI Constitutional: denies: chills, fever Eyes: denies: eye pain, eye discharge, vision change ENT: denies: ear pain, throat pain Respiratory: denies: cough, shortness of breath, wheezing Cardiovascular: denies: chest pain, palpitations Endocrine: no symptoms reported Gastrointestinal: denies: abdominal pain, nausea, diarrhea Genitourinary: denies: urgency, dysuria Musculoskeletal: denies: back pain, joint swelling, arthralgia Skin: denies: rash, lesions Neurological: denies: headache, weakness, paresthesias Psychiatric: denies: anxiety, depression Hematological/Lymphatic: denies: easy bleeding, easy bruising ED Past Medical Hx - Past Medical History Hx Hypertension: Yes Hx Congestive Heart Failure: Yes Hx Diabetes: Yes (boderline) Hx Renal Disease: Yes (CKD stage three) Hx Asthma: No Hx COPD: No Hx Dementia: Yes (early onset) Hx HIV: No Additional medical history: cataracts - Surgical History Hx Pacemaker: No Hx Internal Defibrillator: No Additional Surgical History: rt hip fracture repair Oct 2016 - Social History Smoking Status: Never Smoker Substance Use Type: None - Medications Home Medications: Home Medications Medication Instructions Recorded Confirmed Last Taken Type glipiZIDE [glipiZIDE ER] 5 mg PO QAM #30 tab.er.24 02/18/17 09/18/17 09/17/17 Rx Carvedilol [Coreg] 6.25 mg PO BID #60 tablet 04/06/17 09/18/17 09/17/17 Rx Tamsulosin [Flomax] 0.4 mg PO DAILY 09/18/17 09/18/17 09/17/17 History Amoxicillin/Potassium Clav 1 each PO BID #14 tablet 09/19/17 Unknown Rx [Augmentin 875-125 Tablet] ED Physical Exam - General Limitations: No Limitations General appearance: alert, in no apparent distress - Head Head exam: Present: atraumatic, normocephalic - Eye Eye exam: Present: normal appearance, EOMI - ENT ENT exam: Present: mucous membranes moist - Neck Neck exam: Present: normal inspection, full ROM - Respiratory Respiratory exam: Present: normal lung sounds bilaterally. Absent: respiratory distress - Cardiovascular Cardiovascular Exam: Present: regular rate, normal rhythm, normal heart sounds. Absent: systolic murmur, diastolic murmur, rubs, gallop - GI/Abdominal GI/Abdominal exam: Present: soft, normal bowel sounds. Absent: distended, tenderness, guarding - Rectal Rectal exam: Present: deferred - Extremities Exam Extremities exam: Present: normal inspection, full ROM - Back Exam Back exam: Present: normal inspection, full ROM - Neurological Exam Neurological exam: Present: alert, oriented X3, CN II-XII intact - Psychiatric Psychiatric exam: Present: normal affect, flat affect - Skin Skin exam: Present: warm, dry, intact, normal color. Absent: rash ED Course Vital Signs 09/18/17 09/18/17 09/19/17 17:54 19:30 02:02 Temperature 98.5 F 98.4 F 99 F Pulse Rate 82 85 94 H Respiratory 16 16 17 Rate Blood Pressure 113/71 Blood Pressure 128/88 119/82 [Right] O2 Sat by Pulse 96 98 97 Oximetry - Reevaluation(s) Reevaluation #1: 09/19/17 03:54 AWAITING V/Q SCAN REPORT, DR BAH WILL FOLLOW THE V/D AND DISPOSITION THE PT ACCORDINGLY ED Medical Decision Making - Lab Data Result diagrams: 09/18/17 18:13 09/18/17 18:13 - EKG Data -: EKG Interpreted by Me EKG shows normal: sinus rhythm, axis, intervals (Q IN V1 AND AVF) - EKG Data When compared to previous EKG there are: no significant change (EKG #2; SAME NUMBER ONE) - Radiology Data Radiology results: report reviewed (CXR;NEGATIVE CT HEAD:LARGE AMOUNT OF WAX IN THE EXTERNAL AUDITORY CANALS BILATERALLY, MASTOID AIR CELL OPACIFIED BIALTERALLY ) Critical care attestation.: If time is entered above; I have spent that time in minutes in the direct care of this critically ill patient, excluding procedure time. ED Disposition Clinical Impression: Dizziness, Cerumen impaction, Otitis media Disposition: DC-01 TO HOME OR SELFCARE Is pt being admited?: No Does the pt Need Aspirin: No Condition: Stable Instructions: Cerumen Impaction (ED), Otitis Media (ED) Additional Instructions: RETURN TO THE ER IF YOUR SYMPTOMS RETURN OR GET WORSE OR FOR ANY CONCERNS ESPECIALLY FEVER, HEADACHE Prescriptions: Amoxicillin/Potassium Clav [Augmentin 875-125 Tablet] 1 each PO BID #14 tablet Referrals: PRIMARY CARE, [Primary Care Provider] - 3-5 Days [facility] [Outside] - 3-5 Days [facility] [place] [Outside] - 3-5 Days Time of Disposition: 03:45
--- NOTE | 2017-09-18 22:54 | Cat Scan Report ---
FINAL REPORT PROCEDURE: CT HEAD/BRAIN WO CON TECHNIQUE: Computerized tomography of the head was performed without contrast material. HISTORY: DIZZINESS COMPARISON: No prior studies are available for comparison. FINDINGS: Brain: There is no evidence of intracranial hemorrhage. No parenchymal hemorrhage is seen. No mass lesions or mass effect is identified. No abnormal extra-axial fluid collections or masses are seen. There is some decreased density seen in the periventricular white matter without mass effect. This is fairly symmetric and does not exhibit any mass effect consistent with gliosis probably on the basis of microvascular disease or white matter changes of aging. Ventricles: The ventricles, sulcal pattern and fissures are prominent consistent with atrophy. Bones: No evidence of acute fracture. Paranasal sinuses: There is patchy mucosal disease in several of the ethmoid air cells. There also appears to be nodular mucosal thickening in the left maxillary sinus. The entire maxillary sinuses are not included on this exam. Mastoid air cells: Mastoid air cells on the right are nearly completely opacified. There is opacification of many of the mastoid air cells on the left inferiorly. There are intermediate dense collections in the external auditory canals. There may be a large buildup of wax in the patient's ears. IMPRESSION: There is evidence of mild atrophy and gliosis. No acute intracranial abnormalities are seen. Extensive bilateral mastoiditis right side worse than left. Large amount of your wax may be present in the external or mariola canals bilaterally. Paranasal sinus disease as described.
--- NOTE | 2017-09-18 23:34 | XRay Report ---
FINAL REPORT PROCEDURE: XR CHEST 1V AP TECHNIQUE: Chest radiograph anteroposterior view. CPT 77141 HISTORY: SHORT OF BREATH COMPARISON: No prior studies are available for comparison. FINDINGS: The heart is magnified due to projection probably upper normal size. The pulmonary vasculature appears normal. No evidence of pulmonary edema pleural effusion infiltrate or mass. No acute bony abnormalities are identified IMPRESSION: Heart size upper normal. No acute abnormality is seen..
[2017-09-19] MEDS ORDERED: LASIX IV ONE (01:08)
[2017-09-19 02:03] VITALS: BP 119/82
[2017-09-19] MEDS ORDERED: CLEOCIN 900 MG/50 mL 900 MG/50 ML BAG IV ONE (03:44)
--- NOTE | 2017-09-19 04:29 | Nuclear Medicine Report ---
FINAL REPORT PROCEDURE: NM LUNG SCAN PERF/VENT TECHNIQUE: 5.0 mCi Tc-99m MAA was injected IV for pulmonary perfusion imaging in multiple projections. 15.0 MCi XE-133 was inhaled for pulmonary ventilation imaging in multiple projections. Injection site: RIGHT antecubital fossa. CPT 01408 REGULATORY GUIDELINES: The patient was released based upon guidelines established in [place] State Regulations for Protection Against Radiation, Chapter 1199-10-29-35, Release of Individuals Containing Radioactive Drugs or Implants. HISTORY: dizziness, elevated ddimer COMPARISON: No prior studies are available for comparison. FINDINGS: Perfusion: No defects . Ventilation: No defects . IMPRESSION: Normal Examination
== END 2017-09-19 05:41 | disposition home or self-care (01) ==
LOC: ED 16:08
DX: R42 Dizziness and giddiness (principal); H61.23 Impacted cerumen, bilateral; H66.93 Otitis media, unspecified, bilateral; I12.0 Hypertensive chronic kidney disease with stage 5 chronic kidney disease or end stage renal disease; E11.22 Type 2 diabetes mellitus with diabetic chronic kidney disease; N18.3 Chronic kidney disease, stage 3 (moderate); F03.90 Unspecified dementia, unspecified severity, without behavioral disturbance, psychotic disturbance, mood disturbance, and anxiety
CPT/HCPCS: 36415; 70450; 71010; 78582; 80048; 83880; 84484; 85025; 85379; 93005; 93010; 96374; 96375; 99285; A9540; A9558; G0480; J1940; 80320

== ENCOUNTER 2017-10-07 18:15 | Emergency (ER) | payer MEDICARE ==
--- NOTE | 2017-10-08 10:43 | Emergency Department Report ---
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 Patient was admitted to the hospital 2 days ago for hyperkalemia. The patient on discharge was noted on my interpretation the laboratory studies to have large amount of leuk esterase and WBCs in the urine patient states he was not given antibiotics. Patient states pain is gone now and just needs a prescription. MD Complaint: abdominal pain -: During the night Location: diffuse, suprapubic Migration to: no migration Severity scale (0 -10): 0 Quality: cramping, aching Consistency: intermittent, now resolved Improves With: nothing Worsens With: nothing Associated Symptoms: constipation. denies: nausea, vomiting, diarrhea - Related Data Home Medications Medication Instructions Recorded Confirmed Last Taken Tamsulosin [Flomax] 0.4 mg PO DAILY 09/18/17 09/18/17 09/17/17 Previous Rx's Medication Instructions Recorded Last Taken Type glipiZIDE [glipiZIDE ER] 5 mg PO QAM #30 tab.er.24 02/18/17 09/17/17 Rx Carvedilol [Coreg] 6.25 mg PO BID #60 tablet 04/06/17 09/17/17 Rx Ciprofloxacin HCl [Cipro] 500 mg PO BID #14 tablet 10/08/17 Unknown Rx Docusate Sodium [Colace] 100 mg PO BID #30 capsule 10/08/17 Unknown Rx Allergies Allergy/AdvReac Type Severity Reaction Status Date / Time No Known Allergies Allergy Verified 10/07/17 18:39 ED Review of Systems ROS: Stated complaint: ABDOMINAL PAIN Other details as noted in HPI Comment: All other systems reviewed and negative ED Past Medical Hx - Past Medical History Hx Hypertension: Yes Hx Congestive Heart Failure: Yes Hx Diabetes: Yes (boderline) Hx Renal Disease: Yes (CKD stage three) Hx Asthma: No Hx COPD: No Hx Dementia: Yes (early onset) Hx HIV: No Additional medical history: cataracts - Surgical History Hx Pacemaker: No Hx Internal Defibrillator: No Additional Surgical History: rt hip fracture repair Oct 2016 - Social History Smoking Status: Never Smoker Substance Use Type: None - Medications Home Medications: Home Medications Medication Instructions Recorded Confirmed Last Taken Type glipiZIDE [glipiZIDE ER] 5 mg PO QAM #30 tab.er.24 02/18/17 09/18/17 09/17/17 Rx Carvedilol [Coreg] 6.25 mg PO BID #60 tablet 04/06/17 09/18/17 09/17/17 Rx Tamsulosin [Flomax] 0.4 mg PO DAILY 09/18/17 09/18/17 09/17/17 History Ciprofloxacin HCl [Cipro] 500 mg PO BID #14 tablet 10/08/17 Unknown Rx Docusate Sodium [Colace] 100 mg PO BID #30 capsule 10/08/17 Unknown Rx ED Physical Exam - General Limitations: No Limitations General appearance: alert, in no apparent distress - Head Head exam: Present: atraumatic, normocephalic - Eye Eye exam: Present: normal appearance - ENT ENT exam: Present: mucous membranes moist - Neck Neck exam: Present: normal inspection - Respiratory Respiratory exam: Present: normal lung sounds bilaterally. Absent: respiratory distress - Cardiovascular Cardiovascular Exam: Present: regular rate, normal rhythm. Absent: systolic murmur, diastolic murmur, rubs, gallop - GI/Abdominal GI/Abdominal exam: Present: soft, normal bowel sounds - Rectal Rectal exam: Present: deferred - Extremities Exam Extremities exam: Present: normal inspection - Back Exam Back exam: Present: normal inspection - Neurological Exam Neurological exam: Present: alert, oriented X3 - Psychiatric Psychiatric exam: Present: normal affect, normal mood - Skin Skin exam: Present: warm, dry, intact, normal color. Absent: rash ED Course Vital Signs 10/07/17 10/08/17 18:39 08:22 Temperature 98.8 F 98.7 F Pulse Rate 66 97 H Respiratory 18 18 Rate Blood Pressure 115/62 84/54 O2 Sat by Pulse 98 97 Oximetry ED Medical Decision Making - Medical Decision Making Patient started on Cipro 500 twice a day for urinary tract infection be discharged at this time. Critical care attestation.: If time is entered above; I have spent that time in minutes in the direct care of this critically ill patient, excluding procedure time. ED Disposition Clinical Impression: Acute cystitis Qualifiers: Hematuria presence: with hematuria Qualified Code(s): N30.01 - Acute cystitis with hematuria Disposition: DC-01 TO HOME OR SELFCARE Is pt being admited?: No Does the pt Need Aspirin: No Condition: Stable Instructions: Urinary Tract Infection in Men (ED) Prescriptions: Ciprofloxacin HCl [Cipro] 500 mg PO BID #14 tablet Docusate Sodium [Colace] 100 mg PO BID #30 capsule Referrals: TEJINDER TAVERA MD [Primary Care Provider] - 3-5 Days
[2017-10-08 11:48] VITALS: BP 87/56
[2017-10-08] MEDS ORDERED: NACL 0.9% 1000 ML 1,000 ML IV ONE (12:04)
== END 2017-10-08 12:43 | disposition left against medical advice (07) ==
LOC: ED 18:15
DX: N30.01 Acute cystitis with hematuria (principal); I12.9 Hypertensive chronic kidney disease with stage 1 through stage 4 chronic kidney disease, or unspecified chronic kidney disease; E11.22 Type 2 diabetes mellitus with diabetic chronic kidney disease; N18.6 End stage renal disease; F02.80 Dementia in other diseases classified elsewhere, unspecified severity, without behavioral disturbance, psychotic disturbance, mood disturbance, and anxiety; I50.9 Heart failure, unspecified
CPT/HCPCS: 99283

== ENCOUNTER 2017-11-04 15:53 | Emergency (ER) | payer MEDICARE ==
[2017-11-04] MEDS ORDERED: NACL 0.9% 500 ML 500 ML IV ONE (16:19)
[2017-11-04] MEDS ORDERED: NACL 0.9% 1000 ML 1,000 ML IV ONE (16:36)
[2017-11-04 16:57] LABS: Basophils # (Auto) 0.1 K/mm3 (0.0-0.1); Basophils % (Auto) 0.6 % (0.0-1.8); Eosinophils # (Auto) 0.9 K/mm3 (0.0-0.4); Hematocrit 29.9 % (35.5-45.6); Hemoglobin 10.1 gm/dl (11.8-15.2); Lymphocytes # (Auto) 2.5 K/mm3 (1.2-5.4); Lymphocytes % (Auto) 25.4 % (13.4-35.0); Mean Corpuscular HGB Conc 34 % (32-34); Mean Corpuscular Hemoglobin 30 pg (28-32); Mean Corpuscular Volume 89 fl (84-94); Monocytes # (Auto) 0.8 K/mm3 (0.0-0.8); Monocytes % (Auto) 7.6 % (0.0-7.3); Platelet Count 202 K/mm3 (140-440); Red Blood Count 3.36 M/mm3 (3.65-5.03); Red Cell Distribution Width 13.9 % (13.2-15.2)
[2017-11-04 17:07] LABS: INR 1.03 (0.87-1.13)
--- NOTE | 2017-11-04 17:09 | Emergency Department Report ---
ED ENT HPI - General Chief complaint: Pain General Stated complaint: BODYACHE Time Seen by Provider: 11/04/17 16:26 Source: patient, EMS Mode of arrival: Wheelchair Limitations: Physical Limitation - History of Present Illness Initial comments: 56-year-old male with a past medical history chronic kidney disease, diabetes, wheelchair bound, dementia, hypertension, and ? chf presents to the hospital requesting his ears to be cleaned out since they are called. He states his ears are full of wax and he cannot make it to his ENT doctor. He was found to be hypotensive with initial triage. He complained of generalized body aches due to "sinus cold" for the past couple of days. He states he had a mild cough but no fever. Complains of generalized body aches. He denies dysuria, nausea, vomiting, or diarrhea. Pt is not on dialysis at this time - Related Data Home Medications Medication Instructions Recorded Confirmed Last Taken Tamsulosin [Flomax] 0.4 mg PO DAILY 09/18/17 11/04/17 09/17/17 Previous Rx's Medication Instructions Recorded Last Taken Type glipiZIDE [glipiZIDE ER] 5 mg PO QAM #30 tab.er.24 02/18/17 09/17/17 Rx Carvedilol [Coreg] 6.25 mg PO BID #60 tablet 04/06/17 09/17/17 Rx Blood Sugar Diagnostic [Test 1 each PRN #1 box 11/04/17 Unknown Rx Strips] Allergies Allergy/AdvReac Type Severity Reaction Status Date / Time No Known Allergies Allergy Verified 10/07/17 18:39 ED Dental HPI - General Chief complaint: Pain General Stated complaint: BODYACHE Time Seen by Provider: 11/04/17 16:26 Source: patient, EMS Mode of arrival: Wheelchair Limitations: Physical Limitation - Related Data Home Medications Medication Instructions Recorded Confirmed Last Taken Tamsulosin [Flomax] 0.4 mg PO DAILY 09/18/17 11/04/17 09/17/17 Previous Rx's Medication Instructions Recorded Last Taken Type glipiZIDE [glipiZIDE ER] 5 mg PO QAM #30 tab.er.24 02/18/17 09/17/17 Rx Carvedilol [Coreg] 6.25 mg PO BID #60 tablet 04/06/17 09/17/17 Rx Blood Sugar Diagnostic [Test 1 each PRN #1 box 11/04/17 Unknown Rx Strips] Allergies Allergy/AdvReac Type Severity Reaction Status Date / Time No Known Allergies Allergy Verified 10/07/17 18:39 ED Review of Systems ROS: Stated complaint: BODYACHE Other details as noted in HPI Comment: All other systems reviewed and negative Other: Constitutional: No fevers chills Eyes: No eye pain visual changes ENT: As per HPI Neck: Denies pain Respiratory: Denies cough wheezing shortness of breath Cardiovascular: Denies chest pain, palpitations, syncope GI: Denies abdominal pain, nausea, vomiting, diarrhea : Denies dysuria Musculoskeletal: As per HPI Skin: Denies rash, lesions, erythema Neurologic: Denies headache, numbness, weakness Psychiatric: Denies suicidal ideation, hallucinations ED Past Medical Hx - Past Medical History Previous Medical History?: Yes Hx Hypertension: Yes Hx Congestive Heart Failure: Yes Hx Diabetes: Yes (boderline) Hx Renal Disease: Yes (CKD stage three) Hx Asthma: No Hx COPD: No Hx Dementia: Yes (early onset) Hx HIV: No Additional medical history: cataracts - Surgical History Past Surgical History?: Yes Hx Pacemaker: No Hx Internal Defibrillator: No Additional Surgical History: rt hip fracture repair Oct 2016 - Social History Smoking Status: Never Smoker Substance Use Type: Prescribed - Medications Home Medications: Home Medications Medication Instructions Recorded Confirmed Last Taken Type glipiZIDE [glipiZIDE ER] 5 mg PO QAM #30 tab.er.24 02/18/17 11/04/17 09/17/17 Rx Carvedilol [Coreg] 6.25 mg PO BID #60 tablet 04/06/17 11/04/17 09/17/17 Rx Tamsulosin [Flomax] 0.4 mg PO DAILY 09/18/17 11/04/17 09/17/17 History Blood Sugar Diagnostic [Test 1 each PRN #1 box 11/04/17 Unknown Rx Strips] ED Physical Exam - General Limitations: Physical Limitation - Other Other exam information: General: No limitations, patient is alert in no acute distress Head exam: Atraumatic, normocephalic Eyes exam: Normal appearance ENT: Bilateral cerumen impaction Neck exam: Normal inspection, full range of motion, no meningismus nontender Respiratory exam: Clear to auscultation bilateral, no wheezes, rales, crackles Cardiovascular: Normal rate and rhythm, normal heart sounds Abdomen: Soft, nondistended, and nontender, with normal bowel sounds, no rebound, or guarding Extremity: Full range of motion normal inspection no deformity Back: Normal Inspection, full range of motion, no tenderness Neurologic: Alert, , cranial nerves intact, no motor or sensory deficit Psychiatric: normal affect, normal mood Skin: Multiple superficial skin sores ED Course Vital Signs 11/04/17 11/04/17 11/04/17 16:08 16:20 16:30 Temperature 98.7 F Pulse Rate 96 H 83 Respiratory 20 11 L 13 Rate Blood Pressure 68/40 96/63 O2 Sat by Pulse 99 Oximetry 11/04/17 11/04/17 11/04/17 16:36 16:45 17:00 Temperature Pulse Rate 77 79 Respiratory 12 13 14 Rate Blood Pressure 106/67 117/73 O2 Sat by Pulse Oximetry 11/04/17 11/04/17 11/04/17 17:15 17:30 17:46 Temperature Pulse Rate 77 81 80 Respiratory 11 L 15 15 Rate Blood Pressure 123/74 120/74 122/76 O2 Sat by Pulse Oximetry 11/04/17 11/04/17 11/04/17 18:00 18:15 18:30 Temperature Pulse Rate 86 89 Respiratory 18 9 L Rate Blood Pressure 122/76 128/78 128/78 O2 Sat by Pulse 94 Oximetry 11/04/17 11/04/17 18:50 19:00 Temperature Pulse Rate 97 H 86 Respiratory 15 14 Rate Blood Pressure 128/78 126/82 O2 Sat by Pulse 100 Oximetry ED Medical Decision Making - Lab Data Result diagrams: 11/04/17 16:32 11/04/17 16:32 Lab Results 11/04/17 11/04/17 11/04/17 Range/Units 16:32 16:32 16:32 WBC 10.0 (4.5-11.0) K/mm3 RBC 3.36 L (3.65-5.03) M/mm3 Hgb 10.1 L (11.8-15.2) gm/dl Hct 29.9 L (35.5-45.6) % MCV 89 (84-94) fl MCH 30 (28-32) pg MCHC 34 (32-34) % RDW 13.9 (13.2-15.2) % Plt Count 202 (140-440) K/mm3 Lymph % (Auto) 25.4 (13.4-35.0) % Bowman % (Auto) 7.6 H (0.0-7.3) % Eos % (Auto) 9.0 H (0.0-4.3) % Baso % (Auto) 0.6 (0.0-1.8) % Lymph # 2.5 (1.2-5.4) K/mm3 Bowman # 0.8 (0.0-0.8) K/mm3 Eos # 0.9 H (0.0-0.4) K/mm3 Baso # 0.1 (0.0-0.1) K/mm3 Seg Neutrophils % 57.4 (40.0-70.0) % Seg Neutrophils # 5.7 (1.8-7.7) K/mm3 PT 14.0 (12.2-14.9) Sec. INR 1.03 (0.87-1.13) VBG pH (7.320-7.420) Sodium 138 (137-145) mmol/L Potassium 5.2 H (3.6-5.0) mmol/L Chloride 105.3 (98-107) mmol/L Carbon Dioxide 16 L (22-30) mmol/L Anion Gap 22 mmol/L BUN 39 H (9-20) mg/dL Creatinine 1.7 H (0.8-1.5) mg/dL Estimated GFR 42 ml/min BUN/Creatinine Ratio 23 % Glucose 137 H (75-100) mg/dL Lactic Acid (0.7-2.0) mmol/L Calcium 8.1 L (8.4-10.2) mg/dL Total Bilirubin 0.20 (0.1-1.2) mg/dL AST 21 (5-40) units/L ALT 18 (7-56) units/L Alkaline Phosphatase 150 H (35-129) units/L Total Protein 6.0 L (6.3-8.2) g/dL Albumin 3.1 L (3.9-5) g/dL Albumin/Globulin Ratio 1.1 % TSH (0.270-4.200) mlU/mL Free T4 (0.76-1.46) ng/dL 02/13/18 02/13/18 02/13/18 Range/Units 16:32 16:32 16:42 WBC (4.5-11.0) K/mm3 RBC (3.65-5.03) M/mm3 Hgb (11.8-15.2) gm/dl Hct (35.5-45.6) % MCV (84-94) fl MCH (28-32) pg MCHC (32-34) % RDW (13.2-15.2) % Plt Count (140-440) K/mm3 Lymph % (Auto) (13.4-35.0) % Bowman % (Auto) (0.0-7.3) % Eos % (Auto) (0.0-4.3) % Baso % (Auto) (0.0-1.8) % Lymph # (1.2-5.4) K/mm3 Bowman # (0.0-0.8) K/mm3 Eos # (0.0-0.4) K/mm3 Baso # (0.0-0.1) K/mm3 Seg Neutrophils % (40.0-70.0) % Seg Neutrophils # (1.8-7.7) K/mm3 PT (12.2-14.9) Sec. INR (0.87-1.13) VBG pH 7.300 L (7.320-7.420) Sodium (137-145) mmol/L Potassium (3.6-5.0) mmol/L Chloride (98-107) mmol/L Carbon Dioxide (22-30) mmol/L Anion Gap mmol/L BUN (9-20) mg/dL Creatinine (0.8-1.5) mg/dL Estimated GFR ml/min BUN/Creatinine Ratio % Glucose (75-100) mg/dL Lactic Acid 1.60 (0.7-2.0) mmol/L Calcium (8.4-10.2) mg/dL Total Bilirubin (0.1-1.2) mg/dL AST (5-40) units/L ALT (7-56) units/L Alkaline Phosphatase (35-129) units/L Total Protein (6.3-8.2) g/dL Albumin (3.9-5) g/dL Albumin/Globulin Ratio % TSH 3.300 (0.270-4.200) mlU/mL Free T4 0.91 (0.76-1.46) ng/dL 11/04/17 Range/Units 19:03 WBC (4.5-11.0) K/mm3 RBC (3.65-5.03) M/mm3 Hgb (11.8-15.2) gm/dl Hct (35.5-45.6) % MCV (84-94) fl MCH (28-32) pg MCHC (32-34) % RDW (13.2-15.2) % Plt Count (140-440) K/mm3 Lymph % (Auto) (13.4-35.0) % Bowman % (Auto) (0.0-7.3) % Eos % (Auto) (0.0-4.3) % Baso % (Auto) (0.0-1.8) % Lymph # (1.2-5.4) K/mm3 Bowman # (0.0-0.8) K/mm3 Eos # (0.0-0.4) K/mm3 Baso # (0.0-0.1) K/mm3 Seg Neutrophils % (40.0-70.0) % Seg Neutrophils # (1.8-7.7) K/mm3 PT (12.2-14.9) Sec. INR (0.87-1.13) VBG pH (7.320-7.420) Sodium (137-145) mmol/L Potassium (3.6-5.0) mmol/L Chloride (98-107) mmol/L Carbon Dioxide (22-30) mmol/L Anion Gap mmol/L BUN (9-20) mg/dL Creatinine (0.8-1.5) mg/dL Estimated GFR ml/min BUN/Creatinine Ratio % Glucose (75-100) mg/dL Lactic Acid 1.70 (0.7-2.0) mmol/L Calcium (8.4-10.2) mg/dL Total Bilirubin (0.1-1.2) mg/dL AST (5-40) units/L ALT (7-56) units/L Alkaline Phosphatase (35-129) units/L Total Protein (6.3-8.2) g/dL Albumin (3.9-5) g/dL Albumin/Globulin Ratio % TSH (0.270-4.200) mlU/mL Free T4 (0.76-1.46) ng/dL - EKG Data -: EKG Interpreted by Me EKG shows normal: sinus rhythm, axis (-63), QRS complexes (89), ST-T waves (no stemi/t inv. No peaked T waves) Rate: normal (75) - EKG Data When compared to previous EKG there are: no significant change (09/18/17) - Radiology Data Radiology results: report reviewed (read by radiology: Chest x-ray: No acute findings) - Medical Decision Making Patient has a chronic mild metabolic acidosis likely secondary to renal insufficiency. This is stable compared to previous. Potassium is mildly elevated without EKG changes. Kayexalate 15 g ordered. Patient refused to drink the Kayexalate until he was prepped for discharge since "5.2 is not that high". Patient's blood pressure incidentally low upon arrival and seemed to improve. However, orthostatics revealed hypotension with sitting up. Patient received 1 L normal saline. Repeat orthostatics show stable systolic pressure with sitting up. While here patient did receive irrigation to both ears to help with cerumen impaction. Patient will be discharged per his request. No signs of sepsis or septic shock at this time. Unable to obtain urine prior to d/ c due since pt did not allow cath, no fever, leukocytosis, or abdominal pain therefore low suspicion for UTI - Differential Diagnosis cerumen impaction, dehydration, sepsis, infection, anemia Critical Care Time: No Critical care attestation.: If time is entered above; I have spent that time in minutes in the direct care of this critically ill patient, excluding procedure time. ED Disposition Clinical Impression: Orthostatic hypotension, Hyperkalemia, Metabolic acidosis, Chronic renal insufficiency, Diabetes, Cerumen impaction Disposition: DC-01 TO HOME OR SELFCARE Is pt being admited?: No Does the pt Need Aspirin: No Condition: Stable Instructions: Diabetes Mellitus Type 2 in Adults (ED), Hypotension (ED), Cerumen Impaction (ED), Triethanolamine Polypeptide Oleate (Into the ear), Hyperkalemia (ED), Impaired Kidney Function (ED) Additional Instructions: Follow up with your ENT or primary care doctor for further treatment of the wax in your ears. You may use [id number] Cerumenex/Debrix to help to dissolve the wax in your ear. Potassium was mildly elevated in the ER and therefore you received Kayexalate. Your blood pressure was a little low in the ER but improved with IV fluids. Please continue to drink fluids at home. Prescriptions: Blood Sugar Diagnostic [Test Strips] 1 each PRN #1 box Referrals: PRIMARY CARE,MD [Primary Care Provider] - 3-5 Days Your, ENT MD [Other] - 3-5 Days Time of Disposition: 19:54
[2017-11-04 17:22] LABS: Albumin 3.1 g/dL (3.9-5); Calcium 8.1 mg/dL (8.4-10.2)
[2017-11-04] MEDS ORDERED: HYDROGEN PEROXIDE IRRIGATION ONE (17:24)
[2017-11-04 17:29] LABS: Free T4 (Free Thyroxine) 0.91 ng/dL (0.76-1.46)
--- NOTE | 2017-11-04 17:48 | XRay Report ---
FINAL REPORT PROCEDURE: XR CHEST 1V AP TECHNIQUE: A portable AP chest radiograph was obtained at 11/04/2017 21:39 (GMT) . CPT 13612 HISTORY: Possible sepsis. COMPARISON: Chest radiograph dated 09/18/2017. FINDINGS: Heart: Normal. Mediastinum/Vessels: Normal. Lungs/Pleural space: Normal. Bony thorax: No acute osseous abnormality. Life support devices: None. IMPRESSION: No new radiographic evidence of acute cardiopulmonary disease.
[2017-11-04] MEDS ORDERED: KIONEX PO ONE (19:18)
[2017-11-04 21:10] VITALS: BP 124/82
== END 2017-11-04 21:21 | disposition home or self-care (01) ==
LOC: ED 15:53
DX: I95.1 Orthostatic hypotension (principal); E87.5 Hyperkalemia; E87.2 Acidosis; H61.23 Impacted cerumen, bilateral; E11.22 Type 2 diabetes mellitus with diabetic chronic kidney disease; N18.3 Chronic kidney disease, stage 3 (moderate); I50.9 Heart failure, unspecified; I12.9 Hypertensive chronic kidney disease with stage 1 through stage 4 chronic kidney disease, or unspecified chronic kidney disease
CPT/HCPCS: 36415; 69209; 71045; 80053; 82140; 82805; 84439; 84443; 85025; 85610; 87040; 93005; 93010; 96360; 96361; 99285; J7030

== ENCOUNTER 2017-11-07 18:15 | Emergency (ER) | payer MEDICARE ==
[2017-11-07 19:07] VITALS: BP 145/99
[2017-11-07 19:37] LABS: Basophils # (Auto) 0.1 K/mm3 (0.0-0.1); Basophils % (Auto) 0.6 % (0.0-1.8); Eosinophils # (Auto) 0.5 K/mm3 (0.0-0.4); Eosinophils % (Auto) 4.4 % (0.0-4.3); Hematocrit 32.1 % (35.5-45.6); Hemoglobin 10.6 gm/dl (11.8-15.2); Lymphocytes # (Auto) 2.3 K/mm3 (1.2-5.4); Lymphocytes % (Auto) 22.2 % (13.4-35.0); Mean Corpuscular HGB Conc 33 % (32-34); Mean Corpuscular Hemoglobin 30 pg (28-32); Mean Corpuscular Volume 90 fl (84-94); Monocytes # (Auto) 0.8 K/mm3 (0.0-0.8); Monocytes % (Auto) 7.3 % (0.0-7.3); Platelet Count 185 K/mm3 (140-440); Red Blood Count 3.57 M/mm3 (3.65-5.03)
[2017-11-07] MEDS ORDERED: NACL 0.45% 500 ML IV SCH (20:00)
--- NOTE | 2017-11-07 20:06 | Emergency Department Report ---
ED Abdominal Pain HPI - General Chief Complaint: Abdominal Pain Stated Complaint: ABD PAIN Time Seen by Provider: 11/07/17 19:42 Source: patient, EMS Mode of arrival: Stretcher Limitations: No Limitations - History of Present Illness Initial Comments: 56-year-old male complicated patient multiple visits over the last month with multiple problems. History of diabetes, BPH chronic kidney disease stage IV hypertension, chronic bilateral hip pain and chronic bilateral cerumen impaction and noncompliance was here a month ago with a UTI was here 3 days ago cerumen impaction and chronic kidney disease is back today stating intermittent abdominal pain #1 .#2"outof my diabetes strips." Here for evaluation of intermittent generalized abdominal pain. No pain at present no fever no nausea vomiting no diarrhea."wants to get checked out" MD Complaint: abdominal pain -: unknown Location: diffuse Radiation: none Migration to: no migration Severity: mild, moderate Quality: aching Consistency: intermittent Associated Symptoms: denies: hematemesis, hematochezia, melena - Related Data Home Medications Medication Instructions Recorded Confirmed Last Taken Tamsulosin [Flomax] 0.4 mg PO DAILY 09/18/17 11/04/17 09/17/17 Previous Rx's Medication Instructions Recorded Last Taken Type glipiZIDE [glipiZIDE ER] 5 mg PO QAM #30 tab.er.24 02/18/17 09/17/17 Rx Carvedilol [Coreg] 6.25 mg PO BID #60 tablet 04/06/17 09/17/17 Rx Blood Sugar Diagnostic [Test 1 each PRN #1 box 11/04/17 Unknown Rx Strips] Allergies Allergy/AdvReac Type Severity Reaction Status Date / Time No Known Allergies Allergy Verified 10/07/17 18:39 ED Review of Systems ROS: Stated complaint: ABD PAIN Other details as noted in HPI Comment: All other systems reviewed and negative Constitutional: denies: diaphoresis, fever, malaise Respiratory: denies: cough, orthopnea, shortness of breath, SOB with exertion, SOB at rest, stridor Cardiovascular: denies: chest pain, palpitations, dyspnea on exertion, orthopnea , edema, syncope, paroxysmal nocturnal dyspnea Endocrine: denies: excessive sweating, flushing Gastrointestinal: denies: vomiting, diarrhea, constipation, hematemesis, melena , hematochezia Neurological: denies: numbness, paresthesias, confusion, abnormal gait, vertigo Psychiatric: denies: auditory hallucinations, visual hallucinations, homicidal thoughts, suicidal thoughts Hematological/Lymphatic: denies: easy bleeding ED Past Medical Hx - Past Medical History Previous Medical History?: Yes Hx Hypertension: Yes Hx Congestive Heart Failure: Yes Hx Diabetes: Yes (boderline) Hx Renal Disease: Yes (CKD stage three) Hx Asthma: No Hx COPD: No Hx Dementia: Yes (early onset) Hx HIV: No Additional medical history: cataracts - Surgical History Past Surgical History?: Yes Hx Pacemaker: No Hx Internal Defibrillator: No Additional Surgical History: rt hip fracture repair Oct 2016 - Social History Smoking Status: Never Smoker Substance Use Type: None - Medications Home Medications: Home Medications Medication Instructions Recorded Confirmed Last Taken Type glipiZIDE [glipiZIDE ER] 5 mg PO QAM #30 tab.er.24 02/18/17 11/04/17 09/17/17 Rx Carvedilol [Coreg] 6.25 mg PO BID #60 tablet 04/06/17 11/04/17 09/17/17 Rx Tamsulosin [Flomax] 0.4 mg PO DAILY 09/18/17 11/04/17 09/17/17 History Blood Sugar Diagnostic [Test 1 each PRN #1 box 11/04/17 Unknown Rx Strips] ED Physical Exam - General Limitations: No Limitations General appearance: alert, in no apparent distress, anxious - Head Head exam: Present: atraumatic, normocephalic - Eye Eye exam: Present: normal appearance, PERRL, EOMI - ENT ENT exam: Present: normal exam, normal orophraynx - Neck Neck exam: Present: normal inspection. Absent: tenderness, meningismus - Respiratory Respiratory exam: Absent: respiratory distress, wheezes, rales, rhonchi, stridor , accessory muscle use, prolonged expiratory - Cardiovascular Cardiovascular Exam: Present: regular rate. Absent: irregular rhythm, normal heart sounds, systolic murmur, diastolic murmur, rubs, gallop - GI/Abdominal GI/Abdominal exam: Present: soft. Absent: guarding, rebound, rigid, organomegaly, mass, bruit, pulsatile mass - Extremities Exam Extremities exam: Present: normal inspection. Absent: pedal edema, joint swelling, calf tenderness - Back Exam Back exam: Present: normal inspection. Absent: CVA tenderness (L), muscle spasm , paraspinal tenderness, vertebral tenderness - Neurological Exam Neurological exam: Present: alert, oriented X3, CN II-XII intact. Absent: motor sensory deficit - Psychiatric Psychiatric exam: Absent: homicidal ideation, suicidal ideation ED Course Vital Signs 11/07/17 18:56 Temperature 98.2 F Pulse Rate 92 H Respiratory 18 Rate Blood Pressure 145/99 O2 Sat by Pulse 100 Oximetry - Reevaluation(s) Reevaluation #1: 11/08/17 00:17 While waiting for laboratory studies and CT result patient became anxious and told the nurse she is refusing to stay to complete the evaluation. Patient is alert oriented 3 not intoxicated. He is competent to make decisions. He is here for refusing further evaluation. He is aware of the consequences such as acute surgical abdomen as well as abnormalities to his laboratory studies that could potentially reveal danger to life and limb and patient is aware of these risks and is signing out AMA including risk of and disability. ED Medical Decision Making - Lab Data Result diagrams: 11/07/17 19:18 11/07/17 19:18 - Medical Decision Making Patient did not complete evaluation in the ED he signed out AMA. Critical care attestation.: If time is entered above; I have spent that time in minutes in the direct care of this critically ill patient, excluding procedure time. ED Disposition Clinical Impression: Left against medical advice Disposition: DC-07 LEFT AGAINST MED ADVICE Is pt being admited?: No Condition: Stable Referrals: MAURI KOHLI MD [Primary Care Provider] - 3-5 Days Time of Disposition: 00:19
[2017-11-07 20:25] LABS: Albumin 3.3 g/dL (3.9-5); Calcium 8.1 mg/dL (8.4-10.2)
--- NOTE | 2017-11-08 00:47 | Cat Scan Report ---
FINAL REPORT EXAM: CT ABDOMEN PELVIS W/O CONTRAST. HISTORY: Flank pain. TECHNIQUE: Unenhanced axial CT images of the abdomen and pelvis were obtained, with coronal and sagittal reformatted images. Comparison is made with prior study 12/22/2016. FINDINGS: The unenhanced liver, biliary tree, gallbladder, spleen, and adrenal glands are unremarkable. There is diffuse fatty atrophy of the pancreas. The unenhanced kidneys demonstrate no discrete renal lesions. There is marked distention of the urinary bladder, extending into the mid to upper abdomen, with its superior margin located 9-10 cm above the umbilicus. There is associated mild diffuse bilateral ureteral dilatation and moderate bilateral hydronephrosis, new compared to prior exam. These findings are in keeping with severe urinary retention, due to bladder outlet obstruction or neurogenic bladder. There is no abnormal wall thickening or filling defect seen in the urinary bladder. There are no radiopaque urinary tract calculi. Evaluation of the bowel is limited due to lack of oral contrast. The stomach is partially collapsed, not well evaluated. There is moderate residual stool in the left colon. There is marked distention of the rectum with underlying stool, measuring up to 10.0 cm in diameter. This is in keeping with fecal impaction, and clinical correlation is recommended. There is mild distal rectal wall thickening, though note that this was also seen on prior study. The abdominal aorta is normal in caliber. There is no pathologic abdominal or pelvic lymphadenopathy. There is no free or loculated fluid collection. The prostate is difficult to discretely visualize due to markedly distended bladder and rectum. There is partial visualization of intramedullary ariella with femoral screw at the right hip. There is mild diffuse generalized osteopenia. There is mild linear scarring at the left posterior lung base and right anterior lung base. There is a 3 mm calcified granuloma at the right posterior hemidiaphragm. There has been interval resolution of previously identified left pleural effusion. A small to moderate pericardial effusion is again noted, also seen on prior study. There is mild diffuse soft tissue anasarca. IMPRESSION: 1. Severe urinary retention, most commonly due to bladder outlet obstruction or neurogenic bladder. Associated moderate bilateral hydronephrosis and mild bilateral ureteral dilatation. 2. Prominent stool distention of the colon, measuring up to 10.0 cm in diameter. The appearance is in keeping with fecal impaction, and clinical correlation is recommended. 3. Mild distal rectal wall thickening, nonspecific but most commonly due to mild proctitis, also seen on prior study 4. Small to moderate pericardial effusion, also seen on prior study. Mild diffuse soft tissue anasarca.
== END 2017-11-08 11:00 | disposition left against medical advice (07) ==
LOC: ED 18:15
DX: R10.84 Generalized abdominal pain (principal); E11.22 Type 2 diabetes mellitus with diabetic chronic kidney disease; N18.3 Chronic kidney disease, stage 3 (moderate); I10 Essential (primary) hypertension
CPT/HCPCS: 36415; 74176; 80053; 83690; 85025

== ENCOUNTER 2018-05-18 21:55 | Emergency (ER) | payer MEDICARE ==
[2018-05-18 22:53] LABS: Basophils # (Auto) 0.1 K/mm3 (0.0-0.1); Eosinophils # (Auto) 0.7 K/mm3 (0.0-0.4); Eosinophils % (Auto) 9.5 % (0.0-4.3); Hematocrit 28.1 % (35.5-45.6); Hemoglobin 9.9 gm/dl (11.8-15.2); Lymphocytes # (Auto) 1.7 K/mm3 (1.2-5.4); Lymphocytes % (Auto) 24.1 % (13.4-35.0); Mean Corpuscular HGB Conc 35 % (32-34); Mean Corpuscular Hemoglobin 31 pg (28-32); Mean Corpuscular Volume 88 fl (84-94); Monocytes # (Auto) 0.6 K/mm3 (0.0-0.8); Monocytes % (Auto) 8.4 % (0.0-7.3); Platelet Count 219 K/mm3 (140-440); Red Blood Count 3.19 M/mm3 (3.65-5.03); Red Cell Distribution Width 13.4 % (13.2-15.2)
[2018-05-18 23:18] LABS: Calcium 8.3 mg/dL (8.4-10.2)
--- NOTE | 2018-05-18 23:47 | Emergency Department Report ---
ED Male HPI - General Chief complaint: Medical Clearance Stated complaint: PENILE PAIN/CATHETER ISSUE Time Seen by Provider: 05/18/18 22:14 Source: EMS, old records reviewed Mode of arrival: Stretcher Limitations: No Limitations - History of Present Illness Initial comments: 57-year-old male with past medical history of CHF, dementia, and diabetes, hypertension, and renal insufficiency presents to Hospital with complaints of penile pain and feeling that urine is leaking around his catheter. Patient wants to get his catheter checked to ensure that it is still in the proper place. He denies any fever or pain at this time. Patient was recently admitted into the hospital and discharged on April on the abdomen admission for bilateral hydronephrosis with urinary retention secondary to neurogenic bladder, urosepsis, and renal insufficiency. Patient was discharged on Keflex, Flomax, and his BP and diabetes medication. - Related Data Home Medications Medication Instructions Recorded Confirmed Last Taken Tamsulosin [Flomax] 0.4 mg PO DAILY 09/18/17 05/09/18 1 Day Ago ~05/08/18 0.4 Previous Rx's Medication Instructions Recorded Last Taken Type glipiZIDE [glipiZIDE ER] 5 mg PO QAM #30 tab.er.24 02/18/17 1 Day Ago Rx ~05/08/18 5 Carvedilol [Coreg] 6.25 mg PO BID #60 tablet 04/06/17 1 Day Ago Rx ~05/08/18 6.25 Blood Sugar Diagnostic [Test 1 each PRN #1 box 11/04/17 1 Day Ago Rx Strips] ~05/08/18 cephALEXin [Keflex] 500 mg PO Q6HR #20 capsule 05/11/18 Unknown Rx Allergies Allergy/AdvReac Type Severity Reaction Status Date / Time No Known Allergies Allergy Verified 10/07/17 18:39 ED Review of Systems ROS: Stated complaint: PENILE PAIN/CATHETER ISSUE Other details as noted in HPI Comment: All other systems reviewed and negative ED Past Medical Hx - Past Medical History Previous Medical History?: Yes Hx Hypertension: Yes Hx Congestive Heart Failure: Yes Hx Diabetes: Yes (boderline) Hx Renal Disease: Yes (CKD stage three) Hx Asthma: No Hx COPD: No Hx Dementia: Yes (early onset) Hx HIV: No Additional medical history: cataracts - Surgical History Past Surgical History?: Yes Hx Pacemaker: No Hx Internal Defibrillator: No Additional Surgical History: rt hip fracture repair Oct 2016 - Social History Smoking Status: Never Smoker Substance Use Type: None - Medications Home Medications: Home Medications Medication Instructions Recorded Confirmed Last Taken Type glipiZIDE [glipiZIDE ER] 5 mg PO QAM #30 tab.er.24 02/18/17 05/09/18 1 Day Ago Rx ~05/08/18 5 Carvedilol [Coreg] 6.25 mg PO BID #60 tablet 04/06/17 05/09/18 1 Day Ago Rx ~05/08/18 6.25 Tamsulosin [Flomax] 0.4 mg PO DAILY 09/18/17 05/09/18 1 Day Ago History ~05/08/18 0.4 Blood Sugar Diagnostic [Test 1 each PRN #1 box 11/04/17 05/09/18 1 Day Ago Rx Strips] ~05/08/18 cephALEXin [Keflex] 500 mg PO Q6HR #20 capsule 05/11/18 Unknown Rx ED Physical Exam - General Limitations: No Limitations - Other Other exam information: General: No limitations, patient is alert in no acute distress Head exam: Atraumatic, normocephalic Eyes exam: Normal appearance ENT: Moist mucous membrane, hard of hearing Neck exam: Normal inspection, full range of motion, no meningismus nontender Respiratory exam: Clear to auscultation bilateral, no wheezes, rales, crackles Cardiovascular: Normal rate and rhythm, normal heart sounds Abdomen: Soft, nondistended, and nontender, with normal bowel sounds, no rebound, or guarding : Indwelling Durant catheter without leakage at the meatus. Draining clear yellow urine into bag Extremity: Full range of motion normal inspection no deformity Back: Normal Inspection Neurologic: Alert Psychiatric: normal affect, normal mood Skin: Warm, dry, intact ED Course Vital Signs 05/18/18 22:03 Temperature 98.1 F Pulse Rate 78 Respiratory 16 Rate Blood Pressure 118/75 Blood Pressure 118/75 [Right] O2 Sat by Pulse 98 Oximetry ED Medical Decision Making - Lab Data Result diagrams: 05/18/18 22:43 05/18/18 22:43 Lab Results 05/18/18 05/18/18 05/18/18 Range/Units 22:43 22:43 23:46 WBC 7.2 (4.5-11.0) K/mm3 RBC 3.19 L (3.65-5.03) M/mm3 Hgb 9.9 L (11.8-15.2) gm/dl Hct 28.1 L (35.5-45.6) % MCV 88 (84-94) fl MCH 31 (28-32) pg MCHC 35 H (32-34) % RDW 13.4 (13.2-15.2) % Plt Count 219 (140-440) K/mm3 Lymph % (Auto) 24.1 (13.4-35.0) % [place] % (Auto) 8.4 H (0.0-7.3) % Eos % (Auto) 9.5 H (0.0-4.3) % Baso % (Auto) 1.0 (0.0-1.8) % Lymph # 1.7 (1.2-5.4) K/mm3 [place] # 0.6 (0.0-0.8) K/mm3 Eos # 0.7 H (0.0-0.4) K/mm3 Baso # 0.1 (0.0-0.1) K/mm3 Seg Neutrophils % 57.0 (40.0-70.0) % Seg Neutrophils # 4.1 (1.8-7.7) K/mm3 Sodium 135 L (137-145) mmol/L Potassium 4.8 (3.6-5.0) mmol/L Chloride 101.7 (98-107) mmol/L Carbon Dioxide 24 (22-30) mmol/L Anion Gap 14 mmol/L BUN 36 H (9-20) mg/dL Creatinine 1.4 (0.8-1.5) mg/dL Estimated GFR 52 ml/min BUN/Creatinine Ratio 26 % Glucose 172 H (75-100) mg/dL Calcium 8.3 L (8.4-10.2) mg/dL Urine Color Yellow (Yellow) Urine Turbidity Hazy (Clear) Urine pH 5.0 (5.0-7.0) Ur Specific [place] 1.011 (1.003-1.030) Urine Protein <15 mg/dl (Negative) mg/dL Urine Glucose (UA) Neg (Negative) mg/dL Urine Ketones Neg (Negative) mg/dL Urine Blood Mod (Negative) Urine Nitrite Neg (Negative) Urine Bilirubin Neg (Negative) Urine Urobilinogen < 2.0 (<2.0) mg/dL Ur Leukocyte Esterase Sm (Negative) Urine WBC (Auto) 17.0 H (0.0-6.0) /HPF Urine RBC (Auto) 68.0 (0.0-6.0) /HPF U Epithel Cells (Auto) < 1.0 (0-13.0) /HPF Urine Mucus Few /HPF - Medical Decision Making durant concern no abnormality noted with Durant. Draining without leakage UA reveals mild leukocytosis and mild increased wBC count but improved compared to previous. Patient should still be taking the prescribed Keflex. No signs of sepsis, fever, leukocytosis Renal function improved compared to recent admission We'll discharge back home urine culture pending - Differential Diagnosis Durant dysfunction, UTI, renal insufficiency Critical Care Time: No Critical care attestation.: If time is entered above; I have spent that time in minutes in the direct care of this critically ill patient, excluding procedure time. ED Disposition Clinical Impression: Durant catheter in place, UTI (urinary tract infection) Disposition: TO HOME OR SELFCARE Is pt being admited?: No Does the pt Need Aspirin: No Condition: Stable Instructions: Durant Catheter Placement and Care (ED), Urinary Retention in Men (ED) Additional Instructions: Continue current antibiotics until completion. Follow up with your doctor and urologist. Referrals: PRIMARY MD SABRINA [Primary Care Provider] - 3-5 Days ANJEL ALBA MD [Staff Physician] - 3-5 Days (Urology) Time of Disposition: 00:51
[2018-05-19] LABS: Bilirubin,Urine NEG (Negative); Blood,Urine MOD (Negative); Color,Urine Yellow (Yellow); Mucus,Urine FEW /HPF; Protein,Urine <15 mg/dL mg/dL (Negative); Urobilinogen,Urine < 2.0 mg/dL (<2.0)
[2018-05-19 03:44] VITALS: BP 110/72
== END 2018-05-19 03:44 | disposition home or self-care (01) ==
LOC: ED 21:55
DX: N39.0 Urinary tract infection, site not specified (principal); I13.0 Hypertensive heart and chronic kidney disease with heart failure and stage 1 through stage 4 chronic kidney disease, or unspecified chronic kidney disease; E11.22 Type 2 diabetes mellitus with diabetic chronic kidney disease; I50.9 Heart failure, unspecified; N18.3 Chronic kidney disease, stage 3 (moderate); F03.90 Unspecified dementia, unspecified severity, without behavioral disturbance, psychotic disturbance, mood disturbance, and anxiety
CPT/HCPCS: 36415; 80048; 81001; 85025; 87086; 99283

== ENCOUNTER 2018-06-03 15:55 | Emergency (ER) | payer MEDICARE ==
--- NOTE | 2018-06-03 16:51 | Emergency Department Report ---
ED Male HPI - General Chief complaint: Abdominal Pain Stated complaint: TIP OF PENIS BURNING Time Seen by Provider: 06/03/18 16:42 Source: EMS Mode of arrival: Stretcher Limitations: Altered Mental Status, Physical Limitation - History of Present Illness Initial comments: 57 yo M w/ indwelling Booker reports pain to Booker insertion site at urethra x 3 days. Complaint: other (urethral pain) -: days(s) (3) Location: penis Radiation: none Severity: mild Consistency: constant Improves with: none Worsens with: none - Related Data Home Medications Medication Instructions Recorded Confirmed Last Taken Tamsulosin [Flomax] 0.4 mg PO DAILY 09/18/17 05/09/18 1 Day Ago ~05/08/18 0.4 Previous Rx's Medication Instructions Recorded Last Taken Type glipiZIDE [glipiZIDE ER] 5 mg PO QAM #30 tab.er.24 02/18/17 1 Day Ago Rx ~05/08/18 5 Carvedilol [Coreg] 6.25 mg PO BID #60 tablet 04/06/17 1 Day Ago Rx ~05/08/18 6.25 Blood Sugar Diagnostic [Test 1 each PRN #1 box 11/04/17 1 Day Ago Rx Strips] ~05/08/18 cephALEXin [Keflex] 500 mg PO Q6HR #20 capsule 05/11/18 Unknown Rx Ciprofloxacin HCl [Cipro] 500 mg PO BID #20 tablet 06/03/18 Unknown Rx Allergies Allergy/AdvReac Type Severity Reaction Status Date / Time No Known Allergies Allergy Verified 10/07/17 18:39 ED Review of Systems ROS: Stated complaint: TIP OF PENIS BURNING Other details as noted in HPI Comment: Limited due to mental status Gastrointestinal: denies: abdominal pain, vomiting Genitourinary: other (penile pain) ED Past Medical Hx - Past Medical History Previous Medical History?: Yes Hx Hypertension: Yes Hx Congestive Heart Failure: Yes Hx Diabetes: Yes Hx Renal Disease: Yes (CKD stage three) Hx Asthma: No Hx COPD: No Hx Dementia: Yes (early onset) Hx HIV: No Additional medical history: cataracts - Surgical History Past Surgical History?: Yes Hx Pacemaker: No Hx Internal Defibrillator: No Additional Surgical History: rt hip fracture repair Oct 2016 - Social History Smoking Status: Never Smoker Substance Use Type: None - Medications Home Medications: Home Medications Medication Instructions Recorded Confirmed Last Taken Type glipiZIDE [glipiZIDE ER] 5 mg PO QAM #30 tab.er.24 02/18/17 05/09/18 1 Day Ago Rx ~05/08/18 5 Carvedilol [Coreg] 6.25 mg PO BID #60 tablet 04/06/17 05/09/18 1 Day Ago Rx ~05/08/18 6.25 Tamsulosin [Flomax] 0.4 mg PO DAILY 09/18/17 05/09/18 1 Day Ago History ~05/08/18 0.4 Blood Sugar Diagnostic [Test 1 each PRN #1 box 11/04/17 05/09/18 1 Day Ago Rx Strips] ~05/08/18 cephALEXin [Keflex] 500 mg PO Q6HR #20 capsule 05/11/18 Unknown Rx Ciprofloxacin HCl [Cipro] 500 mg PO BID #20 tablet 06/03/18 Unknown Rx ED Physical Exam - General Limitations: Altered Mental Status, Physical Limitation General appearance: alert, in no apparent distress - Head Head exam: Present: atraumatic, normocephalic - Eye Eye exam: Present: normal appearance - Neck Neck exam: Present: normal inspection - Respiratory Respiratory exam: Present: normal lung sounds bilaterally. Absent: respiratory distress - Cardiovascular Cardiovascular Exam: Present: regular rate, normal rhythm - GI/Abdominal GI/Abdominal exam: Present: soft. Absent: tenderness - exam: Present: other (Booker catheter in place, no purulent discharge present) - Extremities Exam Extremities exam: Present: normal inspection, other (limited ROM) - Neurological Exam Neurological exam: Present: alert, other (answers some questions; at times pt does not cooperate with questioning) - Psychiatric Psychiatric exam: Present: normal affect ED Course Vital Signs 06/03/18 06/03/18 16:09 16:14 Temperature 98.3 F Pulse Rate 78 Respiratory 14 Rate Blood Pressure 111/71 O2 Sat by Pulse 99 99 Oximetry ED Medical Decision Making - Medical Decision Making 57-year-old male with indwelling Booker presents to ED urethral pain. UA shows UTI. Vital signs stable. Will DC home with prescription for antibiotics. - Differential Diagnosis UTI Critical care attestation.: If time is entered above; I have spent that time in minutes in the direct care of this critically ill patient, excluding procedure time. ED Disposition Clinical Impression: UTI (urinary tract infection) Disposition: DC- TO HOME OR SELFCARE Is pt being admited?: No Condition: Stable Instructions: Urinary Tract Infection in Men (ED) Additional Instructions: Follow up with your PCP in 3-5 days. Prescriptions: Ciprofloxacin HCl [Cipro] 500 mg PO BID #20 tablet Time of Disposition: 17:50
[2018-06-03 17:00] LABS: Bacteria,Urine 4+ /HPF (Negative); Bilirubin,Urine NEG (Negative); Blood,Urine SM (Negative); Color,Urine Yellow (Yellow); Mucus,Urine FEW /HPF; Sperm,Urine 1+ /HPF (NP)
[2018-06-03 17:02] LABS: WBC,Urine > 182.0 /HPF (0.0-6.0)
[2018-06-03 18:11] VITALS: BP 126/68
== END 2018-06-03 19:16 | disposition home or self-care (01) ==
LOC: ED 15:55
DX: N39.0 Urinary tract infection, site not specified (principal); E11.22 Type 2 diabetes mellitus with diabetic chronic kidney disease; I13.0 Hypertensive heart and chronic kidney disease with heart failure and stage 1 through stage 4 chronic kidney disease, or unspecified chronic kidney disease; N18.3 Chronic kidney disease, stage 3 (moderate); I50.9 Heart failure, unspecified; F03.90 Unspecified dementia, unspecified severity, without behavioral disturbance, psychotic disturbance, mood disturbance, and anxiety
CPT/HCPCS: 51702; 81001

== ENCOUNTER 2018-07-09 15:35 | Emergency (ER) | payer MEDICARE ==
--- NOTE | 2018-07-09 16:28 | Emergency Department Report ---
ED Male HPI - General Chief complaint: Urogenital-Male Stated complaint: DURANT/CATHETER CAME OUT Time Seen by Provider: 07/09/18 16:24 Source: EMS Mode of arrival: Stretcher Limitations: No Limitations, Other - History of Present Illness Initial comments: A 57-year-old male that presents emergency room with complaints of Durant leaking. Patient had catheter due to urinary retention and leg bag started leaking. Patient states she was on the way to his urologist and EMS brought him here to have his Durant evaluated.. Patient denies any pain. Patient denies Patient states he was on his way to his urologist to have his Durant examined and possibly taken out. Patient would like his Durant replaced and he will make an appointment with his urologist. Patient denies fever. Patient denies dysuria. Patient denies chest pain shortness of breath. Patient denies nausea vomiting. Patient denies abdominal pain -: Sudden Location: penis Radiation: none Consistency: constant Improves with: none Worsens with: none urinary retention, incontinence. denies: discharge, swelling, mass, rash, blood in urine, dysuria, fever, nausea/vomiting, other - Related Data Home Medications Medication Instructions Recorded Confirmed Last Taken Tamsulosin [Flomax] 0.4 mg PO DAILY 09/18/17 07/02/18 1 Day Ago ~05/08/18 0.4 Previous Rx's Medication Instructions Recorded Last Taken Type glipiZIDE [glipiZIDE ER] 5 mg PO QAM #30 tab.er.24 02/18/17 1 Day Ago Rx ~05/08/18 5 Carvedilol [Coreg] 6.25 mg PO BID #60 tablet 04/06/17 1 Day Ago Rx ~05/08/18 6.25 traMADol [Ultram 50 MG tab] 50 mg PO Q4HR PRN #10 tablet 07/02/18 Unknown Rx Acetaminophen [Acetaminophen TAB] 650 mg PO Q4H PRN #15 tablet 07/07/18 Unknown Rx Bisacodyl [Dulcolax suppos] 10 mg [place] QDAY PRN #4 supp.rect 07/07/18 Unknown Rx Ciprofloxacin HCl [Ciprofloxacin 250 mg PO BID #14 tablet 07/07/18 Unknown Rx TAB] Lactulose [Cephulac] 26.67 gm PO Q24HR PRN #30 oral.liqd 07/07/18 Unknown Rx Allergies Allergy/AdvReac Type Severity Reaction Status Date / Time No Known Allergies Allergy Verified 10/07/17 18:39 ED Review of Systems ROS: Stated complaint: DURANT/CATHETER CAME OUT Other details as noted in HPI Constitutional: denies: chills, fever Eyes: denies: eye pain, eye discharge, vision change ENT: denies: ear pain, throat pain Respiratory: denies: cough, shortness of breath, wheezing Cardiovascular: denies: chest pain, palpitations Endocrine: no symptoms reported Gastrointestinal: denies: abdominal pain, nausea, diarrhea Genitourinary: denies: urgency, dysuria Musculoskeletal: denies: back pain, joint swelling, arthralgia Skin: denies: rash, lesions Neurological: denies: headache, weakness, paresthesias Psychiatric: denies: anxiety, depression Hematological/Lymphatic: denies: easy bleeding, easy bruising ED Past Medical Hx - Past Medical History Previous Medical History?: Yes Hx Hypertension: Yes Hx Congestive Heart Failure: Yes Hx Diabetes: Yes Hx Renal Disease: Yes (CKD stage three) Hx Asthma: No Hx COPD: Yes Hx Dementia: Yes (early onset) Hx HIV: No Additional medical history: cataracts - Surgical History Past Surgical History?: Yes Hx Pacemaker: No Hx Internal Defibrillator: No Additional Surgical History: rt hip fracture repair Oct 2016 - Family History Family history: no significant - Social History Smoking Status: Current Every Day Smoker Substance Use Type: None - Medications Home Medications: Home Medications Medication Instructions Recorded Confirmed Last Taken Type glipiZIDE [glipiZIDE ER] 5 mg PO QAM #30 tab.er.24 02/18/17 07/02/18 1 Day Ago Rx ~05/08/18 5 Carvedilol [Coreg] 6.25 mg PO BID #60 tablet 04/06/17 07/02/18 1 Day Ago Rx ~05/08/18 6.25 Tamsulosin [Flomax] 0.4 mg PO DAILY 09/18/17 07/02/18 1 Day Ago History ~05/08/18 0.4 traMADol [Ultram 50 MG tab] 50 mg PO Q4HR PRN #10 tablet 07/02/18 Unknown Rx Acetaminophen [Acetaminophen TAB] 650 mg PO Q4H PRN #15 tablet 07/07/18 Unknown Rx Bisacodyl [Dulcolax suppos] 10 mg [place] QDAY PRN #4 supp.rect 07/07/18 Unknown Rx Ciprofloxacin HCl [Ciprofloxacin 250 mg PO BID #14 tablet 07/07/18 Unknown Rx TAB] Lactulose [Cephulac] 26.67 gm PO Q24HR PRN #30 oral.liqd 07/07/18 Unknown Rx ED Physical Exam - General Limitations: Physical Limitation, Other General appearance: alert, in no apparent distress - Head Head exam: Present: atraumatic, normocephalic - Eye Eye exam: Present: normal appearance - ENT ENT exam: Present: mucous membranes moist - Neck Neck exam: Present: normal inspection - Respiratory Respiratory exam: Present: normal lung sounds bilaterally. Absent: respiratory distress - Cardiovascular Cardiovascular Exam: Present: regular rate, normal rhythm. Absent: systolic murmur, diastolic murmur, rubs, gallop - GI/Abdominal GI/Abdominal exam: Present: soft, normal bowel sounds - Rectal Rectal exam: Present: deferred - exam: Present: normal inspection, other (catheter in place. Bag leaking.) - Extremities Exam Extremities exam: Present: normal inspection - Back Exam Back exam: Present: normal inspection - Neurological Exam Neurological exam: Present: alert, oriented X3 - Psychiatric Psychiatric exam: Present: normal affect, normal mood - Skin Skin exam: Present: warm, dry, intact, normal color. Absent: rash ED Course Vital Signs 07/09/18 07/09/18 15:58 17:14 Temperature 98.7 F 98.4 F Pulse Rate 91 H 89 Respiratory 17 Rate Blood Pressure 130/85 Blood Pressure 150/92 [Left] O2 Sat by Pulse 97 99 Oximetry - Reevaluation(s) Reevaluation #1: Patient's Durant is intact and in place. We'll change patient's leg bag and discharged home. Instructed to follow with primary care and urologist. Patient instructed that the urologist's in charge of managing the Durant and went discontinue the Durant 07/09/18 16:27 ED Medical Decision Making - Medical Decision Making She is a 57-year-old male who presents emergency room with complaints of Durant catheter leaking. Patient had his Durant leg bag has been replaced. durant fully patent and no notable leaks.. Patient is stable for discharge. Patient given discharge instruction. Patient given return to ER instructions. Patient voiced understanding. Patient will be transported back to his residence. Patient instructed to follow-up with his urologist as soon as possible. - Differential Diagnosis urinary retention. Durant catheter. Chronic indwelling catheter. Durant Critical care attestation.: If time is entered above; I have spent that time in minutes in the direct care of this critically ill patient, excluding procedure time. ED Disposition Clinical Impression: Obstructive uropathy, Urinary retention Durant catheter problem Qualifiers: Encounter type: initial encounter Qualified Code(s): T83.9XXA - Unspecified complication of genitourinary prosthetic device, implant and graft, initial encounter Disposition: TO HOME OR SELFCARE Is pt being admited?: No Does the pt Need Aspirin: No Condition: Stable Instructions: Durant Catheter Insertion (ED), Urinary Leg Bag (GEN) Additional Instructions: The patient follow up with primary care in 2-3 days. Patient follow-up with urologist in 1-2 days. Patient to return to ER if condition worsens. Referrals: PRIMARY CARE, [Primary Care Provider] - 2-3 Days Time of Disposition: 18:05
[2018-07-09 18:33] VITALS: BP 150/92
== END 2018-07-09 21:00 | disposition home or self-care (01) ==
LOC: ED 15:35
DX: T83.038A Leakage of other urinary catheter, initial encounter (principal); R33.9 Retention of urine, unspecified; N13.9 Obstructive and reflux uropathy, unspecified; E11.22 Type 2 diabetes mellitus with diabetic chronic kidney disease; I13.2 Hypertensive heart and chronic kidney disease with heart failure and with stage 5 chronic kidney disease, or end stage renal disease; I50.9 Heart failure, unspecified; N18.6 End stage renal disease; F17.200 Nicotine dependence, unspecified, uncomplicated; J44.9 Chronic obstructive pulmonary disease, unspecified; F03.90 Unspecified dementia, unspecified severity, without behavioral disturbance, psychotic disturbance, mood disturbance, and anxiety; Z99.2 Dependence on renal dialysis; Z79.84 Long term (current) use of oral hypoglycemic drugs
CPT/HCPCS: 99282

== ENCOUNTER 2018-09-15 16:48 | Emergency (ER) | payer MEDICARE ==
[2018-09-15] MEDS ORDERED: COREG PO SCH (17:06)
[2018-09-15] MEDS ORDERED: SODIUM BICARBONATE PO SCH (17:06)
[2018-09-15] MEDS ORDERED: FLOMAX PO SCH (17:06)
[2018-09-15] MEDS ORDERED: BACTRIM DS PO SCH (17:06)
--- NOTE | 2018-09-15 17:11 | Emergency Department Report ---
ED General Adult HPI - General Chief complaint: Medical Clearance Stated complaint: BURNING Time Seen by Provider: 09/15/18 17:00 Source: patient, EMS (ems notes not available at time of chart dictation), RN notes reviewed, old records reviewed Mode of arrival: Stretcher Limitations: Physical Limitation, Other (patient blind, patient is a poor historian) - History of Present Illness Initial comments: This is a 57-year-old gentleman whom I have evaluated multiple times in the past. The patient was in this emergency department yesterday with a complaint of burning to the penis. Patient had an extensive workup by my colleague, including laboratory studies, urinalysis, phone consultation with nephrology. He had his antibiotics changed from ciprofloxacin to Bactrim. Patient presents today with persistent complaint of burning at the tip of his penis. This is constant, does not radiate anywhere, and does not appear to have exacerbating or relieving factors. The patient denies other complaints. He is requesting to eat dinner. He is requesting his nighttime medications. -: Gradual Location: genitals Quality: burning Consistency: constant Improves with: none Worsens with: none Associated Symptoms: denies other symptoms. denies: confusion, chest pain, cough, diaphoresis, fever/chills, headaches, loss of appetite, malaise, nausea/vomiting, rash, seizure, shortness of breath, syncope, weakness - Related Data Home Medications Medication Instructions Recorded Confirmed Last Taken Tamsulosin [Flomax] 0.4 mg PO DAILY 09/18/17 08/24/18 1 Day Ago ~05/08/18 0.4 Previous Rx's Medication Instructions Recorded Last Taken Type glipiZIDE [glipiZIDE ER] 5 mg PO QAM #30 tab.er.24 02/18/17 1 Day Ago Rx ~05/08/18 5 Carvedilol [Coreg] 6.25 mg PO BID #60 tablet 04/06/17 1 Day Ago Rx ~05/08/18 6.25 Acetaminophen [Acetaminophen TAB] 650 mg PO Q4H PRN #15 tablet 07/07/18 Unknown Rx Bisacodyl [Dulcolax suppos] 10 mg CO QDAY PRN #4 supp.rect 07/07/18 Unknown Rx Lactulose [Cephulac] 26.67 gm PO Q24HR PRN #30 oral.liqd 07/07/18 Unknown Rx Sodium Bicarbonate 325 mg PO BID #30 tab 08/26/18 Unknown Rx traMADol [Ultram 50 MG tab] 50 mg PO Q4HR PRN #20 tablet 08/26/18 Unknown Rx Sulfamethoxazole/Trimethoprim 1 each PO BID #10 tablet 09/14/18 Unknown Rx [Bactrim DS TAB] Allergies Allergy/AdvReac Type Severity Reaction Status Date / Time No Known Allergies Allergy Verified 09/14/18 14:20 ED Review of Systems ROS: Stated complaint: BURNING Other details as noted in HPI Comment: as per history of present illness ED Past Medical Hx - Past Medical History Hx Hypertension: Yes Hx Congestive Heart Failure: Yes Hx Diabetes: Yes Hx Renal Disease: Yes (CKD stage three) Hx Asthma: No Hx COPD: Yes Hx Dementia: Yes (early onset) Hx HIV: No Additional medical history: cataracts - Surgical History Hx Pacemaker: No Hx Internal Defibrillator: No Additional Surgical History: rt hip fracture repair Oct 2016 - Social History Smoking Status: Never Smoker Substance Use Type: None - Medications Home Medications: Home Medications Medication Instructions Recorded Confirmed Last Taken Type glipiZIDE [glipiZIDE ER] 5 mg PO QAM #30 tab.er.24 02/18/17 08/24/18 1 Day Ago Rx ~05/08/18 5 Carvedilol [Coreg] 6.25 mg PO BID #60 tablet 04/06/17 08/24/18 1 Day Ago Rx ~05/08/18 6.25 Tamsulosin [Flomax] 0.4 mg PO DAILY 09/18/17 08/24/18 1 Day Ago History ~05/08/18 0.4 Acetaminophen [Acetaminophen TAB] 650 mg PO Q4H PRN #15 tablet 07/07/18 08/24/18 Unknown Rx Bisacodyl [Dulcolax suppos] 10 mg CO QDAY PRN #4 supp.rect 07/07/18 08/24/18 Unknown Rx Lactulose [Cephulac] 26.67 gm PO Q24HR PRN #30 oral.liqd 07/07/18 08/24/18 Unknown Rx Sodium Bicarbonate 325 mg PO BID #30 tab 08/26/18 Unknown Rx traMADol [Ultram 50 MG tab] 50 mg PO Q4HR PRN #20 tablet 08/26/18 Unknown Rx Sulfamethoxazole/Trimethoprim 1 each PO BID #10 tablet 09/14/18 Unknown Rx [Bactrim DS TAB] ED Physical Exam - General Limitations: Physical Limitation General appearance: alert, in no apparent distress - Head Head exam: Present: atraumatic, normocephalic - Eye Eye exam: Present: normal appearance, EOMI - ENT ENT exam: Present: normal exam, normal orophraynx, mucous membranes moist, normal external ear exam - Neck Neck exam: Present: normal inspection, full ROM. Absent: tenderness, meningismus - Respiratory Respiratory exam: Present: normal lung sounds bilaterally. Absent: respiratory distress - Cardiovascular Cardiovascular Exam: Present: regular rate, normal rhythm, normal heart sounds. Absent: bradycardia, tachycardia, irregular rhythm, systolic murmur, diastolic murmur, rubs, gallop - GI/Abdominal GI/Abdominal exam: Present: soft. Absent: distended, tenderness, guarding, rebound, rigid, pulsatile mass - Rectal Rectal exam: Present: deferred - exam: Present: normal inspection, other (there is no testicular tenderness. There is no testicular swelling. There is normal testicular lie bilaterally. There is a Booker catheter in place draining clear yellow urine.) External exam: Present: normal external exam - Extremities Exam Extremities exam: Present: normal inspection, other (there is no long bony tenderness. Muscular compartment soft. There is no palpable cord. Pelvis is stable. 2+ pulses in the upper, lower extremities bilaterally). Absent: calf tenderness - Back Exam Back exam: Present: normal inspection, full ROM. Absent: tenderness, CVA tenderness (R), paraspinal tenderness, vertebral tenderness - Neurological Exam Neurological exam: Present: alert, other (moving the bilateral upper extremities. Alert to name. Answers questions appropriately. No obvious facial droop) - Psychiatric Psychiatric exam: Present: normal affect, normal mood - Skin Skin exam: Present: warm, dry, intact, normal color. Absent: rash ED Medical Decision Making - Lab Data Vital Signs 09/15/18 17:00 Temperature 98.7 F Pulse Rate 89 Respiratory 20 Rate Blood Pressure 126/83 O2 Sat by Pulse 98 Oximetry - Medical Decision Making Differential diagnosis, including but not limited to: Chronic penile pain secondary to chronic Booker catheter Assessment: 57-year-old gentleman with chronic penile pain in the context of chronic Booker catheter. It has been explained to this patient multiple times, by myself, and by other providers, and the Booker catheter cannot be discontinued without clearance by her urologist specialist. The patient is afebrile with reassuring vital signs in the emergency room today, and has an unremarkable physical examination. Furthermore, he had a very thorough and complete evaluation in this emergency room within the past 24 hours. This patient does not appear to have an objective medical emergency or emergent medical condition at this time, he will be given his nighttime doses of medications, and he is medically suitable for discharge at this point time. Critical care attestation.: If time is entered above; I have spent that time in minutes in the direct care of this critically ill patient, excluding procedure time. ED Disposition Clinical Impression: Booker catheter in place Disposition: TO HOME OR SELFCARE Is pt being admited?: No Does the pt Need Aspirin: No Condition: Stable Instructions: Booker Catheter Placement and Care (ED) Additional Instructions: Continue outpatient medications. Follow up with her primary care doctor or urologist within the next 2 weeks. Return to the ER right away with lethargy, irritability, projectile vomiting, change in mental status, confusion, inability to speak, inability to breathe. Referrals: PRIMARY MD SABRINA [Primary Care Provider] - 3-5 Days ANJEL ALBA MD [Staff Physician] - 3-5 Days
[2018-09-16 01:27] VITALS: BP 123/85
== END 2018-09-16 01:26 | disposition home or self-care (01) ==
LOC: ED 16:48
DX: N48.89 Other specified disorders of penis (principal); I13.0 Hypertensive heart and chronic kidney disease with heart failure and stage 1 through stage 4 chronic kidney disease, or unspecified chronic kidney disease; E11.22 Type 2 diabetes mellitus with diabetic chronic kidney disease; N18.3 Chronic kidney disease, stage 3 (moderate); I50.9 Heart failure, unspecified; J44.9 Chronic obstructive pulmonary disease, unspecified; F03.90 Unspecified dementia, unspecified severity, without behavioral disturbance, psychotic disturbance, mood disturbance, and anxiety
CPT/HCPCS: 99283

== ENCOUNTER 2018-09-16 17:59 | Emergency (ER) | payer MEDICARE ==
[2018-09-16] MEDS ORDERED: NACL 0.9% 500 ML 500 ML IV ONE (18:52)
--- NOTE | 2018-09-16 18:52 | Emergency Department Report ---
ED General Adult HPI - General Chief complaint: Hyperglycemia Stated complaint: HEADACHE/PAIN Time Seen by Provider: 09/16/18 18:45 Source: patient, EMS (ems notes not available at time of chart dictation), RN notes reviewed, old records reviewed Mode of arrival: Wheelchair Limitations: Physical Limitation, Other (patient is a poor historian. Patient is blind.) - History of Present Illness Initial comments: This is a 57-year-old male. I have evaluated the patient recently. I evaluated him yesterday. He was seen the day before by another one of my colleagues. The patient comes in today with a complaint of high blood sugar, and low blood press ure. Patient also complains of chronic penile pain. Patient was observed in the ER 4 hours last night without clinical decompensation. The patient indicates his symptoms have no exacerbating or relieving factors. Initially was tachycardic and hypotensive in triage, currently has a blood pressure of 97, and a heart rate of 102 bpm, and this is consistent with patient's prior presentations in the past. The patient was quite agitated that he was not admitted. -: Gradual Consistency: intermittent Improves with: none Worsens with: none Associated Symptoms: loss of appetite, malaise, weakness. denies: confusion, chest pain, cough, diaphoresis, fever/chills, headaches, nausea/vomiting, rash, seizure, shortness of breath, syncope - Related Data Home Medications Medication Instructions Recorded Confirmed Last Taken Tamsulosin [Flomax] 0.4 mg PO DAILY 09/18/17 09/16/18 1 Day Ago ~05/08/18 0.4 Previous Rx's Medication Instructions Recorded Last Taken Type glipiZIDE [glipiZIDE ER] 5 mg PO QAM #30 tab.er.24 02/18/17 1 Day Ago Rx ~05/08/18 5 Carvedilol [Coreg] 6.25 mg PO BID #60 tablet 04/06/17 1 Day Ago Rx ~05/08/18 6.25 Acetaminophen [Acetaminophen TAB] 650 mg PO Q4H PRN #15 tablet 07/07/18 Unknown Rx Bisacodyl [Dulcolax suppos] 10 mg CO QDAY PRN #4 supp.rect 07/07/18 Unknown Rx Lactulose [Cephulac] 26.67 gm PO Q24HR PRN #30 oral.liqd 07/07/18 Unknown Rx Sodium Bicarbonate 325 mg PO BID #30 tab 08/26/18 Unknown Rx traMADol [Ultram 50 MG tab] 50 mg PO Q4HR PRN #20 tablet 08/26/18 Unknown Rx Sulfamethoxazole/Trimethoprim 1 each PO BID #10 tablet 09/14/18 Unknown Rx [Bactrim DS TAB] Allergies Allergy/AdvReac Type Severity Reaction Status Date / Time No Known Allergies Allergy Verified 09/16/18 18:25 ED Review of Systems ROS: Stated complaint: HEADACHE/PAIN Other details as noted in HPI Constitutional: malaise. denies: fever Eyes: denies: eye discharge Respiratory: denies: wheezing Cardiovascular: denies: chest pain Genitourinary: other (chronic penile pain, neither new, worsened or different) Neurological: weakness ED Past Medical Hx - Past Medical History Hx Hypertension: Yes Hx Congestive Heart Failure: Yes Hx Diabetes: Yes Hx Renal Disease: Yes (CKD stage three) Hx Asthma: No Hx COPD: Yes Hx Dementia: Yes (early onset) Hx HIV: No Additional medical history: cataracts - Surgical History Hx Pacemaker: No Hx Internal Defibrillator: No Additional Surgical History: rt hip fracture repair Oct 2016 - Social History Smoking Status: Current Some Day Smoker - Medications Home Medications: Home Medications Medication Instructions Recorded Confirmed Last Taken Type glipiZIDE [glipiZIDE ER] 5 mg PO QAM #30 tab.er.24 02/18/17 09/16/18 1 Day Ago Rx ~05/08/18 5 Carvedilol [Coreg] 6.25 mg PO BID #60 tablet 04/06/17 09/16/18 1 Day Ago Rx ~05/08/18 6.25 Tamsulosin [Flomax] 0.4 mg PO DAILY 09/18/17 09/16/18 1 Day Ago History ~05/08/18 0.4 Acetaminophen [Acetaminophen TAB] 650 mg PO Q4H PRN #15 tablet 07/07/18 09/16/18 Unknown Rx Bisacodyl [Dulcolax suppos] 10 mg CO QDAY PRN #4 supp.rect 07/07/18 09/16/18 Unknown Rx Lactulose [Cephulac] 26.67 gm PO Q24HR PRN #30 oral.liqd 07/07/18 09/16/18 Unknown Rx Sodium Bicarbonate 325 mg PO BID #30 tab 08/26/18 09/16/18 Unknown Rx traMADol [Ultram 50 MG tab] 50 mg PO Q4HR PRN #20 tablet 08/26/18 09/16/18 Unknown Rx Sulfamethoxazole/Trimethoprim 1 each PO BID #10 tablet 09/14/18 09/16/18 Unknown Rx [Bactrim DS TAB] ED Physical Exam - General Limitations: Other (patient is a poor historian. The patient is blind.) General appearance: alert, in no apparent distress - Head Head exam: Present: atraumatic, normocephalic - Eye Eye exam: Present: normal appearance. Absent: nystagmus - ENT ENT exam: Present: normal exam, normal orophraynx, normal external ear exam - Neck Neck exam: Present: normal inspection, full ROM. Absent: tenderness, meningismus - Respiratory Respiratory exam: Present: normal lung sounds bilaterally. Absent: respiratory distress, wheezes, rales, stridor, chest wall tenderness - Cardiovascular Cardiovascular Exam: Present: tachycardia, normal heart sounds. Absent: irregular rhythm - GI/Abdominal GI/Abdominal exam: Present: soft. Absent: distended, tenderness, guarding, rebound, rigid, pulsatile mass - exam: Present: normal inspection, other (Booker catheter in place draining clear yellow urine. There is no penile tenderness. There is no testicular tenderness. Patient's physical examination unchanged from yesterday) External exam: Present: normal external exam - Extremities Exam Extremities exam: Present: normal inspection, other (2+ pulses noted in the bilateral upper, lower extremities. Compartments soft. No long bony t enderness. The pelvis is stable.). Absent: calf tenderness - Back Exam Back exam: Present: normal inspection. Absent: tenderness, CVA tenderness (R), paraspinal tenderness, vertebral tenderness - Neurological Exam Neurological exam: Present: other (awake. Follows commands. Moving bilateral upper extremities. No obvious facial droop.) - Psychiatric Psychiatric exam: Present: agitated, flat affect - Skin Skin exam: Present: warm, dry, intact ED Course Vital Signs 09/16/18 09/16/18 18:25 19:20 Temperature 98.7 F Pulse Rate 130 H 104 H Respiratory 22 16 Rate Blood Pressure 61/33 Blood Pressure 109/77 [Left] O2 Sat by Pulse 98 96 Oximetry - Reevaluation(s) Reevaluation #1: 09/16/18 19:21 Differential diagnosis, including the not limited to: Hyperglycemia, chronic penile pain resolved hypotension Assessment and plan: 57-year-old gentleman who is complaining about some chronic penile pain, resolved hypotension, and blood sugar in the 240s, to 50s. This is the patient's third visit to this emergency room in the past 3 days. Patient has had multiple visits in the past month. The patient is currently afebrile, tachycardia resolving, blood pressure improving back to baseline, and he is resting currently in a stretcher. His physical examination is otherwise benign, unchanged from prior, and he appears to be quite comfortable. Patient may be desirous of admission for secondary gain, however at this point in time, pending screening laboratory studies and assuming resolution of abnormal vital signs, I would consider the patient medically suitable for discharge. Reevaluation #2: 09/16/18 19:58 Laboratory studies reviewed and are unremarkable. There appeared to be at baseline. Renal insufficiency slightly worsened than prior. Hyperglycemia reviewed and appreciated, does not require emergent intervention. Blood pressure remains in the 100s, patient in no distress and resting comfortably. Reevaluation #3: 09/16/18 21:47 The patient is reevaluated by this provider multiple times while in the emergency department. He is sleeping comfortably on a stretcher and in no acute distress. Heart rate 95 bpm, blood pressure 122/78. Patient is medically suitable to be discharged with outpatient follow-up. ED Medical Decision Making - Lab Data Result diagrams: 09/16/18 19:09 09/16/18 19:09 Vital Signs 09/16/18 09/16/18 18:25 19:20 Temperature 98.7 F Pulse Rate 130 H 104 H Respiratory 22 16 Rate Blood Pressure 61/33 Blood Pressure 109/77 [Left] O2 Sat by Pulse 98 96 Oximetry Critical care attestation.: If time is entered above; I have spent that time in minutes in the direct care of this critically ill patient, excluding procedure time. ED Disposition Clinical Impression: Hyperglycemia Disposition: DC-01 TO HOME OR SELFCARE Is pt being admited?: No Does the pt Need Aspirin: No Condition: Stable Additional Instructions: Continue outpatient medications. Follow up with a primary care doctor within the next 7-10 days. Return to the ER right away with lethargy, irritability, projectile vomiting, change in mental status, confusion, inability to speak, inability to breathe, it, worsens or different symptoms. Referrals: [facility] [Provider Group] - 7-10 days
[2018-09-16 19:21] VITALS: BP 109/77
[2018-09-16 19:24] LABS: Hematocrit 30.1 % (35.5-45.6); Hemoglobin 10.1 gm/dl (11.8-15.2); Mean Corpuscular HGB Conc 34 % (32-34); Mean Corpuscular Hemoglobin 30 pg (28-32); Mean Corpuscular Volume 89 fl (84-94); Platelet Count 150 K/mm3 (140-440); Red Blood Count 3.39 M/mm3 (3.65-5.03); Red Cell Distribution Width 14.6 % (13.2-15.2)
[2018-09-16 19:39] LABS: Calcium 8.6 mg/dL (8.4-10.2)
== END 2018-09-16 22:39 | disposition home or self-care (01) ==
LOC: ED 17:59
DX: I12.9 Hypertensive chronic kidney disease with stage 1 through stage 4 chronic kidney disease, or unspecified chronic kidney disease (principal); N18.3 Chronic kidney disease, stage 3 (moderate); E11.22 Type 2 diabetes mellitus with diabetic chronic kidney disease; E11.65 Type 2 diabetes mellitus with hyperglycemia; J44.9 Chronic obstructive pulmonary disease, unspecified; F17.200 Nicotine dependence, unspecified, uncomplicated
CPT/HCPCS: 36415; 80048; 82550; 82962; 83735; 85027; 99285; J7040

== ENCOUNTER 2020-01-08 08:59 | Emergency (ER) | payer MEDICARE ==
--- NOTE | 2020-01-08 11:04 | Emergency Department Report ---
ED ENT HPI - General Chief complaint: Earache Stated complaint: LT EAR BLEEDING Time Seen by Provider: 01/08/20 10:24 Source: patient, EMS Mode of arrival: Stretcher Limitations: Other - History of Present Illness Initial comments: Patient is a 59-year-old male who is presenting with bleeding from the left ear. Patient is a poor historian and cannot say whether he placed something in the ear. There is some active bleeding prior to his arrival. Patient complains of mild pain to the left ear. States his hearing is decreased. Patient has no other complaints at this time. - Related Data Previous Rx's Medication Instructions Recorded Last Taken Type glipiZIDE [glipiZIDE ER] 5 mg PO QAM #30 tab.er.24 02/18/17 1 Day Ago Rx ~05/08/18 5 Acetaminophen [Acetaminophen TAB] 650 mg PO Q4H PRN #15 tablet 07/07/18 Unknown Rx bisacodyL [Dulcolax suppos] 10 mg [place] QDAY PRN #4 supp.rect 07/07/18 Unknown Rx Lactulose [Cephulac] 30 ml PO Q24HR PRN #300 oral.liqd 06/14/19 Unknown Rx Sodium Bicarbonate 325 mg PO BID #60 tab 06/14/19 Unknown Rx Tamsulosin [Flomax] 0.4 mg PO DAILY #30 capsule 06/14/19 Unknown Rx carvediloL [Coreg] 6.25 mg PO BID #60 tablet 06/14/19 Unknown Rx traMADoL [Ultram 50 MG tab] 50 mg PO BID PRN #60 tablet 06/14/19 Unknown Rx Neomy/Polymyx B/Hc (Otic) Soln 4 drops OTIC TID #1 bottle 01/08/20 Unknown Rx [Cortisporin (Otic) Soln] Allergies Allergy/AdvReac Type Severity Reaction Status Date / Time No Known Allergies Allergy Verified 09/16/18 18:25 ED Dental HPI - General Chief complaint: Earache Stated complaint: LT EAR BLEEDING Time Seen by Provider: 01/08/20 10:24 Source: patient, EMS Mode of arrival: Stretcher Limitations: Other - Related Data Previous Rx's Medication Instructions Recorded Last Taken Type glipiZIDE [glipiZIDE ER] 5 mg PO QAM #30 tab.er.24 02/18/17 1 Day Ago Rx ~05/08/18 5 Acetaminophen [Acetaminophen TAB] 650 mg PO Q4H PRN #15 tablet 07/07/18 Unknown Rx bisacodyL [Dulcolax suppos] 10 mg [place] QDAY PRN #4 supp.rect 07/07/18 Unknown Rx Lactulose [Cephulac] 30 ml PO Q24HR PRN #300 oral.liqd 06/14/19 Unknown Rx Sodium Bicarbonate 325 mg PO BID #60 tab 06/14/19 Unknown Rx Tamsulosin [Flomax] 0.4 mg PO DAILY #30 capsule 06/14/19 Unknown Rx carvediloL [Coreg] 6.25 mg PO BID #60 tablet 06/14/19 Unknown Rx traMADoL [Ultram 50 MG tab] 50 mg PO BID PRN #60 tablet 06/14/19 Unknown Rx Neomy/Polymyx B/Hc (Otic) Soln 4 drops OTIC TID #1 bottle 01/08/20 Unknown Rx [Cortisporin (Otic) Soln] Allergies Allergy/AdvReac Type Severity Reaction Status Date / Time No Known Allergies Allergy Verified 09/16/18 18:25 ED Review of Systems ROS: Stated complaint: LT EAR BLEEDING Other details as noted in HPI Comment: All other systems reviewed and negative ED Past Medical Hx - Past Medical History Hx Hypertension: Yes Hx Congestive Heart Failure: Yes Hx Diabetes: Yes Hx Renal Disease: Yes (CKD stage three) Hx Asthma: No Hx COPD: Yes Hx Dementia: Yes (Early onset) Hx HIV: No Additional medical history: cataracts - Surgical History Past Surgical History?: Yes Hx Pacemaker: No Hx Internal Defibrillator: No Additional Surgical History: rt hip fracture repair Oct 2016 - Social History Smoking Status: Never Smoker - Medications Home Medications: Home Medications Medication Instructions Recorded Confirmed Last Taken Type glipiZIDE [glipiZIDE ER] 5 mg PO QAM #30 tab.er.24 02/18/17 06/12/19 1 Day Ago Rx ~05/08/18 5 Acetaminophen [Acetaminophen TAB] 650 mg PO Q4H PRN #15 tablet 07/07/18 06/12/19 Unknown Rx bisacodyL [Dulcolax suppos] 10 mg [place] QDAY PRN #4 supp.rect 07/07/18 06/12/19 Unknown Rx Lactulose [Cephulac] 30 ml PO Q24HR PRN #300 oral.liqd 06/14/19 Unknown Rx Sodium Bicarbonate 325 mg PO BID #60 tab 06/14/19 Unknown Rx Tamsulosin [Flomax] 0.4 mg PO DAILY #30 capsule 06/14/19 Unknown Rx carvediloL [Coreg] 6.25 mg PO BID #60 tablet 06/14/19 Unknown Rx traMADoL [Ultram 50 MG tab] 50 mg PO BID PRN #60 tablet 06/14/19 Unknown Rx Neomy/Polymyx B/Hc (Otic) Soln 4 drops OTIC TID #1 bottle 01/08/20 Unknown Rx [Cortisporin (Otic) Soln] ED Physical Exam - General Limitations: Other General appearance: alert, in no apparent distress - Head Head exam: Present: atraumatic, normocephalic - Eye Eye exam: Present: normal appearance - ENT ENT exam: Present: mucous membranes moist - Expanded ENT Exam Expanded Ear exam: Present: normal external inspection TM/Canal exam: Erythema: Left TM (The TM is obscured with blood. There is no active bleeding coming from the ear. There is some dried blood that appears to have drip from the ear down the patient's neck. Again there is no active flowing blood however there is a good amount of blood in the ear canal.) - Neck Neck exam: Present: normal inspection - Respiratory Respiratory exam: Present: normal lung sounds bilaterally. Absent: respiratory distress, wheezes, rales, rhonchi - Cardiovascular Cardiovascular Exam: Present: regular rate, normal rhythm, normal heart sounds. Absent: systolic murmur, diastolic murmur, rubs, gallop - GI/Abdominal GI/Abdominal exam: Present: soft, normal bowel sounds. Absent: distended, tenderness, guarding - Rectal Rectal exam: Present: deferred - Extremities Exam Extremities exam: Present: normal inspection - Back Exam Back exam: Present: normal inspection - Neurological Exam Neurological exam: Present: alert, oriented X3 - Psychiatric Psychiatric exam: Present: normal affect, normal mood - Skin Skin exam: Present: warm, dry, intact, normal color. Absent: rash ED Course Vital Signs 01/08/20 01/08/20 01/08/20 09:01 09:31 10:00 Temperature 98.2 F Pulse Rate 100 H 99 H 92 H Respiratory 18 10 L 9 L Rate Blood Pressure 141/72 111/63 Blood Pressure 141/72 [Left] O2 Sat by Pulse 98 99 98 Oximetry 01/08/20 10:30 Temperature Pulse Rate 94 H Respiratory 11 L Rate Blood Pressure 103/54 Blood Pressure [Left] O2 Sat by Pulse 100 Oximetry - Reevaluation(s) Reevaluation #1: 01/08/20 11:04 Patient is left ear was irrigated with warm normal saline ED Medical Decision Making - Medical Decision Making Patient is ear canal was irrigated with normal saline and no foreign bodies were seen. Patient likely with a small laceration somewhere in the ear canal which was not able to be fully visualized. TM rupture is also possible. Patient will be given follow-up with ear nose and throat will be discharged home Critical care attestation.: If time is entered above; I have spent that time in minutes in the direct care of this critically ill patient, excluding procedure time. ED Disposition Clinical Impression: Ear bleeding Qualifiers: Laterality: left Qualified Code(s): H92.22 - Otorrhagia, left ear Disposition: - TO HOME OR SELFCARE Is pt being admited?: No Does the pt Need Aspirin: No Condition: Stable Additional Instructions: You likely have a small cut within your ear canal. This usually happens when you place Q-tips or dig in the ear. Please follow-up with 1 of the ENT physician listed below Prescriptions: Neomy/Polymyx B/Hc (Otic) Soln [Cortisporin (Otic) Soln] 4 drops OTIC TID #1 bottle Referrals: PRIMARY MD SABRINA [Primary Care Provider] - 3-5 Days TEX IRIZARRY MD [Staff Physician] - 3-5 Days JG GARG MD [Staff Physician] - 3-5 Days KEVAN RODRIGUEZ MD [Staff Physician] - 3-5 Days Time of Disposition: 11:37
[2020-01-08 12:53] VITALS: BP 108/068
== END 2020-01-08 12:53 | disposition home or self-care (01) ==
LOC: ED 08:59
DX: H92.22 Otorrhagia, left ear (principal); H92.02 Otalgia, left ear; E11.22 Type 2 diabetes mellitus with diabetic chronic kidney disease; I12.9 Hypertensive chronic kidney disease with stage 1 through stage 4 chronic kidney disease, or unspecified chronic kidney disease; N18.3 Chronic kidney disease, stage 3 (moderate); J44.9 Chronic obstructive pulmonary disease, unspecified; F03.90 Unspecified dementia, unspecified severity, without behavioral disturbance, psychotic disturbance, mood disturbance, and anxiety; Z98.890 Other specified postprocedural states; Z79.899 Other long term (current) drug therapy
CPT/HCPCS: 99284